=== PATIENT | male | born 1940 | race Caucasian/White ===

== ENCOUNTER 2019-06-04 08:23 | Day surgery (SDC) | payer OTHER, MEDICARE ==
[2019-06-04] MEDS ORDERED: Ringers Lactate 1,000 ML IV ONE (08:53)
[2019-06-04] MEDS ORDERED: PROPOFOL 200 MG/20 ML VIAL IV ONE (09:06)
[2019-06-04] MEDS ORDERED: FENTANYL CITR 100 MCG/2 ML ONE (09:07)
[2019-06-04] MEDS ORDERED: LIDOCAINE 2% MPF 5 ML VIAL ONE (09:08)
[2019-06-04] MEDS ORDERED: ONDANSETRON 4 MG/2 ML VIAL ONE (09:22)
[2019-06-04 09:47] LABS: Potassium 3.8 mmol/L (3.5-5.1)
[2019-06-04] MEDS: LIDOCAINE 1% W/EPI 1:100,000 MDV 20 ML VIAL ONE ×2 (09:57→10:00)
[2019-06-04] MEDS ORDERED: GLYCOPYRROLATE 0.2 MG/ML SYR ONE ×2 (10:05→10:44)
[2019-06-04] MEDS ORDERED: EPHEDRINE SULF 50 MG/ML VIAL ONE (10:09)
[2019-06-04 13:21] VITALS: BP 155/60; TEMP 97; O2SAT 99
--- NOTE | 2019-06-15 03:51 | OP ---
Date of Procedure: 06/04/2019 Surgeon: Lindy Rodrigues MD Preoperative Diagnosis: Atypical intradermal melanocytic proliferation, favor melanoma in situ. Postoperative Diagnosis: Pathology pending. Procedure: Excision partial external ear and substitute skin graft to the left ear, less than 100 sq cm. Indication For Procedure: Mr. 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 At that time, he was noted to have a pigmented lesion within the left debbie and a pun ch biopsy was performed demonstrating atypical intradermal melanocytic proliferation with concern for melanoma in situ. The risks, benefits, and alternatives were carefully considered with the patient' s in light of his significant underlying dementia. Due to concern for melanoma in situ with freedom bility to rule out invasive melanoma, the decision was made to proceed with the procedure. The patie nt also was noted to have diffuse chronic skin condition with overall poor skin quality of the extrem ities, trunk, arms, and neck. Description Of Procedure In Detail: The patient was brought to the operating room. He was placed un vishal general anesthesia. The patient's neck, ear, and face were prepped with Betadine and draped in a sterile fashion. An incision was made through the skin and cartilage of the debbie with approximate ly 5 mm margin of normal-appearing skin from the edges of the pigmented regions circumferentially. F ull-thickness skin is divided and the conchal cartilage was likewise incised. The cartilage was care fully elevated off the posterior conchal skin and marked with a suture indicating 12 o'clock, which c oincided with the mid portion of the root of the helix. Due to concern for melanocytic disease, the specimen was sent for permanent section only. A dermal skin graft substitute was selected and cut to appropriate size for the defect, which was approximately 2 to 2.5 cm. The skin was positioned and s ecured in a 4-point fashion using silk sutures. The remaining edges of the skin were secured using a chromic suture. A bolster was then formed from Xeroform and was packed into the debbie to ensure go od adherence of the skin graft substitute to the recipient site. The bolster was secured using the p reviously placed silk sutures. The surrounding area was cleaned and dried, and the patient was retur inocente to care of Anesthesia for awakening and extubation, which proceeded without complication. Disposition: Patient will be discharged home later today in the care of his family and follow up lory Rodrigues in 10 days for removal of the bolster and evaluation for healing. Rc Bobo, the [facility] sales representative health insurance, is notified of patient's scheduled followup and will plan to proceed. JOE Voice ID: [id number] Report ID: [id number]
== END 2019-06-04 12:30 | disposition home or self-care (01) ==
LOC: OR 08:23
PROVIDERS: ATTEND Otolaryngology
PROC: 0HR Skin and Breast, Replacement (ICD-10-PCS; principal; 2019-06-04 09:45)
DX: C44.219 Basal cell carcinoma of skin of left ear and external auricular canal (principal); G47.33 Obstructive sleep apnea (adult) (pediatric); I48.91 Unspecified atrial fibrillation; K21.9 Gastro-esophageal reflux disease without esophagitis; G30.9 Alzheimer's disease, unspecified; F02.80 Dementia in other diseases classified elsewhere, unspecified severity, without behavioral disturbance, psychotic disturbance, mood disturbance, and anxiety; Z95.1 Presence of aortocoronary bypass graft; Z95.2 Presence of prosthetic heart valve; Z86.73 Personal history of transient ischemic attack (TIA), and cerebral infarction without residual deficits; Z87.891 Personal history of nicotine dependence; Z88.2 Allergy status to sulfonamides
CPT/HCPCS: 11643; 15275; 80048; 36415; 88305; J2704; J3010; J2405

== ENCOUNTER 2021-01-20 06:15 | Inpatient (IN) | payer OTHER, MEDICARE ==
[2021-01-20] MEDS ORDERED: LEVALBUTEROL 1.25 MG/3 ML NEB ONE (07:36)
[2021-01-20] MEDS ORDERED: IPRATROPIUM BROM 0.5MG/2.5ML ONE (07:36)
[2021-01-20] MEDS ORDERED: NA CHLORIDE 0.9% 1,000 ML ONE (07:36)
[2021-01-20] MEDS ORDERED: ACETAMINOPHEN 325 MG TABLET ONE (07:36)
[2021-01-20] MEDS ORDERED: PIPER/TAZO/NS 3.375gm 3.375 GM/100 ML BAG ONE (07:36)
[2021-01-20 07:58] LABS: Absolute Lymphocytes (CBC) 0.3 K/uL (0.7-4.9); Basophils % 0.4 % (0-1.3); Lymphocytes % 2.5 % (15.3-44.8); MPV 10.6 fL (7.6-11.3); RBC Red Blood Cell Count 4.02 M/uL (4.33-5.43)
[2021-01-20 07:59] LABS: Protime INR 1.17
--- NOTE | 2021-01-20 08:00 | RAD REPORT ---
EXAM DESCRIPTION: Pedro Luis Single View01/20/2021 7:17 am CLINICAL HISTORY: Cough COMPARISON: 2017 FINDINGS: Mild bilateral lung opacities appear chronic The lungs appear clear of acute infiltrate. The heart is moderately enlarged. Postsurgical changes i nvolve the chest IMPRESSION: No acute abnormalities displayed
--- NOTE | 2021-01-20 08:08 | EDPHYS ---
Physician Documentation [facility] Name: Bridger Murillo Age: 80 yrs Sex: Male : 1940 Arrival Date: 01/20/2021 Time: 06:23 Bed 8 Private MD: ARABELLA Physician Malachi Napoles HPI: 01/20 06:52 This 80 yrs old Male presents to ER via Wheelchair with complaints of Cough, danii Fever, Congestion. 06:52 The patient or guardian reports cough, difficulty breathing. Onset: The danii symptoms/episode began/occurred 2 day(s) ago. Severity of symptoms: At their worst the symptoms were mild, in the emergency department the symptoms are actually worse. Modifying factors: The symptoms are alleviated by nothing. The patient has not experienced similar symptoms in the past. Historical: - Allergies: 06:45 Nemenda; ea 06:45 Sulfa (Sulfonamide Antibiotics); ea - PMHx: 06:45 skin cancer; Non stemi CT; Hypertension; Kidney stones; Hyperlipidemia; CVA; BPH; CAD; ea Bladder cancer; barretts; Atrial Fib; aortic valve disease; Anemia; Alzheimer's; - PSHx: 06:45 removal skin cancer; cysto for bladder cancer; Lithotripsy; cysto with basket extration ea for kidney stones; cardiac stent; colon resection with colostomy; aortic valve replacement; quadruple bypass; CABG; - Immunization history:: Adult Immunizations up to date. - Social history:: Smoking status: unknown. ROS: 06:53 Eyes: Negative for injury, pain, redness, and discharge, ENT: Negative for injury, danii pain, and discharge, Neck: Negative for injury, pain, and swelling, Cardiovascular: Negative for chest pain, palpitations, and edema, Abdomen/GI: Negative for abdominal pain, nausea, vomiting, diarrhea, and constipation, Back: Negative for injury and pain, : Negative for injury, bleeding, discharge, and swelling, MS/Extremity: Negative for injury and deformity, Skin: Negative for injury, rash, and discoloration, Neuro: Negative for headache, weakness, numbness, tingling, and seizure. 06:53 Constitutional: Positive for body aches, chills, fatigue, fever, malaise. 06:53 Respiratory: Positive for cough, shortness of breath, at rest. Exam: 06:53 Head/Face: Normocephalic, atraumatic. Eyes: Pupils equal round and reactive to light, danii extra-ocular motions intact. Lids and lashes normal. Conjunctiva and sclera are non-icteric and not injected. Cornea within normal limits. Periorbital areas with no swelling, redness, or edema. ENT: Nares patent. No nasal discharge, no septal abnormalities noted. Tympanic membranes are normal and external auditory canals are clear. Oropharynx with no redness, swelling, or masses, exudates, or evidence of obstruction, uvula midline. Mucous membranes moist. Neck: Trachea midline, no thyromegaly or masses palpated, and no cervical lymphadenopathy. Supple, full range of motion without nuchal rigidity, or vertebral point tenderness. No Meningismus. Chest/axilla: Normal chest wall appearance and motion. Nontender with no deformity. No lesions are appreciated. Cardiovascular: Regular rate and rhythm with a normal S1 and S2. No gallops, murmurs, or rubs. Normal PMI, no JVD. No pulse deficits. Back: No spinal tenderness. No costovertebral tenderness. Full range of motion. Male : Normal genitalia with no discharge or lesions. Skin: Warm, dry with normal turgor. Normal color with no rashes, no lesions, and no evidence of cellulitis. 06:53 Constitutional: The patient appears febrile. 06:53 Respiratory: the patient does not display signs of respiratory distress, Respirations: tachypnea, 22 Breath sounds: bronchial sounds, that are mild, are scattered, decreased breath sounds, that are mild, rhonchi, that are moderate, are scattered, stridor, is not appreciated. 08:15 ECG was reviewed by the Attending Physician. danii Vital Signs: 06:46 BP 141 / 70; Pulse 84; Resp 22; Pulse Ox 83% on R/A; ea 07:31 BP 155 / 62; Pulse 70; Resp 18; Temp 98.9(O); Pulse Ox 99% ; tr6 MDM: 06:48 Patient medically screened. danii 06:56 Differential diagnosis: viral Infection, bacterial infection, URI, bronchitis, danii pneumonia UTI. Differential Diagnosis: Obstructed Airway Bronchitis Influenza Upper Respiratory Infection Sinusitis Pharyngitis Pneumonia. Data reviewed: vital signs, nurses notes, lab test result(s), EKG, radiologic studies, plain films. Data interpreted: quality assurance monitor chassis: rate is 84 beats/min, rhythm is regular, Pulse oximetry: on room air is 83 %. Test interpretation: by ED physician or midlevel provider: ECG, plain radiologic studies. Counseling: I had a detailed discussion with the patient and/or guardian regarding: the historical points, exam findings, and any diagnostic results supporting the discharge/admit diagnosis, lab results, radiology results. 01/20 06:51 Order name: Basic Metabolic Panel [facility] 01/20 06:51 Order name: CBC with Diff [facility] 01/20 06:51 Order name: LFT's 01/20 06:51 Order name: Magnesium [facility] 01/20 06:51 Order name: NT PRO-BNP [facility] 01/20 06:51 Order name: PT-INR; Complete Time: 08:49 [facility] 01/20 06:51 Order name: Troponin (emerg Dept Use Only); Complete Time: 08:13 [facility] 01/20 06:51 Order name: Blood Culture Adult (2) [facility] 01/20 06:51 Order name: Lactate; Complete Time: 08:13 [facility] 01/20 06:52 Order name: Basic Metabolic Panel; Complete Time: 08:13 EDID 01/20 06:52 Order name: CBC with Automated Diff [facility] 01/20 06:52 Order name: Liver (Hepatic) Function; Complete Time: 08:13 EDID 01/20 06:51 Order name: XRAY Chest (1 view); Complete Time: 08:13 [facility] 01/20 06:51 Order name: EKG; Complete Time: 06:52 [facility] 01/20 06:51 Order name: Cardiac monitoring; Complete Time: 08:10 [facility] 01/20 06:51 Order name: EKG - Nurse/Tech; Complete Time: 08:10 [facility] 01/20 06:52 Order name: Magnesium; Complete Time: 08:13 EDID 01/20 06:52 Order name: NT PRO-BNP; Complete Time: 08:13 EDID 01/20 07:59 Order name: CBC Smear Scan [facility] 01/20 08:23 Order name: COVID-19/FLU A+B; Complete Time: 08:49 EDMS 01/20 08:50 Order name: CT Chest Wo Con danii 01/20 09:44 Order name: CT; Complete Time: 09:51 EDID 01/20 06:51 Order name: IV Saline Lock; Complete Time: 07:48 [facility] 01/20 06:51 Order name: Labs collected and sent; Complete Time: 07:48 [facility] 01/20 06:51 Order name: O2 Per Protocol; Complete Time: 07:30 [facility] 01/20 06:51 Order name: O2 Sat Monitoring danii EC:15 Rate is 70 beats/min. Rhythm is irregularly irregular. QRS [place] is Normal. SD interval danii is normal. QRS interval is normal. QT interval is normal. No Q waves. T waves are Normal. ST Segment is depressed in leads II, III, aVF, V4, V5, V6. Clinical impression: Atrial Fibrillation. Interpreted by me. Reviewed by me. Administered Medications: 08:29 Drug: Zosyn (piperacillin-tazobactam) 3.375 grams Route: IVPB; Infused Over: 60 mins; tr6 Site: right antecubital; 09:18 Follow up: IV Status: Completed infusion; IV Intake: 100ml bp 08:30 Drug: NS 0.9% 1000 ml Route: IV; Rate: 100 ml/hr; Site: right antecubital; tr6 09:14 Follow up: IV Status: Infusion continued upon transfer bp 08:49 Drug: Lasix (furosemide) 40 mg Route: IVP; Site: right antecubital; tr6 09:17 Follow up: Response: No adverse reaction bp 08:52 Drug: AtroVENT (ipratropium) Aerosol 0.5 mg Route: Inhalation; tr6 08:52 Drug: Tylenol 650 mg Route: PO; tr6 09:19 Follow up: Response: No adverse reaction bp 08:53 Drug: Xopenex (levalbuterol) 1.25 mg Route: Inhalation; tr6 Disposition: 01/20/21 08:07 Hospitalization ordered by Anshul Booker for Inpatient Admission. Preliminary diagnosis are Cough, Fever, unspecified, Hypoxemia, Lobar pneumonia, unspecified organism - left lower lobe, Atrial fibrillation and flutter, Unspecified kidney failure - acute on chronic. - Bed requested for Telemetry/MedSurg (Inpatient). - Status is Inpatient Admission. bp - Condition is Fair. - Problem is new. - Symptoms have improved. Signatures: Dispatcher [employer] EDMalachi Dover MD MD cha Martinez, Eric em1 Gabrielle Blake, RN RN ea Aaron Schultz, RN RN bp Faye Vega, RN RN tr6 Corrections: (The following items were deleted from the chart) 07:41 06:52 Influenza Screen (A \T\ B)+BA.LAB.BRZ ordered. EDMS EDMS 07:41 06:52 CORONAVIRUS+MR.LAB.BRZ ordered. EDID EDMS 08:27 08:07 Hospitalization Ordered by Anshul Booker MD for Inpatient Admission. Preliminary danii diagnosis is Cough; Fever, unspecified; Hypoxemia; Lobar pneumonia, unspecified organism - left lower lobe; Atrial fibrillation and flutter. Bed requested for Telemetry/MedSurg (Inpatient). Status is Inpatient Admission. Condition is Fair. Problem is new. Symptoms have improved. danii 08:31 08:27 01/20/2021 08:07 Hospitalization Ordered by Anshul Booker MD for Inpatient em1 Admission. Preliminary diagnosis is Cough; Fever, unspecified; Hypoxemia; Lobar pneumonia, unspecified organism - left lower lobe; Atrial fibrillation and flutter; Unspecified kidney failure - acute on chronic. Bed requested for Telemetry/MedSurg (Inpatient). Status is Inpatient Admission. Condition is Fair. Problem is new. Symptoms have improved. danii 09:57 08:31 01/20/2021 08:07 Hospitalization Ordered by Anshul Booker MD for Inpatient bp Admission. Preliminary diagnosis is Cough; Fever, unspecified; Hypoxemia; Lobar pneumonia, unspecified organism - left lower lobe; Atrial fibrillation and flutter; Unspecified kidney failure - acute on chronic. Bed requested for Telemetry/MedSurg (Inpatient). Status is Inpatient Admission. Condition is Fair. Problem is new. Symptoms have improved. em1
--- NOTE | 2021-01-20 08:08 | ER ---
Nurse's Notes [facility] Name: Bridger Murillo Age: 80 yrs Sex: Male : 1940 Arrival Date: 01/20/2021 Time: 06:23 Bed 8 Private MD: Diagnosis: Cough;Fever, unspecified;Hypoxemia;Lobar pneumonia, unspecified organism-left lower lobe;Atrial fibrillation and flutter;Unspecified kidney failure-acute on chronic Presentation: 01/20 06:41 Chief complaint: Spouse and/or significant other states: cough and fever since iw yesterday, states he went to bed and his sats were 97%, was 81% this morning. 06:41 Method Of Arrival: Wheelchair iw 06:42 Ebola Screen: No symptoms or risks identified at this time. ea 06:42 Risk Assessment: Do you want to hurt yourself or someone else? Patient reports no ea desire to harm self or others. 06:45 Initial Sepsis Screen: Does the patient meet any 2 criteria? No. Patient's initial ea sepsis screen is negative. Does the patient have a suspected source of infection? No. Patient's initial sepsis screen is negative. 06:47 Coronavirus screen: cough unrelated to allergies, fever, Client presents with at least iw one sign or symptom that may indicate coronavirus-19. 06:47 Onset of symptoms was January 19, 2021. iw 06:47 Acuity: VALENCIA 3 iw Historical: - Allergies: 06:45 Nemenda; ea 06:45 Sulfa (Sulfonamide Antibiotics); ea - PMHx: 06:45 skin cancer; Non stemi [place]; Hypertension; Kidney stones; Hyperlipidemia; CVA; BPH; CAD; ea Bladder cancer; barretts; Atrial Fib; aortic valve disease; Anemia; Alzheimer's; - PSHx: 06:45 removal skin cancer; cysto for bladder cancer; Lithotripsy; cysto with basket extration ea for kidney stones; cardiac stent; colon resection with colostomy; aortic valve replacement; quadruple bypass; CABG; - Immunization history:: Adult Immunizations up to date. - Social history:: Smoking status: unknown. Screenin:41 Abuse screen: Denies threats or abuse. Nutritional screening: No deficits noted. ea Tuberculosis screening: No symptoms or risk factors identified. Fall Risk None identified. Assessment: 06:47 General: Appears uncomfortable, Behavior is calm, cooperative, appropriate for age. ea Pain: Denies pain. Neuro: Level of Consciousness is awake, alert, obeys commands, Oriented to person, place, time. Cardiovascular: Patient's skin is warm and dry. Respiratory: Airway is patent Respiratory effort is even, labored, Respiratory pattern is tachypnea. Derm: Skin is pink, warm \T\ dry. Musculoskeletal: Circulation, motion, and sensation intact. 07:00 Reassessment: No changes from previously documented assessment. Patient and/or family bp updated on plan of care and expected duration. Pain level reassessed. RECD REPORT FROM BRITTA WALTON. 80YO WM P/W COUGH, FEVER AND CONGESTION. 08:00 Reassessment: No changes from previously documented assessment. Patient and/or family bp updated on plan of care and expected duration. Pain level reassessed. ADMIT IN PROCESS. VS STABLE. 08:49 Reassessment: No changes from previously documented assessment. Patient and/or family bp updated on plan of care and expected duration. Pain level reassessed. ADMIT ON HOLD FOR CT. 08:50 Reassessment: MD Booker at bedside. tr6 09:04 Reassessment: pt transported to CT. tr6 Vital Signs: 06:46 BP 141 / 70; Pulse 84; Resp 22; Pulse Ox 83% on R/A; ea 07:31 BP 155 / 62; Pulse 70; Resp 18; Temp 98.9(O); Pulse Ox 99% ; tr6 ED Course: 06:23 Patient arrived in ED. es 06:26 Malachi Napoles MD is Attending Physician. danii 06:42 Patient has correct armband on for positive identification. Bed in low position. Call ea light in reach. 06:42 Arm band placed on right wrist. Patient placed in an exam room, on a stretcher, on ea pulse oximetry. 06:47 Triage completed. iw 07:10 Faye Vega, RN is Primary Nurse. tr6 07:17 XRAY Chest (1 view) In Process Unspecified. EDMS 07:30 Inserted saline lock: 20 gauge in right antecubital area, using aseptic technique. bp Blood collected. 07:50 Anshul Booker MD is Hospitalizing Provider. danii 08:50 No provider procedures requiring assistance completed. tr6 Administered Medications: 08:29 Drug: Zosyn (piperacillin-tazobactam) 3.375 grams Route: IVPB; Infused Over: 60 mins; tr6 Site: right antecubital; 09:18 Follow up: IV Status: Completed infusion; IV Intake: 100ml bp 08:30 Drug: NS 0.9% 1000 ml Route: IV; Rate: 100 ml/hr; Site: right antecubital; tr6 09:14 Follow up: IV Status: Infusion continued upon transfer bp 08:49 Drug: Lasix (furosemide) 40 mg Route: IVP; Site: right antecubital; tr6 09:17 Follow up: Response: No adverse reaction bp 08:52 Drug: AtroVENT (ipratropium) Aerosol 0.5 mg Route: Inhalation; tr6 08:52 Drug: Tylenol 650 mg Route: PO; tr6 09:19 Follow up: Response: No adverse reaction bp 08:53 Drug: Xopenex (levalbuterol) 1.25 mg Route: Inhalation; tr6 Intake: 09:18 IV: 100ml; Total: 100ml. bp Outcome: 08:07 Decision to Hospitalize by Provider. danii 09:09 Admitted to Med/surg accompanied by tech, family with patient, via stretcher, with bp oxygen, with chart, Report called to RONEN WALTON 09:09 Condition: stable 09:09 Instructed on the need for admit. 09:57 Patient left the ED. bp Signatures: Dispatcher [employer] Malachi Villegas MD MD cha Salyer, Edna es Williams, Irene, RN RN iw Antunez, Elena, RN RN ea Peltier, Brian, RN RN bp Ramnanan, Tiffany, RN RN tr6
[2021-01-20 08:12] LABS: ALT/SGPT 61 U/L (12-78); AST/SGOT 58 U/L (15-37); Albumin 3.6 g/dL (3.4-5.0); Alkaline Phosphatase 80 U/L (45-117); BUN Blood Urea Nitrogen 25 mg/dL (7-18); Bicarbonate 25 mmol/L (21-32); Bilirubin Direct 0.2 mg/dL (0-0.2); Bilirubin Total 0.6 mg/dL (0.2-1.0); Glucose Level 132 mg/dL (74-106); Magnesium 2.3 mg/dL (1.8-2.4); NT PRO-BNP 4515 pg/mL (<450); Potassium 4.4 mmol/L (3.5-5.1); Sodium Level 139 mmol/L (136-145); Troponin (Emerg Dept Use Only) < 0.02 ng/mL (0.0-0.045)
[2021-01-20 08:23] LABS: SARS-COV-2 RT PCR NEGATIVE (NEGATIVE)
[2021-01-20] MEDS ORDERED: FUROSEMIDE 20 MG/ 2ML VIAL ONE (08:52)
[2021-01-20] MEDS ORDERED: MORPHINE 4 MG/ML SYR IV PRN (09:17)
[2021-01-20] MEDS ORDERED: ONDANSETRON 4 MG/2 ML VIAL IV PRN (09:17)
[2021-01-20] MEDS ORDERED: FAMOTIDINE 20 MG/2 ML VIAL IV SCH (09:17)
[2021-01-20] MEDS ORDERED: ACETAMINOPHEN 500 MG TAB PO PRN (09:17)
--- NOTE | 2021-01-20 09:44 | RAD REPORT ---
EXAM DESCRIPTION: CT - Thorax Wo Con - 01/20/2021 9:17 am CLINICAL HISTORY: Chest pain COMPARISON: January 21, 2021 chest x-ray TECHNIQUE: Computed axial tomography of the chest was obtained. Contrast was not requested. All CT scans are performed using dose optimization technique as appropriate and may include automated exposure control or mA/KV adjustment according to patient size. FINDINGS: The evaluation of mediastinum, tiburcio and vessels is limited secondary to lack of IV contras t administration. Mild to moderate bilateral lower lobe lung opacities. Cardiomegaly. Stent is present within the ascending thoracic aorta. Coronary arterial calcifications. No mediastinal or hilar lymphadenopathy is seen. A pleural effusion is not present. No pericardial effusion Cholelithiasis. 8.9 centimeter left renal cyst. Smaller right renal cyst. The most inferior slice dem onstrates probable mild right hydronephrosis. 4.1 centimeter duodenal diverticulum. High-grade stenosis left renal artery IMPRESSION: Mild to moderate lower lobe opacities may represent pneumonia or pneumonitis.
[2021-01-20 09:56] LABS: Blood Morphology Comment NOT SEEN (NOT SEEN); Platelet Estimate ADEQ; White Blood Cell Scan OK (OK)
[2021-01-20] MEDS: PIPER/TAZO/NS 3.375gm 3.375 GM/100 ML BAG IVPB SCH ×2 (14:56→18:29)
[2021-01-20] MEDS: FAMOTIDINE 20 MG/2 ML VIAL IV SCH (14:57)
[2021-01-20] MEDS ORDERED: NITROGLYCERIN 0.4 MG/TAB SL PRN (15:15)
[2021-01-20] MEDS ORDERED: DOCUSATE NA 100 MG CAP PO PRN (15:15)
[2021-01-20] MEDS ORDERED: TRAMADOL HCL 50 MG TAB PO PRN (15:15)
--- NOTE | 2021-01-20 15:24 | P.HP ---
Certification for Inpatient Patient admitted to: Inpatient With expected LOS: >2 Midnights Practitioner: I am a practitioner with admitting privileges, knowledge of patient current condition, hospital course, and medical plan of care. Services: Services provided to patient in accordance with Admission requirements found in Title 42 Section 412.3 of the Code of Federal Regulations Patient History Date of Service: 01/20/21 Reason for admission: DYSPNEA History of Present Illness: MR. PARKER IS PATIENT WITH MODERATE ALZ. DEMENTIA, A FIB, CHF AND HISTORY OF AORTIC VALVE REPLACEMENT COMES WITH DYSPNEA AND FEVER FOR ADAY. HIS X RAY DOES NOT SHOW PNEUMONIA BUT I ASKED FOR CT SCAN AND IT SHOWS BILATERAL BASILAR PNEUMONIA. HE IS ON ZOSYN AND NOT LEVAQUIN HE IS AMIODARONE FOR AFIB. Allergies memantine HCl [From Namenda] Adverse Reaction (Severe, Verified 06/04/19 09:31) tinnitus Sulfa (Sulfonamide Antibiotics) Adverse Reaction (Unknown, Verified 06/04/19 09:31) unknown/childhood reaction Nemenda Allergy (Uncoded 06/04/19 09:31) tinnitus Home medications list reviewed: Yes Home Medications: Ascorbic Acid [C-1000] 1,000 mg PO DAILY 12/12/13 Atorvastatin Calcium [Lipitor*] 20 mg PO BEDTIME 12/12/13 Cyanocobalamin (Vitamin B-12) [B-12] 1,000 mcg PO DAILY 12/12/13 Donepezil HCl [Aricept] 23 mg PO BEDTIME 12/12/13 Finasteride [Proscar*] 5 mg PO BEDTIME 12/12/13 Melatonin [Melatonin*] 3 mg PO BEDTIME 12/12/13 Niacin [Niacin ER] 500 mg PO BIDWM 12/12/13 Pantoprazole [Protonix Tab*] 40 mg PO BID 12/12/13 Tamsulosin [Flomax*] 1 cap PO BEDTIME 12/12/13 Amiodarone HCl [Cordarone*] 200 mg PO [id number] 03/15/14 Nitroglycerin [Nitrostat*] 0.4 mg SL PRN PRN 03/15/14 traMADol HCL [Ultram*] 50 mg PO Q6H PRN #0 tab 03/29/14 Furosemide [Lasix*] 20 mg PO DAILY 06/13/14 Magnesium Oxide [Magnesium] 400 mg PO BID 06/13/14 Aspirin Chewable [Aspirin Chewable*] 81 mg PO DAILY 12/01/15 Cholecalciferol (Vitamin D3) [Vitamin D3] 1,000 units PO BEDTIME 12/01/15 Losartan Potassium [Cozaar] 100 mg PO [id number] 12/01/15 Prevagen 1 pill PO DAILY 12/01/15 Amlodipine [Norvasc*] 5 mg PO DAILY 01/20/21 Citalopram Hydrobromide [Celexa] 20 mg PO DAILY 01/20/21 Coconut Oil 1 tab PO DAILY 01/20/21 Docosahexanoic AC/Epa [Fish Oil 1,000 MG*] 1,000 mg PO DAILY 01/20/21 Docusate Sodium 100 mg PO DAILY PRN 01/20/21 Levothyroxine Sodium [Levothyroxine] 50 mcg PO [id number] 01/20/21 Medium Chain Triglycerides [Mct Oil] 15 ml PO DAILY 01/20/21 Sennosides [Senna] 1 cap PO BID PRN 01/20/21 - Past Medical/Surgical History Diabetic: No -: AFIB, HTN -: AORTIC VALVE DISEASE -: CAD -: HYPERLIPIDEMIA -: HX OF STROKE -: DIVERTICULITIS -: NEPHROLITHIASIS -: BLADDED CA -: RUPTURED SIGMOID -: PULOMARY EDEMA -: LEUKOCYTOSIS -: NON-SUSTAINED VT/NSTEMI -: TAVR -: CABG X 4 -: KIDNEY STONE -: (CA/CYSTOGRAM) -: EX LAP WITH SIGMOID COLOSTOMY -: REMOVAL OF CYST ON THIGH -: i&D of abdominal wound -: cardiacstent - Family History Father -: Heart disease, Hypertension, Stroke, Cancer Mother -: Heart disease, Hypertension, Diabetes - Social History Alcohol use: No CD- Drugs: No Caffeine use: Yes Review of Systems 10-point ROS is otherwise unremarkable General: Weakness, Malaise Respiratory: Shortness of Breath Physical Examination - Vital Signs Temperature: 97 F Blood Pressure: 143/77 Pulse: 71 Respirations: 20 Pulse Ox (%): 89 - Physical Exam General: Oriented x1 (HE IS AWARE OF PEOPLE LIKE ME AND HIS , DAUGHTER ETC.), Mild distress, Confused HEENT: Atraumatic, PERRLA, Mucous membr. moist/pink, EOMI, Sclerae nonicteric Neck: Supple, 2+ carotid pulse no bruit, No LAD, Without JVD or thyroid abnormality Respiratory: Diminished Cardiovascular: Irregular heart rate/rhythm Gastrointestinal: Normal bowel sounds, No tenderness Musculoskeletal: No tenderness Integumentary: No rashes Neurological: Normal gait, Normal speech, Normal strength at 5/5 x4 extr, Normal tone, Normal affect Lymphatics: No axilla or inguinal lymphadenopathy - Studies Laboratory Data (last 24 hrs) 01/20/21 07:40: PT 13.5 H, INR 1.17 01/20/21 07:40: WBC 11.30 H, Hgb 12.1 L, Hct 38.0 L, Plt Count 172 01/20/21 07:40: Sodium 139, Potassium 4.4, BUN 25 H, Creatinine 1.76 H, Glucose 132 H, Magnesium 2.3, Total Bilirubin 0.6, AST 58 H, ALT 61, Alkaline Phosphatase 80 Assessment and Plan - Problems (Diagnosis) (1) Bacterial pneumonia Current Visit: Yes Status: Acute Plan: IV ZOSYN NEBS PRN GENTLE HYDRATION NO NEED OF STEROIDS AT THIS POINT. (2) Dehydration Current Visit: Yes Status: Acute Plan: GENTLE HYDRATION. (3) Atrial fibrillation Current Visit: No Status: Chronic (4) Dementia Current Visit: No Status: Chronic Plan: GRADUAL WORSENING. Qualifiers: Dementia type: Alzheimer's (5) Hypertension Current Visit: No Status: Acute Qualifiers: Hypertension type: essential hypertension Qualified Code(s): I10 - Essential (primary) hypertension - Advance Directives Does patient have a Living Will: Yes Does patient have a Durable POA for Healthcare: Yes
[2021-01-20] MEDS: ALBUTEROL 2.5 MG/3 ML NEB SOL NEB PRN (17:55)
[2021-01-20] MEDS: IPRATROPIUM BROM 0.5MG/2.5ML NEB PRN (17:55)
[2021-01-20] MEDS: ENOXAPARIN 30 MG/0.3 ML SQ SCH (18:29)
[2021-01-20] MEDS: MAGNESIUM OXIDE 400 MG TAB PO SCH (21:00)
[2021-01-20] MEDS: VITAMIN D 1000 UNIT TAB PO SCH (21:00)
[2021-01-20] MEDS: TAMSULOSIN 0.4 MG SR CAP PO SCH (21:00)
[2021-01-20] MEDS ORDERED: DONEPEZIL HCL 23 MG PO SCH (21:00)
[2021-01-20] MEDS: FINASTERIDE 5 MG TAB PO SCH (21:00)
[2021-01-20] MEDS: ATORVASTATIN 20 MG TAB PO SCH (21:00)
[2021-01-20] MEDS: MELATONIN 3 MG TABLET PO SCH (21:00)
[2021-01-20] MEDS: PANTOPRAZOLE 40MG TABLET PO SCH (21:00)
[2021-01-21] MEDS: PIPER/TAZO/NS 3.375gm 3.375 GM/100 ML BAG IVPB SCH ×3 (00:44→18:11)
[2021-01-21] MEDS: LOSARTAN POTASSIUM 50 MG TABLET PO SCH (05:45)
[2021-01-21] MEDS: AMIODARONE HCL 200 MG TAB PO SCH (05:45)
[2021-01-21] MEDS: LEVOTHYROXINE SOD 0.05 MG TABLET PO SCH (05:46)
[2021-01-21 06:20] LABS: Absolute Lymphocytes (CBC) 0.6 K/uL (0.7-4.9); Basophils % 0.5 % (0-1.3); Hematocrit 35.3 % (39.6-49.0); Lymphocytes % 9.9 % (15.3-44.8); MPV 10.9 fL (7.6-11.3); RBC Red Blood Cell Count 3.73 M/uL (4.33-5.43)
[2021-01-21 06:32] LABS: Potassium 4.4 mmol/L (3.5-5.1)
[2021-01-21] MEDS: ALBUTEROL 2.5 MG/3 ML NEB SOL NEB PRN (08:10)
[2021-01-21] MEDS: IPRATROPIUM BROM 0.5MG/2.5ML NEB PRN (08:10)
[2021-01-21] MEDS ORDERED: HOME MED 1 EA UNK (Citalopram Hydrobromide [Celexa] 20 MG Tablet) PO SCH (09:00)
[2021-01-21] MEDS: MAGNESIUM OXIDE 400 MG TAB PO SCH ×2 (09:00→21:00)
[2021-01-21] MEDS ORDERED: ASPIRIN 81 MG CHEWABLE TABLET PO SCH (09:00)
[2021-01-21] MEDS ORDERED: FUROSEMIDE 20 MG TABLET PO SCH (09:00)
[2021-01-21] MEDS: PANTOPRAZOLE 40MG TABLET PO SCH ×2 (09:50→21:20)
[2021-01-21] MEDS: FAMOTIDINE 20 MG/2 ML VIAL IV SCH (09:50)
[2021-01-21] MEDS: CITALOPRAM 10 MG TABLET PO SCH (09:51)
[2021-01-21] MEDS: AMLODIPINE 5 MG TAB PO SCH ×2 (09:52→15:09)
[2021-01-21] MEDS: CYANOCOBALAMIN 1,000 MCG TAB PO SCH (09:52)
[2021-01-21] MEDS: NACHLORIDE 0.45% 1,000 ML IV SCH (09:53)
[2021-01-21] MEDS ORDERED: ALBUTEROL 2.5 MG/3 ML NEB SOL NEB PRN (13:00)
[2021-01-21] MEDS ORDERED: IPRATROPIUM BROM 0.5MG/2.5ML NEB PRN (13:00)
--- NOTE | 2021-01-21 18:09 | P.PN ---
Subjective Date of Service: 01/21/21 Chief Complaint: DYSPNEA Subjective: Improving COUGH AND GREEN SPUTUM, OXYGENATION HAS IMPROVED. I TALKED TO THAT WITHOUT ELIQUIS HE HAS A HIGH RISK OF EMBOLIC EVENT. SHE AGREES TO PUT HIM ON IT. DR. BRANDON HAS SEEN HIM FOR LONG TIME AND HAS HAD CHRONIC A FIB. Review of Systems 10-point ROS is otherwise unremarkable General: Weakness Cardiovascular: As per HPI Physical Examination - Vital Signs Temperature: 98.5 F Blood Pressure: 147/67 Pulse: 54 Respirations: 16 Pulse Ox (%): 96 - Physical Exam General: Oriented x2, Mild distress HEENT: Atraumatic, PERRLA, EOMI Neck: Supple, JVD not distended Respiratory: Clear to auscultation bilaterally, Normal air movement Cardiovascular: Regular rate/rhythm, Normal S1 S2 Gastrointestinal: Normal bowel sounds, No tenderness Musculoskeletal: No tenderness Integumentary: No rashes Neurological: Normal speech, Normal tone, Normal affect Lymphatics: No axilla or inguinal lymphadenopathy - Studies Medications List Reviewed: Yes Assessment And Plan - Current Problems (Diagnosis) (1) Bacterial pneumonia Current Visit: Yes Status: Acute Plan: IV ZOSYN NEBS PRN GENTLE HYDRATION NO NEED OF STEROIDS AT THIS POINT. SPUTUM CULTURE PENDING. (2) Dehydration Current Visit: Yes Status: Acute Plan: GENTLE HYDRATION. (3) Atrial fibrillation Current Visit: No Status: Chronic Plan: RATE IS CONTROLLED START ELIQUIS STOP ASPIRIN. Qualifiers: Atrial fibrillation type: longstanding persistent Qualified Code(s): I48.11 - Longstanding persistent atrial fibrillation (4) Dementia Current Visit: No Status: Chronic Plan: GRADUAL WORSENING. Qualifiers: Dementia type: Alzheimer's (5) Hypertension Current Visit: No Status: Acute Qualifiers: Hypertension type: essential hypertension Qualified Code(s): I10 - Essential (primary) hypertension
[2021-01-21] MEDS: ENOXAPARIN 30 MG/0.3 ML SQ SCH (18:11)
[2021-01-21] MEDS: FINASTERIDE 5 MG TAB PO SCH (21:19)
[2021-01-21] MEDS: VITAMIN D 1000 UNIT TAB PO SCH (21:19)
[2021-01-21] MEDS: DONEPEZIL HCL 23 MG PO SCH (21:19)
[2021-01-21] MEDS: MELATONIN 3 MG TABLET PO SCH (21:20)
[2021-01-21] MEDS: ATORVASTATIN 20 MG TAB PO SCH (21:20)
[2021-01-21] MEDS: TAMSULOSIN 0.4 MG SR CAP PO SCH (21:20)
[2021-01-22] MEDS: PIPER/TAZO/NS 3.375gm 3.375 GM/100 ML BAG IVPB SCH ×3 (00:45→16:27)
[2021-01-22] MEDS: NACHLORIDE 0.45% 1,000 ML IV SCH ×2 (04:00→08:28)
[2021-01-22] MEDS: LEVOTHYROXINE SOD 0.05 MG TABLET PO SCH (06:03)
[2021-01-22] MEDS: LOSARTAN POTASSIUM 50 MG TABLET PO SCH (06:03)
[2021-01-22] MEDS: AMIODARONE HCL 200 MG TAB PO SCH (06:04)
[2021-01-22 07:06] LABS: Absolute Lymphocytes (CBC) 0.5 K/uL (0.7-4.9); Basophils % 0.8 % (0-1.3); Lymphocytes % 9.2 % (15.3-44.8); MPV 10.5 fL (7.6-11.3)
[2021-01-22 07:32] LABS: Thyroid Stimulating Hormone 4.28 uIU/mL (0.360-3.740)
[2021-01-22] MEDS: CITALOPRAM 10 MG TABLET PO SCH (08:16)
[2021-01-22] MEDS: PANTOPRAZOLE 40MG TABLET PO SCH ×2 (08:16→21:22)
[2021-01-22] MEDS: CYANOCOBALAMIN 1,000 MCG TAB PO SCH (08:16)
[2021-01-22] MEDS: AMLODIPINE 5 MG TAB PO SCH (08:17)
[2021-01-22] MEDS: MAGNESIUM OXIDE 400 MG TAB PO SCH ×2 (08:18→21:00)
[2021-01-22] MEDS: APIXABAN 2.5 MG TABLET PO SCH ×2 (10:21→21:22)
[2021-01-22] MEDS: DONEPEZIL HCL 23 MG PO SCH (21:00)
--- NOTE | 2021-01-22 21:03 | P.PN ---
Subjective Date of Service: 01/22/21 Chief Complaint: DYSPNEA Subjective: Improving COUGH AND GREEN SPUTUM, OXYGENATION HAS IMPROVED. I TALKED TO THAT WITHOUT ELIQUIS HE HAS A HIGH RISK OF EMBOLIC EVENT. SHE AGREES TO PUT HIM ON IT. DR. BRANDON HAS SEEN HIM FOR LONG TIME AND HAS HAD CHRONIC A FIB. HE IS BETTER BUT STILL WEAK WITH AGE AND COMORBIDITIES. Physical Examination - Vital Signs Temperature: 97.2 F Blood Pressure: 168/70 Pulse: 60 Respirations: 18 Pulse Ox (%): 95 - Physical Exam General: Oriented x2, Mild distress HEENT: Atraumatic, PERRLA, EOMI Neck: Supple, JVD not distended Respiratory: Clear to auscultation bilaterally, Normal air movement Cardiovascular: Regular rate/rhythm, Normal S1 S2 Gastrointestinal: Normal bowel sounds, No tenderness Musculoskeletal: No tenderness Integumentary: No rashes Neurological: Normal speech, Normal tone, Normal affect Lymphatics: No axilla or inguinal lymphadenopathy - Studies Medications List Reviewed: Yes Assessment And Plan - Current Problems (Diagnosis) (1) Bacterial pneumonia Current Visit: Yes Status: Acute Plan: IV ZOSYN NEBS PRN GENTLE HYDRATION NO NEED OF STEROIDS AT THIS POINT. SPUTUM CULTURE PENDING. (2) Dehydration Current Visit: Yes Status: Acute Plan: GENTLE HYDRATION. CREATININE IS LOWER WITH GENTLE HYDRATION. BNP CAN BE HIGH WITH A FIB ALONE AND DOES NOT HAVE TO HAVE CHF. (3) Atrial fibrillation Current Visit: No Status: Chronic Plan: RATE IS CONTROLLED START ELIQUIS STOP ASPIRIN. Qualifiers: Atrial fibrillation type: longstanding persistent Qualified Code(s): I48.11 - Longstanding persistent atrial fibrillation (4) Dementia Current Visit: No Status: Chronic Plan: GRADUAL WORSENING. Qualifiers: Dementia type: Alzheimer's (5) Hypertension Current Visit: No Status: Acute Qualifiers: Hypertension type: essential hypertension Qualified Code(s): I10 - Essential (primary) hypertension
[2021-01-22] MEDS: VITAMIN D 1000 UNIT TAB PO SCH (21:21)
[2021-01-22] MEDS: FINASTERIDE 5 MG TAB PO SCH (21:21)
[2021-01-22] MEDS: ATORVASTATIN 20 MG TAB PO SCH (21:21)
[2021-01-22] MEDS: TAMSULOSIN 0.4 MG SR CAP PO SCH (21:22)
[2021-01-22] MEDS: MELATONIN 3 MG TABLET PO SCH (21:22)
[2021-01-23] MEDS: PIPER/TAZO/NS 3.375gm 3.375 GM/100 ML BAG IVPB SCH ×3 (00:30→18:22)
[2021-01-23] MEDS: AMIODARONE HCL 200 MG TAB PO SCH (06:19)
[2021-01-23] MEDS: LEVOTHYROXINE SOD 0.05 MG TABLET PO SCH (06:19)
[2021-01-23] MEDS: LOSARTAN POTASSIUM 50 MG TABLET PO SCH (06:19)
[2021-01-23] MEDS: NACHLORIDE 0.45% 1,000 ML IV SCH (06:34)
[2021-01-23 07:41] LABS: Absolute Lymphocytes (CBC) 0.4 K/uL (0.7-4.9); Basophils % 0.7 % (0-1.3); Hematocrit 32.7 % (39.6-49.0); Lymphocytes % 7.2 % (15.3-44.8); MPV 10.2 fL (7.6-11.3); RBC Red Blood Cell Count 3.48 M/uL (4.33-5.43)
[2021-01-23 08:08] LABS: Potassium 4.3 mmol/L (3.5-5.1)
[2021-01-23] MEDS: MAGNESIUM OXIDE 400 MG TAB PO SCH ×2 (09:00→21:00)
[2021-01-23] MEDS: CYANOCOBALAMIN 1,000 MCG TAB PO SCH (10:46)
[2021-01-23] MEDS: AMLODIPINE 5 MG TAB PO SCH (10:46)
[2021-01-23] MEDS: APIXABAN 2.5 MG TABLET PO SCH (10:46)
[2021-01-23] MEDS: CITALOPRAM 10 MG TABLET PO SCH (10:48)
[2021-01-23] MEDS: PANTOPRAZOLE 40MG TABLET PO SCH ×2 (10:54→21:21)
--- NOTE | 2021-01-23 12:54 | P.DS ---
Admission Date: 01/20/21 Discharge Date: 01/23/21 Disposition: DC HOME/HOME HEALTH CARE Discharge Condition: FAIR Reason for Admission: DYSPNEA - Problems (1) Bacterial pneumonia Current Visit: Yes Status: Acute (2) Dehydration Current Visit: Yes Status: Acute (3) Atrial fibrillation Current Visit: No Status: Chronic Qualifiers: Atrial fibrillation type: longstanding persistent Qualified Code(s): I48.11 - Longstanding persistent atrial fibrillation (4) Dementia Current Visit: No Status: Chronic Qualifiers: Dementia type: Alzheimer's (5) Hypertension Current Visit: No Status: Acute Qualifiers: Hypertension type: essential hypertension Qualified Code(s): I10 - Essential (primary) hypertension Brief History of Present Illness: MR. PARKER IS PATIENT WITH MODERATE ALZ. DEMENTIA, A FIB, CHF AND HISTORY OF AORTIC VALVE REPLACEMENT COMES WITH DYSPNEA AND FEVER FOR ADAY. HIS X RAY DOES NOT SHOW PNEUMONIA BUT I ASKED FOR CT SCAN AND IT SHOWS BILATERAL BASILAR PNEUMONIA. HE IS ON ZOSYN AND NOT LEVAQUIN HE IS AMIODARONE FOR AFIB. Hospital Course: HAS DEMENTIA ALZ DISEASE, A FIB, HTN. HISTORY OF AORTIC VALVE RPLACEMENT. HE GOES TO DR BROWN FOR A FIB. HE COMES HERE FOR FEVER NAD DYSPNEA, FOUND TO HAVE BIBASILAR PNEUMONIA, IMPROVED ON IV ZOSYN AND IS ABLE TO GO HOME ON AUGMENTIN BID OR 10 DAYS. I ALSO ADDED ELIQUIS HE HAS A FIB AND THE ONLY WAY TO PREVENT STROKE WILL BE ANTICOAGULATION. UNDERSTANDS THE RISKS AND BENEFITS. Vital Signs/Physical Exam: Temp Pulse Resp BP Pulse Ox 98.6 F 61 20 155/69 H 94 01/23/21 08:00 01/23/21 10:46 01/23/21 08:00 01/23/21 10:46 01/23/21 08:00 Laboratory Data at Discharge: WBC 5.70 K/uL (4.3-10.9) 01/23/21 07:22 Hgb 10.7 g/dL (13.6-17.9) L 01/23/21 07:22 Hct 32.7 % (39.6-49.0) L 01/23/21 07:22 Plt Count 141 K/uL (152-406) L 01/23/21 07:22 PT 13.5 SECONDS (9.5-12.5) H 01/20/21 07:40 INR 1.17 01/20/21 07:40 Sodium 141 mmol/L (136-145) 01/23/21 07:22 Potassium 4.3 mmol/L (3.5-5.1) 01/23/21 07:22 BUN 21 mg/dL (7-18) H 01/23/21 07:22 Creatinine 1.48 mg/dL (0.55-1.3) H 01/23/21 07:22 Glucose 105 mg/dL (74-106) 01/23/21 07:22 Magnesium 2.3 mg/dL (1.8-2.4) 01/20/21 07:40 Total Bilirubin 0.6 mg/dL (0.2-1.0) 01/20/21 07:40 AST 58 U/L (15-37) H 01/20/21 07:40 ALT 61 U/L (12-78) 01/20/21 07:40 Alkaline Phosphatase 80 U/L (45-117) 01/20/21 07:40 Troponin I < 0.02 ng/mL (0.0-0.045) 01/20/21 14:33 Home Medications: Ascorbic Acid [C-1000] 1,000 mg PO DAILY 12/12/13 Atorvastatin Calcium [Lipitor*] 20 mg PO BEDTIME 12/12/13 Cyanocobalamin (Vitamin B-12) [B-12] 1,000 mcg PO DAILY 12/12/13 Donepezil HCl [Aricept] 23 mg PO BEDTIME 12/12/13 Finasteride [Proscar*] 5 mg PO BEDTIME 12/12/13 Melatonin [Melatonin*] 3 mg PO BEDTIME 12/12/13 Niacin [Niacin ER] 500 mg PO BIDWM 12/12/13 Pantoprazole [Protonix Tab*] 40 mg PO BID 12/12/13 Tamsulosin [Flomax*] 1 cap PO BEDTIME 12/12/13 Amiodarone HCl [Cordarone*] 200 mg PO [id number] 03/15/14 Nitroglycerin [Nitrostat*] 0.4 mg SL PRN PRN 03/15/14 traMADol HCL [Ultram*] 50 mg PO Q6H PRN #0 tab 03/29/14 Furosemide [Lasix*] 20 mg PO DAILY 06/13/14 Magnesium Oxide [Magnesium] 400 mg PO BID 06/13/14 Cholecalciferol (Vitamin D3) [Vitamin D3] 1,000 units PO BEDTIME 12/01/15 Losartan Potassium [Cozaar] 100 mg PO [id number] 12/01/15 Prevagen 1 pill PO DAILY 12/01/15 Amlodipine [Norvasc*] 5 mg PO DAILY 01/20/21 Citalopram Hydrobromide [Celexa] 20 mg PO DAILY 01/20/21 Coconut Oil 1 tab PO DAILY 01/20/21 Docosahexanoic AC/Epa [Fish Oil 1,000 MG*] 1,000 mg PO DAILY 01/20/21 Docusate Sodium 100 mg PO DAILY PRN 01/20/21 Levothyroxine Sodium [Levothyroxine] 50 mcg PO [id number] 01/20/21 Medium Chain Triglycerides [Mct Oil] 15 ml PO DAILY 01/20/21 Sennosides [Senna] 1 cap PO BID PRN 01/20/21 Amox/Clavulanate [Augmentin 875-125 Tab] 1 each PO BID #20 tab 01/23/21 Apixaban [Eliquis] 2.5 mg PO BID #60 tablet 01/23/21 New Medications: Amox/Clavulanate [Augmentin 875-125 Tab] 1 each PO BID #20 tab Apixaban [Eliquis] 2.5 mg PO BID #60 tablet Followup: Anshul Booker MD [Primary Care Provider] -
--- NOTE | 2021-01-23 15:48 | RAD REPORT ---
EXAM DESCRIPTION: [facility] Single View01/23/2021 3:36 pm CLINICAL HISTORY: Shortness of breath COMPARISON: January 20, 2021 FINDINGS: Mild bibasilar lung opacities Heart is moderately enlarged. Postsurgical changes involve the chest IMPRESSION: Mild bibasilar lung opacities unchanged may represent pneumonia or pneumonitis.
[2021-01-23] MEDS: VITAMIN D 1000 UNIT TAB PO SCH (21:00)
[2021-01-23] MEDS: TAMSULOSIN 0.4 MG SR CAP PO SCH (21:20)
[2021-01-23] MEDS: MELATONIN 3 MG TABLET PO SCH (21:20)
[2021-01-23] MEDS: ATORVASTATIN 20 MG TAB PO SCH (21:21)
[2021-01-23] MEDS: DONEPEZIL HCL 23 MG PO SCH (21:21)
[2021-01-23] MEDS: FINASTERIDE 5 MG TAB PO SCH (21:21)
[2021-01-23 22:39] LABS: Urine Appearance TURBID (Clear)
[2021-01-23 22:40] LABS: Urine Bilirubin ND (Negative); Urine Blood ND (Negative); Urine Color Red (Yellow); Urine Glucose ND (Negative); Urine Protein ND (Negative); Urine Specific Gravity ND (1.005-1.030); Urine Urobilinogen ND mg/dL (0.2-1.0); Urine pH ND (5.0-7.0)
[2021-01-23 22:54] LABS: Urine RBC TNTC /HPF (NONE SEEN)
[2021-01-23 22:56] LABS: Urine Bacteria <20 /HPF (NONE SEEN)
[2021-01-24] MEDS: PIPER/TAZO/NS 3.375gm 3.375 GM/100 ML BAG IVPB SCH ×3 (00:52→18:05)
[2021-01-24] MEDS: AMIODARONE HCL 200 MG TAB PO SCH (06:30)
[2021-01-24] MEDS: LOSARTAN POTASSIUM 50 MG TABLET PO SCH (06:30)
[2021-01-24] MEDS: LEVOTHYROXINE SOD 0.05 MG TABLET PO SCH (06:30)
[2021-01-24 08:58] LABS: Absolute Lymphocytes (CBC) 0.5 K/uL (0.7-4.9); Basophils % 0.5 % (0-1.3); Hematocrit 31.2 % (39.6-49.0); Lymphocytes % 8.4 % (15.3-44.8); MPV 9.9 fL (7.6-11.3); RBC Red Blood Cell Count 3.35 M/uL (4.33-5.43)
[2021-01-24] MEDS: MAGNESIUM OXIDE 400 MG TAB PO SCH ×2 (09:00→21:00)
[2021-01-24 09:19] LABS: Potassium 4.1 mmol/L (3.5-5.1)
[2021-01-24] MEDS: PANTOPRAZOLE 40MG TABLET PO SCH ×2 (09:55→21:53)
[2021-01-24] MEDS: CITALOPRAM 10 MG TABLET PO SCH (09:55)
[2021-01-24] MEDS: CYANOCOBALAMIN 1,000 MCG TAB PO SCH (09:56)
[2021-01-24] MEDS: AMLODIPINE 5 MG TAB PO SCH (09:56)
[2021-01-24] MEDS: ASPIRIN EC 81 MG TAB PO SCH (09:59)
--- NOTE | 2021-01-24 11:10 | RAD REPORT ---
EXAM DESCRIPTION: CT - Chest For Pe Angio - 01/24/2021 10:26 am CLINICAL HISTORY: HYPOXIA COMPARISON: Thorax Wo Con dated 01/20/2021; CTANGIO CHEST FOR PE dated 12/25/2013; Chest Single View d ated 01/23/2021 TECHNIQUE: Dynamically enhanced 3 mm thick images of the chest were obtained during administration o f approximately 150mL Isovue 370 IV contrast. Coronal and oblique MIP reconstruction images were gene rated and reviewed. Exam utilizes a protocol to evaluate the pulmonary arterial tree. All CT scans are performed using dose optimization technique as appropriate and may include automated exposure control or mA/KV adjustment according to patient size. FINDINGS: No pulmonary emboli are identified. The aorta as imaged shows no acute or suspicious finding. No pericardial thickening or effusion. Sten t of the ascending aorta again noted. Bypass surgical changes and dense coronary artery calcification s noted. A 7 mm rounded pulmonary nodule is present in the superior segment left lower lobe (image [id number]). Th is is not clearly seen January 20 but may have been obscured by surrounding parenchymal disease. This can be re-evaluated with CT imaging in 6-12 months. Posterior left base consolidation is present with a few small air bronchograms seen. This has decreased since January 20. Interstitial and alveolar opacities in the right lower lobe are present without dense consolidation. These are also improved. Small bila teral pleural effusions are present slightly larger than comparison. No mediastinal or hilar suspicious masses. No chest wall masses or abnormal axillary lymphadenopathy. IMPRESSION: No pulmonary emboli identified. Left greater than right posterior lung base pneumonia findings improved but not resolved since January 20 . Small 7 mm pulmonary nodule superior segment left lower lobe may be part of a pneumonia process or an independent nodule. This can be re-evaluated with CT imaging in 6-12 months. Small bilateral pleural effusions slightly increased from comparison.
[2021-01-24 11:21] VITALS: BMI 23.2
[2021-01-24] MEDS: NACHLORIDE 0.45% 1,000 ML IV SCH (14:15)
--- NOTE | 2021-01-24 21:15 | P.PN ---
Subjective Date of Service: 01/24/21 Chief Complaint: DYSPNEA Subjective: Improving COUGH AND GREEN SPUTUM, OXYGENATION HAS IMPROVED. I TALKED TO THAT WITHOUT ELIQUIS HE HAS A HIGH RISK OF EMBOLIC EVENT. SHE AGREES TO PUT HIM ON IT. DR. BRANDON HAS SEEN HIM FOR LONG TIME AND HAS HAD CHRONIC A FIB. HE IS BETTER BUT STILL WEAK WITH AGE AND COMORBIDITIES. MR. NELSON'S DISCHARGE IS DELAYED BY A DAY OR TWO HE HAS HEMATURIA FROM BEING ON ELIQUIS THAT WAS GIVEN TO PREFVENT EMBOLIC EVENT HE HAS A FIB. UNFORTUNATELY HE CAN'T TAKE IT HE BLED SIGNIFICANTLY. HE NOW HAS CLEAR URINE AFTER I STOPPED ELIQUIS. I WILL GIVE GENTLE HYDRATION CREATININE WAS HIGHER BEFORE IV DYE FOR CT SCAN THAT IS NEGATIVE FOR PE. Physical Examination - Vital Signs Temperature: 97.8 F Blood Pressure: 128/61 Pulse: 50 Respirations: 18 Pulse Ox (%): 94 - Studies Medications List Reviewed: Yes Assessment And Plan - Current Problems (Diagnosis) (1) Bacterial pneumonia Current Visit: Yes Status: Acute Plan: IV ZOSYN NEBS PRN GENTLE HYDRATION NO NEED OF STEROIDS AT THIS POINT. SPUTUM CULTURE PENDING. (2) Dehydration Current Visit: Yes Status: Acute Plan: GENTLE HYDRATION. CREATININE IS LOWER WITH GENTLE HYDRATION. BNP CAN BE HIGH WITH A FIB ALONE AND DOES NOT HAVE TO HAVE CHF. (3) Atrial fibrillation Current Visit: No Status: Chronic Plan: RATE IS CONTROLLED START ELIQUIS STOP ASPIRIN. Qualifiers: Atrial fibrillation type: longstanding persistent Qualified Code(s): I48.11 - Longstanding persistent atrial fibrillation (4) Dementia Current Visit: No Status: Chronic Plan: GRADUAL WORSENING. Qualifiers: Dementia type: Alzheimer's (5) Hypertension Current Visit: No Status: Acute Qualifiers: Hypertension type: essential hypertension Qualified Code(s): I10 - Essential (primary) hypertension
[2021-01-24] MEDS: MELATONIN 3 MG TABLET PO SCH (21:52)
[2021-01-24] MEDS: FINASTERIDE 5 MG TAB PO SCH (21:52)
[2021-01-24] MEDS: TAMSULOSIN 0.4 MG SR CAP PO SCH (21:53)
[2021-01-24] MEDS: ATORVASTATIN 20 MG TAB PO SCH (21:53)
[2021-01-24] MEDS: VITAMIN D 1000 UNIT TAB PO SCH (21:55)
[2021-01-24] MEDS: DONEPEZIL HCL 23 MG PO SCH (22:14)
[2021-01-25] MEDS: PIPER/TAZO/NS 3.375gm 3.375 GM/100 ML BAG IVPB SCH ×2 (00:49→08:12)
[2021-01-25 04:37] VITALS: O2SAT 95
[2021-01-25] MEDS: LOSARTAN POTASSIUM 50 MG TABLET PO SCH (06:25)
[2021-01-25] MEDS: LEVOTHYROXINE SOD 0.05 MG TABLET PO SCH (06:26)
[2021-01-25] MEDS: NACHLORIDE 0.45% 1,000 ML IV SCH (06:26)
[2021-01-25] MEDS: AMIODARONE HCL 200 MG TAB PO SCH (06:26)
[2021-01-25 06:41] LABS: Absolute Lymphocytes (CBC) 0.7 K/uL (0.7-4.9); Basophils % 0.8 % (0-1.3); Hematocrit 30.9 % (39.6-49.0); RBC Red Blood Cell Count 3.33 M/uL (4.33-5.43)
[2021-01-25] MEDS ORDERED: Mastisol Adhesive Liq ONE (07:50)
[2021-01-25] MEDS: ASPIRIN EC 81 MG TAB PO SCH (08:10)
[2021-01-25] MEDS: PANTOPRAZOLE 40MG TABLET PO SCH (08:10)
[2021-01-25] MEDS: CYANOCOBALAMIN 1,000 MCG TAB PO SCH (08:11)
[2021-01-25] MEDS: MAGNESIUM OXIDE 400 MG TAB PO SCH (08:11)
[2021-01-25] MEDS: AMLODIPINE 5 MG TAB PO SCH (08:11)
[2021-01-25] MEDS: CITALOPRAM 10 MG TABLET PO SCH (08:11)
--- NOTE | 2021-01-25 13:13 | P.DS ---
Admission Date: 01/20/21 Discharge Date: 01/25/21 Disposition: DC HOME/HOME HEALTH CARE Discharge Condition: FAIR Reason for Admission: DYSPNEA - Problems (1) Bacterial pneumonia Status: Acute (2) Dehydration Status: Acute (3) Atrial fibrillation Status: Chronic Qualifiers: Atrial fibrillation type: longstanding persistent Qualified Code(s): I48.11 - Longstanding persistent atrial fibrillation (4) Dementia Status: Chronic Qualifiers: Dementia type: Alzheimer's (5) Hypertension Status: Acute Qualifiers: Hypertension type: essential hypertension Qualified Code(s): I10 - Essential (primary) hypertension Brief History of Present Illness: MR. PARKER IS PATIENT WITH MODERATE ALZ. DEMENTIA, A FIB, CHF AND HISTORY OF AORTIC VALVE REPLACEMENT COMES WITH DYSPNEA AND FEVER FOR ADAY. HIS X RAY DOES NOT SHOW PNEUMONIA BUT I ASKED FOR CT SCAN AND IT SHOWS BILATERAL BASILAR PNEUMONIA. HE IS ON ZOSYN AND NOT LEVAQUIN HE IS AMIODARONE FOR AFIB. Hospital Course: HAS DEMENTIA ALZ DISEASE, A FIB, HTN. HISTORY OF AORTIC VALVE RP LACEMENT. HE GOES TO DR BROWN FOR A FIB. HE COMES HERE FOR FEVER NAD DYSPNEA, FOUND TO HAVE BIBASILAR PNEUMONIA, IMPROVED ON IV ZOSYN AND IS ABLE TO GO HOME ON AUGMENTIN BID OR 10 DAYS. I ALSO ADDED ELIQUIS HE HAS A FIB AND THE ONLY WAY TO PREVENT STROKE WILL BE ANTICOAGULATION. UNDERSTANDS THE RISKS AND BENEFITS. MR. PARKER COMES WITH DYSPNEA, FEVER AND HAS DONE WITH ZOSYN FOR PNEUMONIA. HE DEVELOPED HEMATURIA ON ELIQUIS AND SO WE HAD TO STOP IT. WE DID CT ANGIO AND PE WAS RULED OUT. HE GOES TO DR. BRANDON AND SOME OTHER UROLOIST. Vital Signs/Physical Exam: Temp Pulse Resp BP Pulse Ox 98 F 65 20 151/69 H 92 01/25/21 08:00 01/25/21 08:00 01/25/21 08:00 01/25/21 08:00 01/25/21 08:00 Laboratory Data at Discharge: WBC 5.70 K/uL (4.3-10.9) 01/25/21 06:17 Hgb 10.6 g/dL (13.6-17.9) L 01/25/21 06:17 Hct 30.9 % (39.6-49.0) L 01/25/21 06:17 Plt Count 151 K/uL (152-406) L 01/25/21 06:17 PT 13.5 SECONDS (9.5-12.5) H 01/20/21 07:40 INR 1.17 01/20/21 07:40 Sodium 141 mmol/L (136-145) 01/25/21 06:17 Potassium 4.0 mmol/L (3.5-5.1) 01/25/21 06:17 BUN 21 mg/dL (7-18) H 01/25/21 06:17 Creatinine 1.43 mg/dL (0.55-1.3) H 01/25/21 06:17 Glucose 96 mg/dL (74-106) 01/25/21 06:17 Magnesium 2.3 mg/dL (1.8-2.4) 01/20/21 07:40 Total Bilirubin 0.6 mg/dL (0.2-1.0) 01/20/21 07:40 AST 58 U/L (15-37) H 01/20/21 07:40 ALT 61 U/L (12-78) 01/20/21 07:40 Alkaline Phosphatase 80 U/L (45-117) 01/20/21 07:40 Troponin I < 0.02 ng/mL (0.0-0.045) 01/20/21 14:33 Home Medications: Ascorbic Acid [C-1000] 1,000 mg PO DAILY 12/12/13 Atorvastatin Calcium [Lipitor*] 20 mg PO BEDTIME 12/12/13 Cyanocobalamin (Vitamin B-12) [B-12] 1,000 mcg PO DAILY 12/12/13 Donepezil HCl [Aricept] 23 mg PO BEDTIME 12/12/13 Finasteride [Proscar*] 5 mg PO BEDTIME 12/12/13 Melatonin [Melatonin*] 3 mg PO BEDTIME 12/12/13 Niacin [Niacin ER] 500 mg PO BIDWM 12/12/13 Pantoprazole [Protonix Tab*] 40 mg PO BID 12/12/13 Tamsulosin [Flomax*] 1 cap PO BEDTIME 12/12/13 Amiodarone HCl [Cordarone*] 200 mg PO [id number] 03/15/14 Nitroglycerin [Nitrostat*] 0.4 mg SL PRN PRN 03/15/14 traMADol HCL [Ultram*] 50 mg PO Q6H PRN #0 tab 03/29/14 Furosemide [Lasix*] 20 mg PO DAILY 06/13/14 Magnesium Oxide [Magnesium] 400 mg PO BID 06/13/14 Cholecalciferol (Vitamin D3) [Vitamin D3] 1,000 units PO BEDTIME 12/01/15 Losartan Potassium [Cozaar] 100 mg PO [id number] 12/01/15 Prevagen 1 pill PO DAILY 12/01/15 Amlodipine [Norvasc*] 5 mg PO DAILY 01/20/21 Citalopram Hydrobromide [Celexa] 20 mg PO DAILY 01/20/21 Coconut Oil 1 tab PO DAILY 01/20/21 Docosahexanoic AC/Epa [Fish Oil 1,000 MG*] 1,000 mg PO DAILY 01/20/21 Docusate Sodium 100 mg PO DAILY PRN 01/20/21 Levothyroxine Sodium [Levothyroxine] 50 mcg PO [id number] 01/20/21 Medium Chain Triglycerides [Mct Oil] 15 ml PO DAILY 01/20/21 Sennosides [Senna] 1 cap PO BID PRN 01/20/21 Amox/Clavulanate [Augmentin 875-125 Tab] 1 each PO BID #20 tab 01/23/21 New Medications: Amox/Clavulanate [Augmentin 875-125 Tab] 1 each PO BID #20 tab Physician Discharge Instructions: PROBLEM: Dyspnea, Pneumonia, hypoxia GOAL: Clear understanding of disease process INSTRUCTIONS: Follow up with primary doctor in 1 week If you have any questions regarding your stay call [phone] If your symptoms worsen call 911 or go to the ED. Diet: as tolerated Activity: as tolerated Followup: Anshul Booker MD [Primary Care Provider] - (Call to make an appointment. )
[2021-01-25 14:15] VITALS: BP 129/64; TEMP 97.7
== END 2021-01-25 12:50 | disposition home health service (06) | DRG 193 ==
LOC: ER 06:15 → ERHOLD 07:57 → 2ND 09:10
PROVIDERS: ADMIT Internal Medicine; ATTEND Internal Medicine
DX: J15.9 Unspecified bacterial pneumonia (principal); N17.0 Acute kidney failure with tubular necrosis; I48.11 Longstanding persistent atrial fibrillation; D68.32 Hemorrhagic disorder due to extrinsic circulating anticoagulants; I10 Essential (primary) hypertension; E78.5 Hyperlipidemia, unspecified; G30.9 Alzheimer's disease, unspecified; F02.80 Dementia in other diseases classified elsewhere, unspecified severity, without behavioral disturbance, psychotic disturbance, mood disturbance, and anxiety; E86.0 Dehydration; I25.10 Atherosclerotic heart disease of native coronary artery without angina pectoris; I25.2 Old myocardial infarction; R31.9 Hematuria, unspecified; T45.515A Adverse effect of anticoagulants, initial encounter; Z85.828 Personal history of other malignant neoplasm of skin; Z85.51 Personal history of malignant neoplasm of bladder; Z95.5 Presence of coronary angioplasty implant and graft; Z86.73 Personal history of transient ischemic attack (TIA), and cerebral infarction without residual deficits; Z95.1 Presence of aortocoronary bypass graft; Z88.8 Allergy status to other drugs, medicaments and biological substances; Z88.1 Allergy status to other antibiotic agents; Z79.01 Long term (current) use of anticoagulants; Z95.2 Presence of prosthetic heart valve; Z79.82 Long term (current) use of aspirin; Z79.890 Hormone replacement therapy; Z79.899 Other long term (current) drug therapy; Z20.822 Contact with and (suspected) exposure to COVID-19
CPT/HCPCS: 0240U; 36415; 71045; 71250; 71275; 80048; 80076; 81001; 83605; 83735; 83880; 84439; 84443; 84484; 85025; 85379; 85610; 87040; 87070; 87086; 87088; 87205; 93005; 94640; 94760; 96365; 96375; 97116; 97161; 97530; 99285; J1650; J1940; J2543; J7030; Q9967

== ENCOUNTER 2021-09-19 06:46 | Day surgery (SDC) | payer OTHER, MEDICARE ==
[2021-09-19] MEDS ORDERED: Ringers Lactate 1,000 ML IV ONE (07:34)
[2021-09-19] MEDS ORDERED: propofoL 200 MG/20 ML VIAL IV ONE ×2 (08:39→08:40)
[2021-09-19] MEDS ORDERED: LIDOCAINE 1% MPF 5 ML VIAL ONE (08:40)
[2021-09-19] MEDS ORDERED: ETOMIDATE 20 MG/10 ML VIAL IV ONE (08:41)
[2021-09-19] MEDS ORDERED: NS 0.9% VIAL 0 ML ONE (08:41)
[2021-09-19] MEDS ORDERED: Phenylephrine HCl 10 MG/ML 1 ML VIAL ONE (08:41)
--- NOTE | 2021-09-19 09:32 | ENDO RPT ---
[address], [address] COLONOSCOPY PROCEDURE REPORT EXAM DATE: 09/19/2021 PATIENT NAME: Bridger Murillo MR #: [id number] BIRTHDATE: 1940 ATTENDING: Kali Hinds Dr STATUS: outpatient RF DESIGN ENGINEER: Rhina Caballero RN and Caroline Ruiz INDICATIONS: The patient is a 80 yr old Male here for a colonoscopy due to hematochezia PROCEDURE PERFORMED: Colonoscopy with biopsy - cold polypectomy MEDICATIONS: Per Anesthesia. ESTIMATED BLOOD LOSS: Minimal CONSENT: The patient understands the risks and benefits of the procedure and understands that these risks include, but are not limited to: sedation, allergic reaction, infection, perforation and/or bleeding. Alternative means of evaluation and treatment include, among others: physical exam, x-rays, and/or surgical intervention. The patient elects to proceed with this endoscopic procedure. DESCRIPTION OF PROCEDURE: During intra-op preparation period all mechanical medical equipment was checked for proper function. Hand hygiene and appropriate measures for infection prevention was taken. Procedure, possible complications, alternatives including, but not limited to possibility of bleeding, perforation, tear, infection, sepsis, need for surgery, need for blood transfusion, were explained to the patient. After the risks, benefits and alternatives of the procedure were thoroughly explained, Informed consent was verified, confirmed and timeout was successfully executed by the treatment team. The patient was placed in the left lateral position. After appropriate level of anesthesia, the scope was passed. The EC-[id number] ([id number] endoscope was introduced through the descending colostomy and advanced to the cecum, which was identified by both the appendix and ileocecal valve. The quality of the prep was fair. The instrument was then slowly withdrawn as the colon was fully examined. Scope withdrawal time was 9 minutes. COLON FINDINGS: A smooth sessile polyp measuring 2 mm in size was found at the appendiceal orifice. A polypectomy was performed with cold forceps. A smooth sessile polyp measuring 4 mm in size was found in the transverse colon. A polypectomy was performed with cold forceps. Moderate diverticulosis was noted throughout the entire examined colon. No bleeding was noted from the diverticulosis. Large amount of plaster appearing retained desicated mucus / rectal material was found in the rectum. Large anal fissure was found in the anal canal. Retroflexion was not performed. The scope was then completely withdrawn from the patient and the procedure terminated. ADVERSE EVENTS: There were no complications. IMPRESSIONS: 1. 2 mm sessile polyp at the appendiceal orifice; polypectomy was performed with cold forceps 2. 4 mm sessile polyp in the transverse colon; polypectomy was performed with cold forceps 3. Moderate diverticulosis throughout the entire examined colon 4. Large amount of plaster appearing retained desicated mucus / rectal material in the rectum - attempted removal with water jet - water enema 5. Large anal fissure in the anal canal - gel foam placed RECOMMENDATIONS: 1. await biopsy results 2. avoid NSAIDS for 2 weeks 3. surgery consult for large anal fissure therapy / care RECALL: None scheduled due to age, 80 [address] eSigned: Kali Hinds Dr 09/19/2021 9:31 AM cc: Anshul Booker CPT CODES: ICD9 CODES: PATIENT NAME: Bridger Murillo MR#: [id number]
[2021-09-19 11:42] VITALS: BP 156/75; TEMP 96.7; O2SAT 100
== END 2021-09-19 10:20 | disposition home or self-care (01) ==
LOC: OR 06:46
PROVIDERS: ATTEND Internal Medicine Gastroenterology
PROC: 0DBL8ZX Excision of Transverse Colon, Via Natural or Artificial Opening Endoscopic, Diagnostic (ICD-10-PCS; 2021-09-19)
PROC: 0DBH8ZX Excision of Cecum, Via Natural or Artificial Opening Endoscopic, Diagnostic (ICD-10-PCS; principal; 2021-09-19 08:15)
DX: K92.1 Melena (principal); K57.92 Diverticulitis of intestine, part unspecified, without perforation or abscess without bleeding; D12.0 Benign neoplasm of cecum; D12.3 Benign neoplasm of transverse colon; K60.2 Anal fissure, unspecified; K57.30 Diverticulosis of large intestine without perforation or abscess without bleeding; Z20.822 Contact with and (suspected) exposure to COVID-19
CPT/HCPCS: 88305; 45380; U0003; J2704; J7120; J2370

== ENCOUNTER 2022-03-20 14:41 | Observation (INO) | payer OTHER, MEDICARE ==
[2022-03-20 17:20] VITALS: BMI 24.3
[2022-03-20] MEDS ORDERED: GLUCAGON 1 MG/VIAL IM PRN (18:45)
[2022-03-20] MEDS ORDERED: DEXTROSE 10%-WATER 500 ML IV BAG IV PRN (18:55)
[2022-03-20] MEDS ORDERED: ACETAMINOPHEN 325 MG TABLET PO PRN (19:00)
[2022-03-20] MEDS ORDERED: POLYETHYL GLY 3350 17 GM/DOSE PO PRN (19:00)
[2022-03-20] MEDS ORDERED: DIPHENHYDRAMINE 25 MG TAB/CAP PO PRN (19:00)
[2022-03-20] MEDS ORDERED: LOPERAMIDE HCL 2 MG CAPSULE PO PRN (19:00)
[2022-03-20] MEDS ORDERED: ONDANSETRON 4 MG (ODT) TAB PO PRN (19:00)
[2022-03-20] MEDS ORDERED: ONDANSETRON 4 MG/2 ML VIAL IV PRN (19:00)
[2022-03-20 19:24] LABS: Absolute Lymphocytes (CBC) 0.8 K/uL (0.7-4.9); Hematocrit 23.4 % (39.6-49.0); Lymphocytes % 15.3 % (15.3-44.8); MCV 88.8 fL (80-100); RBC Red Blood Cell Count 2.64 M/uL (4.33-5.43)
[2022-03-20 19:32] LABS: Protime INR 1.21
[2022-03-20 19:45] LABS: Albumin 3.5 g/dL (3.4-5.0); Bilirubin Direct 0.1 mg/dL (0-0.2); Bilirubin Total 0.4 mg/dL (0.2-1.0); Potassium 4.7 mmol/L (3.5-5.1)
[2022-03-20] MEDS ORDERED: PNEUMOCOCCAL VACCINE 0.5 ML IMVAC ONE (20:00)
[2022-03-20] MEDS ORDERED: INSULIN -REGULAR HUMAN 50 UNIT/0.5 ML ML SQ SCH (21:00)
[2022-03-20] MEDS ORDERED: NITROGLYCERIN 0.4 MG/TAB SL PRN (21:22)
[2022-03-20] MEDS ORDERED: DOCUSATE NA 100 MG CAP PO PRN (21:22)
[2022-03-20] MEDS ORDERED: TRAMADOL HCL 50 MG TAB PO PRN (21:22)
[2022-03-20] MEDS ORDERED: DOCUSATE NA/SENNA CONC 1 TAB PO PRN (21:22)
--- NOTE | 2022-03-20 21:28 | RAD REPORT ---
EXAM DESCRIPTION: CT - Abdomen Pelvis Wo Contrast - 03/20/2022 8:37 pm CLINICAL HISTORY: possible hematoma COMPARISON: <Comparisons> TECHNIQUE: Axial [address] imaging of the abdomen and pelvis was performed without IV contrast. No IV contrast was given because of allergy, abnormal renal function, patient refusal or physician re quest. No oral contrast administered. All CT scans are performed using dose optimization technique as appropriate and may include automated exposure control or mA/KV adjustment according to patient size. FINDINGS: Chronic interstitial lung changes are present. No acute lung base finding. The liver, spleen and pancreas show no suspicious findings on non-contrast imaging. Large densely edwardo cified gallstone present. No acute gallbladder or biliary tree finding. No hydronephrosis or suspicious renal mass. Multiple variably sized renal cysts are present. An 11 mm calcification is present in the right renal pelvis without resulting obstruction. No dilation of the ureter. No left-sided hydronephrosis. No significant adrenal finding. Isodense renal masses and pyel onephritis cannot be excluded in the absence of IV contrast. Contracted urinary bladder shows no savannah s abnormality. No gastric wall thickening or edema. No dilated large or small bowel loops. Left mid abdomen colostom y site shows no acute findings. Chronic stool distends the rectum. Prominent sigmoid diverticulosis i s present. Small bowel peristomal hernia changes are again noted. No acute component seen. Wide neck hernia in the right infraumbilical abdominal wall contains multiple loops of small bowel. No acute co mponent. There is no abdominal wall hematoma. No contusion or edema changes evident in the subcutaneo us fat. No free air, free fluid or inflammatory stranding. No mass or bulky lymphadenopathy. Fat filled lef t inguinal hernia again noted. Disc and bone degenerative changes are present. Dense calcifications of the arterial tree noted. IMPRESSION: No abdominal wall hematoma is present. No contusion or edema changes identifiable in the subcutaneous fatty tissues of the abdomen or pelvis. Left mid abdomen colostomy site with peristomal hernia showing no acute component. Right infraumbilic al wide neck hernia contains multiple small bowel loops. This is also without acute component. Full assessment is limited is the absence of IV contrast.
[2022-03-20] MEDS ORDERED: FINASTERIDE 5 MG TAB PO SCH (21:30)
[2022-03-20] MEDS ORDERED: ATORVASTATIN 20 MG TAB PO SCH (21:30)
[2022-03-20] MEDS ORDERED: VITAMIN D 1000 UNIT TAB PO SCH (21:30)
--- NOTE | 2022-03-20 21:35 | P.SSS ---
Patient History Date of Service: 03/20/22 Reason for admission: ANEMIC History of Present Illness: MR. PARKER IS SEVERELY DEMENTED PARTIALLY FUNCTIONAL GM WITH A FIB, BRADYCARDIA, CHF, CKD, DM AND HAS COLOSTOMY SP CANCER. HE CAME WITH GEN. WEAKNESS AND WAS FOUND TO HAVE HG OF 7.5 GM. 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 HAS REJECTED ANY INVASIVE EVAL AND TREATMENT IN PAST BECAUSE HE HAS SEVERE DEMENTIA. Allergies memantine HCl [From Namenda] Adverse Reaction (Severe, Verified 09/19/21 08:07) tinnitus Sulfa (Sulfonamide Antibiotics) Adverse Reaction (Unknown, Verified 09/19/21 08:07) unknown/childhood reaction Nemenda Allergy (Uncoded 09/19/21 08:07) tinnitus Home medications list reviewed: Yes Home Medications: Ascorbic Acid [C-1000] 1,000 mg PO DAILY 12/12/13 Cyanocobalamin (Vitamin B-12) [B-12] 1,000 mcg PO DAILY 12/12/13 Donepezil HCl [Aricept] 23 mg PO BEDTIME 12/12/13 Finasteride [Proscar*] 5 mg PO BEDTIME 12/12/13 Niacin [Niacin ER] 500 mg PO BIDWM 12/12/13 Pantoprazole [Protonix Tab*] 40 mg PO BID 12/12/13 Tamsulosin [Flomax*] 1 cap PO BEDTIME 12/12/13 Nitroglycerin [Nitrostat*] 0.4 mg SL PRN PRN 03/15/14 traMADol HCL [Ultram*] 50 mg PO Q6H PRN #0 tab 03/29/14 Furosemide [Lasix*] 20 mg PO DAILY 06/13/14 Magnesium Oxide [Magnesium] 400 mg PO BID 06/13/14 Cholecalciferol (Vitamin D3) [Vitamin D3] 1,000 units PO BEDTIME 12/01/15 Losartan Potassium [Cozaar] 100 mg PO [id number] 12/01/15 Prevagen 1 pill PO DAILY 12/01/15 Amlodipine [Norvasc*] 5 mg PO DAILY 01/20/21 Citalopram Hydrobromide [Celexa] 20 mg PO DAILY 01/20/21 Docosahexanoic AC/Epa [Fish Oil 1,000 MG*] 1,000 mg PO DAILY 01/20/21 Docusate Sodium 100 mg PO DAILY PRN 01/20/21 Levothyroxine Sodium [Levothyroxine] 50 mcg PO [id number] 01/20/21 Medium Chain Triglycerides [Mct Oil] 15 ml PO DAILY 01/20/21 Sennosides [Senna] 1 cap PO BID PRN 01/20/21 Aspirin [Aspirin EC 81 MG] 81 mg PO DAILY 09/19/21 Atorvastatin Calcium [Lipitor] 20 mg PO BEDTIME 03/20/22 - Past Medical/Surgical History Has patient received pneumonia vaccine in the past: Yes Diabetic: No -: TINNITUS -: HTN -: AFIB -: CAD -: HYPERLIPIDEMIA -: NSTEMI -: STROKE -: LEGIONAIRE'S DISEASE -: SLEEP APNEA -: ALZHEIMER'S -: SQUAMOS CELL SKIN CANCER -: COLOSTOMY, DIVERTICULITIS, BARRETTS ESOPHAGUS -: QUADRUPLE BYPASS 1991 -: LITHOTRIPSY -: CYSTOSCOPY 2009 -: CYSTOSCOPY 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 -: CARDIAC STENT 2013 -: COLOSTOMY 2013 -: cardiacstent - Family History Father -: Heart disease, Hypertension, Stroke, Cancer Mother -: Heart disease, Hypertension, Diabetes - Social History Smoking Status: Unknown if ever smoked Alcohol use: No CD- Drugs: No Caffeine use: Yes Review of Systems 10-point ROS is otherwise unremarkable General: Weakness, Malaise Neurological: Confusion, As per HPI Physical Examination - Vital Signs Temperature: 97.6 F Blood Pressure: 142/87 Pulse: 57 Respirations: 16 Pulse Ox (%): 98 - Physical Exam General: Oriented x1, Mild distress HEENT: Atraumatic, PERRLA, Mucous membr. moist/pink, EOMI, Sclerae nonicteric Neck: Supple, 2+ carotid pulse no bruit, No LAD, Without JVD or thyroid abnormality Respiratory: Clear to auscultation bilaterally, Normal air movement Cardiovascular: Regular rate/rhythm, Normal S1 S2 Gastrointestinal: Normal bowel sounds, No tenderness, Other ( THOUGHT HE HAD HEMATOMA AROUND THE COLOSTOMY. I DON'T FEEL ANY LARGE HEMATOMA TO EXPLAIN LOSS OF HG. THERE MAY BE MINOR BRUISING UNDERNEATH THE TAPE. ) Musculoskeletal: No tenderness Integumentary: No rashes Neurological: Normal gait, Normal speech, Normal strength at 5/5 x4 extr, Normal tone, Normal affect Lymphatics: No axilla or inguinal lymphadenopathy - Studies Laboratory Data (last 24 hrs) 03/20/22 19:06: Sodium 143, Potassium 4.7, BUN 37 H, Creatinine 2.19 H, Glucose 113 H, Total Bilirubin 0.4, AST 13 L, ALT 18, Alkaline Phosphatase 55 03/20/22 19:06: PT 13.4 H, INR 1.21, APTT 32.3 03/20/22 19:06: WBC 5.5 D, Hgb 7.5 L, Hct 23.4 L, Plt Count 143 L - Diagnosis (Problem(s)) (1) Anemia Current Visit: Yes Status: Acute Plan: TRANFUSE STOOL GUAIC DAILY CT ABDOMEN TO RULE OUT LARGE HEMATOMA. HE MAY HAVE CKD RELATED DROP IN HG. WILL FU. (2) Bradyarrhythmia Current Visit: Yes Status: Acute Plan: HAS REFUSED PACEMAKER IN THE PAST. HE MAY STAY SLUGGISH WITHOUT. (3) Atrial fibrillation Current Visit: No Status: Chronic Qualifiers: Atrial fibrillation type: longstanding persistent Qualified Code(s): I48.11 - Longstanding persistent atrial fibrillation - Disposition Disposition: ROUTINE DISCHARGE
[2022-03-20] MEDS ORDERED: MAGNESIUM OXIDE 400 MG TAB PO SCH (21:45)
[2022-03-20] MEDS ORDERED: PANTOPRAZOLE 40MG TABLET PO SCH (21:45)
[2022-03-20] MEDS ORDERED: TAMSULOSIN 0.4 MG SR CAP PO SCH (21:45)
[2022-03-20] MEDS ORDERED: NA CHLORIDE 0.9% 250 ML ONE (22:53)
[2022-03-21] MEDS ORDERED: LOSARTAN POTASSIUM 50 MG TABLET PO SCH (06:00)
[2022-03-21] MEDS ORDERED: LEVOTHYROXINE SOD 0.05 MG TABLET PO SCH (06:00)
[2022-03-21 06:37] LABS: Hematocrit 28.4 % (39.6-49.0)
[2022-03-21 06:40] LABS: RBC Red Blood Cell Count 3.27 M/uL (4.33-5.43)
[2022-03-21 07:11] LABS: Ferritin 9.4 ng/mL (26-388)
[2022-03-21] MEDS ORDERED: NIACIN 500 MG PO SCH (08:00)
[2022-03-21] MEDS ORDERED: CITALOPRAM 10 MG TABLET PO SCH (09:00)
[2022-03-21] MEDS ORDERED: ASCORBIC ACID 500 MG TABLET PO SCH (09:00)
[2022-03-21] MEDS ORDERED: AMLODIPINE 5 MG TAB PO SCH (09:00)
[2022-03-21] MEDS ORDERED: MEDIUM CHAIN TRIGLYCERIDES PO SCH (09:00)
[2022-03-21] MEDS ORDERED: CYANOCOBALAMIN 1,000 MCG TAB PO SCH (09:00)
[2022-03-21] MEDS ORDERED: FUROSEMIDE 20 MG TABLET PO SCH (09:00)
[2022-03-21] MEDS ORDERED: PREVAGEN PO SCH (09:00)
[2022-03-21] MEDS ORDERED: DOCOSAHEXANOIC AC/EPA 1000 MG PO SCH (09:00)
[2022-03-21 09:12] VITALS: BP 138/60; TEMP 97.4
[2022-03-21 12:57] VITALS: O2SAT 92
[2022-03-21] MEDS ORDERED: DONEPEZIL HCL 23 MG PO SCH (21:00)
== END 2022-03-21 09:37 | disposition home or self-care (01) ==
LOC: LAB 14:41 → 2ND 16:37
PROVIDERS: ADMIT Internal Medicine; ATTEND Internal Medicine
DX: D50.9 Iron deficiency anemia, unspecified (principal); I49.8 Other specified cardiac arrhythmias; I48.11 Longstanding persistent atrial fibrillation; I13.0 Hypertensive heart and chronic kidney disease with heart failure and stage 1 through stage 4 chronic kidney disease, or unspecified chronic kidney disease; E11.22 Type 2 diabetes mellitus with diabetic chronic kidney disease; N18.9 Chronic kidney disease, unspecified; I50.9 Heart failure, unspecified; G30.9 Alzheimer's disease, unspecified; F02.80 Dementia in other diseases classified elsewhere, unspecified severity, without behavioral disturbance, psychotic disturbance, mood disturbance, and anxiety; K57.92 Diverticulitis of intestine, part unspecified, without perforation or abscess without bleeding; I25.10 Atherosclerotic heart disease of native coronary artery without angina pectoris; E78.5 Hyperlipidemia, unspecified; G47.30 Sleep apnea, unspecified; A48.1 Legionnaires' disease; K22.70 Barrett's esophagus without dysplasia; H93.19 Tinnitus, unspecified ear; Z93.3 Colostomy status; Z20.822 Contact with and (suspected) exposure to COVID-19; Z79.82 Long term (current) use of aspirin; Z79.899 Other long term (current) drug therapy; Z88.8 Allergy status to other drugs, medicaments and biological substances; Z88.2 Allergy status to sulfonamides; Z95.1 Presence of aortocoronary bypass graft; Z95.5 Presence of coronary angioplasty implant and graft; Z95.2 Presence of prosthetic heart valve; Z85.51 Personal history of malignant neoplasm of bladder; Z86.73 Personal history of transient ischemic attack (TIA), and cerebral infarction without residual deficits; Z85.828 Personal history of other malignant neoplasm of skin; Z82.49 Family history of ischemic heart disease and other diseases of the circulatory system; Z82.3 Family history of stroke; Z80.9 Family history of malignant neoplasm, unspecified; Z83.3 Family history of diabetes mellitus
CPT/HCPCS: 36430 ×2; 85025; 80048; 36415 ×2; 86900; 86850; 85610; 85044; 86901; 80076; 85730; 85018; 85014; 82728; 82607; 83540; 84466; 84165; 74176; U0003; G0378 ×2; P9016 ×2; J7050; 71046; 80053; 82550; 82553; 83880; 84484; 85379; 85652

== ENCOUNTER 2022-04-21 01:36 | Inpatient (IN) | payer OTHER, MEDICARE ==
--- OUTSIDE RECORDS SUMMARY | 2022-04-21 01:40 | XMS REPORT | Continuity of Care Document ---
:1940 Author Organization [facility] t Address [address] [place] [address] Care Team Providers Name Role Phone Anshul Conley Primary Care Physician Anshul Booker Attending Clinician Unavailable ALEXIA HODGE Attending Clinician Unavailable Krystyna Brandon DO Attending Clinician Doctor Unassigned, [place] Attending Clinician Unavailable KRYSTYNA BRANDON Attending Clinician Unavailable KRYSTYNA BRANDON Attending Clinician Unavailable Payers Payer Name Policy Type Policy Number Effective Date Expiration Date S ource Problems Condition Condition Condition Status Onset Resolution Last Treating Co mments Source Name Details Category Date Date Treatment Clinician Date No known No known Disease Unive rs active active ity of problems problems [facility] [place] Allergies, Adverse Reactions, Alerts Allergy Allergy Status Severity Reaction(s) Onset Inactive Treating Comm ents Source Name Type Date Date Clinician Memantin Drug Active Other - See 2015-09 Uni vers e Allergy comments 10-06 ity of 00:00: [address] Branch Sulfa Drug Active Unknown - 2015-09 tenitis Univer s (Sulfona Allergy See comments 10-06 i ty of mide 00:00: [place] Antibiot 00 Medical [facility]) [place] MEMANTIN DRUG Active Other-Cmnt 2015-09 Univ ers E INGREDI 10-06 ity of 00:00: [address] SULFA Drug Active Unknown-Cmnt 2015-09 Univ ers (SULFONA Class 1-29 ity of MIDE 00:00: [place] ANTIBIOT 00 Medical ICS) Branch Social History Social Habit Start Date Stop Date Quantity Comments Source History of tobacco [facility] Exposure to Not sure [facility] SARS-CoV-2 (event) Medica l Branch Tobacco use and 2021-05-17 2021-05-17 Never used [facility] exposure 00:00:00 00:00:00 Medical Branch Sex Ass[birth year] [facility] 00:00:00 00:00:00 Medical Branch Smoking Status Start Date Stop Date Source Former smoker 2021-05-17 00:00:00 2021-05-17 00:00:00 [facility] Medical Branch Medications Ordered Filled Start Stop Current Ordering Indication Dosage Frequency Signature Comments Components Source Medication Medication Date Date Medication? Clinician (SIG) Name Name niacin 500 2020-09 Yes 500mg Take 500 Un robert mg tablet 2-09 mg by ity of 15:14: mouth [address] [place] [address] (two) Medical times Branch daily. losartan 2020-09 Yes 100mg Take 100 Univ ers 100 mg 2-09 mg by ity of tablet 15:14: mouth [place] [address] daily. Medical Branch amLODIPine 2020-09 Yes 5mg Take 5 mg Un robert 5 mg tablet 2-09 by mouth ity of 15:14: daily. [address] tamsulosin 2020-09 Yes .4mg Take 0.4 Uni vers 0.4 mg 24 2-09 mg by ity of hr capsule 15:14: mouth. [address] finasteride 2020-09 Yes 5mg Take 5 mg U nivers 5 mg tablet 2-09 by mouth. ity of 15:14: [address] levothyroxi 2020-09 Yes 50ug Take 50 Uni vers ne 50 mcg 2-09 mcg by ity of tablet 15:14: mouth. [address] vitamin C 2020-09 Yes 1000mg Take 1,000 Univers with alban 2-09 mg by ity of hips 1,000 15:14: mouth. [place] mg [address] Branch aspirin 81 2020-09 Yes 81mg Take 81 mg U nivers mg Cap 2-09 by mouth. ity of 15:14: [address] Magnesium 2020-09 Yes 400mg Take 400 Uni vers Hydroxide 2-09 mg by ity of 400 mg (170 15:14: [place] mg 36 [place] magnesium) Branch Chew citalopram 2020-09 Yes 20mg Take 20 mg U nivers (CELEXA) 20 2-09 by mouth ity of mg tablet 15:14: daily. [address] Branch medium 2020-09 Yes Take by Univers chain 2-09 mouth. ity of triglycerid 15:14: [place] es (MCT OIL 36 Medical ORAL) Branch omega 2020-09 Yes 1000mg Take 1,000 Univ ers 3-dha-epa-f 2-09 mg by ity of joseph oil 15:14: mouth. [place] (FISH OIL) Medical 100-160-1,0 Branch 00 mg Cap vitamin 2020-09 Yes 1000ug Take 1,000 Un robert B-12 2-09 mcg by ity of (VITAMIN 15:14: mouth [place] B-12) 1,000 36 daily. Medica l mcg tablet Branch COCONUT OIL 2020-09 Yes Take by Uni vers ORAL 2-09 mouth. ity of 15:14: [address] Branch atorvastati 2020-09 Yes 20mg Take 20 mg Univers n 20 mg 2-09 by mouth ity of tablet 15:14: at [place] [address] bedtime. [facility] Branch Donepezil 2020-09 Yes Take by Unive rs (ARICEPT) 2-09 mouth. ity of 23 mg Tab 15:14: [address] Branch nitroglycer 2020-[address] 0.4 U nivers in 2-09 mg under ity of (NITROSTAT) 15:14: the tongue [place] 0.4 mg 36 every 5 Medical sublingual (five) Branch tablet minutes as needed for Chest pain. traMADol 2020-09 Yes 50mg Take 50 mg Uni vers (ULTRAM) 50 2-09 by mouth ity of mg/10 mL 15:14: every 4 [facility] 36 (four) Medical syringe hours as Branch needed. pravastatin 2020-09 Yes 40mg Take 40 mg Univers 40 mg 2-09 by mouth. ity of tablet 15:14: [address] Branch furosemide 2020-09 Yes 10mg Take 10 mg U nivers 20 mg 2-09 by mouth. ity of tablet 15:14: [address] niacin 500 2020-09 Yes 500mg Take 500 Un robert mg tablet 2-09 mg by ity of 15:14: mouth 2 [place] [address] (two) Medical times Branch daily. losartan 2020-09 Yes 100mg Take 100 Univ ers 100 mg 2-09 mg by ity of tablet 15:14: mouth [place] [address] daily. Medical Branch amLODIPine 2020-09 Yes 5mg Take 5 mg Un robert 5 mg tablet 2-09 by mouth ity of 15:14: daily. [address] tamsulosin 2020-09 Yes .4mg Take 0.4 Uni vers 0.4 mg 24 2-09 mg by ity of hr capsule 15:14: mouth. [address] finasteride 2020-09 Yes 5mg Take 5 mg U nivers 5 mg tablet 2-09 by mouth. ity of 15:14: [address] levothyroxi 2020-09 Yes 50ug Take 50 Uni vers ne 50 mcg 2-09 mcg by ity of tablet 15:14: mouth. [address] vitamin C 2020-09 Yes 1000mg Take 1,000 Univers with alban 2-09 mg by ity of hips 1,000 15:14: mouth. [place] mg tablet [address] [place] [address] Branch aspirin 81 2020-09 Yes 81mg Take 81 mg U nivers mg Cap 2-09 by mouth. ity of 15:14: [address] Magnesium 2020-09 Yes 400mg Take 400 Uni vers Hydroxide 2-09 mg by ity of 400 mg (170 15:14: [place]. [place] [address] [place] [address] magnesium) Branch Chew citalopram 2020-09 Yes 20mg Take 20 mg U nivers (CELEXA) 20 2-09 by mouth ity of mg tablet 15:14: daily. [address] medium 2020-09 Yes Take by Univers chain 2-09 mouth. ity of triglycerid 15:14: [place] es (MCT OIL Medical ORAL) Branch omega 2020-09 Yes 1000mg Take 1,000 Univ ers 3-dha-epa-f 2-09 mg by ity of joseph oil 15:14: mouth. [place] (FISH OIL) [address] [place] [address] 100-160-1,0 Branch 00 mg Cap vitamin 2020-09 Yes 1000ug Take 1,000 Un robert B-12 2-09 mcg by ity of (VITAMIN 15:14: mouth [place] B-12) 1,000 36 daily. Medica l mcg tablet Branch COCONUT OIL 2020-09 Yes Take by Uni vers ORAL 2-09 mouth. ity of 15:14: [place] [address] Medical Branch atorvastati 2020-09 Yes 20mg Take 20 mg Univers n 20 mg 2-09 by mouth ity of tablet 15:14: at [place] [address] bedtime. Medical Branch Donepezil 2020-09 Yes Take by Unive rs (ARICEPT) 2-09 mouth. ity of 23 mg Tab 15:14: [address] Branch nitroglycer 2020-[address] 0.4 U nivers in 2-09 mg under ity of (NITROSTAT) 15:14: the tongue [place] 0.4 mg 36 every 5 Medical sublingual (five) Branch tablet minutes as needed for Chest pain. traMADol 2020-09 Yes 50mg Take 50 mg Uni vers (ULTRAM) 50 2-09 by mouth ity of mg/10 mL 15:14: every 4 [place] [address] (four) Medical syringe hours as Branch needed. pravastatin 2020-09 Yes 40mg Take 40 mg Univers 40 mg 2-09 by mouth. ity of tablet 15:14: [address] Branch furosemide 2020-09 Yes 10mg Take 10 mg U nivers 20 mg 2-09 by mouth. ity of tablet 15:14: [address] Branch niacin 500 2020-09 Yes 500mg Take 500 Un robert mg tablet 2-09 mg by ity of 15:14: mouth 2 [place] [address] (two) Medical times Branch daily. losartan 2020-09 Yes 100mg Take 100 Univ ers 100 mg 2-09 mg by ity of tablet 15:14: mouth [place] [address] daily. Medical Branch amLODIPine 2020-09 Yes 5mg Take 5 mg Un robert 5 mg tablet 2-09 by mouth ity of 15:14: daily. [address] Branch tamsulosin 2020-09 Yes .4mg Take 0.4 Uni vers 0.4 mg 24 2-09 mg by ity of hr capsule 15:14: mouth. [address] Branch finasteride 2020-09 Yes 5mg Take 5 mg U nivers 5 mg tablet 2-09 by mouth. ity of 15:14: [address] Branch levothyroxi 2020-09 Yes 50ug Take 50 Uni vers ne 50 mcg 2-09 mcg by ity of tablet 15:14: mouth. [address] vitamin C 2020-09 Yes 1000mg Take 1,000 Univers with alban 2-09 mg by ity of hips 1,000 15:14: mouth. [place] mg tablet Medical Branch aspirin 81 2020-09 Yes 81mg Take 81 mg U nivers mg Cap 2-09 by mouth. ity of 15:14: [address] Branch Magnesium 2020-09 Yes 400mg Take 400 Uni vers Hydroxide 2-09 mg by ity of 400 mg (170 15:14: [place]. [place] mg [place] magnesium) Branch Chew citalopram 2020-09 Yes 20mg Take 20 mg U nivers (CELEXA) 20 2-09 by mouth ity of mg tablet 15:14: daily. [address] medium 2020-09 Yes Take by Univers chain 2-09 mouth. ity of triglycerid 15:14: [facility] (MCT OIL 36 Medical ORAL) Branch omega 2020-09 Yes 1000mg Take 1,000 Univ ers 3-dha-epa-f 2-09 mg by ity of joseph oil 15:14: mouth. [place] (FISH OIL) Medical 100-160-1,0 Branch 00 mg Cap vitamin 2020-09 Yes 1000ug Take 1,000 Un robert B-12 2-09 mcg by ity of (VITAMIN 15:14: mouth [place] B-12) 1,000 36 daily. Medica l mcg tablet Branch COCONUT OIL 2020-09 Yes Take by Uni vers ORAL 2-09 mouth. ity of 15:14: [address] atorvastati 2020-09 Yes 20mg Take 20 mg Univers n 20 mg 2-09 by mouth ity of tablet 15:14: at [place] [address] bedtime. Medical Branch Donepezil 2020-09 Yes Take by Unive rs (ARICEPT) 2-09 mouth. ity of 23 mg Tab 15:14: [address] Branch nitroglycer 2020-[address] 0.4 U nivers in 2-09 mg under ity of (NITROSTAT) 15:14: the tongue [place] 0.4 mg 36 every 5 Medical sublingual (five) Branch tablet minutes as needed for Chest pain. traMADol 2020-09 Yes 50mg Take 50 mg Uni vers (ULTRAM) 50 2-09 by mouth ity of mg/10 mL 15:14: every 4 [place] [address] (four) Medical syringe hours as Branch needed. pravastatin 2020-09 Yes 40mg Take 40 mg Univers 40 mg 2-09 by mouth. ity of tablet 15:14: [address] Branch furosemide 2020-09 Yes 10mg Take 10 mg U nivers 20 mg 2-09 by mouth. ity of tablet 15:14: [address] Branch niacin 500 2020-09 Yes 500mg Take 500 Un robert mg tablet 2-09 mg by ity of 15:14: mouth 2 [place] [address] (two) Medical times Branch daily. losartan 2020-09 Yes 100mg Take 100 Univ ers 100 mg 2-09 mg by ity of tablet 15:14: mouth [place] [address] daily. Medical Branch amLODIPine 2020-09 Yes 5mg Take 5 mg Un robert 5 mg tablet 2-09 by mouth ity of 15:14: daily. [address] Branch tamsulosin 2020-09 Yes .4mg Take 0.4 Uni vers 0.4 mg 24 2-09 mg by ity of hr capsule 15:14: mouth. [address] Branch finasteride 2020-09 Yes 5mg Take 5 mg U nivers 5 mg tablet 2-09 by mouth. ity of 15:14: [address] levothyroxi 2020-09 Yes 50ug Take 50 Uni vers ne 50 mcg 2-09 mcg by ity of tablet 15:14: mouth. [address] vitamin C 2020-09 Yes 1000mg Take 1,000 Univers with alban 2-09 mg by ity of hips 1,000 15:14: mouth. [place] mg tablet [address] [place] [address] Branch aspirin 81 2020-09 Yes 81mg Take 81 mg U nivers mg Cap 2-09 by mouth. ity of 15:14: [address] Branch Magnesium 2020-09 Yes 400mg Take 400 Uni vers Hydroxide 2-09 mg by ity of 400 mg (170 15:14: [place]. [place] mg [place] magnesium) Branch Chew citalopram 2020-09 Yes 20mg Take 20 mg U nivers (CELEXA) 20 2-09 by mouth ity of mg tablet 15:14: daily. [address] medium 2020-09 Yes Take by Univers chain 2-09 mouth. ity of triglycerid 15:14: [place] es (MCT OIL 36 Medical ORAL) Branch omega 2020-09 Yes 1000mg Take 1,000 Univ ers 3-dha-epa-f 2-09 mg by ity of joseph oil 15:14: mouth. [place] (FISH OIL) Medical 100-160-1,0 Branch 00 mg Cap vitamin 2020-09 Yes 1000ug Take 1,000 Un robert B-12 2-09 mcg by ity of (VITAMIN 15:14: mouth [place] B-12) 1,000 36 daily. Medica l mcg tablet Branch COCONUT OIL 2020-09 Yes Take by Uni vers ORAL 2-09 mouth. ity of 15:14: [address] atorvastati 2020-09 Yes 20mg Take 20 mg Univers n 20 mg 2-09 by mouth ity of tablet 15:14: at [place] [address] bedtime. Medical Branch Donepezil 2020-09 Yes Take by Unive rs (ARICEPT) 2-09 mouth. ity of 23 mg Tab 15:14: [address] Branch nitroglycer 2020-[address] 0.4 U nivers in 2-09 mg under ity of (NITROSTAT) 15:14: the tongue [place] 0.4 mg 36 every 5 Medical sublingual (five) Branch tablet minutes as needed for Chest pain. traMADol 2020-09 Yes 50mg Take 50 mg Uni vers (ULTRAM) 50 2-09 by mouth ity of mg/10 mL 15:14: every 4 [place] oral 36 (four) Medical syringe hours as Branch needed. pravastatin 2020-09 Yes 40mg Take 40 mg Univers 40 mg 2-09 by mouth. ity of tablet 15:14: [address] Branch furosemide 2020-09 Yes 10mg Take 10 mg U nivers 20 mg 2-09 by mouth. ity of tablet 15:14: [address] Docusate Yes 100mg Take 100 Univ ers Sodium 100 9-09 mg by ity of mg tablet 16:20: mouth. [address] Docusate Yes 100mg Take 100 Univ ers Sodium 100 9-09 mg by ity of mg tablet 16:20: mouth. [address] Docusate 2021-0 Yes 100mg Take 100 Univ ers Sodium 100 9-09 mg by ity of mg tablet 16:20: mouth. [address] Docusate 2020-0 Yes 100mg Take 100 Univ ers Sodium 100 9-09 mg by ity of mg tablet 16:20: mouth. [address] Vital Signs Vital Name Observation Time Observation Value Comments Source Systolic blood 2021-08-16 21:23:00 151 mm[Hg] Univer sity of pressure [facility] [place] Diastolic blood 2021-08-16 21:23:00 60 mm[Hg] Unive rsity of [facility] Heart rate 2021-08-16 21:23:00 58 /min [facility] Respiratory rate 2021-08-16 21:17:00 22 /min [facility] Body height 2021-08-16 21:17:00 180.3 cm [facility] Body weight 2021-08-16 21:17:00 78.926 kg [facility] BMI 2021-08-16 21:17:00 24.27 kg/m2 [facility] Oxygen saturation in 2021-08-16 21:17:00 98 /min [facility] Arterial blood by [facility] Pulse oximetry Branch Procedures Procedure Date / Time Performing Clinician Source Performed DME/SUPPLY JUSTIFICATION 2021-08-20 06:01:00 Doctor Unassigned, No General acute hospital Encounters Start End Encounter Admission Attending Care Care Encounter Source Date/Time Date/Time Type Type Clinicians Facility Department ID 2021-10-03 Outpatient Ade, STLMLC STLMLC [id number] Common 14:08:18 Anshul [id number] [facility] 2021-10-03 Outpatient Ade, STLMLC STLMLC [id number] Common 13:12:42 Anshul [id number] [facility] 2022-03-22 2022-03-22 Outpatient [facility] [id number] [place] 00:00:00 00:00:00 ALEXIA Ordoñez [address] 2022-01-10 2022-01-10 ambulatory STLMLC STLMLC [id number] Common 00:00:00 00:00:00 [facility] 2022-01-09 2022-01-09 ambulatory STLMLC STLMLC [id number] Common 00:00:00 00:00:00 [facility] 2021-11-16 2021-11-16 ambulatory STLMLC STLMLC [id number] Common 00:00:00 00:00:00 [facility] 2021-11-09 2021-11-09 ambulatory STLMLC STLMLC [id number] Common 00:00:00 00:00:00 [facility] 2021-08-23 2021-08-23 Telephone Keiko [facility] [id number] Univers 00:00:00 00:00:00 Krystyna NAIR [id number] i ty of [id number] PROF[place] [id number] [address] 2021-08-20 2021-08-20 Orders Doctor OLIVIA [id number] Univers 00:00:00 00:00:00 Only Unassigned, PEEWEE [id number] ity of [place] [facility] [id number] [place] as [id number] [address] 2021-08-16 2021-08-16 Outpatient R KRYSTYNA BRANDON [facility] [id number] Univers 15:00:00 15:45:27 KRYSTYNA BRANDON i ty of [facility] [place] 2021-08-16 2021-08-16 Office Keiko [facility] [id number] Univers 14:58:58 15:45:27 Visit Krystyna NAIR [id number] i ty [id number] PROF[place] [id number] Mn dical NAL [address] [place] [address] 2021-07-26 2021-07-26 ambulatory STLMLC STLMLC [id number] Common 00:00:00 00:00:00 [facility] 2021-07-18 2021-07-18 ambulatory STLMLC STLMLC [id number] Common 00:00:00 00:00:00 [facility] 2021-07-16 2021-07-16 [facility] [id number] Common 00:00:00 00:00:00 [facility] Results This patient has no known results.
[2022-04-21 02:45] LABS: Absolute Lymphocytes (CBC) 0.3 K/uL (0.7-4.9); Hematocrit 26.9 % (39.6-49.0); Lymphocytes % 3.8 % (15.3-44.8); MCV 88.6 fL (80-100); MPV 9.4 fL (7.6-11.3); RBC Red Blood Cell Count 3.03 M/uL (4.33-5.43)
[2022-04-21 03:06] LABS: Potassium 4.4 mmol/L (3.5-5.1); Troponin High Sensitivity 37.3 pg/mL (<58.9)
--- NOTE | 2022-04-21 03:52 | ER ---
Nurse's Notes [facility] Name: Bridger Murillo Age: 81 yrs Sex: Male : 1940 Arrival Date: 04/21/2022 Time: 01:47 Bed 24 Private MD: Diagnosis: Congestive Heart Failure;Hypoxia;Anemia, unspecified;Chronic atrial fibrillation Presentation: 04/21 01:47 Chief complaint: EMS states: Patient complaining of covid like symptoms times 2 days. vc1 When we arrived he vomited up some food and said he is feeling better after vomiting. 01:47 Coronavirus screen: cough unrelated to allergies, nausea, shortness of breath, vc1 vomiting. Ebola Screen: No symptoms or risks identified at this time. Initial Sepsis Screen: Does the patient meet any 2 criteria? No. Patient's initial sepsis screen is negative. Does the patient have a suspected source of infection? No. Patient's initial sepsis screen is negative. Risk Assessment: Do you want to hurt yourself or someone else? Patient reports no desire to harm self or others. Onset of symptoms was April 18, 2022. 01:47 Method Of Arrival: EMS: [facility] vc1 01:47 Acuity: VALENCIA 3 vc1 Triage Assessment: 02:10 General: Appears in no apparent distress. comfortable, Behavior is calm, cooperative, vc1 appropriate for age. Pain: Denies pain. EENT: No deficits noted. Neuro: Level of Consciousness is awake, obeys commands, Oriented to person, situation. Cardiovascular: Patient's skin is warm and dry. Respiratory: Reports shortness of breath cough that is Onset: The symptoms/episode began/occurred gradually, the patient has mild shortness of breath. GI: Colostomy site is clean and dry. Ostomy appliance. : No signs and/or symptoms were reported regarding the genitourinary system. Derm: Skin is intact. Musculoskeletal: No signs and/or symptoms reported regarding the musculoskeletal system. Historical: - Allergies: 02:09 Nemenda; vc1 02:09 Sulfa (Sulfonamide Antibiotics); vc1 - PMHx: 02:09 Alzheimer's; Anemia; aortic valve disease; skin cancer; Non stemi MD; Kidney stones; vc1 CAD; Atrial Fib; barretts; Bladder cancer; BPH; CVA; Hyperlipidemia; Hypertension; - Immunization history:: Adult Immunizations up to date. - Social history:: Smoking status: unknown. Screenin:12 Abuse screen: Denies threats or abuse. Nutritional screening: No deficits noted. vc1 Tuberculosis screening: No symptoms or risk factors identified. Fall Risk None identified. Assessment: 02:00 Cardiovascular: Rhythm is atrial fibrillation. Respiratory: Airway is patent vc1 Respiratory effort is even, unlabored, Breath sounds are clear. 03:00 Reassessment: No changes from previously documented assessment. Patient and/or family vc1 updated on plan of care and expected duration. Pain level reassessed. 04:00 Reassessment: No changes from previously documented assessment. Patient denies pain at vc1 this time. 05:00 Reassessment: No changes from previously documented assessment. Patient and/or family vc1 updated on plan of care and expected duration. Pain level reassessed. Patient denies pain at this time. Respiratory: Airway is patent Respiratory effort is even, unlabored, Respiratory pattern is regular, symmetrical. 05:00 Reassessment: Recliner and warm blanket given to spouse. vc1 Vital Signs: 01:47 BP 144 / 75; Pulse 68; Resp 19; Temp 97.7; Pulse Ox 99% on 3 lpm NC; vc1 03:00 BP 136 / 79; Pulse 68; Resp 19; Pulse Ox 97% ; vc1 05:00 BP 123 / 75; Pulse 85; Resp 19; Pulse Ox 97% on 3 lpm NC; Weight 81.19 kg; Height 5 ft. vc1 11 in. (180.34 cm); Pain 0/10; 05:00 Body Mass Index 24.97 (81.19 kg, 180.34 cm) vc1 ED Course: 01:47 Patient arrived in ED. tw5 01:49 Collin Sarmiento DO is Attending Physician. ms3 02:00 Patient has correct armband on for positive identification. Placed in gown. Client vc1 placed on continuous cardiac and pulse oximetry monitoring. NIBP monitoring applied. 02:06 Lindsey Collazo, RN is Primary Nurse. vc1 02:09 Triage completed. vc1 02:11 Arm band placed on right wrist. vc1 02:16 XRAY Chest (1 view) In Process Unspecified. EDMS 02:30 Inserted saline lock: 22 gauge in right antecubital area, using aseptic technique. vc1 Blood collected. 03:50 Anshul Booker MD is Hospitalizing Provider. ms3 05:00 No provider procedures requiring assistance completed. Patient admitted, IV remains in vc1 place. 08:02 Primary Nurse role handed off by Lindsey Collazo, ISABELLE bp 08:02 Aaron Schultz, RN is Primary Nurse. bp Administered Medications: 08:00 Drug: ProTONIX (pantoprazole) 40 mg Route: IVP; Site: right antecubital; bp 09:00 Follow up: Response: No adverse reaction bp 08:00 Drug: Aspirin 162 mg Route: PO; bp 09:00 Follow up: Response: No adverse reaction bp 08:00 Drug: Lovenox (enoxaparin) 60 mg Route: Sub-Q; Site: right lower abdomen; bp 09:00 Follow up: Response: No adverse reaction bp Medication: 02:13 VIS not applicable for this client. vc1 Outcome: 03:52 Decision to Hospitalize by Provider. ms3 05:00 Admitted to ER Hold. Please see [facility] for further documentation. vc1 05:00 Condition: good 05:00 Instructed on the need for admit. 16:12 Admitted to Tele accompanied by tech, room 206, with oxygen, Report [facility] to [facility] 16:21 [facility] Signatures: Dispatcher [employer] EDMS Aaron Schultz, RN RN bp Collin Sarmiento, DO DO ms3 Faye Stafford tw5 Ellen Davalos RN RN 6 Lindsey Collazo, ISABELLE RN 1 Corrections: (The following items were deleted from the chart) 02:38 02:10 GI: No signs and/or symptoms were reported involving the gastrointestinal system. vc1 vc1
--- NOTE | 2022-04-21 03:52 | EDPHYS ---
Physician Documentation [facility] Name: Bridger Murillo Age: 81 yrs Sex: Male : 1940 Arrival Date: 04/21/2022 Time: 01:47 Bed 24 Private MD: ED Physician Collin Sarmiento HPI: 04/21 02:24 This 81 yrs old Male presents to ER via EMS with complaints of fever, myalgias. ms3 02:24 The patient or guardian reports cough, difficulty breathing. Onset: The ms3 symptoms/episode began/occurred 2 day(s) ago. Modifying factors: The symptoms are alleviated by nothing. the symptoms are aggravated by nothing. Associated signs and symptoms: Pertinent positives: fever, vomiting, Pertinent negatives: chest pain. Severity of symptoms: At their worst the symptoms were mild in the emergency department the symptoms are unchanged. Historical: - Allergies: 02:09 Nemenda; vc1 02:09 Sulfa (Sulfonamide Antibiotics); vc1 - PMHx: 02:09 Alzheimer's; Anemia; aortic valve disease; skin cancer; Non stemi NM; Kidney stones; vc1 CAD; Atrial Fib; barretts; Bladder cancer; BPH; CVA; Hyperlipidemia; Hypertension; - Immunization history:: Adult Immunizations up to date. - Social history:: Smoking status: unknown. ROS: 02:24 Eyes: Negative for injury, pain, redness, and discharge, Neck: Negative for injury, ms3 pain, and swelling, Cardiovascular: Negative for chest pain, and palpitations. 02:24 MS/Extremity: Negative for injury and deformity, Skin: Negative for injury, rash, and discoloration, Neuro: Negative for headache, weakness, numbness, tingling. 02:24 Constitutional: Positive for chills, fever. 02:24 Respiratory: Positive for shortness of breath. 02:24 Abdomen/GI: Positive for vomiting, Negative for abdominal pain. Exam: 02:20 ECG was reviewed by the Attending Physician. ms3 02:24 Constitutional: This is a well developed, well nourished patient who is awake, alert, ms3 and in no acute distress. Head/Face: Normocephalic, atraumatic. Eyes: Pupils equal round and reactive to light, extra-ocular motions intact. Lids and lashes normal. Conjunctiva and sclera are non-icteric and not injected. Periorbital areas with no swelling, redness, or edema. Neck: Trachea midline, no cervical lymphadenopathy. Supple, full range of motion without nuchal rigidity, or vertebral point tenderness. No Meningismus. Chest/axilla: Normal chest wall appearance and motion. Nontender with no deformity. 02:24 Cardiovascular: Regular rate and rhythm with a normal S1 and S2. No gallops, murmurs, or rubs. Normal PMI, no JVD. No pulse deficits. 02:24 Cardiovascular: 02:24 Respiratory: mild respiratory distress is noted, Respirations: normal, Breath sounds: rales, that are mild, are scattered, Respiratory rate: 19 Vital Signs: 01:47 BP 144 / 75; Pulse 68; Resp 19; Temp 97.7; Pulse Ox 99% on 3 lpm NC; vc1 03:00 BP 136 / 79; Pulse 68; Resp 19; Pulse Ox 97% ; vc1 05:00 BP 123 / 75; Pulse 85; Resp 19; Pulse Ox 97% on 3 lpm NC; Weight 81.19 kg; Height 5 ft. vc1 11 in. (180.34 cm); Pain 0/10; 05:00 Body Mass Index 24.97 (81.19 kg, 180.34 cm) vc1 MDM: 01:49 Patient medically screened. ms3 02:24 Differential diagnosis: bronchitis, flu, URI, PNA vs CHF. ms3 03:59 Data reviewed: vital signs, nurses notes, lab test result(s), EKG, radiologic studies, ms3 and as a result, I will admit patient. Data interpreted: arnp: rate is 68 beats/min, rhythm is atrial fibrillation, with Interpretation: normal rate, atrial fibrillation. 04/21 01:50 Order name: Basic Metabolic Panel; Complete Time: 03:23 ms3 04/21 01:50 Order name: CBC with Diff; Complete Time: 03:23 ms3 04/21 01:50 Order name: NT PRO-BNP; Complete Time: 03:23 ms3 04/21 01:50 Order name: Troponin HS; Complete Time: 03:23 ms3 04/21 02:24 Order name: SARS-COV-2 RT PCR (Document "Date of Onset" if Symptomatic); Complete Time: vc1 03:37 04/21 05:08 Order name: Basic Metabolic Panel EDMS 04/21 05:08 Order name: Basic Metabolic Panel EDMS 04/21 05:08 Order name: CBC with Automated Diff EDMS 04/21 05:08 Order name: CBC with Automated Diff EDMS 04/21 05:08 Order name: NT PRO-BNP EDMS 04/21 05:08 Order name: NT PRO-BNP EDMS 04/21 05:08 Order name: Troponin High Sensitivity EDMS 04/21 05:08 Order name: Troponin High Sensitivity; Complete Time: 07:43 EDMS 04/21 01:50 Order name: XRAY Chest (1 view) ms3 04/21 01:50 Order name: EKG; Complete Time: 01:52 ms3 04/21 01:50 Order name: Cardiac monitoring; Complete Time: 02:37 ms3 04/21 01:50 Order name: EKG - Nurse/Tech; Complete Time: 02:37 ms3 04/21 01:50 Order name: IV Saline Lock; Complete Time: 02:37 ms3 04/21 05:08 Order name: Low Sodium EDMS 04/21 05:08 Order name: Troponin High Sensitivity EDMS 04/21 07:43 Order name: Type And Screen danii 04/21 07:44 Order name: PT-INR danii 04/21 07:44 Order name: Ptt, Activated danii 04/21 09:16 Order name: Protime (+INR) EDMS 04/21 09:16 Order name: PTT, Activated Partial Thromb EDMS 04/21 10:28 Order name: Type and Screen EDMS 04/21 01:50 Order name: Labs collected and sent; Complete Time: 02:37 ms3 04/21 01:50 Order name: O2 Per Protocol; Complete Time: 02:37 ms3 04/21 01:50 Order name: O2 Sat Monitoring; Complete Time: 02:37 ms3 EC:20 Rate is 78 beats/min. Rhythm is irregularly irregular. QRS [place] is Normal. QT interval ms3 is prolonged at 551 msec. Clinical impression: Atrial Fibrillation. Interpreted by me. Reviewed by me. Administered Medications: 08:00 Drug: ProTONIX (pantoprazole) 40 mg Route: IVP; Site: right antecubital; bp 09:00 Follow up: Response: No adverse reaction bp 08:00 Drug: Aspirin 162 mg Route: PO; bp 09:00 Follow up: Response: No adverse reaction bp 08:00 Drug: Lovenox (enoxaparin) 60 mg Route: Sub-Q; Site: right lower abdomen; bp 09:00 Follow up: Response: No adverse reaction bp Disposition Summary: 04/21/22 03:52 Hospitalization Ordered Hospitalization Status: Inpatient Admission ms3 Provider: Anshul Booker ms3 Condition: Stable ms3 Problem: new ms3 Symptoms: are unchanged ms3 Bed/Room Type: Standard ms3 Location: Telemetry/MedSurg (Inpatient)(04/21/22 15:15) dw Room Assignment: [facility](04/21/22 15:15) dw Diagnosis - Congestive Heart Failure ms3 - Hypoxia ms3 - Anemia, unspecified ms3 - Chronic atrial fibrillation danii Forms: - Medication Reconciliation Form ms3 - SBAR form ms3 Signatures: Dispatcher [employer] EDMS Toya Callahan RN ISABELLE Pratibha Gomez RN Malachi Turk MD MD cha Attema, Lee, SOLAR MANAGER-C SOLAR MANAGER-Cla1 Aaron Schultz RN RN Collin Franklin, DO ms3 Lindsey Collazo RN RN vc1 Corrections: (The following items were deleted from the chart) 04:42 03:52 Telemetry/MedSurg (Inpatient) ms3 mw 04:42 03:52 ms3 mw 15:15 04:42 [facility] [place] ER HOLD mw dw 15:15 04:42 ERHOLD- mw dw
[2022-04-21] MEDS ORDERED: ALBUTEROL 2.5 MG/3 ML NEB SOL NEB PRN ×2 (05:03→16:00)
[2022-04-21] MEDS ORDERED: ACETAMINOPHEN 500 MG TAB PO PRN (05:03)
[2022-04-21] MEDS ORDERED: IPRATROPIUM BROM 0.5MG/2.5ML NEB PRN ×2 (05:03→16:00)
[2022-04-21 06:12] VITALS: BMI 25.0
[2022-04-21] MEDS ORDERED: DOCUSATE NA 100 MG CAP PO PRN (08:30)
[2022-04-21] MEDS ORDERED: TRAMADOL HCL 50 MG TAB PO PRN (08:30)
[2022-04-21] MEDS ORDERED: ASPIRIN 81 MG CHEWABLE TABLET ONE (08:41)
[2022-04-21] MEDS ORDERED: FUROSEMIDE 20 MG/ 2ML VIAL ONE (08:41)
[2022-04-21] MEDS ORDERED: ENOXAPARIN 60 MG/0.6 ML SQ ONE (08:41)
[2022-04-21] MEDS ORDERED: PANTOPRAZOLE 40 MG INJ ONE (08:41)
[2022-04-21] MEDS: ASPIRIN EC 81 MG TAB PO SCH (09:00)
[2022-04-21] MEDS ORDERED: HOME MED 1 EA UNK (Magnesium Oxide [Magnesium] 400 MG Capsule) PO SCH (09:00)
[2022-04-21] MEDS: PANTOPRAZOLE 40MG TABLET PO SCH (09:00)
[2022-04-21] MEDS: FUROSEMIDE 20 MG/ 2ML VIAL IV SCH ×2 (09:00→17:19)
[2022-04-21] MEDS ORDERED: HOME MED 1 EA UNK (Citalopram Hydrobromide [Celexa] 20 MG Tablet) PO SCH (09:00)
[2022-04-21 09:16] LABS: Protime INR 1.22
[2022-04-21] MEDS ORDERED: ONDANSETRON 4 MG/2 ML VIAL IV PRN (14:37)
[2022-04-21] MEDS ORDERED: ONDANSETRON 4 MG/2 ML VIAL ONE (14:43)
--- NOTE | 2022-04-21 17:36 | P.HP ---
Certification for Inpatient Patient admitted to: Inpatient With expected LOS: >2 Midnights Practitioner: I am a practitioner with admitting privileges, knowledge of patient current condition, hospital course, and medical plan of care. Services: Services provided to patient in accordance with Admission requirements found in Title 42 Section 412.3 of the Code of Federal Regulations Patient History Date of Service: 04/21/22 Reason for admission: SHORT OF BREATH History of Present Illness: DEB PARKER IS AN ALZHEIMER'S PATIENT WHO HAS A FIB, CHF, CKD AND HE COMES WITH SHORTNESS OF BREATH PER FAMILY. HE IS NOT ABLE TO TAKE ANTICOAGULATION HE BLEED OFTEN. HIS AND DAUGHTER ARE AWARE OF THE SITUATION THAT HE IS AT HIGH RISK FOR CVA OR PE. HE HAS NO CHEST PAIN. HE DOES NOT KNOW WHY HE IS HERE. Allergies memantine HCl [From Namenda] Adverse Reaction (Severe, Verified 09/19/21 08:07) tinnitus Sulfa (Sulfonamide Antibiotics) Adverse Reaction (Unknown, Verified 09/19/21 08:07) unknown/childhood reaction Nemenda Allergy (Uncoded 09/19/21 08:07) tinnitus Home medications list reviewed: Yes Home Medications: Ascorbic Acid [C-1000] 1,000 mg PO DAILY 12/12/13 Cyanocobalamin (Vitamin B-12) [B-12] 1,000 mcg PO DAILY 12/12/13 Donepezil HCl [Aricept] 23 mg PO BEDTIME 12/12/13 Finasteride [Proscar*] 5 mg PO BEDTIME 12/12/13 Niacin [Niacin ER] 500 mg PO BIDWM 12/12/13 Pantoprazole [Protonix Tab*] 40 mg PO DAILY 12/12/13 Tamsulosin [Flomax*] 1 cap PO BEDTIME 12/12/13 Nitroglycerin [Nitrostat*] 0.4 mg SL PRN PRN 03/15/14 traMADol HCL [Ultram*] 50 mg PO Q6H PRN #0 tab 03/29/14 Furosemide [Lasix*] 10 mg PO DIRECTED 06/13/14 Magnesium Oxide [Magnesium] 400 mg PO BID 06/13/14 Cholecalciferol (Vitamin D3) [Vitamin D3] 1,000 units PO BEDTIME 12/01/15 Losartan Potassium [Cozaar] 100 mg PO [id number] 12/01/15 Prevagen 1 pill PO DAILY 12/01/15 Amlodipine [Norvasc*] 5 mg PO DAILY 01/20/21 Citalopram Hydrobromide [Celexa] 20 mg PO DAILY 01/20/21 Docosahexanoic AC/Epa [Fish Oil 1,000 MG*] 1,000 mg PO DAILY 01/20/21 Docusate Sodium 100 mg PO DAILY PRN 01/20/21 Levothyroxine Sodium [Levothyroxine] 50 mcg PO [id number] 01/20/21 Medium Chain Triglycerides [Mct Oil] 15 ml PO DAILY 01/20/21 Sennosides [Senna] 1 cap PO BID PRN 01/20/21 Aspirin [Aspirin EC 81 MG] 81 mg PO DAILY 09/19/21 Atorvastatin Calcium [Lipitor] 20 mg PO BEDTIME 03/20/22 - Past Medical/Surgical History Diabetic: No -: TINNITUS -: HTN -: AFIB -: CAD -: HYPERLIPIDEMIA -: NSTEMI -: STROKE -: LEGIONAIRE'S DISEASE -: SLEEP APNEA -: ALZHEIMER'S -: SQUAMOS CELL SKIN CANCER -: COLOSTOMY, DIVERTICULITIS, BARRETTS ESOPHAGUS -: QUADRUPLE BYPASS 1991 -: LITHOTRIPSY -: CYSTOSCOPY 2009 -: CYSTOSCOPY 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 -: CARDIAC STENT 2013 -: COLOSTOMY 2013 -: cardiacstent - Family History Father -: Heart disease, Hypertension, Stroke, Cancer Mother -: Heart disease, Hypertension, Diabetes - Social History Smoking Status: Former smoker Alcohol use: No CD- Drugs: No Caffeine use: Yes Place of Residence: Home Review of Systems 10-point ROS is otherwise unremarkable General: Weakness Respiratory: Shortness of Breath Physical Examination - Vital Signs Temperature: 97.7 F Blood Pressure: 123/75 Pulse: 85 Respirations: 19 Pulse Ox (%): 88 - Physical Exam General: Acute distress, Mild distress HEENT: Atraumatic, PERRLA, Mucous membr. moist/pink, EOMI, Sclerae nonicteric Neck: Supple, 2+ carotid pulse no bruit, No LAD, Without JVD or thyroid abnormality Respiratory: Clear to auscultation bilaterally, Normal air movement Cardiovascular: Regular rate/rhythm, Normal S1 S2 Gastrointestinal: Normal bowel sounds, No tenderness Musculoskeletal: No tenderness Integumentary: No rashes Neurological: Normal gait, Normal speech, Normal strength at 5/5 x4 extr, Normal tone, Normal affect Lymphatics: No axilla or inguinal lymphadenopathy - Studies Laboratory Data (last 24 hrs) 04/21/22 02:37: WBC 8.5 D, Hgb 8.8 L, Hct 26.9 L, Plt Count 135 L 04/21/22 02:37: Sodium 143, Potassium 4.4, BUN 35 H, Creatinine 2.10 H, Glucose 161 H Assessment and Plan - Problems (Diagnosis) (1) Dyspnea Current Visit: Yes Status: Acute Plan: BNP IS LOWER THAN BEFORE. HE MAY HAVE PE. I WILL NOT ORDER VQ SCAN THERE IS NO ANSWER TO HIS PROBLEM. UNDERSTANDS. SHE WILL CONSIDER HOSPICE HE NOW IS STARTING TO GET WORSE. HE MAY HAVE PE AND MAY GET WORSE. Qualifiers: Dyspnea type: dyspnea on exertion Qualified Code(s): R06.09 - Other forms of dyspnea (2) Alzheimer's dementia Current Visit: No Status: Chronic Plan: SEVERE DEMENTIA. GETTING WORSE WITH PHYSICAL ABILITY. (3) Atrial fibrillation Current Visit: No Status: Chronic Qualifiers: Atrial fibrillation type: permanent Qualified Code(s): I48.21 - Permanent atrial fibrillation - Advance Directives Does patient have a Living Will: No Does patient have a Durable POA for Healthcare: No
[2022-04-21] MEDS: MAGNESIUM OXIDE 400 MG TAB PO SCH (21:00)
[2022-04-21] MEDS: TAMSULOSIN 0.4 MG SR CAP PO SCH (21:59)
[2022-04-21] MEDS: ATORVASTATIN 20 MG TAB PO SCH (21:59)
[2022-04-21] MEDS: FINASTERIDE 5 MG TAB PO SCH (22:00)
[2022-04-22 06:00] LABS: Absolute Lymphocytes (CBC) 0.7 K/uL (0.7-4.9); Hematocrit 25.7 % (39.6-49.0); Lymphocytes % 8.6 % (15.3-44.8); MPV 9.7 fL (7.6-11.3); RBC Red Blood Cell Count 2.92 M/uL (4.33-5.43)
[2022-04-22] MEDS ORDERED: HOME MED 1 EA UNK (Losartan Potassium [Cozaar] 100 MG Tablet) PO SCH (06:00)
[2022-04-22] MEDS ORDERED: HOME MED 1 EA UNK (Levothyroxine Sodium [Levothyroxine] 50 MCG Capsule) PO SCH (06:00)
[2022-04-22 06:16] LABS: Potassium 4.1 mmol/L (3.5-5.1)
[2022-04-22] MEDS: LEVOTHYROXINE SOD 0.05 MG TABLET PO SCH (06:35)
[2022-04-22 08:08] LABS: Platelet Estimate DECR; Platelets, Giant FEW
[2022-04-22 08:09] LABS: Blood Morphology Comment NOT SEEN (NOT SEEN)
[2022-04-22] MEDS: MAGNESIUM OXIDE 400 MG TAB PO SCH ×2 (09:00→20:37)
[2022-04-22] MEDS: CITALOPRAM 10 MG TABLET PO SCH (09:25)
[2022-04-22] MEDS: LOSARTAN POTASSIUM 50 MG TABLET PO SCH (09:26)
[2022-04-22] MEDS: FUROSEMIDE 20 MG/ 2ML VIAL IV SCH ×2 (09:27→17:34)
[2022-04-22] MEDS: PANTOPRAZOLE 40MG TABLET PO SCH (09:28)
[2022-04-22] MEDS: ASPIRIN EC 81 MG TAB PO SCH (09:28)
--- NOTE | 2022-04-22 12:53 | P.PN ---
Subjective Date of Service: 04/22/22 Chief Complaint: SHORT OF BREATH Subjective: Improving SLIGHTLY BETTER THAN YESTERDAY. HE IS VERY CONFUSED WITH ALZ DISEASE AND DOES NOT KNOW WHY HE IS HERE. AND DAUGHTER AT BEDSIDE. Review of Systems 10-point ROS is otherwise unremarkable General: Weakness Physical Examination - Vital Signs Temperature: 97.4 F Blood Pressure: 128/60 Pulse: 60 Respirations: 20 Pulse Ox (%): 94 - Physical Exam General: Oriented x1, Cooperative, Mild distress HEENT: Atraumatic, PERRLA, EOMI Neck: Supple, JVD not distended Respiratory: Clear to auscultation bilaterally, Normal air movement Cardiovascular: Irregular heart rate/rhythm Gastrointestinal: Normal bowel sounds, No tenderness Musculoskeletal: No tenderness Integumentary: No rashes Neurological: Normal speech, Normal tone, Normal affect Lymphatics: No axilla or inguinal lymphadenopathy - Studies Medications List Reviewed: Yes Assessment And Plan - Current Problems (Diagnosis) (1) Dyspnea Current Visit: Yes Status: Acute Plan: BNP IS LOWER THAN BEFORE. HE MAY HAVE PE. I WILL NOT ORDER VQ SCAN THERE IS NO ANSWER TO HIS PROBLEM. UNDERSTANDS. SHE WILL CONSIDER HOSPICE HE NOW IS STARTING TO GET WORSE. HE MAY HAVE PE AND MAY GET WORSE. Qualifiers: Dyspnea type: dyspnea on exertion Qualified Code(s): R06.09 - Other forms of dyspnea (2) Alzheimer's dementia Current Visit: No Status: Chronic Plan: SEVERE DEMENTIA. GETTING WORSE WITH PHYSICAL ABILITY. (3) Atrial fibrillation Current Visit: No Status: Chronic Qualifiers: Atrial fibrillation type: permanent Qualified Code(s): I48.21 - Permanent atrial fibrillation (4) Acute on chronic congestive heart failure Current Visit: Yes Status: Acute Plan: CONTINUE LASIX BID. HE IS NOT ABLE TO TOLERATE KIDNEYS GET WORSE. I HAVE TALKED TO IN DETAIL THAT HE IS NOT ABLE TO TAKE ANTICOAGULATION HE SHOULD BE ON HOSPICE. HE IS AT RISK OF STROKE OR PE. FAMILY DOES NOT WANT ANY INVASIVE INTERVENTION LIKE WATCHMAN PROCEDURE. I THINK WITHOUT HOSPICE HE WILL BE BACK IN [facility] IN A WEEK OR TWO. THEY WILL THINK AND LET ME KNOW. Qualifiers: Heart failure type: diastolic Qualified Code(s): I50.33 - Acute on chronic diastolic (congestive) heart failure (5) CKD stage 4 secondary to hypertension Current Visit: Yes Status: Acute (6) Stented coronary artery Current Visit: Yes Status: Acute
--- NOTE | 2022-04-22 13:26 | RAD REPORT ---
EXAM DESCRIPTION: XR Chest, 1 View CLINICAL HISTORY: The patient is 81 years old and is Male; SOB TECHNIQUE: Frontal view of the chest. COMPARISON: No relevant prior studies available. FINDINGS: Lungs: Unremarkable. No consolidation. Pleural space: Unremarkable. No pneumothorax. Heart: Cardiac silhouette appears enlarged. Mediastinum: Postsurgical changes in mediastinum. Bones/joints: Disc space narrowing with degenerative endplate changes in the spine. Vasculature: Prominent interstitial and vascular markings. Aortic calcification. IMPRESSION: 1. Prominent interstitial and vascular markings. 2. Cardiac silhouette appears enlarged. Electronically signed by: Luciano Carpenter MD 04/21/2022 2:25 AM CDT Due to temporary technical issues with the PACS/Fluency reporting system, reports are being signed by the in house radiologists without review as a courtesy to insure prompt reporting. The interpreting radiologist is fully responsible for the content of the report.
[2022-04-22] MEDS: TAMSULOSIN 0.4 MG SR CAP PO SCH (20:36)
[2022-04-22] MEDS: FINASTERIDE 5 MG TAB PO SCH (20:36)
[2022-04-22] MEDS: ATORVASTATIN 20 MG TAB PO SCH (20:37)
[2022-04-23 06:20] LABS: Absolute Lymphocytes (CBC) 0.8 K/uL (0.7-4.9); Hematocrit 25.2 % (39.6-49.0); Lymphocytes % 12.8 % (15.3-44.8); MCV 86.1 fL (80-100); MPV 9.4 fL (7.6-11.3); Magnesium 2.4 mg/dL (1.8-2.4); Potassium 3.6 mmol/L (3.5-5.1); RBC Red Blood Cell Count 2.92 M/uL (4.33-5.43)
[2022-04-23] MEDS: LEVOTHYROXINE SOD 0.05 MG TABLET PO SCH (06:20)
--- NOTE | 2022-04-23 08:20 | EKG ---
Test Date: 2022-04-21 Test Time: 02:20:19 Pants Closer: ANUJ MEASUREMENT RESULTS: Intervals: Rate: 78 AR: QRSD: 84 QT: 484 QTc: 551 [place]: P: AR: QRS: 73 T: 206 INTERPRETIVE STATEMENTS: Atrial fibrillation ST & T wave abnormality, consider inferior ischemia Prolonged QT Abnormal ECG Compared to ECG 01/22/2021 09:10:55 ST (T wave) deviation now present Possible ischemia now present Sinus rhythm no longer present Myocardial infarct finding no longer present Electronically Signed On 04-23-22 08:12:02 CDT by Jonnathan Gonsalves
[2022-04-23] MEDS: MAGNESIUM OXIDE 400 MG TAB PO SCH ×2 (09:00→20:54)
[2022-04-23] MEDS: FUROSEMIDE 20 MG/ 2ML VIAL IV SCH ×2 (09:20→16:56)
[2022-04-23] MEDS: ASPIRIN EC 81 MG TAB PO SCH (09:20)
[2022-04-23] MEDS: CITALOPRAM 10 MG TABLET PO SCH (09:20)
[2022-04-23] MEDS: PANTOPRAZOLE 40MG TABLET PO SCH (09:20)
[2022-04-23] MEDS: LOSARTAN POTASSIUM 50 MG TABLET PO SCH (09:20)
[2022-04-23] MEDS: FINASTERIDE 5 MG TAB PO SCH (20:53)
[2022-04-23] MEDS: TAMSULOSIN 0.4 MG SR CAP PO SCH (20:54)
[2022-04-23] MEDS: ATORVASTATIN 20 MG TAB PO SCH (20:54)
--- NOTE | 2022-04-23 21:13 | P.PN ---
Subjective Date of Service: 04/23/22 Chief Complaint: IMPROVED Subjective: Improving SLIGHTLY BETTER THAN YESTERDAY. HE IS VERY CONFUSED WITH ALZ DISEASE AND DOES NOT KNOW WHY HE IS HERE. AND DAUGHTER AT BEDSIDE. HE IS BACK TO HIS BASELINE IN THE PHYSICAL STATUS THOUGH HE IS ON MORE OXYGEN. Review of Systems 10-point ROS is otherwise unremarkable General: Weakness Respiratory: Shortness of Breath Physical Examination - Vital Signs Temperature: 96.9 F Blood Pressure: 143/65 Pulse: 60 Respirations: 22 Pulse Ox (%): 99 - Physical Exam General: Oriented x3, Mild distress HEENT: Atraumatic, PERRLA, EOMI Neck: Supple, JVD not distended Respiratory: Clear to auscultation bilaterally, Normal air movement Cardiovascular: Regular rate/rhythm, Normal S1 S2 Gastrointestinal: Normal bowel sounds, No tenderness Musculoskeletal: No tenderness Integumentary: No rashes Neurological: Normal speech, Normal tone, Normal affect Lymphatics: No axilla or inguinal lymphadenopathy - Studies Medications List Reviewed: Yes Assessment And Plan - Current Problems (Diagnosis) (1) Dyspnea Current Visit: Yes Status: Acute Plan: BNP IS LOWER THAN BEFORE. HE MAY HAVE PE. I WILL NOT ORDER VQ SCAN THERE IS NO ANSWER TO HIS PROBLEM. UNDERSTANDS. SHE WILL CONSIDER HOSPICE HE NOW IS STARTING TO GET WORSE. HE MAY HAVE PE AND MAY GET WORSE. Qualifiers: Dyspnea type: dyspnea on exertion Qualified Code(s): R06.09 - Other forms of dyspnea (2) Alzheimer's dementia Current Visit: No Status: Chronic Plan: SEVERE DEMENTIA. GETTING WORSE WITH PHYSICAL ABILITY. (3) Atrial fibrillation Current Visit: No Status: Chronic Qualifiers: Atrial fibrillation type: permanent Qualified Code(s): I48.21 - Permanent atrial fibrillation (4) Acute on chronic congestive heart failure Current Visit: Yes Status: Acute Plan: CONTINUE LASIX BID. HE IS NOT ABLE TO TOLERATE KIDNEYS GET WORSE. I HAVE TALKED TO IN DETAIL THAT HE IS NOT ABLE TO TAKE ANTICOAGULATION HE SHOULD BE ON HOSPICE. HE IS AT RISK OF STROKE OR PE. FAMILY DOES NOT WANT ANY INVASIVE INTERVENTION LIKE WATCHMAN PROCEDURE. I THINK WITHOUT HOSPICE HE WILL BE BACK IN [facility] IN A WEEK OR TWO. THEY WILL THINK AND LET ME KNOW. HE IS SOMEWHAT BETTER BUT STILL NEEDS HIGH DOSE OF OXYGEN. HE MAY HAVE PE ALSO IN ADDITION TO INTERSTITIAL CHANGES AND CHF. WE CAN'T TREAT PE HE HAS NOT TOLERATED AC IN PAST. IVC FILTER WILL NOT WORK HIS PE WILL BE COMING FROM [facility] SEC. TO A FIB. HE IS POOR CANDIDATE FOR ANY SURGERY OR PROCEDURES FRANDY WATCHKENDRA. Qualifiers: Heart failure type: diastolic Qualified Code(s): I50.33 - Acute on chronic diastolic (congestive) heart failure (5) CKD stage 4 secondary to hypertension Current Visit: Yes Status: Chronic (6) Stented coronary artery Current Visit: Yes Status: Acute
[2022-04-24 00:34] VITALS: O2SAT 97
[2022-04-24] MEDS: LEVOTHYROXINE SOD 0.05 MG TABLET PO SCH (06:01)
[2022-04-24 06:04] LABS: Hematocrit 27.3 % (39.6-49.0); Lymphocytes % 17.9 % (15.3-44.8); MCV 88.1 fL (80-100); MPV 9.7 fL (7.6-11.3)
[2022-04-24 06:19] LABS: Potassium 3.6 mmol/L (3.5-5.1)
[2022-04-24] MEDS: ASPIRIN EC 81 MG TAB PO SCH (08:28)
[2022-04-24] MEDS: LOSARTAN POTASSIUM 50 MG TABLET PO SCH (08:28)
[2022-04-24] MEDS: FUROSEMIDE 20 MG/ 2ML VIAL IV SCH (08:29)
[2022-04-24] MEDS: CITALOPRAM 10 MG TABLET PO SCH (08:29)
[2022-04-24] MEDS: PANTOPRAZOLE 40MG TABLET PO SCH (08:29)
[2022-04-24] MEDS: MAGNESIUM OXIDE 400 MG TAB PO SCH (08:29)
--- NOTE | 2022-04-24 08:33 | RAD REPORT ---
EXAM DESCRIPTION: RAD - Chest Single View - 04/24/2022 6:01 am CLINICAL HISTORY: DYSPNEA Chest pain. COMPARISON: Chest Single View dated 04/21/2022; Chest Pa And Lat (2 Views) dated 03/20/2022; Chest Sin gle View dated 01/23/2021; Chest Single View dated 01/20/2021 FINDINGS: Portable technique limits examination quality. The lungs are grossly clear. The heart is moderately enlarged in size. Sternotomy wires present.Aorti c atherosclerosis. IMPRESSION: No acute intrathoracic process suspected.
[2022-04-24 08:54] VITALS: BP 121/64; TEMP 97.8
--- NOTE | 2022-04-28 12:14 | P.DS ---
Admission Date: 04/21/22 Discharge Date: 04/28/22 Disposition: ROUTINE DISCHARGE Discharge Condition: FAIR Reason for Admission: IMPROVED - Problems (1) Dyspnea Status: Acute Qualifiers: Dyspnea type: dyspnea on exertion Qualified Code(s): R06.09 - Other forms of dyspnea (2) Alzheimer's dementia Status: Chronic (3) Atrial fibrillation Status: Chronic Qualifiers: Atrial fibrillation type: permanent Qualified Code(s): I48.21 - Permanent atrial fibrillation (4) Acute on chronic congestive heart failure Status: Acute Qualifiers: Heart failure type: diastolic Qualified Code(s): I50.33 - Acute on chronic diastolic (congestive) heart failure (5) 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 HE IS NOT ABLE TO TAKE ANTICOAGULATION HE BLEED OFTEN. HIS AND DAUGHTER ARE AWARE OF THE SITUATION THAT HE IS AT HIGH RISK FOR CVA OR PE. HE HAS NO CHEST PAIN. HE DOES NOT KNOW WHY HE IS HERE. Hospital Course: MR PARKER COMES WITH DYSPNEA, WITH DIASTOLIC DYSFUNCTION POSSIBLE WITH PE. HE COULD NOT DO CT ANGIO CREAT IS HIGH AT BASELINE. I DID NOT DO VQ IT WILL NOT CHANGE OUR PLAN AND ALSO HE WILL NOT TOLERATE IT. HE IMPROVED TO A GOOD EXTENT. HE STILL NEEDS OXYGEN AND HIGHER DOSE OF LASIX. KNOWS RENAL FUNCTION WILL GET WORSE. SHE MAY CONSIDER HOSPICE IF HE CONTINUES TO GET WORSE. HE HAS SEVERE DEMENTIA OF ALZHEMIER'S ALSO. Vital Signs/Physical Exam: Temp Pulse Resp BP Pulse Ox 97.8 F 65 14 121/64 99 04/24/22 08:00 04/24/22 08:00 04/24/22 08:00 04/24/22 08:00 04/24/22 08:00 General: Mild distress HEENT: Atraumatic, PERRLA, EOMI Neck: Supple, JVD not distended Respiratory: Clear to auscultation bilaterally, Normal air movement Cardiovascular: Regular rate/rhythm, Normal S1 S2 Gastrointestinal: Normal bowel sounds, No tenderness Musculoskeletal: No tenderness Integumentary: No rashes Neurological: Normal speech, Normal tone, Normal affect, Dementia Lymphatics: No axilla or inguinal lymphadenopathy Laboratory Data at Discharge: WBC 5.70 K/uL (4.3-10.9) 04/24/22 05:23 Hgb 9.0 g/dL (13.6-17.9) L 04/24/22 05:23 Hct 27.3 % (39.6-49.0) L 04/24/22 05:23 Plt Count 123 K/uL (152-406) L 04/24/22 05:23 PT 13.5 SECONDS (9.5-12.5) H 04/21/22 08:30 INR 1.22 04/21/22 08:30 APTT 30.8 SECONDS (24.3-36.9) 04/21/22 08:30 Sodium 138 mmol/L (136-145) 04/24/22 05:23 Potassium 3.6 mmol/L (3.5-5.1) 04/24/22 05:23 BUN 43 mg/dL (7-18) H 04/24/22 05:23 Creatinine 2.02 mg/dL (0.55-1.3) H 04/24/22 05:23 Glucose 103 mg/dL (74-106) 04/24/22 05:23 Magnesium 2.4 mg/dL (1.8-2.4) 04/23/22 05:51 Home Medications: Ascorbic Acid [C-1000] 1,000 mg PO DAILY 12/12/13 Cyanocobalamin (Vitamin B-12) [B-12] 1,000 mcg PO DAILY 12/12/13 Donepezil HCl [Aricept] 23 mg PO BEDTIME 12/12/13 Finasteride [Proscar*] 5 mg PO BEDTIME 12/12/13 Niacin [Niacin ER] 500 mg PO BIDWM 12/12/13 Pantoprazole [Protonix Tab*] 40 mg PO DAILY 12/12/13 Tamsulosin [Flomax*] 1 cap PO BEDTIME 12/12/13 Nitroglycerin [Nitrostat*] 0.4 mg SL PRN PRN 03/15/14 traMADol HCL [Ultram*] 50 mg PO Q6H PRN #0 tab 03/29/14 Magnesium Oxide [Magnesium] 400 mg PO BID 06/13/14 Cholecalciferol (Vitamin D3) [Vitamin D3] 1,000 units PO BEDTIME 12/01/15 Losartan Potassium [Cozaar] 100 mg PO [id number] 12/01/15 Amlodipine [Norvasc*] 5 mg PO DAILY 01/20/21 Citalopram Hydrobromide [Celexa] 20 mg PO DAILY 01/20/21 Docosahexanoic AC/Epa [Fish Oil 1,000 MG*] 1,000 mg PO DAILY 01/20/21 Docusate Sodium 100 mg PO DAILY PRN 01/20/21 Levothyroxine Sodium [Levothyroxine] 50 mcg PO [id number] 01/20/21 Medium Chain Triglycerides [Mct Oil] 15 ml PO DAILY 01/20/21 Aspirin [Aspirin EC 81 MG] 81 mg PO DAILY 09/19/21 Atorvastatin Calcium [Lipitor*] 20 mg PO BEDTIME 03/20/22 Furosemide 40 mg PO DAILY #90 04/23/22 New Medications: Furosemide 40 mg PO DAILY #90 Followup: Anshul Booker MD [Primary Care Provider] -
== END 2022-04-24 10:15 | disposition home or self-care (01) | DRG 291 ==
LOC: ER 01:36 → ERHOLD 05:01 → 2ND 15:34
PROVIDERS: ADMIT Internal Medicine; ATTEND Internal Medicine
DX: I13.0 Hypertensive heart and chronic kidney disease with heart failure and stage 1 through stage 4 chronic kidney disease, or unspecified chronic kidney disease (principal); I50.33 Acute on chronic diastolic (congestive) heart failure; J96.21 Acute and chronic respiratory failure with hypoxia; I26.99 Other pulmonary embolism without acute cor pulmonale; I48.21 Permanent atrial fibrillation; N18.4 Chronic kidney disease, stage 4 (severe); F02.80 Dementia in other diseases classified elsewhere, unspecified severity, without behavioral disturbance, psychotic disturbance, mood disturbance, and anxiety; I25.10 Atherosclerotic heart disease of native coronary artery without angina pectoris; E78.5 Hyperlipidemia, unspecified; Z95.5 Presence of coronary angioplasty implant and graft; Z86.73 Personal history of transient ischemic attack (TIA), and cerebral infarction without residual deficits; I25.2 Old myocardial infarction; Z95.1 Presence of aortocoronary bypass graft; Z88.2 Allergy status to sulfonamides; Z20.822 Contact with and (suspected) exposure to COVID-19; Z93.3 Colostomy status
CPT/HCPCS: 36415; 71045; 80048; 83735; 83880; 84484; 85025; 85610; 85730; 86850; 86900; 86901; 93005; 96372; 96374; 97116; 97161; 97530; 99285; C9113; J1650; J1940; J2405; U0003

== ENCOUNTER 2022-05-06 11:54 | Inpatient (IN) | payer OTHER, MEDICARE ==
--- OUTSIDE RECORDS SUMMARY | 2022-05-06 11:58 | XMS REPORT | Continuity of Care Document ---
:[address] [facility] t Address [address] [place] [address] Care Team Providers Name Role Phone Anshul Conley Primary Care Physician Anshul Booker Attending Clinician Unavailable Alina PRITCHARD, Kenn Zimmerman Attending Clinician [phone] Krystyna Brandon DO Attending Clinician Doctor Unassigned, [place] Attending Clinician Unavailable KRYSTYNA BRANDON Attending Clinician Unavailable KRYSTYNA BRANDON Attending Clinician Unavailable Payers Payer Name Policy Type Policy Number Effective Date Expiration Date S ource Problems Condition Condition Condition Status Onset Resolution Last Treating Co mments Source Name Details Category Date Date Treatment Clinician Date Alzheimer' Alzheimer' Disease Active 2016-09 M ethodi s disease s disease 09-21 st 00:00: Hospita 00 l Cerebrovas Cerebrovas Disease Active 2016-09 M ethodi cular cular 09-21 st accident accident 00:00: Hospit a (CVA) (CVA) 00 l 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 disease 09-21 00:00: Hospita 00 l Malignant Malignant Disease Active 2016-09 Met hodi neoplasm neoplasm 1-14 st of skin of skin 00:00: Hospita 00 l 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 urinary 00:00: Ho spita bladder bladder 00 l S/P TAVR S/P TAVR Disease Active Metho di (transcath (transcath 10-08 st eter eter 00:00: Hospita aortic aortic 00 l valve valve replacemen replacemen t) t) History of History of Disease Active M ethodi coronary coronary 10-08 st artery artery 00:00: Hospita bypass bypass 00 l graft graft Stented Stented Disease Active Methodi coronary coronary 10-08 st artery artery 00:00: Hospita 00 l 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 00:00: Ho spita on on 00 l Hyperlipid Hyperlipid Disease Active 2015-09 M ethodi emia emia 10-06 st 00:00: Hospita 00 l Essential Essential Disease Active 2015-09 Met hodi hypertensi hypertensi 10-06 st on on 00:00: Hospita 00 l 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-06 st coronary coronary 00:00: Hospit a artery artery 00 l Aortic Aortic Disease Active 2015-09 Methodi valve valve 10-06 st stenosis stenosis 00:00: Hospit a 00 l Presence Presence Disease Active 2015-09 Metho di of stent of stent 10-06 st in in 00:00: Hospita coronary coronary 00 l artery artery No known No known Disease Unive rs active active ity of problems problems [facility] Allergies, Adverse Reactions, Alerts Allergy Allergy Status Severity Reaction(s) Onset Inactive Treating Comm ents Source Name Type Date Date Clinician Memantin Propensi Active 2015-09 Method i e ty to 10-06 adverse 00:00: Hospita reaction 00 l s to drug Sulfa Propensi Active 2015-09 Methodi (Sulfona ty to 10-06 st mide adverse 00:00: Hospita Antibiot reaction 00 l ics) s to drug Memantin Drug Active Other - See 2015-09 Uni vers e Allergy comments 10-06 ity of 00:00: [place] 00 Medical Branch Sulfa Drug Active Unknown - 2015-09 tenitis Univer s (Sulfona Allergy See comments 10-06 i ty of mide 00:00: [place] Antibiot 00 Medical ics) Branch MEMANTIN DRUG Active Other-Cmnt 2015-09 Univ ers E INGREDI 1-29 ity of 00:00: [place] 00 Medical Branch SULFA Drug Active Unknown-Cmnt 2015-09 Univ ers (SULFONA Class 1-29 ity of MIDE 00:00: [place] ANTIBIOT 00 Medical ICS) Branch Family History Family Member Diagnosis Comments Start Date Stop Date Source Natural mother [facility] Other Coronary artery [facility] disease Natural father [facility] Social History Social Habit Start Date Stop Date Quantity Comments Source History of Smoker University of tobacco use [facility] Exposure to Not sure University of SARS-CoV-2 [facility] (event) Branch Tobacco use and 2017-12-02 2017-12-02 Smokeless tobacco [facility] exposure 00:00:00 00:00:00 non-user Sex [birth year] [facility] 00:00:00 00:00:00 Smoking Status Start Date Stop Date Source Ex-smoker 2017-12-02 00:00:00 2017-12-02 00:00:00 [facility] Medications Ordered Filled Start Stop Current Ordering Indication Dosage Frequency Signature Comments Components Source Medication Medication Date Date Medication? Clinician (SIG) Name Name ascorbic Yes 1000mg QD Take 1,000 M ethodi acid, 7-[address] vitamin C, 14:46: mouth Hospit a (VITAMIN C) 15 daily. l 1000 MG tablet cyanocobala Yes 1000ug QD Take 1,000 Methodi min 1000 7-[address] MCG tablet 14:46: mouth Hospit a 14 daily. l cholecalcif 0 Yes 1000U QD Take 1,000 Methodi laurent, 7-[address] vitamin D3, 14:46: mouth Hospi ta (VITAMIN 14 daily. l D3) 1,000 unit tablet niacin 500 0 Yes 500mg Q.5D Take 500 Me thodi MG tablet 7-[address] 14:46: mouth 2 Hospita 14 (two) l times a day with meals. melatonin 3 0 Yes 3mg QD Take 3 mg M ethodi mg tablet 7-[address] 14:46: daily. Hospita 14 l omega-3 0 Yes 1000mg Q.5D Take 1,000 Me thodi fatty 7-[address] acids-vitam 14:46: mouth 2 Hos chula in E 1,000 14 (two) l mg capsule times a day. docusate Yes 100mg QD Take 100 Meth mary sodium 7-[address] (COLACE) 14:46: mouth Hospita 100 MG 14 daily. l capsule nitroglycer Yes .4mg Place 0.4 M ethodi in 7-[address] (NITROSTAT) 14:46: the tongue Hospita 0.4 MG SL 14 every 5 l tablet (five) minutes as needed for chest pain. NUT.TX,META Yes Take by Met hodi B.DIS, 7-[address] MV-MINS 14:46: Hospita NO.2 ([place] 14 l ORAL) levothyroxi Yes 50ug QD Take 50 Met hodi ne 7-[address] (SYNTHROID) 14:46: mouth Hospi ta 50 mcg 14 daily. l tablet aspirin 81 Yes Take by Meth mary mg capsule 7-[address] 14:46: Hospita 14 l amLODIPine Yes 5mg QD Take 5 mg Me thodi (NORVASC) 5 7-[address] mg tablet 14:46: daily. Hospit a 14 l niacin 500 2020-09 Yes 500mg Take 500 Un robert mg tablet 2-09 mg by ity of 15:14: mouth [address] [place] [address] (two) Medical times Branch daily. losartan 2020-09 Yes 100mg Take 100 Univ ers 100 mg 2-09 mg by ity of tablet 15:14: mouth [place] [address] daily. Medical Branch amLODIPine 2020-09 Yes 5mg Take 5 mg Un robert 5 mg tablet 2-09 by mouth ity of 15:14: daily. [address] Branch tamsulosin 2020-09 Yes .4mg Take 0.4 Uni vers 0.4 mg 24 2-09 mg by ity of hr capsule 15:14: mouth. [address] finasteride 2020-09 Yes 5mg Take 5 mg U nivers 5 mg tablet 2-09 by mouth. ity of 15:14: [address] levothyroxi 2020-09 Yes 50ug Take 50 Uni vers ne 50 mcg 2-09 mcg by ity of tablet 15:14: mouth. [place] 36 Medical Branch vitamin C 2020-09 Yes 1000mg Take 1,000 Univers with alban 2-09 mg by ity of hips 1,000 15:14: mouth. [place] mg tablet Medical Branch aspirin 81 2020-09 Yes 81mg Take 81 mg U nivers mg Cap 2-09 by mouth. ity of 15:14: [place] [address] Medical Branch Magnesium 2020-09 Yes 400mg Take 400 Uni vers Hydroxide 2-09 mg by ity of 400 mg (170 15:14: [place]. [place] 36 [place] magnesium) Branch Chew citalopram 2020-09 Yes 20mg Take 20 mg U nivers (CELEXA) 20 2-09 by mouth ity of mg tablet 15:14: daily. [address] Branch medium 2020-09 Yes Take by Univers chain 2-09 mouth. ity of triglycerid 15:14: [facility] (MCT OIL 36 Medical ORAL) Branch omega 2020-09 Yes 1000mg Take 1,000 Univ ers 3-dha-epa-f 2-09 mg by ity of joseph oil 15:14: mouth. [place] (FISH OIL) Medical 100-160-1,0 Branch 00 mg Cap vitamin 2020-09 Yes 1000ug Take 1,000 Un robert B-12 2-09 mcg by ity of (VITAMIN 15:14: mouth [place] B-12) 1,000 36 daily. Medica l mcg tablet Branch COCONUT OIL 2020-09 Yes Take by Uni vers ORAL 2-09 mouth. ity of 15:14: [address] Branch atorvastati 2020-09 Yes 20mg Take 20 mg Univers n 20 mg 2-09 by mouth ity of tablet 15:14: at [place] [address] bedtime. Medical Branch Donepezil 2020-09 Yes Take by Unive rs (ARICEPT) 2-09 mouth. ity of 23 mg Tab 15:14: [place] [address] Medical Branch nitroglycer 2020-[address] 0.4 U nivers in 2-09 mg under ity of (NITROSTAT) 15:14: the tongue [place] 0.4 mg 36 every 5 Medical sublingual (five) Branch tablet minutes as needed for Chest pain. traMADol 2020-09 Yes 50mg Take 50 mg Uni vers (ULTRAM) 50 2-09 by mouth ity of mg/10 mL 15:14: every 4 [place] oral 36 (four) Medical syringe hours as Branch needed. pravastatin 2020-09 Yes 40mg Take 40 mg Univers 40 mg 2-09 by mouth. ity of tablet 15:14: [address] Branch furosemide 2020-09 Yes 10mg Take 10 mg U nivers 20 mg 2-09 by mouth. ity of tablet 15:14: [address] Branch niacin 500 2020-09 Yes 500mg Take 500 Un robert mg tablet 2-09 mg by ity of 15:14: mouth 2 [place] [address] (two) Medical times Branch daily. losartan 2020-09 Yes 100mg Take 100 Univ ers 100 mg 2-09 mg by ity of tablet 15:14: mouth [place] [address] daily. Medical Branch amLODIPine 2020-09 Yes 5mg Take 5 mg Un robert 5 mg tablet 2-09 by mouth ity of 15:14: daily. [address] Branch tamsulosin 2020-09 Yes .4mg Take 0.4 Uni vers 0.4 mg 24 2-09 mg by ity of hr capsule 15:14: mouth. [address] finasteride 2020-09 Yes 5mg Take 5 mg U nivers 5 mg tablet 2-09 by mouth. ity of 15:14: [address] Branch levothyroxi 2020-09 Yes 50ug Take 50 Uni vers ne 50 mcg 2-09 mcg by ity of tablet 15:14: mouth. [address] Branch vitamin C 2020-09 Yes 1000mg Take 1,000 Univers with alban 2-09 mg by ity of hips 1,000 15:14: mouth. [place] mg tablet [address] [place] [address] Branch aspirin 81 2020-09 Yes 81mg Take 81 mg U nivers mg Cap 2-09 by mouth. ity of 15:14: [address] Branch Magnesium 2020-09 Yes 400mg Take 400 Uni vers Hydroxide 2-09 mg by ity of 400 mg (170 15:14: [facility]. [facility]) Branch Chew citalopram 2020-09 Yes 20mg Take 20 mg U nivers (CELEXA) 20 2-09 by mouth ity of mg tablet 15:14: daily. [address] Branch medium 2020-09 Yes Take by Univers chain 2-09 mouth. ity of triglycerid 15:14: [place] es (MCT OIL Medical ORAL) Branch omega 2020-09 Yes 1000mg Take 1,000 Univ ers 3-dha-epa-f 2-09 mg by ity of joseph oil 15:14: mouth. [place] (FISH OIL) Medical 100-160-1,0 Branch 00 mg Cap vitamin 2020-09 Yes 1000ug Take 1,000 Un robert B-12 2-09 mcg by ity of (VITAMIN 15:14: mouth [place] B-12) 1,000 36 daily. Medica l mcg tablet Branch COCONUT OIL 2020-09 Yes Take by Uni vers ORAL 2-09 mouth. ity of 15:14: [address] Branch atorvastati 2020-09 Yes 20mg Take 20 mg Univers n 20 mg 2-09 by mouth ity of tablet 15:14: at [place] [address] bedtime. Medical Branch Donepezil 2020-09 Yes Take by Unive rs (ARICEPT) 2-09 mouth. ity of 23 mg Tab 15:14: [address] Branch nitroglycer 2020-[address] 0.4 U nivers in 2-09 mg under ity of (NITROSTAT) 15:14: the tongue [place] 0.4 mg 36 every 5 Medical sublingual (five) Branch tablet minutes as needed for Chest pain. traMADol 2020-09 Yes 50mg Take 50 mg Uni vers (ULTRAM) 50 2-09 by mouth ity of mg/10 mL 15:14: every 4 [place] oral (four) Medical syringe hours as Branch needed. pravastatin 2020-09 Yes 40mg Take 40 mg Univers 40 mg 2-09 by mouth. ity of tablet 15:14: [address] Branch furosemide 2020-09 Yes 10mg Take 10 mg U nivers 20 mg 2-09 by mouth. ity of tablet 15:14: [address] Branch niacin 500 2020-09 Yes 500mg Take 500 Un robert mg tablet 2-09 mg by ity of 15:14: mouth 2 [place] 36 (two) Medical times Branch daily. losartan 2020-09 Yes 100mg Take 100 Univ ers 100 mg 2-09 mg by ity of tablet 15:14: mouth [place] [address] daily. Medical Branch amLODIPine 2020-09 Yes 5mg Take 5 mg Un robert 5 mg tablet 2-09 by mouth ity of 15:14: daily. [address] Branch tamsulosin 2020-09 Yes .4mg Take 0.4 Uni vers 0.4 mg 24 2-09 mg by ity of hr capsule 15:14: mouth. [address] finasteride 2020-09 Yes 5mg Take 5 mg U nivers 5 mg tablet 2-09 by mouth. ity of 15:14: [address] Branch levothyroxi 2020-09 Yes 50ug Take 50 Uni vers ne 50 mcg 2-09 mcg by ity of tablet 15:14: mouth. [address] vitamin C 2020-09 Yes 1000mg Take 1,000 Univers with alban 2-09 mg by ity of hips 1,000 15:14: mouth. [place] mg tablet [address] [place] [address] Branch aspirin 81 2020-09 Yes 81mg Take 81 mg U nivers mg Cap 2-09 by mouth. ity of 15:14: [address] Magnesium 2020-09 Yes 400mg Take 400 Uni vers Hydroxide 2-09 mg by ity of 400 mg (170 15:14: [place]. [place] mg [place] magnesium) Branch Chew citalopram 2020-09 Yes 20mg Take 20 mg U nivers (CELEXA) 20 2-09 by mouth ity of mg tablet 15:14: daily. [address] medium 2020-09 Yes Take by Univers chain 2-09 mouth. ity of triglycerid 15:14: [place] es (MCT OIL 36 Medical ORAL) Branch omega 2020-09 Yes 1000mg Take 1,000 Univ ers 3-dha-epa-f 2-09 mg by ity of joseph oil 15:14: mouth. [place] (FISH OIL) Medical 100-160-1,0 Branch 00 mg Cap vitamin 2020-09 Yes 1000ug Take 1,000 Un robert B-12 2-09 mcg by ity of (VITAMIN 15:14: mouth [place] B-12) 1,000 36 daily. Medica l mcg tablet Branch COCONUT OIL 2020-09 Yes Take by Uni vers ORAL 2-09 mouth. ity of 15:14: [address] atorvastati 2020-09 Yes 20mg Take 20 mg Univers n 20 mg 2-09 by mouth ity of tablet 15:14: at [place] [address] bedtime. Medical Branch Donepezil 2020-09 Yes Take by Unive rs (ARICEPT) 2-09 mouth. ity of 23 mg Tab 15:14: [address] Branch nitroglycer 2020-[address] 0.4 U nivers in 2-09 mg under ity of (NITROSTAT) 15:14: the tongue [place] 0.4 mg 36 every 5 Medical sublingual (five) Branch tablet minutes as needed for Chest pain. traMADol 2020-09 Yes 50mg Take 50 mg Uni vers (ULTRAM) 50 2-09 by mouth ity of mg/10 mL 15:14: every 4 [place] oral 36 (four) Medical syringe hours as Branch needed. pravastatin 2020-09 Yes 40mg Take 40 mg Univers 40 mg 2-09 by mouth. ity of tablet 15:14: [address] furosemide 2020-09 Yes 10mg Take 10 mg U nivers 20 mg 2-09 by mouth. ity of tablet 15:14: [address] niacin 500 2020-09 Yes 500mg Take 500 Un robert mg tablet 2-09 mg by ity of 15:14: mouth 2 [place] [address] (two) Medical times Branch daily. losartan 2020-09 Yes 100mg Take 100 Univ ers 100 mg 2-09 mg by ity of tablet 15:14: mouth [place] 36 daily. Medical Branch amLODIPine 2020-09 Yes 5mg Take 5 mg Un robert 5 mg tablet 2-09 by mouth ity of 15:14: daily. [address] tamsulosin 2020-09 Yes .4mg Take 0.4 Uni vers 0.4 mg 24 2-09 mg by ity of hr capsule 15:14: mouth. [address] finasteride 2020-09 Yes 5mg Take 5 mg U nivers 5 mg tablet 2-09 by mouth. ity of 15:14: [address] levothyroxi 2020-09 Yes 50ug Take 50 Uni vers ne 50 mcg 2-09 mcg by ity of tablet 15:14: mouth. [address] vitamin C 2020-09 Yes 1000mg Take 1,000 Univers with alban 2-09 mg by ity of hips 1,000 15:14: mouth. [address] Branch aspirin 81 2020-09 Yes 81mg Take 81 mg U nivers mg Cap 2-09 by mouth. ity of 15:14: [address] Magnesium 2020-09 Yes 400mg Take 400 Uni vers Hydroxide 2-09 mg by ity of 400 mg (170 15:14: [place]. [place] mg 36 Medical magnesium) Branch Chew citalopram 2020-09 Yes 20mg Take 20 mg U nivers (CELEXA) 20 2-09 by mouth ity of mg tablet 15:14: daily. [address] Branch medium 2020-09 Yes Take by Univers chain 2-09 mouth. ity of triglycerid 15:14: [facility] (MCT OIL 36 Medical ORAL) Branch omega 2020-09 Yes 1000mg Take 1,000 Univ ers 3-dha-epa-f 2-09 mg by ity of joseph oil 15:14: mouth. [place] (FISH OIL) Medical 100-160-1,0 Branch 00 mg Cap vitamin 2020-09 Yes 1000ug Take 1,000 Un robert B-12 2-09 mcg by ity of (VITAMIN 15:14: mouth [place] B-12) 1,000 36 daily. Medica l mcg tablet Branch COCONUT OIL 2020-09 Yes Take by Uni vers ORAL 2-09 mouth. ity of 15:14: [address] Branch atorvastati 2020-09 Yes 20mg Take 20 mg Univers n 20 mg 2-09 by mouth ity of tablet 15:14: at [place] [address] bedtime. [facility] Branch Donepezil 2020-09 Yes Take by Unive rs (ARICEPT) 2-09 mouth. ity of 23 mg Tab 15:14: [address] Branch nitroglycer 2020-[address] 0.4 U nivers in 2-09 mg under ity of (NITROSTAT) 15:14: the tongue [place] 0.4 mg 36 every 5 Medical sublingual (five) Branch tablet minutes as needed for Chest pain. traMADol 2020-09 Yes 50mg Take 50 mg Uni vers (ULTRAM) 50 2-09 by mouth ity of mg/10 mL 15:14: every 4 [place] oral 36 (four) Medical syringe hours as Branch needed. pravastatin 2020-09 Yes 40mg Take 40 mg Univers 40 mg 2-09 by mouth. ity of tablet 15:14: [address] Branch furosemide 2020-09 Yes 10mg Take 10 mg U nivers 20 mg 2-09 by mouth. ity of tablet 15:14: [address] Branch Docusate Yes 100mg Take 100 Univ ers Sodium 100 9-09 mg by ity of mg tablet 16:20: mouth. [address] Docusate Yes 100mg Take 100 Univ ers Sodium 100 9-09 mg by ity of mg tablet 16:20: mouth. [address] Docusate Yes 100mg Take 100 Univ ers Sodium 100 9-09 mg by ity of mg tablet 16:20: mouth. [address] Docusate Yes 100mg Take 100 Univ ers Sodium 100 9-09 mg by ity of mg tablet 16:20: mouth. [address] pravastatin Yes Method i (PRAVACHOL) 1-24 st 40 MG 00:00: Hospita tablet 00 l metoclopram Yes Method i morenita 8 st (REGLAN) 10 00:00: Hospit a MG tablet 00 l SUPREP Yes Methodi BOWEL PREP 04-10 st KIT 00:00: Hospita 17.5-3.13-1 00 l .6 gram recon soln amoxicillin Yes Method i (AMOXIL) 04-02 st 500 MG 00:00: Hospita capsule l pravastatin Yes 20mg QD Take 20 mg Methodi (PRAVACHOL) 1-[address] 20 MG 00:00: daily. Hospita tablet 00 l citalopram Yes 20mg QD Take 20 mg M ethodi (CeleXA) 20 1-[address] MG tablet 00:00: daily. Hospit a l donepezil Yes 23mg QD Take 23 mg Me thodi (ARICEPT) 1-[address] 23 mg 00:00: daily. Hospita tablet 00 l furosemide Yes 20mg QD Take 20 mg M ethodi (LASIX) 20 1-[address] mg tablet 00:00: daily. 6 Hosp rama 00 days a l week amIODarone 2015-09 Yes 200mg QD Take 200 Me thodi (PACERONE) 2-[address] 200 MG 00:00: mouth Hospita tablet 00 daily. l losartan 2015-09 Yes 100mg QD Take 100 Meth mary (COZAAR) 2-[address] 100 MG 00:00: mouth Hospita tablet 00 daily. l pantoprazol 2015-09 Yes 40mg QD Take 40 mg Methodi e 2-[address] (PROTONIX) 00:00: daily. Hospi ta 40 MG EC 00 l tablet finasteride 2015-09 Yes 5mg QD Take 5 mg M ethodi (PROSCAR) 5 1-[address] mg tablet 00:00: daily. Hospit a 00 l tamsulosin 2015-09 Yes .4mg QD 0.4 mg Metho di (FLOMAX) 1-[address] 0.4 mg 00:00: Hospita capsule,ext 00 l ended release 24hr Vital Signs Vital Name Observation Time Observation Value Comments Source Systolic blood 2021-08-16 21:23:00 151 mm[Hg[facility] Diastolic blood 2021-08-16 21:23:00 60 mm[Hg] [facility] Heart rate 2021-08-16 21:23:00 58 /min [facility] Respiratory rate 2021-08-16 21:17:00 22 /min [facility] Body height 2021-08-16 21:17:00 180.3 cm [facility] Body weight 2021-08-16 21:17:00 78.926 kg [facility] BMI 2021-08-16 21:17:00 24.27 kg/m2 [facility] Oxygen saturation in 2021-08-16 21:17:00 98 /min [facility] Arterial blood by [facility] Pulse oximetry Branch Systolic blood 2022-03-22 19:39:00 153 mm[Hg] Method ist [facility] pressure Diastolic blood 2022-03-22 19:39:00 74 mm[Hg] Metho dist [facility] pressure Heart rate 2022-03-22 19:39:00 57 /min [facility] Body height 2022-03-22 19:39:00 180.3 cm [facility] Body weight 2022-03-22 19:39:00 78.563 kg [facility] BMI 2022-03-22 19:39:00 24.16 kg/m2 [facility] Oxygen saturation in 2022-03-22 19:39:00 97 /min [facility] Arterial blood by Pulse oximetry Procedures Procedure Date / Time Performing Clinician Source Performed ECG 12-LEAD 2022-03-22 19:54:15 Kenn Fuller [facility] V. DME/SUPPLY JUSTIFICATION 2021-08-20 06:01:00 Doctor Unassigned, No [facility] Plan of Care Planned Activity Planned Date Details Comments Source Future Scheduled 2022-04-24 HEPATITIS B VACCINES Met [facility] Test 09:34:27 (1 of 3 - 3-dose series) [code = HEPATITIS B VACCINES (1 of 3 - 3-dose series)] Future Scheduled 2022-04-24 COVID-19 VACCINE (#1) [facility] Test 09:34:27 [code = COVID-19 VACCINE (#1)] Future Scheduled 2022-04-24 65+ [facility] 09:[facility]:27 VACCINE (1 - PCV) [code = 65+ PNEUMOCOCCAL VACCINE (1 - PCV)] Future Scheduled 2022-04-24 SHINGLES VACCINES (1 Met [facility] Test 09:34:27 of 2) [code = SHINGLES VACCINES (1 of 2)] Future Scheduled 2022-04-24 INFLUENZA VACCINE Method [facility] Test 09:34:27 [code = INFLUENZA VACCINE] Encounters Start End Encounter Admission Attending Care Care Encounter Source Date/Time Date/Time Type Type Clinicians Facility Department ID 2021-10-03 Outpatient NIKKI Booker [facility] [id number] Common 14:08:18 Anshul [id number] [facility] 2021-10-[address] [facility] [id number] Common 13:12:42 Anshul [id number] [facility] 2022-04-19 2022-04-19 Telemedici [place] 1.2.840.1 [id number] Methodi 16:45:00 17:00:00 ne Kenn ordoñez 09460.1.[address] Elsie 3.430.2.7 Hospit a .3.696554 l .8 2022-04-18 2022-04-18 Telephone [place] 1.2.840.1 [id number] Methodi 00:00:00 00:00:00 Kenn ordoñez [address]112.1.[address] V. 3.430.2.7 Hospit a .3.700034 l .8 2022-04-10 2022-04-10 Telephone [place] 1.2.840.1 [id number] Methodi 00:00:00 00:00:00 Kenn ordoñez 11358.1.[address] V. 3.430.2.7 Hospit a .3.921751 l .8 2022-03-22 2022-03-22 Office [place] 1.2.840.1 [id number] Methodi 14:00:00 15:17:00 Visit oKenn 37525.1.[address] V. 3.430.2.7 Hospit a .3.707729 l .8 2022-03-22 2022-03-22 Travel 1.2.840.1 [id number] Methodi 00:00:00 00:00:[address] 3.430.2.7 0.2.7.3.698 Ho spita .3.726322 084.8 l .8 2022-03-22 2022-03-22 Outpatient VALDERRABAN [facility] [id number] [place] 00:00:00 00:00:00 KENN Ordoñez [address] 2022-01-10 2022-01-10 ambulatory STLMLC STLMLC [id number] Common 00:00:00 00:00:00 [facility] 2022-01-09 2022-01-09 ambulatory STLMLC STLMLC [id number] Common 00:00:00 00:00:00 [facility] 2021-11-16 2021-11-16 ambulatory STLMLC STLMLC [id number] Common 00:00:00 00:00:00 [facility] 2021-11-09 2021-11-09 ambulatory STLMLC STLMLC [id number] Common 00:00:00 00:00:00 [facility] 2021-08-23 2021-08-23 CHERELLE Quigley [id number] Univers 00:00:00 00:00:00 [place] MARIA LUISAVICKY 350.1.13.10 i ty of [place] PROF[place] [id number] [address] 2021-08-20 2021-08-20 Orders Doctor OLIVIA [id number] [id number] Univers 00:00:00 00:00:00 Only Unassigned, PEEWEE 350.1.13.10 ity of [place] [facility] 4.2.7.2.686 Terry as [id number] [address] 2021-08-16 2021-08-16 Outpatient R RKYSTYNA BRANDON [facility] [id number] Univers 15:00:00 15:45:27 KRYSTYNA BRANDON i ty of [facility] 2021-08-16 2021-08-16 Office Keiko [facility] [id number] [id number] Univers 14:58:58 15:45:27 [facility] NAIR 350.1.13.10 i ty [place] PROF[place] [id number] [address] 2021-07-26 2021-07-26 ambulatory STLMLC STLMLC [id number] Common 00:00:00 00:00:00 [facility] 2021-07-18 2021-07-18 ambulatory STLMLC STLMLC [id number] Common 00:00:00 00:00:00 [facility] 2021-07-16 2021-07-16 ambulatory STLMLC STLMLC [id number] Common 00:00:00 00:00:00 [facility] Results Test Description Test Time Test Comments Results Result Comments Source ECG 12 lead 2022-03-23 05:43:23 Test Item Value Reference Range Interpretation Comme nts Ventricular rate (test code = 253) Atrial rate (test code = 255) QRSD interval (test code = 260) QT interval (test code = 264) QTC interval (test code = 265) QRS axis 1 (test code = 268) T wave axis (test code = 270) EKG impression (test code = 273) Atrial fibrillation with slow vent ricular response- [facility]
[2022-05-06 12:48] LABS: Urine Blood Trace-intact (Negative); Urine Glucose Negative (Negative); Urine Protein Negative (Negative); Urine Specific Gravity 1.015 (1.005-1.030); Urine pH 5.5 (5.0-7.0)
[2022-05-06 12:59] LABS: Absolute Lymphocytes (CBC) 0.3 K/uL (0.7-4.9); Hematocrit 25.7 % (39.6-49.0); Lymphocytes % 2.4 % (15.3-44.8); MCV 87.5 fL (80-100); MPV 9.4 fL (7.6-11.3); RBC Red Blood Cell Count 2.94 M/uL (4.33-5.43)
[2022-05-06] MEDS ORDERED: NA CHLORIDE 0.9% 250 ML ONE (13:01)
[2022-05-06 13:07] LABS: Protime INR 1.1
--- NOTE | 2022-05-06 13:09 | RAD REPORT ---
EXAM DESCRIPTION: RAD - Chest Single View - 05/06/2022 1:00 pm CLINICAL HISTORY: fever, AMS COMPARISON: Portable 04/24/2022 TECHNIQUE: AP portable chest image was obtained 05/06/2022 1:00 pm . FINDINGS: Lung volumes are low compared to the prior study. This accentuates a baseline interstitial pattern. Interstitial markings are prominent believed to be edema or infiltrate superimposed on a ch ronic interstitial pattern. Cardiomegaly is present. Central vasculature is mildly prominent. Sternotomy wires are in place. Asc ending aortic stent is in place. No pneumothorax is present. There is no large pleural effusion. No a cute bony abnormality seen. No acute aortic findings suspected. IMPRESSION: Heart, vasculature and lung markings are all prominent suggesting a mild failure or volu me overload. Prominent interstitial pattern could also indicate viral infiltrate. No focal consolidation to suspec t bacterial pneumonia.
[2022-05-06 13:12] LABS: Urine Bacteria <20 /HPF (<20); Urine RBC <5 /HPF (None Seen)
[2022-05-06 13:24] LABS: Albumin 3.3 g/dL (3.4-5.0); Bilirubin Total 0.4 mg/dL (0.2-1.0); Potassium 4.2 mmol/L (3.5-5.1); Protein, Total 7.2 g/dL (6.4-8.2)
--- NOTE | 2022-05-06 14:24 | ER ---
Nurse's Notes [facility] Name: Bridger Murillo Age: 81 yrs Sex: Male : 1940 Arrival Date: 05/06/2022 Time: 11:56 Bed 19 Private MD: Diagnosis: Altered mental status, unspecified;UTI/ Urinary tract infection, site not specified;Dehydration Presentation: 05/06 11:57 Chief complaint: EMS states: were toned out for low grade fever, chills, difficulty iw breathing, pt temp was 99.0 on scene, pt denies any difficulty breathing was 96% on RA, ot has hx of Alzheimer's/dementia. Coronavirus screen: Client presents with at least one sign or symptom that may indicate coronavirus-19. Ebola Screen: Patient negative for fever greater than or equal to 101.5 degrees Fahrenheit, and additional compatible Ebola Virus Disease symptoms Patient denies exposure to infectious person. Patient denies travel to an Ebola-affected area in the 21 days before illness onset. No symptoms or risks identified at this time. Initial Sepsis Screen: Does the patient meet any 2 criteria? No. Patient's initial sepsis screen is negative. Does the patient have a suspected source of infection? No. Patient's initial sepsis screen is negative. Risk Assessment: Do you want to hurt yourself or someone else? Patient reports no desire to harm self or others. Onset of symptoms was May 06, 2022. 11:57 Method Of Arrival: EMS: [facility] iw 11:57 Acuity: VALENCIA 3 iw Triage Assessment: 12:59 General: Appears in no apparent distress. comfortable. General: Behavior is calm, eh3 cooperative, appropriate for age. Historical: - Allergies: 11:56 Nemenda; iw 11:56 Sulfa (Sulfonamide Antibiotics); iw - Home Meds: 12:01 pantoprazole 40 mg Oral TbEC 1 tab once daily [Active]; Lasix 20 mg oral tab once daily iw [Active]; niacin 500 mg Oral tab 1 tab 2 times per day [Active]; pravastatin 40 mg oral tab once daily [Active]; Aricept 23 mg Oral tab 1 tab bedtime for Mild to Moderate Alzheimer's Type Dementia [Active]; losartan 100 mg Oral tab 1 tab once daily [Active]; tamsulosin 0.4 mg Oral cp24 1 cap once daily [Active]; levothyroxine 50 mcg cap 1 cap once daily [Active]; Vitamin D3 1,000 unit Oral tab [Active]; aspirin 81 mg oral TbEC once daily [Active]; magnesium oxide 400 mg Oral tab 400 mg twice a day [Active]; Celexa 20 mg Oral tab 1 tab once daily [Active]; prevagen 1 tab daily [Active]; Fish Oil 1,000 mg Oral cap twice a day [Active]; Vitamin B-12 1,000 mcg Oral tab 1000 mcg daily [Active]; Vitamin C 1,000 mg Oral tab 1000 mg daily [Active]; amlodipine 5 mg tab 1 tab once daily [Active]; nitroglycerin 0.3 mg SL subl 1 tab every 5 minutes [Active]; tramadol 50 mg Oral tab 1 tab every 6 hours [Active]; docusate sodium 100 mg Oral cap [Active]; - PMHx: 11:56 Alzheimer's; Anemia; aortic valve disease; Bladder cancer; Atrial Fib; BPH; Non stemi iw NH; barretts; Hypertension; CVA; CAD; Hyperlipidemia; Kidney stones; skin cancer; - Immunization history:: Adult Immunizations up to date. - Family history:: not pertinent. - Social history:: Smoking status: Patient denies any tobacco usage or history of. - Hospitalizations: : No recent hospitalization is reported. Screenin:59 Abuse screen: Denies threats or abuse. Denies injuries from another. Nutritional eh3 screening: No deficits noted. Tuberculosis screening: No symptoms or risk factors identified. Fall Risk Secondary diagnosis (15 points) Alzheimer's, dementia, IV access (20 points). Ambulatory Aid- None/Bed Rest/Nurse Assist (0 pts). Mental Status- Overestimates/Forgets Limitations (15 pts.). Total Dos Santos Fall Scale indicates High Risk Score (45 or more points). Fall prevention measures have been instituted. Side Rails Up X 2 Placed Close to Nursing Station Frequent Obs/Assessments Occuring Family Present and informed to notify staff if the need to leave the bedside As available patient and family educated on Fall Prevention Program and Strategies. Assessment: 12:59 General: Appears in no apparent distress. comfortable, Behavior is cooperative, eh3 appropriate for age, anxious. Pain: Denies pain. Neuro: Level of Consciousness is awake, alert, obeys commands, Oriented to person, place, time, situation. Cardiovascular: Capillary refill < 3 seconds Patient's skin is warm and dry. Respiratory: Airway is patent Respiratory effort is even, unlabored. GI: No signs and/or symptoms were reported involving the gastrointestinal system. : No signs and/or symptoms were reported regarding the genitourinary system. EENT: No signs and/or symptoms were reported regarding the EENT system. Derm: No signs and/or symptoms reported regarding the dermatologic system. Musculoskeletal: Range of motion: intact in all extremities. 14:00 Reassessment: No changes from previously documented assessment. Patient and/or family eh3 updated on plan of care and expected duration. Pain level reassessed. 17:28 Reassessment: Patient appears in no apparent distress at this time. No changes from ld1 previously documented assessment. Patient and/or family updated on plan of care and expected duration. Pain level reassessed. Vital Signs: 11:57 BP 108 / 58; Pulse 65; Resp 18 S; Temp 100.2(O); Pulse Ox 94% on R/A; eh3 12:58 BP 131 / 58; Pulse 73; Resp 18; Pulse Ox 99% on 2 lpm NC; eh3 13:17 Weight 81.19 kg; Height 5 ft. 11 in. (180.34 cm); eh3 13:59 BP 131 / 76; Pulse 75; Resp 18; Pulse Ox 100% on R/A; eh3 15:00 BP 129 / 67; Pulse 73; Resp 20; Pulse Ox 100% on R/A; ld1 17:28 BP 105 / 94; Pulse 64; Resp 16; Pulse Ox 100% on R/A; ld1 13:17 Body Mass Index 24.97 (81.19 kg, 180.34 cm) eh3 ED Course: 11:56 Patient arrived in ED. iw 11:57 Omar Upton MD is Attending Physician. rn 12:00 Triage completed. iw 12:00 Arm band placed on. iw 12:20 Sophie Jenkins, ISABELLE is Primary Nurse. eh3 12:38 Inserted saline lock: 20 gauge in right antecubital area, using aseptic technique. ld1 Blood collected. 12:49 SARS-COV-2 RT PCR (Document "Date of Onset" if Symptomatic) Sent. eh3 12:59 Patient has correct armband on for positive identification. Placed in gown. Bed in low eh3 position. Call light in reach. Side rails up X2. Adult w/ patient. Client placed on continuous cardiac and pulse oximetry monitoring. NIBP monitoring applied. Door closed. Noise minimized. Lights dimmed. Warm blanket given. 13:02 Chest Single View XRAY In Process Unspecified. EDMS 14:23 Anshul Booker MD is Hospitalizing Provider. rn 17:59 No provider procedures requiring assistance completed. Patient admitted, IV remains in eh3 place. Administered Medications: 12:57 Drug: NS 0.9% 250 ml Route: IV; Rate: 1 bolus; Site: right antecubital; eh3 14:00 Follow up: IV Status: Completed infusion; IV Intake: 250ml eh3 14:40 Drug: LevaQUIN (levofloxacin) 500 mg Volume: 100 ml; Route: IVPB; Infused Over: 60 eh3 mins; Site: right antecubital; 15:55 Follow up: Response: No adverse reaction; IV Status: Completed infusion; IV Intake: eh3 100ml Medication: 18:00 VIS not applicable for this client. eh3 Intake: 14:00 IV: 250ml; Total: 250ml. eh3 15:55 IV: 100ml; Total: 350ml. eh3 Output: 15:38 Urine: 800ml (Voided); Total: 800ml. ld1 Outcome: 14:24 Decision to Hospitalize by Provider. rn 17:59 Admitted to ER Hold. Please see [facility] for further documentation. eh3 17:59 Condition: stable 17:59 Instructed on the need for admit. 20:19 Patient left the ED. ld1 Signatures: Dispatcher [employer] EDIA Marcia Perez RN RN iw Nieto, Roman, MD MD rn Dibbern, Lauren, RN RN ld1 Sophie Jenkins RN RN eh3 Corrections: (The following items were deleted from the chart) 12:56 11:57 BP 108 / 58; Pulse 65bpm; Resp 18bpm; Spontaneous; Pulse Ox 94% RA; iw eh3 14:13 14:11 General: Appears in no apparent distress. comfortable, eh3 eh3 14:13 14:12 General: Behavior is calm, cooperative, appropriate for age, eh3 eh3
--- NOTE | 2022-05-06 14:25 | EDPHYS ---
Physician Documentation [facility] Name: Bridger Murillo Age: 81 yrs Sex: Male : 1940 Arrival Date: 05/06/2022 Time: 11:56 Bed 19 Private MD: ED Physician Omar Upton HPI: 05/06 12:25 This 81 yrs old Male presents to ER via EMS with complaints of fever. rn 12:25 The patient reports fever, not measured (subjective). Onset: The symptoms/episode rn began/occurred this morning. Modifying factors: there are no obvious modifying factors. Associated signs and symptoms: Pertinent positives: chills, confusion, Pertinent negatives: abdominal pain, chest pain, cough, headache, hemoptysis, skin rash, shortness of breath, swelling, vomiting. Severity of symptoms: At their worst the symptoms were mild in the emergency department the symptoms have improved. The patient has not experienced similar symptoms in the past. The patient has not recently seen a physician. reports fever and slight confusion that began today. No sob/chest pain/abd pain/vomiting/diarrhea. NO sick contacts. No neck pain. . Historical: - Allergies: 11:56 Nemenda; iw 11:56 Sulfa (Sulfonamide Antibiotics); iw - Home Meds: 12:01 pantoprazole 40 mg Oral TbEC 1 tab once daily [Active]; Lasix 20 mg oral tab once daily iw [Active]; niacin 500 mg Oral tab 1 tab 2 times per day [Active]; pravastatin 40 mg oral tab once daily [Active]; Aricept 23 mg Oral tab 1 tab bedtime for Mild to Moderate Alzheimer's Type Dementia [Active]; losartan 100 mg Oral tab 1 tab once daily [Active]; tamsulosin 0.4 mg Oral cp24 1 cap once daily [Active]; levothyroxine 50 mcg cap 1 cap once daily [Active]; Vitamin D3 1,000 unit Oral tab [Active]; aspirin 81 mg oral TbEC once daily [Active]; magnesium oxide 400 mg Oral tab 400 mg twice a day [Active]; Celexa 20 mg Oral tab 1 tab once daily [Active]; prevagen 1 tab daily [Active]; Fish Oil 1,000 mg Oral cap twice a day [Active]; Vitamin B-12 1,000 mcg Oral tab 1000 mcg daily [Active]; Vitamin C 1,000 mg Oral tab 1000 mg daily [Active]; amlodipine 5 mg tab 1 tab once daily [Active]; nitroglycerin 0.3 mg SL subl 1 tab every 5 minutes [Active]; tramadol 50 mg Oral tab 1 tab every 6 hours [Active]; docusate sodium 100 mg Oral cap [Active]; - PMHx: 11:56 Alzheimer's; Anemia; aortic valve disease; Bladder cancer; Atrial Fib; BPH; Non stemi iw CA; barretts; Hypertension; CVA; CAD; Hyperlipidemia; Kidney stones; skin cancer; - Immunization history:: Adult Immunizations up to date. - Family history:: not pertinent. - Social history:: Smoking status: Patient denies any tobacco usage or history of. - Hospitalizations: : No recent hospitalization is reported. ROS: 12:25 Constitutional: + fever and chills Eyes: Negative for injury, pain, redness, and rn acls, Neck: Negative for injury, pain, and swelling, Cardiovascular: Negative for chest pain, palpitations, and edema, Respiratory: Negative for shortness of breath, cough, wheezing, and pleuritic chest pain, Abdomen/GI: Negative for abdominal pain, nausea, vomiting, diarrhea, and constipation, Back: Negative for injury and pain, MS/Extremity: Negative for injury and deformity, Skin: Negative for injury, rash, and discoloration, Neuro: Negative for headache, numbness, tingling, and seizure. Exam: 12:19 ECG was reviewed by the Attending Physician. rn 12:25 Constitutional: This is a well developed, well nourished patient who is awake, alert, rn and in no acute distress. Non-toxic, joking. Head/Face: Normocephalic, atraumatic. Eyes: Periorbital areas with no swelling, redness, or edema. ENT: dry MM Cardiovascular: Irregular rhythm, regular rate Respiratory: Speaking full sentences. No increased work of breathing, no retractions or nasal flaring. Abdomen/GI: Soft, non-tender, with normal bowel sounds. No distension or tympany. No guarding or rebound. No evidence of tenderness throughout. Skin: Warm, dry MS/ Extremity: Pulses equal, no cyanosis. Neuro: Awake and alert, GCS 15 Vital Signs: 11:57 BP 108 / 58; Pulse 65; Resp 18 S; Temp 100.2(O); Pulse Ox 94% on R/A; eh3 12:58 BP 131 / 58; Pulse 73; Resp 18; Pulse Ox 99% on 2 lpm NC; eh3 13:17 Weight 81.19 kg; Height 5 ft. 11 in. (180.34 cm); eh3 13:59 BP 131 / 76; Pulse 75; Resp 18; Pulse Ox 100% on R/A; eh3 15:00 BP 129 / 67; Pulse 73; Resp 20; Pulse Ox 100% on R/A; ld1 17:28 BP 105 / 94; Pulse 64; Resp 16; Pulse Ox 100% on R/A; ld1 13:17 Body Mass Index 24.97 (81.19 kg, 180.34 cm) eh3 MDM: 11:57 Patient medically screened. rn 14:22 Differential diagnosis: viral Infection, bacterial infection, URI, pneumonia UTI. Data rn reviewed: vital signs, nurses notes, lab test result(s), radiologic studies, plain films, and as a result, I will admit patient. Counseling: I had a detailed discussion with the patient and/or guardian regarding: the historical points, exam findings, and any diagnostic results supporting the discharge/admit diagnosis, lab results, radiology results, the need for further work-up and treatment in the hospital. Response to treatment: the patient's symptoms have mildly improved after treatment, and as a result, I will admit patient. Admission orders: after a detailed discussion of the patient's condition and case, the admit orders are written by me. 05/06 12:12 Order name: Blood Culture Adult (2) rn 05/06 12:12 Order name: CBC with Diff; Complete Time: 13:14 05/06 12:12 Order name: CMP; Complete Time: 13:39 05/06 12:12 Order name: Lactate; Complete Time: 13:14 05/06 12:12 Order name: Protime (+inr); Complete Time: 13:14 05/06 12:12 Order name: Ptt, Activated; Complete Time: 13:14 05/06 12:12 Order name: Urine Culture 05/06 12:12 Order name: Urine Microscopic Only; Complete Time: 13:14 05/06 12:12 Order name: Chest Single View XRAY; Complete Time: 13:14 05/06 12:13 Order name: SARS-COV-2 RT PCR (Document "Date of Onset" if Symptomatic); Complete Time: rn 14:05/06 12:49 Order name: Urine Dipstick-Ancillary; Complete Time: 13:14 EDNV 05/06 12:53 Order name: Glucose, Ancillary Testing; Complete Time: 13:14 EDNV 05/06 12:12 Order name: Accucheck; Complete Time: 12:49 rn 05/06 12:12 Order name: Cardiac monitoring; Complete Time: 12:49 rn 05/06 12:12 Order name: EKG - Nurse/Tech; Complete Time: 12:20 rn 05/06 12:12 Order name: IV Saline Lock - Large Bore; Complete Time: 12:38 rn 05/06 12:12 Order name: Labs collected and sent; Complete Time: 12:38 rn 05/06 12:12 Order name: O2 Per Protocol; Complete Time: 12:20 rn 05/06 12:12 Order name: O2 Sat Monitoring; Complete Time: 12:20 05/06 12:12 Order name: Urine Dipstick-Ancillary (obtain specimen); Complete Time: 12:58 rn 05/06 17:25 Order name: Diet Regular; Complete Time: 17:26 ld1 EC:19 Rate is 82 beats/min. Rhythm is irregularly irregular. QRS Ward is Normal. NH interval rn is normal. QRS interval is normal. QT interval is normal. No Q waves. T waves are Normal. ST Segment is depressed in leads II, III, aVF, V4, V5, V6. Clinical impression: Atrial Fibrillation. Interpreted by me. Reviewed by me. Administered Medications: 12:57 Drug: NS 0.9% 250 ml Route: IV; Rate: 1 bolus; Site: right antecubital; eh3 14:00 Follow up: IV Status: Completed infusion; IV Intake: 250ml eh3 14:40 Drug: LevaQUIN (levofloxacin) 500 mg Volume: 100 ml; Route: IVPB; Infused Over: 60 eh3 mins; Site: right antecubital; 15:55 Follow up: Response: No adverse reaction; IV Status: Completed infusion; IV Intake: eh3 100ml Disposition Summary: 05/06/22 14:24 Hospitalization Ordered Hospitalization Status: Observation rn Provider: Ade, Anshul rn Condition: Stable rn Problem: new rn Symptoms: have improved rn Bed/Room Type: Standard rn Location: Telemetry/MedSurg (observation)(05/06/22 18:58) Room Assignment: [facility](05/06/22 18:58) Diagnosis - Altered mental status, unspecified rn - UTI/ Urinary tract infection, site not specified rn - Dehydration rn Forms: - Medication Reconciliation Form rn - SBAR form rn Signatures: Dispatcher [employer] EDToya Vazquez RN Pratibha Claire RN RN Marcia Cervantes RN ISABELLE Omar Upton MD MD rn Hall, Erin, RN RN 3 Corrections: (The following items were deleted from the chart) 17:58 14:24 Telemetry/MedSurg (observation) rn 17:58 14:24 rn dw 18:58 17:58 [facility] ER HOLD [facility] 18:58 17:58 ERHOLD- [facility]
[2022-05-06] MEDS ORDERED: Levofloxacin500mg IV 500 MG/100 ML BAG IV ONE (14:33)
[2022-05-06] MEDS ORDERED: ONDANSETRON 4 MG/2 ML VIAL IV PRN (18:03)
[2022-05-06] MEDS ORDERED: ACETAMINOPHEN 500 MG TAB PO PRN (18:03)
[2022-05-06 18:14] VITALS: BMI 25.0
--- NOTE | 2022-05-06 20:46 | P.SSS ---
Patient History Date of Service: 05/06/22 Reason for admission: SHORT OF BREATH History of Present Illness: MR. PARKER HAS BEEN RECENTLY IN FOR CHF, ANEMIA ETC. HE WAS TO BE ON HOSPICE THE CONDITION IS RECURRENT AND WORSE THAN BEFORE. FAMILY DECIDED TO WAIT AND HE IS HERE AGAIN WITH SAME SS. HE ALSO HAS HAD REURRENT GI BLEED AND IS NOT ABLE TO DO ANY INVASIVE TESTING. HE HAS BEEN TO GI DOCTOR. Allergies memantine HCl [From Namenda] Adverse Reaction (Severe, Verified 09/19/21 08:07) tinnitus Sulfa (Sulfonamide Antibiotics) Adverse Reaction (Unknown, Verified 09/19/21 08:07) unknown/childhood reaction Nemenda Allergy (Uncoded 09/19/21 08:07) tinnitus Home Medications: Ascorbic Acid [C-1000] 1,000 mg PO DAILY 12/12/13 Cyanocobalamin (Vitamin B-12) [B-12] 1,000 mcg PO DAILY 12/12/13 Donepezil HCl [Aricept] 23 mg PO BEDTIME 12/12/13 Finasteride [Proscar*] 5 mg PO BEDTIME 12/12/13 Niacin [Niacin ER] 500 mg PO BIDWM 12/12/13 Pantoprazole [Protonix Tab*] 40 mg PO DAILY 12/12/13 Tamsulosin [Flomax*] 1 cap PO BEDTIME 12/12/13 Nitroglycerin [Nitrostat*] 0.4 mg SL PRN PRN 03/15/14 traMADol HCL [Ultram*] 50 mg PO Q6H PRN #0 tab 03/29/14 Magnesium Oxide [Magnesium] 400 mg PO BID 06/13/14 Cholecalciferol (Vitamin D3) [Vitamin D3] 1,000 units PO BEDTIME 12/01/15 Losartan Potassium [Cozaar] 100 mg PO [id number] 12/01/15 Amlodipine [Norvasc*] 5 mg PO DAILY 01/20/21 Citalopram Hydrobromide [Celexa] 20 mg PO DAILY 01/20/21 Docosahexanoic AC/Epa [Fish Oil 1,000 MG*] 1,000 mg PO DAILY 01/20/21 Docusate Sodium 100 mg PO DAILY PRN 01/20/21 Levothyroxine Sodium [Levothyroxine] 50 mcg PO [id number] 01/20/21 Medium Chain Triglycerides [Mct Oil] 15 ml PO DAILY 01/20/21 Aspirin [Aspirin EC 81 MG] 81 mg PO DAILY 09/19/21 Atorvastatin Calcium [Lipitor*] 20 mg PO BEDTIME 03/20/22 Furosemide 40 mg PO DAILY #90 04/23/22 - Past Medical/Surgical History Has patient received pneumonia vaccine in the past: Yes Diabetic: No -: TINNITUS -: HTN -: AFIB -: CAD -: HYPERLIPIDEMIA -: NSTEMI -: STROKE -: LEGIONAIRE'S DISEASE -: SLEEP APNEA -: ALZHEIMER'S -: SQUAMOS CELL SKIN CANCER -: COLOSTOMY, DIVERTICULITIS, BARRETTS ESOPHAGUS -: QUADRUPLE BYPASS 1991 -: LITHOTRIPSY -: CYSTOSCOPY 2009 -: CYSTOSCOPY 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 -: CARDIAC STENT 2013 -: COLOSTOMY 2013 -: cardiacstent - Family History Father -: Heart disease, Hypertension, Stroke, Cancer Mother -: Heart disease, Hypertension, Diabetes - Social History Smoking Status: Never smoker Alcohol use: No CD- Drugs: No Caffeine use: Yes Review of Systems 10-point ROS is otherwise unremarkable General: Weakness, Malaise Respiratory: Shortness of Breath Physical Examination - Vital Signs Temperature: 99.4 F Blood Pressure: 137/77 Pulse: 61 Respirations: 22 Pulse Ox (%): 100 - Physical Exam General: Oriented x1, Mild distress HEENT: Atraumatic, PERRLA, Mucous membr. moist/pink, EOMI, Sclerae nonicteric Neck: Supple, 2+ carotid pulse no bruit, No LAD, Without JVD or thyroid abnormality Respiratory: Clear to auscultation bilaterally, Normal air movement Cardiovascular: Irregular heart rate/rhythm Gastrointestinal: Normal bowel sounds, No tenderness Musculoskeletal: No tenderness Integumentary: No rashes Neurological: Normal gait, Normal speech, Normal strength at 5/5 x4 extr, Normal tone, Normal affect Lymphatics: No axilla or inguinal lymphadenopathy - Studies Laboratory Data (last 24 hrs) 05/06/22 12:30: PT 12.1, INR 1.10, APTT 30.8 05/06/22 12:30: Sodium 140, Potassium 4.2, BUN 32 H, Creatinine 1.97 H, Glucose 147 H, Total Bilirubin 0.4, AST 15, ALT 18, Alkaline Phosphatase 57 05/06/22 12:30: WBC 13.80 H D, Hgb 8.2 L, Hct 25.7 L, Plt Count 204 D - Diagnosis (Problem(s)) (1) Diastolic dysfunction with chronic heart failure Current Visit: Yes Status: Acute Plan: CONTINUE CURRENT DIURETICS HE TAKES A LEXI. (2) Bacterial pneumonia Current Visit: No Status: Acute Plan: LEVAQUIN SHOULD WORK. (3) Alzheimer's dementia Current Visit: No Status: Chronic Plan: SEVERE AND WORSE. CONTINUE MEDS. (4) Atrial fibrillation Current Visit: No Status: Chronic Qualifiers: Atrial fibrillation type: permanent Qualified Code(s): I48.21 - Permanent atrial fibrillation (5) CKD stage 4 secondary to hypertension Current Visit: No Status: Chronic - Disposition Disposition: ROUTINE DISCHARGE
[2022-05-07 03:34] LABS: Absolute Lymphocytes (CBC) 0.5 K/uL (0.7-4.9); Hematocrit 24.4 % (39.6-49.0); Lymphocytes % 5.8 % (15.3-44.8); MCV 88.1 fL (80-100); MPV 9.6 fL (7.6-11.3); RBC Red Blood Cell Count 2.77 M/uL (4.33-5.43)
[2022-05-07 03:40] LABS: Potassium 4.5 mmol/L (3.5-5.1)
[2022-05-07 04:43] LABS: Blood Morphology Comment NOTED (NOT SEEN); Platelet Estimate ADEQ
[2022-05-07 04:44] LABS: Ovalocytes 2+
[2022-05-07] MEDS ORDERED: DOCUSATE NA 100 MG CAP PO PRN (06:33)
[2022-05-07] MEDS ORDERED: NITROGLYCERIN 0.4 MG/TAB SL PRN (06:33)
[2022-05-07] MEDS ORDERED: TRAMADOL HCL 50 MG TAB PO PRN (06:33)
--- NOTE | 2022-05-07 08:15 | EKG ---
Test Date: 2022-05-06 Test Time: 12:18:35 Magician Helper: NIKA MEASUREMENT RESULTS: Intervals: Rate: 82 VA: QRSD: 92 QT: 438 QTc: 511 [place]: P: VA: QRS: 88 T: -30 INTERPRETIVE STATEMENTS: Atrial fibrillation with premature ventricular or aberrantly conducted complexes Marked ST abnormality, possible inferior subendocardial injury Prolonged QT Abnormal ECG Compared to ECG 04/21/2022 02:20:19 Ventricular premature complex(es) now present Possible ischemia no longer present ST (T wave) deviation still present Electronically Signed On 05-07-22 08:12:10 CDT by Jonnathan Gonsalves
[2022-05-07] MEDS: LEVOTHYROXINE SOD 0.05 MG TABLET PO SCH (10:17)
[2022-05-07] MEDS: AMLODIPINE 5 MG TAB PO SCH (10:17)
[2022-05-07] MEDS: MAGNESIUM OXIDE 400 MG TAB PO SCH ×2 (10:17→21:21)
[2022-05-07] MEDS: FUROSEMIDE 20 MG TABLET PO SCH (10:17)
[2022-05-07] MEDS: PANTOPRAZOLE 40MG TABLET PO SCH (10:18)
[2022-05-07] MEDS: CITALOPRAM 10 MG TABLET PO SCH (10:19)
[2022-05-07] MEDS ORDERED: NA CHLORIDE 0.9% 250 ML ONE ×2 (11:06→16:02)
[2022-05-07] MEDS ORDERED: Levofloxacin500mg IV 500 MG/100 ML BAG IV SCH (15:00)
[2022-05-07] MEDS ORDERED: Levofloxacin 250mg IV 250 MG/50 ML BAG IV SCH (15:00)
[2022-05-07 20:45] LABS: Hematocrit 31.5 % (39.6-49.0)
--- NOTE | 2022-05-07 20:47 | P.PN ---
Subjective Date of Service: 05/07/22 Chief Complaint: SHORT OF BREATH Subjective: Improving HE IS STABLE BUT HG DROPPED TO 7.7 GM. HE WILL STAY ONE MORE DAY FOR BLOOD TRANSFUSION. Review of Systems 10-point ROS is otherwise unremarkable General: Weakness Physical Examination - Vital Signs Temperature: 98.7 F Blood Pressure: 133/62 Pulse: 59 Respirations: 18 Pulse Ox (%): 90 - Physical Exam General: Oriented x2, Mild distress HEENT: Atraumatic, PERRLA, EOMI Neck: Supple, JVD not distended Respiratory: Clear to auscultation bilaterally, Normal air movement Cardiovascular: Irregular heart rate/rhythm, Abnormal S1 S2 Gastrointestinal: Normal bowel sounds, No tenderness Musculoskeletal: No tenderness Integumentary: No rashes Neurological: Normal speech, Normal tone, Normal affect Lymphatics: No axilla or inguinal lymphadenopathy - Studies Laboratory Data (last 24 hrs) 05/07/22 03:15: Sodium 139, Potassium 4.5, BUN 28 H, Creatinine 2.02 H, Glucose 100 05/07/22 03:15: WBC 7.90 D, Hgb 7.7 L, Hct 24.4 L, Plt Count 124 L D Microbiology Data (last 24 hrs): 05/06/22 12:45 Blood - Blood Gram Stain - Final Medications List Reviewed: Yes Assessment And Plan - Current Problems (Diagnosis) (1) Diastolic dysfunction with chronic heart failure Current Visit: Yes Status: Acute Plan: CONTINUE CURRENT DIURETICS HE TAKES A LEXI. (2) Bacterial pneumonia Current Visit: No Status: Acute Plan: LEVAQUIN SHOULD WORK. CONT ABX. (3) Alzheimer's dementia Current Visit: No Status: Chronic Plan: SEVERE AND WORSE. CONTINUE MEDS. (4) Atrial fibrillation Current Visit: No Status: Chronic Qualifiers: Atrial fibrillation type: permanent Qualified Code(s): I48.21 - Permanent atrial fibrillation (5) CKD stage 4 secondary to hypertension Current Visit: No Status: Chronic (6) Anemia Current Visit: No Status: Acute Plan: HE GETS RECURRENT ANEMIA. MEI DONE BUT FAMILY DOES NOT WANT ANY SCOPES. HE CAN'T TOLERATE ANTICOAGULATION AND WILL HAVE EMBOLIC COMPLICATION SOMETIME. RAMAKRISHNA AND DAUGHTER ARE AWARE.
[2022-05-07] MEDS ORDERED: TAMSULOSIN 0.4 MG SR CAP PO SCH (21:00)
[2022-05-07] MEDS ORDERED: DONEPEZIL HCL 5 MG TAB PO SCH (21:00)
[2022-05-07] MEDS ORDERED: FINASTERIDE 5 MG TAB PO SCH (21:00)
[2022-05-08] MEDS: LEVOTHYROXINE SOD 0.05 MG TABLET PO SCH (05:59)
[2022-05-08] MEDS ORDERED: LOSARTAN POTASSIUM 50 MG TABLET PO SCH (06:00)
[2022-05-08 08:13] VITALS: O2SAT 93
[2022-05-08 08:18] VITALS: BP 121/60; TEMP 97.9
[2022-05-08] MEDS: FUROSEMIDE 20 MG TABLET PO SCH (09:32)
[2022-05-08] MEDS: PANTOPRAZOLE 40MG TABLET PO SCH (09:32)
[2022-05-08] MEDS: MAGNESIUM OXIDE 400 MG TAB PO SCH (09:32)
[2022-05-08] MEDS: CITALOPRAM 10 MG TABLET PO SCH (09:33)
[2022-05-08] MEDS: AMLODIPINE 5 MG TAB PO SCH (09:33)
--- NOTE | 2022-05-08 21:41 | P.DS ---
Admission Date: 05/07/22 Discharge Date: 05/08/22 Disposition: DC HOME/HOME HEALTH CARE Discharge Condition: FAIR Reason for Admission: SHORT OF BREATH - Problems (1) Diastolic dysfunction with chronic heart failure Status: Acute (2) Bacterial pneumonia Status: Acute (3) Alzheimer's dementia Status: Chronic (4) Atrial fibrillation Status: Chronic Qualifiers: Atrial fibrillation type: permanent Qualified Code(s): I48.21 - Permanent atrial fibrillation (5) CKD stage 4 secondary to hypertension Status: Chronic (6) Anemia Status: Acute Brief History of Present Illness: MR. PARKER HAS BEEN RECENTLY IN FOR CHF, ANEMIA ETC. HE WAS TO BE ON HOSPICE THE CONDITION IS RECURRENT AND WORSE THAN BEFORE. FAMILY DECIDED TO WAIT AND HE IS HERE AGAIN WITH SAME SS. HE ALSO HAS HAD REURRENT GI BLEED AND IS NOT ABLE TO DO ANY INVASIVE TESTING. HE HAS BEEN TO GI DOCTOR. Hospital Course: MR PARKER COMES WITH DYSPNEA, HYPOXIA, HAS PNEUMONIA AND WILL TAKE ORAL ABX. WHILE HE IS HERE I GAVE HIM TWO UNITS OF PACKED RBCS. 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 DAUGHTER ONCE AGAIN INSSTED ON ENTRESTO AND I ADVISED THAT WITH CKD AND AT THIS AGE IT IS OT WORTH TRYING. IS CONSIDERING HOSPICE FOR HIM TO AVOID READMISSSIONS TO [facility]. HE HAS TWO CULTURES POS BUT BOTH ARE DIFF BACTERIA, MOST LIKELY CONTAMINANT. HE WILL FU IN OFFICE. Vital Signs/Physical Exam: Temp Pulse Resp BP Pulse Ox 97.9 F 57 18 121/60 95 05/08/22 08:00 05/08/22 09:33 05/08/22 08:00 05/08/22 09:33 05/08/22 08:00 Laboratory Data at Discharge: WBC 7.90 K/uL (4.3-10.9) D 05/07/22 03:15 Hgb Cancelled 05/07/22 Unknown Hct Cancelled 05/07/22 Unknown Plt Count 124 K/uL (152-406) L D 05/07/22 03:15 PT 12.1 SECONDS (9.5-12.5) 05/06/22 12:30 INR 1.10 05/06/22 12:30 APTT 30.8 SECONDS (24.3-36.9) 05/06/22 12:30 Sodium 139 mmol/L (136-145) 05/07/22 03:15 Potassium 4.5 mmol/L (3.5-5.1) 05/07/22 03:15 BUN 28 mg/dL (7-18) H 05/07/22 03:15 Creatinine 2.02 mg/dL (0.55-1.3) H 05/07/22 03:15 Glucose 100 mg/dL (74-106) 05/07/22 03:15 Total Bilirubin 0.4 mg/dL (0.2-1.0) 05/06/22 12:30 AST 15 U/L (15-37) 05/06/22 12:30 ALT 18 U/L (12-78) 05/06/22 12:30 Alkaline Phosphatase 57 U/L (45-117) 05/06/22 12:30 Home Medications: Ascorbic Acid [C-1000] 1,000 mg PO DAILY 12/12/13 Cyanocobalamin (Vitamin B-12) [B-12] 1,000 mcg PO DAILY 12/12/13 Donepezil HCl [Aricept] 23 mg PO BEDTIME 12/12/13 Finasteride [Proscar*] 5 mg PO BEDTIME 12/12/13 Niacin [Niacin ER] 500 mg PO BIDWM 12/12/13 Pantoprazole [Protonix Tab*] 40 mg PO DAILY 12/12/13 Tamsulosin [Flomax*] 1 cap PO BEDTIME 12/12/13 Nitroglycerin [Nitrostat*] 0.4 mg SL PRN PRN 03/15/14 traMADol HCL [Ultram*] 50 mg PO Q6H PRN #0 tab 03/29/14 Magnesium Oxide [Magnesium] 400 mg PO BID 06/13/14 Cholecalciferol (Vitamin D3) [Vitamin D3] 1,000 units PO BEDTIME 12/01/15 Losartan Potassium [Cozaar] 100 mg PO [id number] 12/01/15 Amlodipine [Norvasc*] 5 mg PO DAILY 01/20/21 Citalopram Hydrobromide [Celexa] 20 mg PO DAILY 01/20/21 Docosahexanoic AC/Epa [Fish Oil 1,000 MG*] 1,000 mg PO DAILY 01/20/21 Docusate Sodium 100 mg PO DAILY PRN 01/20/21 Levothyroxine Sodium [Levothyroxine] 50 mcg PO [id number] 01/20/21 Medium Chain Triglycerides [Mct Oil] 15 ml PO DAILY 01/20/21 Aspirin [Aspirin EC 81 MG] 81 mg PO DAILY 09/19/21 Furosemide 20 mg PO DAILY 05/07/22 Pravastatin Sodium 40 mg PO BEDTIME 05/07/22 levoFLOXacin [Levaquin] 250 mg PO DAILY 7 Days #7 tab 05/08/22 New Medications: levoFLOXacin [Levaquin] 250 mg PO DAILY 7 Days #7 tab Followup: Anshul Booker MD [Primary Care Provider] - 1 Week
== END 2022-05-08 12:05 | disposition home health service (06) | DRG 291 ==
LOC: ER 11:54 → ERHOLD 14:26 → 4TH 19:25 → OBSVTOIN 05-07 20:30
PROVIDERS: ADMIT Internal Medicine; ATTEND Internal Medicine
PROC: 30233N1 Transfusion of Nonautologous Red Blood Cells into Peripheral Vein, Percutaneous Approach (ICD-10-PCS; principal; 2022-05-07)
DX: I13.0 Hypertensive heart and chronic kidney disease with heart failure and stage 1 through stage 4 chronic kidney disease, or unspecified chronic kidney disease (principal); I50.33 Acute on chronic diastolic (congestive) heart failure; J15.9 Unspecified bacterial pneumonia; N18.4 Chronic kidney disease, stage 4 (severe); I48.21 Permanent atrial fibrillation; D63.1 Anemia in chronic kidney disease; E86.0 Dehydration; G30.9 Alzheimer's disease, unspecified; F02.80 Dementia in other diseases classified elsewhere, unspecified severity, without behavioral disturbance, psychotic disturbance, mood disturbance, and anxiety; I25.10 Atherosclerotic heart disease of native coronary artery without angina pectoris; E78.5 Hyperlipidemia, unspecified; I25.2 Old myocardial infarction; Z95.5 Presence of coronary angioplasty implant and graft; Z88.1 Allergy status to other antibiotic agents; Z88.8 Allergy status to other drugs, medicaments and biological substances; Z79.82 Long term (current) use of aspirin; Z86.73 Personal history of transient ischemic attack (TIA), and cerebral infarction without residual deficits; Z85.51 Personal history of malignant neoplasm of bladder; Z79.899 Other long term (current) drug therapy; Z79.890 Hormone replacement therapy; Z85.828 Personal history of other malignant neoplasm of skin; Z20.822 Contact with and (suspected) exposure to COVID-19
CPT/HCPCS: 36415; 71045; 80048; 80053; 81003; 81015; 82947; 83605; 85014; 85018; 85025; 85610; 85730; 86850; 86900; 86901; 87040; 87076; 87077; 87086; 87088; 87181; 87186; 87205; 93005; 96365; 96367; 99285; G0378; J7050; P9016; U0003

== ENCOUNTER 2022-07-18 15:55 | Observation (INO) | payer OTHER, MEDICARE ==
--- OUTSIDE RECORDS SUMMARY | 2022-07-18 16:00 | XMS REPORT | Continuity of Care Document ---
:1940 Author Organization [facility] t Address [address] [place] [address] Care Team Providers Name Role Phone Anshul Booker MD Primary Care Physician Anshul Booker Attending Clinician Unavailable Alina PRITCHARD, Kenn Zimmerman Attending Clinician [phone] Krystyna Brandon DO Attending Clinician Doctor Unassigned, [place] Attending Clinician Unavailable KRYSTYNA BRANDON Attending Clinician Unavailable KRYSTYNA BRANDON Attending Clinician Unavailable Payers Payer Name Policy Type Policy Number Effective Date Expiration Date S ource MEDICARE MB [id number] [facility] AAR C1 [id number] [facility] MEDICARE MB [id number] [facility] AARP C1 [id number] [facility] C1 [id number] [facility] MEDICARE [id number] [facility] Problems Condition Condition Condition Status Onset Resolution Last Treating Co mments Source Name Details Category Date Date Treatment Clinician Date Alzheimer' Alzheimer' Disease Active 2016-09 M ethodi s disease s disease 09-21 00:00: Hospita 00 l Cerebrovas Cerebrovas Disease Active 2016-09 M ethodi cular cular 1-14 st accident accident 00:00: Hospit a (CVA) (CVA) 00 l 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 disease [address] 00:00: Hospita 00 l Malignant Malignant Disease Active 2016-09 Met hodi neoplasm neoplasm 1-14 st of skin of skin 00:00: Hospita 00 l Malignant Malignant Disease Active 2016-09 Met hodi neoplasm neoplasm 1-14 st of urinary of urinary 00:00: Ho [...] rs active active ity of problems problems [facility] [id number] Personal Problem Comm on history of Spirit bladder - [facility] [id number] 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 - [facility] [id number] Cystitis Problem Commo n Spirit - [facility] [id number] Pain in Problem Commo n left ankle Spirit and joints - [facility] of left foot [facility] [id number] Sprain of Problem Comm on deltoid Spirit ligament - [facility] of left ankle, [facility] initial Medical encounter Center [id number] Kidney Problem Common stones [facility] [id number] 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[facility] of left Medical lower Center extremity [id number] Lesion of Problem Com mon bladder [facility] Allergies, Adverse Reactions, Alerts Allergy Allergy Status Severity Reaction(s) Onset Inactive Treating Comm ents Source Name Type Date Date Clinician Memantin Propensi Active 2015-09 Method i e ty to 10-06 st adverse 00:00: Hospita reaction 00 l s to drug Sulfa Propensi Active 2015-09 Methodi (Sulfona ty to 10-06 mide adverse 00:00: Hospita Antibiot reaction 00 l ics) s to drug Sulfa Drug Active Unknown - 2015-09 tenitis Univer s (Sulfona Allergy See comments 10-06 i ty of mide 00:00: [place] Antibiot 00 Medical ics) Branch MEMANTIN DRUG Active Other-Cmnt 2015-09 Univ ers E INGREDI 10-06 ity of 00:00: [place] 00 Medical Branch SULFA Drug Active Unknown-Cmnt 2015-09 Univ ers (SULFONA Class - ity of MIDE 00:00: [place] ANTIBIOT 00 Medical ICS) Branch memantin memantin Active Unknown Commo n e e [facility] Family History Family Member Diagnosis Comments Start Date Stop Date Source Natural mother [facility] Other Coronary artery [facility] disease Natural father [facility] Social History Social Habit Start Date Stop Date Quantity Comments Source Exposure to Not sure University of SARS-CoV-2 [place] [facility] (event) Branch History of [facility] - Tobacco Use [facility] Tobacco use and 2017-12-02 2017-12-02 Smokeless tobacco [facility] exposure 00:00:00 00:00:00 non-user Sex Ass[birth year] [facility] 00:00:00 00:00:00 Smoking Status Start Date Stop Date Source Former Smoker 2022-04-10 00:00:00 2022-04-10 00:00:00 [facility] - [facility] Medications Ordered Filled Start Stop Current Ordering Indication Dosage Frequency Signature Comments Components Source Medication Medication Date Date Medication? Clinician (SIG) Name Name ascorbic 0 Yes 1000mg QD Take 1,000 M ethodi acid, 7-15 mg by vitamin C, 14:46: mouth Hospit a (VITAMIN C) 15 daily. l 1000 MG tablet ascorbic 2021-0 Yes 1000mg QD Take 1,000 M ethodi acid, 7-15 mg by vitamin C, 14:46: mouth Hospit a (VITAMIN C) 15 daily. l 1000 MG tablet cyanocobala 0 Yes 1000ug QD Take 1,000 Methodi min 1000 7-[address] MCG tablet 14:46: mouth Hospit a 14 daily. l cholecalcif 0 Yes 1000U QD Take 1,000 Methodi laurent, 7-15 Units by vitamin D3, 14:46: mouth Hospi ta (VITAMIN 14 daily. l D3) 1,000 unit tablet niacin 500 2021-0 Yes 500mg Q.5D Take 500 Me thodi MG tablet 7-[address] 14:46: mouth 2 Hospita 14 (two) l times a day with meals. melatonin 3 0 Yes 3mg QD Take 3 mg M ethodi mg tablet 7-[address] 14:46: daily. Hospita 14 l omega-3 2021-0 Yes 1000mg Q.5D Take 1,000 Me thodi fatty 7-[address] acids-vitam 14:46: mouth 2 Hos chula in E 1,000 14 (two) l mg capsule times a day. docusate 0 Yes 100mg QD Take 100 Meth mary sodium 7-[address] (COLACE) 14:46: mouth Hospita 100 MG 14 daily. l capsule nitroglycer Yes .4mg Place 0.4 M ethodi in 7-[address] (NITROSTAT) 14:46: the tongue Hospita 0.4 MG SL 14 every 5 l tablet (five) minutes as needed for chest pain. NUT.TX,META 0 Yes Take by Met mary IrelandDIS, 7-[address] MV-MINS 14:46: Hospita NO.2 (AXONA 14 l ORAL) levothyroxi 2022-0 Yes 50ug QD Take 50 Met hodi ne 7-[address] (SYNTHROID) 14:46: mouth Hospi ta 50 mcg 14 daily. l tablet aspirin 81 0 Yes Take by Meth mary mg capsule 7-[address] 14:46: Hospita 14 l amLODIPine 2021-0 Yes 5mg QD Take 5 mg Me thodi (NORVASC) 5 7-[address] mg tablet 14:46: daily. Hospit a 14 l cyanocobala 2021-0 Yes 1000ug QD Take 1,000 Methodi min 1000 7-[address] MCG tablet 14:46: mouth Hospit a 14 daily. l cholecalcif 0 Yes 1000U QD Take 1,000 Methodi laurent, 7-[address] vitamin D3, 14:46: mouth Hospi ta (VITAMIN 14 daily. l D3) 1,000 unit tablet niacin 500 2021-0 Yes 500mg Q.5D Take 500 Me thodi MG tablet 7-[address] 14:46: mouth 2 Hospita 14 (two) l times a day with meals. melatonin 3 0 Yes 3mg QD Take 3 mg M ethodi mg tablet 7-[address] 14:46: daily. Hospita 14 l omega-3 2021-0 Yes 1000mg Q.5D Take 1,000 Me thodi fatty 7-[address] acids-vitam 14:46: mouth 2 Hos chula in E 1,000 14 (two) l mg capsule times a day. docusate 0 Yes 100mg QD Take 100 Meth mary sodium 7-[address] (COLACE) 14:46: mouth Hospita 100 MG 14 daily. l capsule nitroglycer [address] 0.4 M ethodi in 7-[address] (NITROSTAT) 14:46: the tongue Hospita 0.4 MG SL 14 every 5 l tablet (five) minutes as needed for chest pain. NUT.TX,META 2021-0 Yes Take by Met hodi B.DIS, 7-[address] MV-MINS 14:46: Hospita NO.2 (AXONA 14 l ORAL) levothyroxi 2021-0 Yes 50ug QD Take 50 Met hodi ne 7-[address] (SYNTHROID) 14:46: mouth Hospi ta 50 mcg 14 daily. l tablet aspirin 81 Yes Take by Meth mary mg capsule 7-[address] 14:46: Hospita 14 l amLODIPine Yes 5mg QD Take 5 mg Me thodi (NORVASC) 5 7-[address] mg tablet 14:46: daily. Hospit a 14 l Amoxicillin Amoxicillin 2021- No 1{capsu TID Amoxicilli 500 MG 500 MG -11-26 le} n 500 MG 00:00: 00:00 00 :00 pravastatin 2020-09 Yes 40mg Take 40 mg Univers 40 mg 2-09 by mouth. ity of tablet 15:14: [address] furosemide 2020-09 Yes 10mg Take 10 mg U nivers 20 mg 2-09 by mouth. ity of tablet 15:14: [address] niacin 500 2020-09 Yes 500mg Take 500 Un robert mg tablet 2-09 mg by ity of 15:14: mouth 2 [place] [address] (two) Medical times Branch daily. losartan 2020-09 Yes 100mg Take 100 Univ ers 100 mg 2-09 mg by ity of tablet 15:14: mouth [place] [address] daily. Medical Branch amLODIPine 2020-09 Yes 5mg Take 5 mg Un robert 5 mg tablet 2-09 by mouth ity of 15:14: daily. [address] tamsulosin 2020-09 Yes .4mg Take 0.4 Uni vers 0.4 mg 24 2-09 mg by ity of hr capsule 15:14: mouth. [address] finasteride 2020-09 Yes 5mg Take 5 mg U nivers 5 mg tablet 2-09 by mouth. ity of 15:14: [address] levothyroxi 2020-09 Yes 50ug Take 50 Uni vers ne 50 mcg 2-09 mcg by ity of tablet 15:14: mouth. [address] vitamin C 2020-09 Yes 1000mg Take 1,000 Univers with alban 2-09 mg by ity of hips 1,000 15:14: mouth. [place] mg [address] Branch aspirin 81 2020-09 Yes 81mg Take 81 mg U nivers mg Cap 2-09 by mouth. ity of 15:14: [address] Magnesium 2020-09 Yes 400mg Take 400 Uni vers Hydroxide 2-09 mg by ity of 400 mg (170 15:14: [place] 36 [place] magnesium[place] Branch Chew citalopram 2020-09 Yes 20mg Take 20 mg U nivers (CELEXA) 20 2-09 by mouth ity of mg tablet 15:14: daily. [place] [address] Medical Branch medium 2020-09 Yes Take by Univers chain 2-09 mouth. ity of triglycerid 15:14: [facility] [place] (MCT OIL 36 Medical ORAL) Branch omega 2020-09 Yes 1000mg Take 1,000 Univ ers 3-dha-epa-f 2-09 mg by ity of joseph oil 15:14: mouth. [place] (FISH OIL) Medical 100-160-1,0 Branch 00 mg Cap vitamin 2020-09 Yes 1000ug Take 1,000 Un robert B-12 2-09 mcg by ity of (VITAMIN 15:14: mouth [place] B-12) 1,000 36 daily. Medica l mcg tablet Branch COCONUT OIL 2020-09 Yes Take by Uni vers ORAL 2-09 mouth. ity of 15:14: [address] Branch atorvastati 2020-09 Yes 20mg Take 20 mg Univers n 20 mg 2-09 by mouth ity of tablet 15:14: at [place] [address] bedtime. [facility] Branch Donepezil 2020-09 Yes Take by Unive rs (ARICEPT) 2-09 mouth. ity of 23 mg Tab 15:14: [address] Branch nitroglycer 2020-[address] [...] 2-09 by mouth. ity of tablet 15:14: [address] Branch furosemide 2020-09 Yes 10mg Take 10 mg U nivers 20 mg 2-09 by mouth. ity of tablet 15:14: [address] Branch niacin 500 2020-09 Yes 500mg Take 500 Un robert mg tablet 2-09 mg by ity of 15:14: mouth 2 [place] [address] (two) Medical times Branch daily. losartan 2020-09 Yes 100mg Take 100 Univ ers 100 mg 2-09 mg by ity of tablet 15:14: mouth [place] [address] daily. Medical Branch amLODIPine 2020-09 Yes 5mg Take 5 mg Un robert 5 mg tablet 2-09 by mouth ity of 15:14: daily. [address] Branch tamsulosin 2020-09 Yes .4mg Take 0.4 Uni vers 0.4 mg 24 2-09 mg by ity of hr capsule 15:14: mouth. [address] finasteride 2020-09 Yes 5mg Take 5 mg U nivers 5 mg tablet 2-09 by mouth. ity of 15:14: [address] levothyroxi 2020-09 Yes 50ug Take 50 Uni vers ne 50 mcg 2-09 mcg by ity of tablet 15:14: mouth. [address] vitamin C 2020-09 Yes 1000mg Take 1,000 Univers with alban 2-09 mg by ity of hips 1,000 15:14: mouth. [place] mg tablet [address] [place] [address] Branch aspirin 81 2020-09 Yes 81mg Take 81 mg U nivers mg Cap 2-09 by mouth. ity of 15:14: [address] Branch Magnesium 2020-09 Yes 400mg Take 400 Uni vers Hydroxide 2-09 mg by ity of 400 mg (170 15:14: [place] [address] [place] [address] magnesium) Branch Chew citalopram 2020-09 Yes 20mg Take 20 mg U nivers (CELEXA) 20 2-09 by mouth ity of mg tablet 15:14: daily. [address] Branch medium 2020-09 Yes Take by Univers chain 2-09 mouth. ity of triglycerid 15:14: [place] es (MCT OIL Medical ORAL) Branch omega 2020-09 Yes 1000mg Take 1,000 Univ ers 3-dha-epa-f 2-09 mg by ity of joseph oil 15:14: mouth. [place] (FISH OIL) Medical 100-160-1,0 Branch 00 mg Cap vitamin 2020-09 Yes 1000ug Take 1,000 Un robert B-12 2-09 mcg by ity of (VITAMIN 15:14: mouth [place] B-12) 1,000 36 daily. Medica l mcg tablet Branch COCONUT OIL 2020-09 Yes Take by Uni vers ORAL 2-09 mouth. ity of 15:14: [place] [address] Medical Branch atorvastati 2020-09 Yes 20mg Take 20 mg Univers n 20 mg 2-09 by mouth ity of tablet 15:14: at [place] [address] bedtime. Medical Branch Donepezil 2020-09 Yes Take by Unive rs (ARICEPT) 2-09 mouth. ity of 23 mg Tab 15:14: [address] Branch nitroglycer 2020-[address] 0.4 U nivers in 2-09 mg under ity of (NITROSTAT) 15:14: the tongue [place] 0.4 mg 36 every 5 Medical sublingual (five) Branch tablet minutes as needed for Chest pain. traMADol 2020-09 Yes 50mg Take 50 mg Uni vers (ULTRAM) 50 2-09 by mouth ity of mg/10 mL 15:14: every 4 [place] oral (four) Medical syringe hours as Branch needed. pravastatin 2020-09 Yes 40mg Take 40 mg Univers 40 mg 2-09 by mouth. ity of tablet 15:14: [address] Branch furosemide 2020-09 Yes 10mg Take 10 mg U nivers 20 mg 2-09 by mouth. ity of tablet 15:14: [address] Branch niacin 500 2020-09 Yes 500mg Take 500 Un robert mg tablet 2-09 mg by ity of 15:14: mouth 2 [place] [address] (two) Medical times Branch daily. losartan 2020-09 Yes 100mg Take 100 Univ ers 100 mg 2-09 mg by ity of tablet 15:14: mouth [place] [address] daily. Medical Branch amLODIPine 2020-09 Yes 5mg Take 5 mg Un robert 5 mg tablet 2-09 by mouth ity of 15:14: daily. [address] Branch tamsulosin 2020-09 Yes .4mg Take 0.4 Uni vers 0.4 mg 24 2-09 mg by ity of hr capsule 15:14: mouth. [address] Branch finasteride 2020-09 Yes 5mg Take 5 mg U nivers 5 mg tablet 2-09 by mouth. ity of 15:14: [address] Branch levothyroxi 2020-09 Yes 50ug Take 50 Uni vers ne 50 mcg 2-09 mcg by ity of tablet 15:14: mouth. [address] Branch vitamin C 2020-09 Yes 1000mg Take 1,000 Univers with alban 2-09 mg by ity of hips 1,000 15:14: mouth. [place] mg tablet Medical Branch aspirin 81 2020-09 Yes 81mg Take 81 mg U nivers mg Cap 2-09 by mouth. ity of 15:14: [address] Branch Magnesium 2020-09 Yes 400mg Take 400 Uni vers Hydroxide 2-09 mg by ity of 400 mg (170 15:14: [place]. [place] mg 36 [place] magnesium) Branch Chew citalopram 2020-09 Yes 20mg Take 20 mg U nivers (CELEXA) 20 2-09 by mouth ity of mg tablet 15:14: daily. [address] medium 2020-09 Yes Take by Univers chain 2-09 mouth. ity of triglycerid 15:14: [facility] [place] (MCT OIL 36 Medical ORAL) Branch omega 2020-09 Yes 1000mg Take 1,000 Univ ers 3-dha-epa-f 2-09 mg by ity of joseph oil 15:14: mouth. [place] (FISH OIL) Medical 100-160-1,0 Branch 00 mg Cap vitamin 2020-09 Yes 1000ug Take 1,000 Un robert B-12 2-09 mcg by ity of (VITAMIN 15:14: mouth [place] B-12) 1,000 36 daily. Medica l mcg tablet Branch COCONUT OIL 2020-09 Yes Take by Uni vers ORAL 2-09 mouth. ity of 15:14: [address] atorvastati 2020-09 Yes 20mg Take 20 mg Univers n 20 mg 2-09 by mouth ity of tablet 15:14: at [place] [address] bedtime. Medical Branch Donepezil 2020-09 Yes Take by Unive rs (ARICEPT) 2-09 mouth. ity of 23 mg Tab 15:14: [address] Branch nitroglycer 2020-[address] 0.4 U nivers in 2-09 mg under ity of (NITROSTAT) 15:14: the tongue [place] 0.4 mg 36 every 5 Medical sublingual (five) Branch tablet minutes as needed for Chest pain. traMADol 2020-09 Yes 50mg Take 50 mg Uni vers (ULTRAM) 50 2-09 by mouth ity of mg/10 mL 15:14: every 4 [place] [address] (four) Medical syringe hours as Branch needed. pravastatin 2020-09 Yes 40mg Take 40 mg Univers 40 mg 2-09 by mouth. ity of tablet 15:14: [address] Branch furosemide 2020-09 Yes 10mg Take 10 mg U nivers 20 mg 2-09 by mouth. ity of tablet 15:14: [address] Branch niacin 500 2020-09 Yes 500mg Take 500 Un robert mg tablet 2-09 mg by ity of 15:14: mouth 2 [place] [address] (two) Medical times Branch daily. losartan 2020-09 Yes 100mg Take 100 Univ ers 100 mg 2-09 mg by ity of tablet 15:14: mouth [place] [address] daily. Medical Branch amLODIPine 2020-09 Yes 5mg Take 5 mg Un robert 5 mg tablet 2-09 by mouth ity of 15:14: daily. [address] Branch tamsulosin 2020-09 Yes .4mg Take 0.4 Uni vers 0.4 mg 24 2-09 mg by ity of hr capsule 15:14: mouth. [address] Branch finasteride 2020-09 Yes 5mg Take 5 mg U nivers 5 mg tablet 2-09 by mouth. ity of 15:14: [address] Branch levothyroxi 2020-09 Yes 50ug Take 50 Uni vers ne 50 mcg 2-09 mcg by ity of tablet 15:14: mouth. [address] Branch vitamin C 2020-09 Yes 1000mg Take 1,000 Univers with alban 2-09 mg by ity of hips 1,000 15:14: mouth. [place] mg tablet [address] [place] [address] Branch aspirin 81 2020-09 Yes 81mg Take 81 mg U nivers mg Cap 2-09 by mouth. ity of 15:14: [address] Branch Magnesium 2020-09 Yes 400mg Take 400 Uni vers Hydroxide 2-09 mg by ity of 400 mg (170 15:14: [place]. [place] [facility] Medical magnesium) Branch Chew citalopram 2020-09 Yes 20mg Take 20 mg U nivers (CELEXA) 20 2-09 by mouth ity of mg tablet 15:14: daily. [place] 36 Medical Branch medium 2020-09 Yes Take by Univers chain 2-09 mouth. ity of triglycerid 15:14: [facility] [place] (MCT OIL 36 Medical ORAL) Branch omega 2020-09 Yes 1000mg Take 1,000 Univ ers 3-dha-epa-f 2-09 mg by ity of joseph oil 15:14: mouth. [place] (FISH OIL) Medical 100-160-1,0 Branch 00 mg Cap vitamin 2020-09 Yes 1000ug Take 1,000 Un robert B-12 2-09 mcg by ity of (VITAMIN 15:14: mouth [place] B-12) 1,000 36 daily. Medica l mcg tablet Branch COCONUT OIL 2020-09 Yes Take by Uni vers ORAL 2-09 mouth. ity of 15:14: [address] Branch atorvastati 2020-09 Yes 20mg Take 20 mg Univers n 20 mg 2-09 by mouth ity of tablet 15:14: at [place] [address] bedtime. Medical Branch Donepezil 2020-09 Yes Take by Unive rs (ARICEPT) 2-09 mouth. ity of 23 mg Tab 15:14: [address] Branch nitroglycer 2020-[address] [...] (four) Medical syringe hours as Branch needed. Docusate Yes 100mg Take 100 Univ ers Sodium 100 9-09 mg by ity of mg tablet 16:20: mouth. [address] Branch Docusate Yes 100mg Take 100 Univ ers Sodium 100 9-09 mg by ity of mg tablet 16:20: mouth. [address] Branch Docusate Yes 100mg Take 100 Univ ers Sodium 100 9-09 mg by ity of mg tablet 16:20: mouth. [address] Docusate Yes 100mg Take 100 Univ ers Sodium 100 9-09 mg by ity of mg tablet 16:20: mouth. [address] pravastatin Yes Method i (PRAVACHOL) 1-24 st 40 MG 00:00: Hospita tablet 00 l pravastatin 0 Yes Method i (PRAVACHOL) 1-24 st 40 MG 00:00: Hospita tablet 00 l metoclopram 0 Yes Method i morenita 04-10 st (REGLAN) 10 00:00: Hospit a MG tablet 00 l SUPREP 2017-0 Yes Methodi BOWEL PREP 04-10 st KIT 00:00: Hospita 17.5-3.13-1 00 l .6 gram recon soln metoclopram Yes Method i morenita 04-10 st (REGLAN) 10 00:00: Hospit a MG tablet 00 l SUPREP 2016-0 Yes Methodi BOWEL PREP 04-10 st KIT 00:00: Hospita 17.5-3.13-1 00 l .6 gram recon soln amoxicillin Yes Method i (AMOXIL) 7- st 500 MG 00:00: Hospita capsule 00 l amoxicillin Yes Method i (AMOXIL) 7 st 500 MG 00:00: Hospita capsule 00 l pravastatin Yes 20mg QD Take 20 mg Methodi (PRAVACHOL) 1-[address] 20 MG 00:00: daily. Hospita tablet 00 l pravastatin 0 Yes 20mg QD Take 20 mg Methodi (PRAVACHOL) 1-[address] 20 MG 00:00: daily. Hospita tablet 00 l citalopram Yes 20mg QD Take 20 mg M ethodi (CeleXA) 20 1-[address] MG tablet 00:00: daily. Hospit a 00 l donepezil Yes 23mg QD Take 23 mg Me thodi (ARICEPT) 1-[address] 23 mg 00:00: daily. Hospita tablet 00 l citalopram 2017-0 Yes 20mg QD Take 20 mg M ethodi (CeleXA) 20 1-[address] MG tablet 00:00: daily. Hospit a 00 l donepezil 2017-0 Yes 23mg QD Take 23 mg Me thodi (ARICEPT) 1-[address] 23 mg 00:00: daily. Hospita tablet 00 l furosemide 0 Yes 20mg QD Take 20 mg M ethodi (LASIX) 20 1-[address] mg tablet 00:00: daily. 6 Hosp rama 00 days a l week furosemide 0 Yes 20mg QD Take 20 mg M [...] ta 40 MG EC 00 l tablet amIODarone 2015-09 Yes 200mg QD Take 200 [...] st mg tablet 00:00: daily. Hospit a l tamsulosin 2015-09 Yes .4mg QD 0.4 mg Metho di (FLOMAX) 1-[address] 0.4 mg 00:00: Hospita capsule,ext 00 l ended release 24hr finasteride 2015-09 Yes 5mg QD Take 5 mg M ethodi (PROSCAR) 5 1-[address] mg tablet 00:00: daily. Hospit a 00 l tamsulosin 2015-09 Yes .4mg QD 0.4 mg Metho di (FLOMAX) 1-[address] 0.4 mg 00:00: Hospita capsule,ext 00 l ended release 24hr Aricept 23 Aricept 23 No 1{table QD Aricept 23 MG MG t_at_be MG dtime} Vitamin C Vitamin C No 1{table QD Vitamin C 1000 MG 1000 MG t} 1000 MG Aspirin 81 Aspirin 81 No 1{table QD Aspirin 81 MG MG t} MG Amiodarone Amiodarone No 1{table QD Amiodarone HCl 200 MG HCl 200 MG t} HCl 200 MG Pantoprazol Pantoprazol No 1{table QD Pantoprazo e Sodium 40 e Sodium 40 t} le Sodium MG MG 40 MG Pravastatin Pravastatin No 1{table QD Pravastati Sodium 40 Sodium 40 t} n Sodium MG MG 40 MG D3 Adult D3 Adult No 1{table QD D3 Adult 1000 UNIT 1000 UNIT t} 1000 UNIT Magnesium Magnesium No Magnesium 400 MG 400 MG 400 MG Coconut Oil Coconut Oil No Coconut 1000 MG 1000 MG Oil 1000 MG CeleXA 20 CeleXA 20 No 1{table QD CeleXA 20 MG MG t} MG Losartan Losartan No 1{table QD Losartan Potassium Potassium t} Potassium 100 MG 100 MG 100 MG Lasix 20 MG Lasix 20 MG No 1{table QD Lasix 20 t} MG Levothyroxi Levothyroxi No QD Levothyrox ne Sodium ne Sodium ine Sodium 50 MCG 50 MCG 50 MCG Iron 15 MG Iron 15 MG No Iron 15 MG Amiodarone Amiodarone No 1{table QD Amiodarone HCl 200 MG HCl 200 MG t} HCl 200 MG Fish Oil Fish Oil No 1{capsu QD Fish Oil 1000 MG 1000 MG le} 1000 MG Magnesium Magnesium No Magnesium 400 MG 400 MG 400 MG Aspirin 81 Aspirin 81 No 1{table QD Aspirin 81 MG MG t} MG B12 Liquid B12 Liquid No 15{ml} QD B12 Liquid Health Health Health Booster Booster Booster 1000 1000 1000 MCG/15ML MCG/15ML MCG/15ML Finasteride Finasteride No 1{table QD Finasterid 5 MG 5 MG t} e 5 MG Niacin 500 Niacin 500 No 1{table QD Niacin 500 MG MG t_with_ MG food} Vitamin C Vitamin C No 1{table QD Vitamin C 1000 MG 1000 MG t} 1000 MG Pantoprazol Pantoprazol No 1{table QD Pantoprazo e Sodium 40 e Sodium 40 t} le Sodium MG MG 40 MG Tamsulosin Tamsulosin No Tamsulosin HCl 0.4 MG HCl 0.4 MG HCl 0.4 MG D3 Adult D3 Adult No 1{table QD D3 Adult 1000 UNIT 1000 UNIT t} 1000 UNIT Aricept 23 Aricept 23 No 1{table QD Aricept 23 MG MG t_at_be MG dtime} Pravastatin Pravastatin No 1{table QD Pravastati Sodium 40 Sodium 40 t} n Sodium MG MG 40 MG Axona - Axona - No Axona - Prevagen 10 Prevagen 10 No Prevagen MG MG 10 MG Melatonin 3 Melatonin 3 No 1{table QD Melatonin MG MG t_at_be 3 MG dtime_a s_neede d_with_ food} B12 Liquid B12 Liquid No 15{ml} QD B12 Liquid Health Health Health Booster Booster Booster 1000 1000 1000 MCG/15ML MCG/15ML MCG/15ML Finasteride Finasteride No 1{table QD Finasterid 5 MG 5 MG t} e 5 MG Prevagen 10 Prevagen 10 No Prevagen MG MG 10 MG Iron 15 MG Iron 15 MG No Iron 15 MG D3 Adult D3 Adult No 1{table QD D3 Adult 1000 UNIT 1000 UNIT t} 1000 UNIT Losartan Losartan No 1{table QD Losartan Potassium Potassium t} Potassium 100 MG 100 MG 100 MG Amiodarone Amiodarone No 1{table QD Amiodarone HCl 200 MG HCl 200 MG t} HCl 200 MG Coconut Oil Coconut Oil No Coconut 1000 MG 1000 MG Oil 1000 MG Levothyroxi Levothyroxi No QD Levothyrox ne Sodium ne Sodium ine Sodium 50 MCG 50 MCG 50 MCG CeleXA 20 CeleXA 20 No 1{table QD CeleXA 20 MG MG t} MG Melatonin 3 Melatonin 3 No 1{table QD Melatonin MG MG t_at_be 3 MG dtime_a s_neede d_with_ food} Vitamin C Vitamin C No 1{table QD Vitamin C 1000 MG 1000 MG t} 1000 MG Aspirin 81 Aspirin 81 No 1{table QD Aspirin 81 MG MG t} MG Axona - Axona - No Axona - Pantoprazol Pantoprazol No 1{table QD Pantoprazo e Sodium 40 e Sodium 40 t} le Sodium MG MG 40 MG Magnesium Magnesium No Magnesium 400 MG 400 MG 400 MG Niacin 500 Niacin 500 No 1{table QD Niacin 500 MG MG t_with_ MG food} Aricept 23 Aricept 23 No 1{table QD Aricept 23 MG MG t_at_be MG dtime} Pravastatin Pravastatin No 1{table QD Pravastati Sodium 40 Sodium 40 t} n Sodium MG MG 40 MG Tamsulosin Tamsulosin No Tamsulosin HCl 0.4 MG HCl 0.4 MG HCl 0.4 MG Fish Oil Fish Oil No 1{capsu QD Fish Oil 1000 MG 1000 MG le} 1000 MG Lasix 20 MG Lasix 20 MG No 1{table QD Lasix 20 t} MG Finasteride Finasteride No 1{table QD Finasterid 5 MG 5 MG t} e 5 MG Lasix 20 MG Lasix 20 MG No 1{table QD Lasix 20 t} MG Pravastatin Pravastatin No 1{table QD Pravastati Sodium 40 Sodium 40 t} n Sodium MG MG 40 MG D3 Adult D3 Adult No 1{table QD D3 Adult 1000 UNIT 1000 UNIT t} 1000 UNIT Iron 15 MG Iron 15 MG No Iron 15 MG B12 Liquid B12 Liquid No 15{ml} QD B12 Liquid Health Health Health Booster Booster Booster 1000 1000 1000 MCG/15ML MCG/15ML MCG/15ML Losartan Losartan No 1{table QD Losartan Potassium Potassium t} Potassium 100 MG 100 MG 100 MG Prevagen 10 Prevagen 10 No Prevagen MG MG 10 MG Coconut Oil Coconut Oil No Coconut 1000 MG 1000 MG Oil 1000 MG Levothyroxi Levothyroxi No QD Levothyrox ne Sodium ne Sodium ine Sodium 50 MCG 50 MCG 50 MCG CeleXA 20 CeleXA 20 No 1{table QD CeleXA 20 MG MG t} MG Vitamin C Vitamin C No 1{table QD Vitamin C 1000 MG 1000 MG t} 1000 MG Aspirin 81 Aspirin 81 No 1{table QD Aspirin 81 MG MG t} MG Niacin 500 Niacin 500 No 1{table QD Niacin 500 MG MG t_with_ MG food} Aricept 23 Aricept 23 No 1{table QD Aricept 23 MG MG t_at_be MG dtime} Magnesium Magnesium No Magnesium 400 MG 400 MG 400 MG Melatonin 3 Melatonin 3 No 1{table QD Melatonin MG MG t_at_be 3 MG dtime_a s_neede d_with_ food} Amiodarone Amiodarone No 1{table QD Amiodarone HCl 200 MG HCl 200 MG t} HCl 200 MG Pantoprazol Pantoprazol No 1{table QD Pantoprazo e Sodium 40 e Sodium 40 t} le Sodium MG MG 40 MG Tamsulosin Tamsulosin No Tamsulosin HCl 0.4 MG HCl 0.4 MG HCl 0.4 MG Fish Oil Fish Oil No 1{capsu QD Fish Oil 1000 MG 1000 MG le} 1000 MG Axona - Axona - No Axona - D3 Adult D3 Adult No 1{table QD D3 Adult 1000 UNIT 1000 UNIT t} 1000 UNIT B12 Liquid B12 Liquid No 15{ml} QD B12 Liquid Health Health Health Booster Booster Booster 1000 1000 1000 MCG/15ML MCG/15ML MCG/15ML Finasteride Finasteride No 1{table QD Finasterid 5 MG 5 MG t} e 5 MG Aspirin 81 Aspirin 81 No 1{table QD Aspirin 81 MG MG t} MG Lasix 20 MG Lasix 20 MG No 1{table QD Lasix 20 t} MG Prevagen 10 Prevagen 10 No Prevagen MG MG 10 MG Niacin 500 Niacin 500 No 1{table QD Niacin 500 MG MG t_with_ MG food} Amiodarone Amiodarone No 1{table QD Amiodarone HCl 200 MG HCl 200 MG t} HCl 200 MG Aricept 23 Aricept 23 No 1{table QD Aricept 23 MG MG t_at_be MG dtime} Pravastatin Pravastatin No 1{table QD Pravastati Sodium 40 Sodium 40 t} n Sodium MG MG 40 MG Levothyroxi Levothyroxi No QD Levothyrox ne Sodium ne Sodium ine Sodium 50 MCG 50 MCG 50 MCG Fish Oil Fish Oil No 1{capsu QD Fish Oil 1000 MG 1000 MG le} 1000 MG Tamsulosin Tamsulosin No Tamsulosin HCl 0.4 MG HCl 0.4 MG HCl 0.4 MG CeleXA 20 CeleXA 20 No 1{table QD CeleXA 20 MG MG t} MG Vitamin C Vitamin C No 1{table QD Vitamin C 1000 MG 1000 MG t} 1000 MG Iron 15 MG Iron 15 MG No Iron 15 MG Losartan Losartan No 1{table QD Losartan Potassium Potassium t} Potassium 100 MG 100 MG 100 MG Axona - Axona - No Axona - Melatonin 3 Melatonin 3 No 1{table QD Melatonin MG MG t_at_be 3 MG dtime_a s_neede d_with_ food} Pantoprazol Pantoprazol No 1{table QD Pantoprazo e Sodium 40 e Sodium 40 t} le Sodium MG MG 40 MG Magnesium Magnesium No Magnesium 400 MG 400 MG 400 MG Coconut Oil Coconut Oil No Coconut 1000 MG 1000 MG Oil 1000 MG D3 Adult D3 Adult No 1{table QD D3 Adult 1000 UNIT 1000 UNIT t} 1000 UNIT B12 Liquid B12 Liquid No 15{ml} QD B12 Liquid Health Health Health Booster Booster Booster 1000 1000 1000 MCG/15ML MCG/15ML MCG/15ML Finasteride Finasteride No 1{table QD Finasterid 5 MG 5 MG t} e 5 MG Aspirin 81 Aspirin 81 No 1{table QD Aspirin 81 MG MG t} MG Lasix 20 MG Lasix 20 MG No 1{table QD Lasix 20 t} MG Prevagen 10 Prevagen 10 No Prevagen MG MG 10 MG Niacin 500 Niacin 500 No 1{table QD Niacin 500 MG MG t_with_ MG food} Amiodarone Amiodarone No 1{table QD Amiodarone HCl 200 MG HCl 200 MG t} HCl 200 MG Aricept 23 Aricept 23 No 1{table QD Aricept 23 MG MG t_at_be MG dtime} Pravastatin Pravastatin No 1{table QD Pravastati Sodium 40 Sodium 40 t} n Sodium MG MG 40 MG Levothyroxi Levothyroxi No QD Levothyrox ne Sodium ne Sodium ine Sodium 50 MCG 50 MCG 50 MCG Fish Oil Fish Oil No 1{capsu QD Fish Oil 1000 MG 1000 MG le} 1000 MG Tamsulosin Tamsulosin No Tamsulosin HCl 0.4 MG HCl 0.4 MG HCl 0.4 MG CeleXA 20 CeleXA 20 No 1{table QD CeleXA 20 MG MG t} MG Vitamin C Vitamin C No 1{table QD Vitamin C 1000 MG 1000 MG t} 1000 MG Iron 15 MG Iron 15 MG No Iron 15 MG Losartan Losartan No 1{table QD Losartan Potassium Potassium t} Potassium 100 MG 100 MG 100 MG Axona - Axona - No Axona - Melatonin 3 Melatonin 3 No 1{table QD Melatonin MG MG t_at_be 3 MG dtime_a s_neede d_with_ food} Pantoprazol Pantoprazol No 1{table QD Pantoprazo e Sodium 40 e Sodium 40 t} le Sodium MG MG 40 MG Magnesium Magnesium No Magnesium 400 MG 400 MG 400 MG Coconut Oil Coconut Oil No Coconut 1000 MG 1000 MG Oil 1000 MG Levothyroxi Levothyroxi No QD Levothyrox ne Sodium ne Sodium ine Sodium 50 MCG 50 MCG 50 MCG Aricept 23 Aricept 23 No 1{table QD Aricept 23 MG MG t_at_be MG dtime} CeleXA 20 CeleXA 20 No 1{table QD CeleXA 20 MG MG t} MG Axona - Axona - No Axona - Losartan Losartan No 1{table QD Losartan Potassium Potassium t} Potassium 100 MG 100 MG 100 MG Pantoprazol Pantoprazol No 1{table QD Pantoprazo e Sodium 40 e Sodium 40 t} le Sodium MG MG 40 MG Coconut Oil Coconut Oil No Coconut 1000 MG 1000 MG Oil 1000 MG Lasix 20 MG Lasix 20 MG No 1{table QD Lasix 20 t} MG Prevagen 10 Prevagen 10 No Prevagen MG MG 10 MG B12 Liquid B12 Liquid No 15{ml} QD B12 Liquid Health Health Health Booster Booster Booster 1000 1000 1000 MCG/15ML MCG/15ML MCG/15ML D3 Adult D3 Adult No 1{table QD D3 Adult 1000 UNIT 1000 UNIT t} 1000 UNIT Melatonin 3 Melatonin 3 No 1{table QD Melatonin MG MG t_at_be 3 MG dtime_a s_neede d_with_ food} Amiodarone Amiodarone No 1{table QD Amiodarone HCl 200 MG HCl 200 MG t} HCl 200 MG Tamsulosin Tamsulosin No Tamsulosin HCl 0.4 MG HCl 0.4 MG HCl 0.4 MG Aspirin 81 Aspirin 81 No 1{table QD Aspirin 81 MG MG t} MG Fish Oil Fish Oil No 1{capsu QD Fish Oil 1000 MG 1000 MG le} 1000 MG Finasteride Finasteride No 1{table QD Finasterid 5 MG 5 MG t} e 5 MG Magnesium Magnesium No Magnesium 400 MG 400 MG 400 MG Niacin 500 Niacin 500 No 1{table QD Niacin 500 MG MG t_with_ MG food} Vitamin C Vitamin C No 1{table QD Vitamin C 1000 MG 1000 MG t} 1000 MG Iron 15 MG Iron 15 MG No Iron 15 MG Pravastatin Pravastatin No 1{table QD Pravastati Sodium 40 Sodium 40 t} n Sodium MG MG 40 MG Levothyroxi Levothyroxi No QD Levothyrox ne Sodium ne Sodium ine Sodium 50 MCG 50 MCG 50 MCG Aricept 23 Aricept 23 No 1{table QD Aricept 23 MG MG t_at_be MG dtime} CeleXA 20 CeleXA 20 No 1{table QD CeleXA 20 MG MG t} MG Axona - Axona - No Axona - Losartan Losartan No 1{table QD Losartan Potassium Potassium t} Potassium 100 MG 100 MG 100 MG Pantoprazol Pantoprazol No 1{table QD Pantoprazo e Sodium 40 e Sodium 40 t} le Sodium MG MG 40 MG Coconut Oil Coconut Oil No Coconut 1000 MG 1000 MG Oil 1000 MG Lasix 20 MG Lasix 20 MG No 1{table QD Lasix 20 t} MG Prevagen 10 Prevagen 10 No Prevagen MG MG 10 MG B12 Liquid B12 Liquid No 15{ml} QD B12 Liquid Health Health Health Booster Booster Booster 1000 1000 1000 MCG/15ML MCG/15ML MCG/15ML D3 Adult D3 Adult No 1{table QD D3 Adult 1000 UNIT 1000 UNIT t} 1000 UNIT Melatonin 3 Melatonin 3 No 1{table QD Melatonin MG MG t_at_be 3 MG dtime_a s_neede d_with_ food} Amiodarone Amiodarone No 1{table QD Amiodarone HCl 200 MG HCl 200 MG t} HCl 200 MG Tamsulosin Tamsulosin No Tamsulosin HCl 0.4 MG HCl 0.4 MG HCl 0.4 MG Aspirin 81 Aspirin 81 No 1{table QD Aspirin 81 MG MG t} MG Fish Oil Fish Oil No 1{capsu QD Fish Oil 1000 MG 1000 MG le} 1000 MG Finasteride Finasteride No 1{table QD Finasterid 5 MG 5 MG t} e 5 MG Magnesium Magnesium No Magnesium 400 MG 400 MG 400 MG Niacin 500 Niacin 500 No 1{table QD Niacin 500 MG MG t_with_ MG food} Vitamin C Vitamin C No 1{table QD Vitamin C 1000 MG 1000 MG t} 1000 MG Iron 15 MG Iron 15 MG No Iron 15 MG Pravastatin Pravastatin No 1{table QD Pravastati Sodium 40 Sodium 40 t} n Sodium MG MG 40 MG CeleXA 20 CeleXA 20 No 1{table QD CeleXA 20 MG MG t} MG Iron 15 MG Iron 15 MG No Iron 15 MG Levothyroxi Levothyroxi No QD Levothyrox ne Sodium ne Sodium ine Sodium 50 MCG 50 MCG 50 MCG Melatonin 3 Melatonin 3 No 1{table QD Melatonin MG MG t_at_be 3 MG dtime_a s_neede d_with_ food} Coconut Oil Coconut Oil No Coconut 1000 MG 1000 MG Oil 1000 MG Finasteride Finasteride No 1{table QD Finasterid 5 MG 5 MG t} e 5 MG Losartan Losartan No 1{table QD Losartan Potassium Potassium t} Potassium 100 MG 100 MG 100 MG Tamsulosin Tamsulosin No Tamsulosin HCl 0.4 MG HCl 0.4 MG HCl 0.4 MG Lasix 20 MG Lasix 20 MG No 1{table QD Lasix 20 t} MG Prevagen 10 Prevagen 10 No Prevagen MG MG 10 MG Axona - Axona - No Axona - Niacin 500 Niacin 500 No 1{table QD Niacin 500 MG MG t_with_ MG food} B12 Liquid B12 Liquid No 15{ml} QD B12 Liquid Health Health Health Booster Booster Booster 1000 1000 1000 MCG/15ML MCG/15ML MCG/15ML Fish Oil Fish Oil No 1{capsu QD Fish Oil 1000 MG 1000 MG le} 1000 MG Aricept 23 Aricept 23 No 1{table QD Aricept 23 MG MG t_at_be MG dtime} Vitamin C Vitamin C No 1{table QD Vitamin C 1000 MG 1000 MG t} 1000 MG Aspirin 81 Aspirin 81 No 1{table QD Aspirin 81 MG MG t} MG Amiodarone Amiodarone No 1{table QD Amiodarone HCl 200 MG HCl 200 MG t} HCl 200 MG Pantoprazol Pantoprazol No 1{table QD Pantoprazo e Sodium 40 e Sodium 40 t} le Sodium MG MG 40 MG Pravastatin Pravastatin No 1{table QD Pravastati Sodium 40 Sodium 40 t} n Sodium MG MG 40 MG D3 Adult D3 Adult No 1{table QD D3 Adult 1000 UNIT 1000 UNIT t} 1000 UNIT Magnesium Magnesium No Magnesium 400 MG 400 MG 400 MG CeleXA 20 CeleXA 20 No 1{table QD CeleXA 20 MG MG t} MG Iron 15 MG Iron 15 MG No Iron 15 MG Levothyroxi Levothyroxi No QD Levothyrox ne Sodium ne Sodium ine Sodium 50 MCG 50 MCG 50 MCG Melatonin 3 Melatonin 3 No 1{table QD Melatonin MG MG t_at_be 3 MG dtime_a s_neede d_with_ food} Coconut Oil Coconut Oil No Coconut 1000 MG 1000 MG Oil 1000 MG Finasteride Finasteride No 1{table QD Finasterid 5 MG 5 MG t} e 5 MG Losartan Losartan No 1{table QD Losartan Potassium Potassium t} Potassium 100 MG 100 MG 100 MG Tamsulosin Tamsulosin No Tamsulosin HCl 0.4 MG HCl 0.4 MG HCl 0.4 MG Lasix 20 MG Lasix 20 MG No 1{table QD Lasix 20 t} MG Prevagen 10 Prevagen 10 No Prevagen MG MG 10 MG Axona - Axona - No Axona - Niacin 500 Niacin 500 No 1{table QD Niacin 500 MG MG t_with_ MG food} B12 Liquid B12 Liquid No 15{ml} QD B12 Liquid Health Health Health Booster Booster Booster 1000 1000 1000 MCG/15ML MCG/15ML MCG/15ML Fish Oil Fish Oil No 1{capsu QD Fish Oil 1000 MG 1000 MG le} 1000 MG Vital Signs Vital Name Observation Time Observation Value Comments Source height 2021-11-09 13:30:00 71 [in_i] [facility] weight 2021-11-09 13:30:00 160 [lb_av] [facility] temperature 2021-11-09 13:30:00 98.2 [degF] [facility] bmi 2021-11-09 13:30:00 22.31 kg/m2 [facility] oximetry 2021-11-09 13:30:00 97.1 % [facility] respiratory rate 2021-11-09 13:30:00 18 /min Comm on [facility] blood pressure 2021-11-09 13:30:00 160 mm[Hg] Common [facility] - systolic [facility] blood pressure 2021-11-09 13:30:00 66 mm[Hg] Common [facility] - diastolic [facility] Systolic blood 2021-08-16 21:23:00 151 mm[Hg] [facility] Diastolic blood 2021-08-16 21:23:00 60 mm[Hg] [facility] Heart rate 2021-08-16 21:23:00 58 /[facility] Respiratory rate 2021-08-16 21:17:00 22 /min [facility] height 2021-08-16 21:17:00 180.3 cm [facility] Body weight 2021-08-16 21:17:00 78.926 kg [facility] BMI 2021-08-16 21:17:00 24.27 kg/m2 [facility] Oxygen saturation in 2021-08-16 21:17:00 98 /min [facility] Arterial blood by [facility] Pulse oximetry Branch height 2021-07-16 13:00:00 71 [in_i] [facility] weight 2021-07-16 13:00:00 179 [lb_av] [facility] temperature 2021-07-16 13:00:00 98.3 [degF] [facility] bmi 2021-07-16 13:00:00 24.96 kg/m2 [facility] oximetry 2021-07-16 13:00:00 95 % [facility] blood pressure 2021-07-16 13:00:00 130 mm[Hg] [facility] - systolic [facility] blood pressure 2021-07-16 13:00:00 61 mm[Hg] [facility] - diastolic [facility] Systolic blood 2022-03-22 19:39:00 153 mm[Hg] [facility] pressure Diastolic blood 2022-03-22 19:39:00 74 mm[Hg] [facility] pressure Heart rate 2022-03-22 19:39:00 57 /min [facility] Body height 2022-03-22 19:39:00 180.3 cm [facility] Body weight 2022-03-22 19:39:00 78.563 kg [facility] BMI 2022-03-22 19:39:00 24.16 kg/m2 [facility] Oxygen saturation in 2022-03-22 19:39:00 97 /min [facility] Arterial blood by Pulse oximetry Procedures Procedure Date / Time Performing Clinician Source Performed ECG 12-LEAD 2022-03-22 19:54:15 Kenn Fuller [facility] V. DME/SUPPLY JUSTIFICATION 2021-08-20 06:01:00 Doctor Unassigned, No [facility] Plan of Care Planned Activity Planned Date Details Comments Source Future Scheduled 2022-07-18 HEPATITIS B VACCINES Met [facility] Test 15:57:47 (1 of 3 - 3-dose series) [code = HEPATITIS B VACCINES (1 of 3 - 3-dose series)] Future Scheduled 2022-07-18 COVID-19 VACCINE (#1) [facility] Test 15:57:47 [code = COVID-19 VACCINE (#1)] Future Scheduled 2022-07-18 65+ PNEUMOCOCCAL Methodi [facility] Test 15:57:47 VACCINE (1 - PCV) [code = 65+ PNEUMOCOCCAL VACCINE (1 - PCV)] Future Scheduled 2022-07-18 SHINGLES VACCINES (1 Met [facility] Test 15:57:47 of 2) [code = SHINGLES VACCINES (1 of 2)] Future Scheduled 2022-07-18 INFLUENZA VACCINE Method [facility] Test 15:57:47 [code = INFLUENZA VACCINE] Future Scheduled 2022-04-24 HEPATITIS B VACCINES Met [facility] Test 09:34:27 (1 of 3 - 3-dose series) [code = HEPATITIS B VACCINES (1 of 3 - 3-dose series)] Future Scheduled 2022-04-24 COVID-19 VACCINE (#1) [facility] Test 09:34:27 [code = COVID-19 VACCINE (#1)] Future Scheduled 2022-04-24 65+ PNEUMOCOCCAL Methodi [facility] Test 09:34:27 VACCINE (1 - PCV) [code = 65+ PNEUMOCOCCAL VACCINE (1 - PCV)] Future Scheduled 2022-04-24 SHINGLES VACCINES (1 Met [facility] Test 09:34:27 of 2) [code = SHINGLES VACCINES (1 of 2)] Future Scheduled 2022-04-24 INFLUENZA VACCINE Method [facility] Test 09:34:27 [code = INFLUENZA VACCINE] Encounters Start End Encounter Admission Attending Care Care Encounter Source Date/Time Date/Time Type Type Clinicians Facility Department ID 2021-10-03 Outpatient Ade [facility] [id number] Common 14:08:18 Anshul [id number] [facility] 2021-10-03 Outpatient Ade [facility] [id number] Common 13:12:42 Anshul [id number] [facility] 2022-05-24 2022-05-24 (TEL) [facility] [employer] [id number] Co mmon 00:00:00 00:00:00 [facility] 2022-04-19 2022-04-19 Telemedici Valderraban 1.2.840.1 [id number] Methodi 16:45:00 17:00:00 ne o, Kenn [address]83.1.[address] V[address] 3.430.2.7 Hospit a .3.690339 l .8 2022-04-19 2022-04-19 Telemedici Valderraban 1.2.840.1 [id number] Methodi 16:45:00 17:00:00 ne o, Kenn Chilel50.1.[address] V. 3.430.2.7 Hospit a .3.242125 l .8 2022-04-18 2022-04-18 Telephone Valderraban 1.2.840.1 [id number] Methodi 00:00:00 00:00:00 o, Kenn 77292.1.[address] V[address] 3.430.2.7 Hospit a .3.807832 l .8 2022-04-18 2022-04-18 Telephone Valderraban 1.2.840.1 [id number] Methodi 00:00:00 00:00:00 o, Kenn [address]307.1.[address] V[address] 3.430.2.7 Hospit a .3.498809 l .8 2022-04-10 2022-04-10 Telephone Valderraban 1.2.840.1 [id number] Methodi 00:00:00 00:00:00 o, Kenn Chilel50.1.[address] V. 3.430.2.7 Hospit a .3.138525 l .8 2022-04-10 2022-04-10 Telephone Valderraban 1.2.840.1 [id number] Methodi 00:00:00 00:00:00 o, Kenn 06290.1.[address] V. 3.430.2.7 Hospit a .3.028332 l .8 2022-03-22 2022-03-22 Office Valderraban 1.2.840.1 [id number] Methodi 14:00:00 15:17:00 Visit Kenn kim 29212.1.[address] V. 3.430.2.7 Hospit a .3.868940 l .8 2022-03-22 2022-03-22 Office Valderraban 1.2.840.1 [id number] Methodi 14:00:00 15:17:00 Visit Kenn kim 56355.1.[address] V. 3.430.2.7 Hospit a .3.137602 l .8 2022-03-22 2022-03-22 Travel 1.2.840.1 [id number] [id number] Methodi 00:00:00 00:00:[address] 3.430.2.7 0.2.7.3.698 Ho spita .3.768818 084.8 l .8 2022-03-22 2022-03-22 Travel 1.2.840.1 [id number] [id number] Methodi 00:00:00 00:00:[address] 3.430.2.7 0.2.7.3.698 Ho spita .3.597621 084.8 l .8 2022-01-10 2022-01-10 (TEL) STLMLC [facility] [id number] Co mmon 00:00:00 00:00:00 [facility] 2022-01-09 2022-01-09 Phone Only STLMLC STL[facility]C [id number] Common 00:00:00 00:00:00 Visit for Spir it Est MCR - [facility] 2021-11-16 2021-11-16 (TEL) STLMLC [facility] [id number] Co mmon 00:00:00 00:00:00 Spirit - [facility] 2021-11-09 2021-11-09 (PROC) STLMLC STL[facility]C [id number] Co mmon 00:00:00 00:00:00 Procedure Spir it - [facility] 2021-08-23 2021-08-23 Telephone Keiko [facility] [id number] Univers 00:00:00 00:00:00 Giseledebbie MARIA LUISAVICKY 350.1.13.10 i ty of [place] [address] [id number] dical NAL [address] [place] [address] 2021-08-20 2021-08-20 Orders Doctor OLIVIA 1.2.840.114 [id number] Univers 00:00:00 00:00:00 Only Unassigned, PEEWEE 350.1.13.10 ity of [place] [facility] 4.2.7.2.686 Terry as [phone] [address] 2021-08-16 2021-08-16 Outpatient R KRYSTYNA BRANDON [facility] 10 [id number] Univers 15:00:00 15:45:27 KRYSTYNA BRANDON i ty of [facility] 2021-08-16 2021-08-16 Office Keiko [facility] 1.2.840.114 [id number] Univers 14:58:58 15:45:27 Visit Giselehitrinity GALICIA 350.1.13.10 i ty [place] [phone] Ct dical NAL [address] [place] [address] 2021-08-16 2021-08-16 Outpatient R KRYSTYNA BRANDON [facility] 10 [id number] Univers 15:00:00 15:00:00 KRYSTYNA BRANDON i ty of [facility] 2021-07-26 2021-07-26 OL DIG E/M STLMLC STLMLC [id number] Common 00:00:00 00:00:00 SVC 5-10 Spiri t MIN - [facility] 2021-07-18 2021-07-18 (TEL) STLMLC STLMLC [id number] Co mmon 00:00:00 00:00:00 [facility] - [facility] 2021-07-16 2021-07-16 (PROC) STLMLC STLMLC [id number] Co mmon 00:00:00 00:00:00 Procedure Spir it - [facility] 2021-05-17 2021-05-17 Office Keiko [facility] 1.2.840.114 [id number] Univers 15:27:51 16:36:22 Visit Krystyna Gal[place] 350.1.13.10 i [place] [phone] Ct dical nal [address] [facility] 2021-05-17 2021-05-17 Outpatient R KRYSTYNA BRANDON [facility] 10 [id number] Univers 15:10:00 15:10:00 KRYSTYNA BRANDON i ty of [facility] 2021-05-17 2021-05-17 Orders Doctor OLIVIA 1.2.840.114 [id number] Univers 00:00:00 00:00:00 Only Unassigned, PEEWEE 350.1.13.10 ity of [place] [facility] 4.2.7.2.686 Terry as [phone] [address] 2021-05-17 2021-05-17 Orders Doctor OLIVIA 1.2.840.114 [id number] Univers 00:00:00 00:00:00 Only Unassigned, PEEWEE 350.1.13.10 ity of [place] [facility] [id number] Terry as [phone] [address] Results Test Description Test Time Test Comments [...] Atrial fibrillation with slow vent [facility]icular response[facility] [id number] 05:43:23 Test Item Value Reference Range Interpretation Comments Ventricular rate (test code = 253) Atrial rate (test code = 255) QRSD interval (test code = 260) QT interval (test code = 264) QTC interval (test code = 265) QRS axis 1 (test code = 268) T wave axis (test code = 270) EKG impression (test Atrial fibrillation code = 273) with slow ventricular response- [facility]
[2022-07-18 16:45] LABS: Absolute Lymphocytes (CBC) 1.2 K/uL (0.7-4.9); Hematocrit 27.7 % (39.6-49.0); Lymphocytes % 21.6 % (15.3-44.8); MCV 88.4 fL (80-100); MPV 9.6 fL (7.6-11.3); RBC Red Blood Cell Count 3.13 M/uL (4.33-5.43)
[2022-07-18 17:02] LABS: Protime INR 1.11
[2022-07-18 17:08] LABS: ALT/SGPT 17 U/L (12-78); AST/SGOT 18 U/L (15-37); Albumin 3.5 g/dL (3.4-5.0); Alkaline Phosphatase 54 U/L (45-117); BUN Blood Urea Nitrogen 39 mg/dL (7-18); Bicarbonate 25 mmol/L (21-32); Bilirubin Total 0.3 mg/dL (0.2-1.0); Glomerular Filtration Rate 25 ml/min (=/>90); Glucose Level 115 mg/dL (74-106); Magnesium 2.5 mg/dL (1.8-2.4); NT PRO-BNP 2758 pg/mL (<450); Potassium 4.2 mmol/L (3.5-5.1); Protein, Total 7.4 g/dL (6.4-8.2); Sodium Level 134 mmol/L (136-145); Troponin High Sensitivity 20.5 pg/mL (<58.9)
[2022-07-18 17:09] LABS: Bilirubin Direct < 0.1 mg/dL (0-0.2)
[2022-07-18 17:17] LABS: Urine Blood Negative (Negative); Urine Glucose Negative (Negative); Urine Protein Trace (Negative); Urine Specific Gravity 1.015 (1.005-1.030); Urine pH 5.5 (5.0-7.0)
[2022-07-18 17:18] LABS: SARS-CoV-2 Antigen Rapid Res Negative (Negative)
[2022-07-18 17:27] LABS: Urine Bacteria <20 /HPF (<20); Urine Crystals Unidentified Few /HPF (None Seen); Urine Mucus Slight /HPF (None Seen); Urine WBC Clump Occasional /HPF (None Seen)
--- NOTE | 2022-07-18 17:27 | RAD REPORT ---
EXAM DESCRIPTION: RAD - Chest Single View - 07/18/2022 5:15 pm CLINICAL HISTORY: DYSPNEA COMPARISON: Chest Single View dated 05/06/2022; Chest Single View dated 04/24/2022; Chest Single View dated 04/21/2022; Chest Pa And Lat (2 Views) dated 03/20/2022; Abdomen Pelvis Wo Contrast dated 2021; Chest For Pe Angio dated 01/24/2021 FINDINGS: Lines: None. Lungs: Diffuse haziness of the lungs bilaterally with some engorgement of the central pulmonary vascu lature . Pleural: No significant pleural effusions or pneumothorax. Cardiac: Cardiomegaly. Aortic valve prosthesis. Mediastinum: Within normal limits. Bones: No acute fractures. Sternotomy. Other: None IMPRESSION: Suspect mild pulmonary edema. No consolidative airspace disease.
--- NOTE | 2022-07-18 17:45 | ER ---
Nurse's Notes [facility] Name: Bridger Murillo Age: 81 yrs Sex: Male : 1940 Arrival Date: 07/18/2022 Time: 15:58 Bed 6 Private MD: Diagnosis: Unspecified combined systolic (congestive) and diastolic (congestive) heart failure;Acute pulmonary edema;UTI/ Urinary tract infection, site not specified Presentation: 07/18 15:58 Chief complaint: EMS states: FAMILY CALLED FOR ABNORMAL LABS USUALLY RESULTING IN bp HOSPITALIZATION. Coronavirus screen: At this time, the client does not indicate any symptoms associated with coronavirus-19. Ebola Screen: No symptoms or risks identified at this time. Initial Sepsis Screen: Does the patient meet any 2 criteria? No. Patient's initial sepsis screen is negative. Does the patient have a suspected source of infection? No. Patient's initial sepsis screen is negative. Risk Assessment: Do you want to hurt yourself or someone else? Patient reports no desire to harm self or others. Onset of symptoms was July 18, 2022 at 15:30. 15:58 Method Of Arrival: EMS: [facility] bp 15:58 Acuity: VALENCIA 3 bp Triage Assessment: 16:00 General: Appears in no apparent distress. Behavior is cooperative, agitated, anxious. bp Pain: Denies pain. EENT: No deficits noted. Neuro: Level of Consciousness is awake, alert, Oriented to person, place. Cardiovascular: Rhythm is sinus rhythm. Respiratory: Airway is patent Respiratory effort is even, unlabored. GI: No signs and/or symptoms were reported involving the gastrointestinal system. : No signs and/or symptoms were reported regarding the genitourinary system. Derm: No deficits noted. Musculoskeletal: No deficits noted. Historical: - Allergies: 16:00 Nemenda; bp 16:00 Sulfa (Sulfonamide Antibiotics); bp - Home Meds: 16:00 Vitamin D3 1,000 unit Oral tab [Active]; Vitamin C 1,000 mg Oral tab 1000 mg daily bp [Active]; Vitamin B-12 1,000 mcg Oral tab 1000 mcg daily [Active]; losartan 100 mg Oral tab 1 tab once daily [Active]; magnesium oxide 400 mg Oral tab 400 mg twice a day [Active]; tramadol 50 mg Oral tab 1 tab every 6 hours [Active]; niacin 500 mg Oral tab 1 tab 2 times per day [Active]; nitroglycerin 0.3 mg SL subl 1 tab every 5 minutes [Active]; pantoprazole 40 mg Oral TbEC 1 tab once daily [Active]; pravastatin 40 mg Oral tab once daily [Active]; levothyroxine 50 mcg cap 1 cap once daily [Active]; tamsulosin 0.4 mg Oral cp24 1 cap once daily [Active]; amlodipine 5 mg tab 1 tab once daily [Active]; Aricept 23 mg Oral tab 1 tab bedtime for Mild to Moderate Alzheimer's Type Dementia [Active]; aspirin 81 mg Oral TbEC once daily [Active]; Celexa 20 mg Oral tab 1 tab once daily [Active]; prevagen 1 tab daily [Active]; Lasix 20 mg Oral tab once daily [Active]; Fish Oil 1,000 mg Oral cap twice a day [Active]; docusate sodium 100 mg Oral cap [Active]; - PMHx: 16:00 Alzheimer's; Anemia; skin cancer; Non stemi [place]; Hypertension; Hyperlipidemia; CVA; bp Kidney stones; BPH; Bladder cancer; barretts; Atrial Fib; aortic valve disease; CAD; - Immunization history:: Adult Immunizations up to date. - Social history:: Smoking status: Patient denies any tobacco usage or history of. - Family history:: not pertinent. - Hospitalizations: : No recent hospitalization is reported. Screenin:00 Abuse screen: Denies threats or abuse. Denies injuries from another. Nutritional bp screening: No deficits noted. Tuberculosis screening: No symptoms or risk factors identified. Fall Risk None identified. Assessment: 16:00 General: SEE TRIAGE NOTE. bp 17:50 Reassessment: No changes from previously documented assessment. Patient and/or family bp updated on plan of care and expected duration. Pain level reassessed. Vital Signs: 16:00 BP 142 / 67; Pulse 59; Resp 16; Temp 98.3; Pulse Ox 95% ; bp 17:00 BP 123 / 82; Pulse 55; Resp 13; Pulse Ox 96% ; bp ED Course: 15:58 Patient arrived in ED. bp 15:58 Omar Upton MD is Attending Physician. rn 16:00 Triage completed. bp 16:00 Arm band placed on. bp 16:00 Patient has correct armband on for positive identification. Bed in low position. Call bp light in reach. Side rails up X2. 16:29 Aaron Schultz, RN is Primary Nurse. bp 16:29 Inserted saline lock: 22 gauge in right forearm, using aseptic technique. Blood bp collected. Patient maintains SpO2 saturation greater than 95% on room air. 17:17 XRAY Chest (1 view) In Process Unspecified. EDMS 17:45 Anshul Booker MD is Hospitalizing Provider. rn 19:49 No provider procedures requiring assistance completed. Patient admitted, IV remains in kd3 place. Administered Medications: 18:00 Drug: Lasix (furosemide) 40 mg Route: IVP; Site: right forearm; bp 19:50 Follow up: Response: No adverse reaction kd3 18:00 Drug: Rocephin (cefTRIAXone) 1 grams Route: IV; Rate: calculated rate; Site: right bp antecubital; 19:50 Follow up: Response: No adverse reaction; IV Status: Completed infusion kd3 Medication: 16:00 VIS not applicable for this client. bp Outcome: 17:45 Decision to Hospitalize by Provider. rn 19:49 Admitted to Med/surg kd3 19:49 Condition: stable 19:49 Discharge instructions given to patient, family, Instructed on discharge instructions, follow up and referral plans. Demonstrated understanding of instructions, follow-up care. 20:05 Patient left the ED. as6 Signatures: Dispatcher [employer] EDNM Omar Upton MD MD rn Peltier, Brian, RN RN bp Clayton Owusu RN RN as6 Tomasa Hu RN RN kd3
--- NOTE | 2022-07-18 17:46 | EDPHYS ---
Physician Documentation [facility] Name: Bridger Murillo Age: 81 yrs Sex: Male : 1940 Arrival Date: 07/18/2022 Time: 15:58 Bed 6 Private MD: ED Physician Omar Upton HPI: 07/18 16:35 This 81 yrs old Male presents to ER via EMS with complaints of Abnormal Lab Results. rn 16:35 The patient has shortness of breath with light activity. Onset: The symptoms/episode rn began/occurred at an unknown time. Duration: The symptoms are intermittent. The patient's shortness of breath is aggravated by exertion, is alleviated by sitting up. Severity of symptoms: At their worst the symptoms were mild in the emergency department the symptoms are unchanged. The patient has experienced similar episodes in the past. The patient has been recently seen by a physician:. EMS reports family called 911 for sob and had recent blood draw that showed anemia. + hx of anemia, no blood in stool/urine, no hematemesis. No fever. NO chest pain/abd pain/vomiting/diarrhea. . Historical: - Allergies: 16:00 Nemenda; bp 16:00 Sulfa (Sulfonamide Antibiotics); bp - Home Meds: 16:00 Vitamin D3 1,000 unit Oral tab [Active]; Vitamin C 1,000 mg Oral tab 1000 mg daily bp [Active]; Vitamin B-12 1,000 mcg Oral tab 1000 mcg daily [Active]; losartan 100 mg Oral tab 1 tab once daily [Active]; magnesium oxide 400 mg Oral tab 400 mg twice a day [Active]; tramadol 50 mg Oral tab 1 tab every 6 hours [Active]; niacin 500 mg Oral tab 1 tab 2 times per day [Active]; nitroglycerin 0.3 mg SL subl 1 tab every 5 minutes [Active]; pantoprazole 40 mg Oral TbEC 1 tab once daily [Active]; pravastatin 40 mg Oral tab once daily [Active]; levothyroxine 50 mcg cap 1 cap once daily [Active]; tamsulosin 0.4 mg Oral cp24 1 cap once daily [Active]; amlodipine 5 mg tab 1 tab once daily [Active]; Aricept 23 mg Oral tab 1 tab bedtime for Mild to Moderate Alzheimer's Type Dementia [Active]; aspirin 81 mg Oral TbEC once daily [Active]; Celexa 20 mg Oral tab 1 tab once daily [Active]; prevagen 1 tab daily [Active]; Lasix 20 mg Oral tab once daily [Active]; Fish Oil 1,000 mg Oral cap twice a day [Active]; docusate sodium 100 mg Oral cap [Active]; - PMHx: 16:00 Alzheimer's; Anemia; skin cancer; Non stemi [place]; Hypertension; Hyperlipidemia; CVA; bp Kidney stones; BPH; Bladder cancer; barretts; Atrial Fib; aortic valve disease; CAD; - Immunization history:: Adult Immunizations up to date. - Social history:: Smoking status: Patient denies any tobacco usage or history of. - Family history:: not pertinent. - Hospitalizations: : No recent hospitalization is reported. ROS: 16:35 Constitutional: Negative for fever, chills, and weight loss, Eyes: Negative for injury, rn pain, redness, and discharge, Neck: Negative for injury, pain, and swelling, Cardiovascular: Negative for chest pain, palpitations, and edema, Respiratory: Negative for cough, wheezing, and pleuritic chest pain, Abdomen/GI: Negative for abdominal pain, nausea, vomiting, diarrhea, and constipation, Back: Negative for injury and pain, MS/Extremity: Negative for injury and deformity, Skin: Negative for injury, rash, and discoloration, Neuro: Negative for headache, numbness, tingling, and seizure. Exam: 16:35 Constitutional: This is a well developed, well nourished patient who is awake, alert, rn and in no acute distress. Head/Face: Normocephalic, atraumatic. Eyes: Periorbital areas with no swelling, redness, or edema. ENT: dry MM Cardiovascular: Irregular rhythm, bradycardic. No pulse deficits. Respiratory: No increased work of breathing, no retractions or nasal flaring. Abdomen/GI: Soft, non-tender Skin: Warm, dry MS/ Extremity: Pulses equal, no cyanosis. Neuro: Awake and alert, GCS 15 17:07 ECG was reviewed by the Attending Physician. rn Vital Signs: 16:00 BP 142 / 67; Pulse 59; Resp 16; Temp 98.3; Pulse Ox 95% ; bp 17:00 BP 123 / 82; Pulse 55; Resp 13; Pulse Ox 96% ; bp MDM: 15:58 Patient medically screened. rn 17:42 Differential diagnosis: Anemia CHF exacerbation, pneumonia, Pneumothorax pulmonary rn edema. Data reviewed: vital signs, nurses notes, lab test result(s), EKG, radiologic studies, plain films, and as a result, I will admit patient. Counseling: I had a detailed discussion with the patient and/or guardian regarding: the historical points, exam findings, and any diagnostic results supporting the discharge/admit diagnosis, lab results, radiology results, the need for further work-up and treatment in the hospital. Response to treatment: the patient's symptoms have mildly improved after treatment, and as a result, I will admit patient. 07/18 15:59 Order name: Basic Metabolic Panel; Complete Time: 17:19 07/18 15:59 Order name: CBC with Diff; Complete Time: 17:19 07/18 15:59 Order name: Magnesium; Complete Time: 17:19 07/18 15:59 Order name: NT PRO-BNP; Complete Time: 17:19 07/18 15:59 Order name: PT-INR; Complete Time: 17:19 07/18 15:59 Order name: Troponin HS; Complete Time: 17:19 07/18 15:59 Order name: XRAY Chest (1 view); Complete Time: 17:36 07/18 15:59 Order name: SARS RAPID; Complete Time: 17:19 07/18 15:59 Order name: LFT's; Complete Time: 17:19 07/18 16:00 Order name: Urine Microscopic Only; Complete Time: 17:36 07/18 17:17 Order name: Urine Dipstick-Ancillary; Complete Time: 17:19 [facility] 07/18 17:31 Order name: Urine Culture [facility] 07/18 15:59 Order name: EKG; Complete Time: 16:00 07/18 15:59 Order name: Cardiac monitoring; Complete Time: 16:30 07/18 15:59 Order name: EKG - Nurse/Tech; Complete Time: 16:30 07/18 15:59 Order name: IV Saline Lock; Complete Time: 16:30 07/18 15:59 Order name: Labs collected and sent; Complete Time: 16:30 07/18 15:59 Order name: O2 Per Protocol; Complete Time: 16:06 rn 07/18 15:59 Order name: O2 Sat Monitoring; Complete Time: 16: rn 07/18 16:00 Order name: Urine Dipstick-Ancillary (obtain specimen); Complete Time: 17:19 rn EC:07 Rate is 49 beats/min. Rhythm is irregularly irregular. QRS [place] is Normal. MO interval rn is normal. QRS interval is normal. QT interval is normal. No Q waves. T waves are Normal. No ST changes noted. Clinical impression: Atrial Fibrillation. Interpreted by me. Reviewed by me. Administered Medications: 18:00 Drug: Lasix (furosemide) 40 mg Route: IVP; Site: right forearm; bp 19:50 Follow up: Response: No adverse reaction kd3 18:00 Drug: Rocephin (cefTRIAXone) 1 grams Route: IV; Rate: calculated rate; Site: right bp antecubital; 19:50 Follow up: Response: No adverse reaction; IV Status: Completed infusion kd3 Disposition Summary: 07/18/22 17:45 Hospitalization Ordered Hospitalization Status: Inpatient Admission rn Provider: Anshul Booker rn Location: Tele[facility] (Inpatient) rn Condition: Stable rn Problem: an acute exacerbation rn Symptoms: have improved rn Bed/Room Type: Standard rn Room Assignment: 213(07/18/22 18:36) kj1 Diagnosis - Unspecified combined systolic (congestive) and diastolic (congestive) heart failure rn - Acute pulmonary edema rn - UTI/ Urinary tract infection, site not specified rn Forms: - Medication Reconciliation Form rn - SBAR form rn Signatures: Dispatcher [employer] EDOmar Crenshaw MD MD rn Peltier, Brian, RN RN bp Jackson, Kandis kj1 Tomasa Hu RN kd3 Corrections: (The following items were deleted from the chart) 18:36 17:45 rn kj1
[2022-07-18] MEDS ORDERED: NA CHLORIDE 0.9% 100 ML IV ONE (18:22)
[2022-07-18] MEDS ORDERED: CEFTRIAXONE 1000 MG/VIAL ONE (18:22)
[2022-07-18] MEDS ORDERED: FUROSEMIDE 40 MG/4 ML VIAL ONE (18:22)
[2022-07-18] MEDS ORDERED: ONDANSETRON 4 MG/2 ML VIAL IV PRN (20:41)
[2022-07-18] MEDS ORDERED: ACETAMINOPHEN 500 MG TAB PO PRN (20:41)
[2022-07-18 20:54] VITALS: BMI 23.8
[2022-07-19] MEDS ORDERED: CEFTRIAXONE 1000 MG/VIAL ONE (05:31)
[2022-07-19] MEDS ORDERED: NA CHLORIDE 0.9% 50 ML ONE (05:32)
[2022-07-19] MEDS ORDERED: CEFTRIAXONE 1,000 MG in NA CHLORIDE 0.9% 50 ML IVPB SCH (06:00)
[2022-07-19] MEDS ORDERED: TORSEMIDE 20 MG TAB PO SCH (09:00)
[2022-07-19 10:01] LABS: Hematocrit 27.6 % (39.6-49.0); Lymphocytes % 21.4 % (15.3-44.8); MCV 87.8 fL (80-100); MPV 9.2 fL (7.6-11.3); RBC Red Blood Cell Count 3.14 M/uL (4.33-5.43)
[2022-07-19 10:05] LABS: Potassium 3.6 mmol/L (3.5-5.1)
[2022-07-19 10:33] VITALS: TEMP 97.1
[2022-07-19 11:51] VITALS: O2SAT 100
[2022-07-19 11:52] LABS: Specific Gravity 1.015 (1.005-1.030); Urine Bilirubin NEGATIVE (Negative); Urine Blood Negative (Negative); Urine Clarity Clear (Clear); Urine Color Light-Yellow (Yellow); Urine Glucose NEGATIVE (Negative); Urine Mucus Slight /HPF (None Seen); Urine Protein TRACE (Negative); Urine Urobilinogen Normal (Normal); Urine pH 6.5 (5.0-7.0)
[2022-07-19 14:34] VITALS: BP 134/70
--- NOTE | 2022-07-19 14:47 | P.SSS ---
Patient History Date of Service: 07/19/22 Reason for admission: DYSPNEA History of Present Illness: MR. NELSON'S FAMILY BROUGHT HIM FOR DYSPNEA. HE IS COMFORTABLE AND HAS MILD CHF ON CXR. HE DID WELL, HE HAS SOME UTI MAY BE. NOT SURE BUT THE UA HE HAS NO SYMPTOMS. ST CAHT LOOKS BETTER THAN CLEAN CATCH. Allergies memantine HCl [From Namenda] Adverse Reaction (Severe, Verified 09/19/21 08:07) tinnitus Sulfa (Sulfonamide Antibiotics) Adverse Reaction (Unknown, Verified 09/19/21 08:07) unknown/childhood reaction Nemenda Allergy (Uncoded 09/19/21 08:07) tinnitus Home Medications: Ascorbic Acid [C-1000] 1,000 mg PO DAILY 12/12/13 Cyanocobalamin (Vitamin B-12) [B-12] 1,000 mcg PO DAILY 12/12/13 Donepezil HCl [Aricept] 23 mg PO BEDTIME 12/12/13 Niacin [Niacin ER] 500 mg PO BIDWM 12/12/13 Pantoprazole [Protonix Tab*] 40 mg PO DAILY 12/12/13 Tamsulosin [Flomax*] 1 cap PO BEDTIME 12/12/13 Magnesium Oxide [Magnesium] 400 mg PO BID 06/13/14 Cholecalciferol (Vitamin D3) [Vitamin D3] 1,000 units PO BEDTIME 12/01/15 Losartan Potassium [Cozaar] 100 mg PO [id number] 12/01/15 Amlodipine [Norvasc*] 5 mg PO DAILY 01/20/21 Citalopram Hydrobromide [Celexa] 20 mg PO DAILY 01/20/21 Docosahexanoic AC/Epa [Fish Oil 1,000 MG*] 1,000 mg PO BID 01/20/21 Levothyroxine Sodium [Levothyroxine] 50 mcg PO [id number] 01/20/21 Aspirin [Aspirin EC 81 MG] 81 mg PO DAILY 09/19/21 Pravastatin Sodium 40 mg PO BEDTIME 05/07/22 Finasteride 5 mg PO BEDTIME 07/18/22 Cefuroxime [Ceftin] 250 mg PO BID #10 tab 07/19/22 Torsemide [Demadex*] 20 mg PO DAILY #90 tab 07/19/22 - Past Medical/Surgical History Has patient received pneumonia vaccine in the past: Yes Diabetic: No -: TINNITUS -: HTN -: AFIB -: CAD -: HYPERLIPIDEMIA -: NSTEMI -: STROKE -: LEGIONAIRE'S DISEASE -: SLEEP APNEA -: ALZHEIMER'S -: SQUAMOS CELL SKIN CANCER -: COLOSTOMY, DIVERTICULITIS, BARRETTS ESOPHAGUS -: QUADRUPLE BYPASS 1991 -: LITHOTRIPSY -: CYSTOSCOPY 2009 -: CYSTOSCOPY 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 -: CARDIAC STENT 2013 -: COLOSTOMY 2013 -: cardiacstent - Family History Father -: Heart disease, Hypertension, Stroke, Cancer Mother -: Heart disease, Hypertension, Diabetes - Social History Smoking Status: Former smoker Alcohol use: No CD- Drugs: No Caffeine use: Yes Place of Residence: Home Physical Examination - Vital Signs Temperature: 97.1 F Blood Pressure: 134/70 Pulse: 57 Respirations: 16 Pulse Ox (%): 98 - Physical Exam General: Acute distress, Mild distress HEENT: Atraumatic, PERRLA, Mucous membr. moist/pink, EOMI, Sclerae nonicteric Neck: Supple, 2+ carotid pulse no bruit, No LAD, Without JVD or thyroid abnormality Respiratory: Clear to auscultation bilaterally, Normal air movement Cardiovascular: Regular rate/rhythm, Normal S1 S2 Gastrointestinal: Normal bowel sounds, No tenderness Musculoskeletal: No tenderness Integumentary: No rashes Neurological: Normal gait, Normal speech, Normal strength at 5/5 x4 extr, Normal tone, Normal affect Lymphatics: No axilla or inguinal lymphadenopathy - Studies Laboratory Data (last 24 hrs) 07/18/22 16:30: PT 12.2, INR 1.11 07/18/22 16:30: WBC 5.70, Hgb 9.0 L, Hct 27.7 L, Plt Count 171 07/18/22 16:30: Sodium 134 L, Potassium 4.2, BUN 39 H, Creatinine 2.50 H, Glucose 115 H, Magnesium 2.5 H, Total Bilirubin 0.3, AST 18, ALT 17, Alkaline Phosphatase 54 - Diagnosis (Problem(s)) (1) Diabetes Current Visit: Yes Status: Chronic (2) Acute on chronic congestive heart failure Current Visit: No Status: Acute Plan: HE 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 WE NEED TO ALTERNATE 10 MG AND 20 MG ALTERNATE. RAISD DOSE. WE HAVE TO BALANCE BETWEN CKD AND CHF. FAMILY UNDERSTANDS. Qualifiers: (3) Diastolic dysfunction with chronic heart failure Current Visit: No Status: Acute - Disposition Disposition: ROUTINE DISCHARGE Condition: SERIOUS
--- NOTE | 2022-07-19 15:58 | EKG ---
Test Date: 2022-07-18 Test Time: 16:17:23 Branch Operations Specialist: BP MEASUREMENT RESULTS: Intervals: Rate: 49 KS: QRSD: 98 QT: 562 QTc: 507 Loman: P: KS: QRS: 61 T: 112 INTERPRETIVE STATEMENTS: Atrial fibrillation with slow ventricular response Cannot rule out Anterior infarct, age undetermined Prolonged QT Abnormal ECG Compared to ECG 05/06/2022 12:18:35 Myocardial infarct finding now present Ventricular premature complex(es) no longer present ST (T wave) deviation no longer present Electronically Signed On 07-19-22 15:57:17 LICENSED DIRECT ENTRY MIDWIFE by Dg Hills
== END 2022-07-19 16:08 | disposition home or self-care (01) ==
LOC: ER 15:55 → INTOOBSV 17:52 → ERHOLD 17:52 → 2ND 19:27
PROVIDERS: ADMIT Internal Medicine; ATTEND Internal Medicine
DX: I50.33 Acute on chronic diastolic (congestive) heart failure (principal); I25.10 Atherosclerotic heart disease of native coronary artery without angina pectoris; I48.91 Unspecified atrial fibrillation; E11.9 Type 2 diabetes mellitus without complications; E78.5 Hyperlipidemia, unspecified; I10 Essential (primary) hypertension; G30.9 Alzheimer's disease, unspecified; F02.80 Dementia in other diseases classified elsewhere, unspecified severity, without behavioral disturbance, psychotic disturbance, mood disturbance, and anxiety; Z82.49 Family history of ischemic heart disease and other diseases of the circulatory system; Z87.891 Personal history of nicotine dependence; Z20.822 Contact with and (suspected) exposure to COVID-19
CPT/HCPCS: 96365; 93005; 87088; 85025 ×2; 81001; 87086; 80048 ×2; 36415; 83735; 85610; 80076; 84484; 83880; 71045; 97116; 97161; 97530; 96375; 99285; 96366; 87811; J1940; G0378 ×3; 81003; 81015

== ENCOUNTER 2022-08-08 14:30 | Observation (INO) | payer OTHER, MEDICARE ==
--- OUTSIDE RECORDS SUMMARY | 2022-08-08 16:02 | XMS REPORT | Continuity of Care Document ---
:1940 Author Organization [facility] t Address [address] [place] [address] Care Team Providers Name Role Phone Anshul Booker MD Primary Care Physician Anshul Booker Attending Clinician Unavailable Alina PRITCHARD, Kenn Zimmerman Attending Clinician [phone] Krystyna Brandon DO Attending Clinician Doctor Unassigned, [place] Attending Clinician Unavailable KRYSTYNA BRANDON Attending Clinician Unavailable KRYSTYNA BRANDON Attending Clinician Unavailable Payers Payer Name Policy Type Policy Number Effective Date Expiration Date S ource MEDICARE MB [id number] [facility] AAR C1 [id number] [facility] MEDICARE MB [id number] [facility] NOVITAS [facility] AARP C1 [id number] [facility] C1 [id number] [facility] MEDICARE [id number] [facility] Problems Condition Condition Condition Status Onset Resolution [...] rs active active ity of problems problems [facility] [id number] Personal Problem Comm on history of Spirit bladder - [facility] [id number] 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 - [facility] [id number] Cystitis Problem Commo n Spirit - [facility] [id number] Pain in Problem Commo n left ankle Spirit and joints - CHI of left foot [facility] [id number] Sprain of Problem Comm on deltoid Spirit ligament - CH[facility] of left ankle, [facility] initial Medical encounter Center [id number] Kidney Problem Common stones [facility] [id number] 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[facility] of left Medical lower Center extremity [id number] Lesion of Problem Com mon bladder [facility] Allergies, Adverse Reactions, Alerts Allergy Allergy Status Severity Reaction(s) Onset Inactive Treating Comm ents Source Name Type Date Date Clinician Sulfa Drug Active Unknown - 2015-09 tenitis Univer s (Sulfona Allergy See comments 10-06 i ty of mide 00:00: [place] Antibiot 00 Medical ics) Branch MEMANTIN DRUG Active Other-Cmnt 2015-09 Univ ers E INGREDI 10-06 ity of 00:00: [place] 00 Medical Branch SULFA Drug Active Unknown-Cmnt 2015-09 Univ ers (SULFONA Class 10-06 ity of MIDE 00:00: [place] ANTIBIOT 00 Medical ICS) Branch Memantin Propensi Active 2015-09 Method i e ty to 10-06 st adverse 00:00: Hospita reaction 00 l s to drug Sulfa Propensi Active 2015-09 Methodi (Sulfona ty to 10-06 mide adverse 00:00: Hospita Antibiot reaction 00 l ics) s to drug memantin memantin Active Unknown Commo n e e [facility] Family History Family Member Diagnosis Comments Start Date Stop Date Source Natural mother [facility] Other Coronary artery [facility] disease Natural father [facility] Social History Social Habit Start Date Stop Date Quantity Comments Source Exposure to Not sure University of SARS-CoV-2 [facility] (event) Branch History of [facility] - Tobacco Use [facility] Tobacco use and 2017-12-02 2017-12-02 Smokeless tobacco [facility] exposure 00:00:00 00:00:00 non-user Sex Ass[birth year] [facility] 00:00:00 00:00:00 Smoking Status Start Date Stop Date Source Former Smoker 2022-04-10 00:00:00 2022-04-10 00:00:00 [facility] Medications Ordered Filled Start Stop Current Ordering Indication Dosage Frequency Signature Comments Components Source Medication Medication Date Date Medication? Clinician (SIG) Name Name ascorbic 2021-0 Yes 1000mg QD Take 1,000 M ethodi acid, 7-[address] vitamin C, 14:46: mouth Hospit a (VITAMIN C) 15 daily. l 1000 MG tablet ascorbic 2022-0 Yes 1000mg QD Take 1,000 M ethodi acid, 7-[address] vitamin C, 14:46: mouth Hospit a (VITAMIN C) 15 daily. l 1000 MG tablet ascorbic 2022-0 Yes 1000mg QD Take 1,000 M ethodi acid, 7-[address] vitamin C, 14:46: mouth Hospit a (VITAMIN C) 15 daily. l 1000 MG tablet nitroglycer 2021-[address] 0.4 M ethodi in 7-[address] (NITROSTAT) 14:46: the tongue Hospita 0.4 MG SL 14 every 5 l tablet (five) minutes as needed for chest pain. cyanocobala 2021-0 Yes 1000ug QD Take 1,000 Methodi min 1000 7-[address] MCG tablet 14:46: mouth Hospit a 14 daily. l cholecalcif 2021-0 Yes 1000U QD Take 1,000 Methodi laurent, 7-[address] vitamin D3, 14:46: mouth Hospi ta (VITAMIN 14 daily. l D3) 1,000 unit tablet niacin 500 2021-0 Yes 500mg Q.5D Take 500 Me thodi MG tablet 7-[address] 14:46: mouth 2 Hospita 14 (two) l times a day with meals. melatonin 3 2021-0 Yes 3mg QD Take 3 mg M ethodi mg tablet 7-[address] 14:46: daily. Hospita 14 l omega-3 2-0 Yes 1000mg Q.5D Take 1,000 Me thodi fatty 7-[address] acids-vitam 14:46: mouth 2 Hos chula in E 1,000 14 (two) l mg capsule times a day. docusate 2022-0 Yes 100mg QD Take 100 Meth mary sodium 7-[address] (COLACE) 14:46: mouth Hospita 100 MG 14 daily. l capsule nitroglycer 2021-[address] 0.4 M ethodi in [...] mcg 14 daily. l tablet aspirin 81 2021-0 Yes Take by Meth mary mg capsule 7-[address] 14:46: Hospita 14 l amLODIPine 2021-0 Yes 5mg QD Take 5 mg Me thodi (NORVASC) 5 7-[address] mg tablet 14:46: daily. Hospit a 14 l NUT.TX,META 2021-0 Yes Take by Met hodi B.DIS, 7-[address] MV-MINS 14:46: Hospita NO.2 (AX[place] 14 l ORAL) levothyroxi 2021-0 Yes 50ug QD Take 50 Met hodi ne 7-[address] (SYNTHROID) 14:46: mouth Hospi ta 50 mcg 14 daily. l tablet aspirin 81 2021-0 Yes Take by Meth mary mg capsule 7-[address] 14:46: Hospita 14 l amLODIPine 2-0 Yes 5mg QD Take 5 mg Me thodi (NORVASC) 5 7-[address] mg tablet 14:46: daily. Hospit a 14 l cyanocobala 2021-0 Yes 1000ug QD Take 1,000 Methodi min 1000 7-[address] MCG tablet 14:46: mouth Hospit a 14 daily. l cholecalcif 2021-0 Yes 1000U QD Take 1,000 Methodi laurent, 7-[address] vitamin D3, 14:46: mouth Hospi ta (VITAMIN 14 daily. l D3) 1,000 unit tablet niacin 500 2021-0 Yes 500mg Q.5D Take 500 Me thodi MG tablet 7-[address] 14:46: mouth 2 Hospita 14 (two) l times a day with meals. melatonin 3 2022-0 Yes 3mg QD Take 3 mg M [...] Hospita NO.2 ([place] 14 l ORAL) levothyroxi 0 Yes 50ug QD Take 50 Met hodi ne 7-[address] (SYNTHROID) 14:46: mouth Hospi ta 50 mcg 14 daily. l tablet aspirin 81 Yes Take by Meth mary mg capsule 7-[address] 14:46: Hospita 14 l amLODIPine 0 Yes 5mg QD Take 5 mg Me thodi (NORVASC) 5 7-[address] mg tablet 14:46: daily. Hospit a 14 l cyanocobala 0 Yes 1000ug QD Take 1,000 [...] st 14:46: daily. Hospita 14 l omega-3 Yes 1000mg Q.5D Take 1,000 Me thodi fatty 7-[address] acids-vitam 14:46: mouth 2 Hos chula in E 1,000 14 (two) l mg capsule times a day. docusate Yes 100mg QD Take 100 Meth mary sodium 7-[address] (COLACE) 14:46: mouth Hospita 100 MG 14 daily. l capsule Amoxicillin Amoxicillin 2021- 1{capsu TID Amoxicilli 500 MG 500 MG 11-16 le} n 500 MG 00:00: 00:00 00 :00 furosemide 2020-09 Yes 10mg Take 10 mg U nivers 20 mg 2-09 by mouth. ity of tablet 15:14: [address] niacin 500 2020-09 Yes 500mg Take 500 Un robert mg tablet 2-09 mg by ity of 15:14: mouth 2 [place] [address] (two) Medical times Branch daily. losartan 2020-09 Yes 100mg Take 100 Univ ers 100 mg 2-09 mg by ity of tablet 15:14: mouth [place] [address] daily. Medical Branch amLODIPine 2020-09 Yes 5mg Take 5 mg Un robert 5 mg tablet 2-09 by mouth ity of 15:14: daily. [address] tamsulosin 2020-09 Yes .4mg Take 0.4 Uni vers 0.4 mg 24 2-09 mg by ity of hr capsule 15:14: mouth. [address] finasteride 2020-09 Yes 5mg Take 5 mg U nivers 5 mg tablet 2-09 by mouth. ity of 15:14: [address] levothyroxi 2020-09 Yes 50ug Take 50 Uni vers ne 50 mcg 2-09 mcg by ity of tablet 15:14: mouth. [address] vitamin C 2020-09 Yes 1000mg Take 1,000 Univers with alban 2-09 mg by ity of hips 1,000 15:14: mouth. [place] [address] aspirin 81 2020-09 Yes 81mg Take 81 mg U nivers mg Cap 2-09 by mouth. ity of 15:14: [address] Magnesium 2020-09 Yes 400mg Take 400 Uni vers Hydroxide 2-09 mg by ity of 400 mg (170 15:14: [place] 36 [place] magnesium) Branch Chew citalopram 2020-09 Yes 20mg Take 20 mg U nivers (CELEXA) 20 2-09 by mouth ity of mg tablet 15:14: daily. [address] Branch medium 2020-09 Yes Take by Univers chain 2-09 mouth. ity of triglycerid 15:14: [facility] (MCT OIL 36 Medical ORAL) Branch omega 2020-09 Yes 1000mg Take 1,000 Univ ers 3-dha-epa-f 2-09 mg by ity of joseph oil 15:14: mouth. [place] (FISH OIL) Medical 100-160-1,0 Branch 00 mg Cap vitamin 2020-09 Yes 1000ug Take 1,000 Un robert B-12 2-09 mcg by ity of (VITAMIN 15:14: mouth [place] B-12) 1,000 36 daily. Medica l mcg tablet Branch COCONUT OIL 2020-09 Yes Take by Uni vers ORAL 2-09 mouth. ity of 15:14: [address] Branch atorvastati 2020-09 Yes 20mg Take 20 mg Univers n 20 mg 2-09 by mouth ity of tablet 15:14: at [place] [address] bedtime. Medical Branch Donepezil 2020-09 Yes Take by Unive rs (ARICEPT) 2-09 mouth. ity of 23 mg Tab 15:14: [address] Branch nitroglycer 2020-[address] [...] 2-09 by mouth. ity of tablet 15:14: [address] Branch furosemide 2020-09 Yes 10mg Take 10 mg U nivers 20 mg 2-09 by mouth. ity of tablet 15:14: [address] Branch niacin 500 2020-09 Yes 500mg Take 500 Un robert mg tablet 2-09 mg by ity of 15:14: mouth 2 [place] [address] (two) Medical times Branch daily. losartan 2020-09 Yes 100mg Take 100 Univ ers 100 mg 2-09 mg by ity of tablet 15:14: mouth [place] [address] daily. Medical Branch amLODIPine 2020-09 Yes 5mg Take 5 mg Un robert 5 mg tablet 2-09 by mouth ity of 15:14: daily. [address] Branch tamsulosin 2020-09 Yes .4mg Take 0.4 Uni vers 0.4 mg 24 2-09 mg by ity of hr capsule 15:14: mouth. [address] Branch finasteride 2020-09 Yes 5mg Take 5 mg U nivers 5 mg tablet 2-09 by mouth. ity of 15:14: [address] Branch levothyroxi 2020-09 Yes 50ug Take 50 Uni vers ne 50 mcg 2-09 mcg by ity of tablet 15:14: mouth. [address] vitamin C 2020-09 Yes 1000mg Take 1,000 Univers with alban 2-09 mg by ity of hips 1,000 15:14: mouth. [place] mg tablet [address] [place] [address] Branch aspirin 81 2020-09 Yes 81mg Take 81 mg U nivers mg Cap 2-09 by mouth. ity of 15:14: [address] Branch Magnesium 2020-09 Yes 400mg Take 400 Uni vers Hydroxide 2-09 mg by ity of 400 mg (170 15:14: [place] magnesium[place] Branch Chew citalopram 2020-09 Yes 20mg Take 20 mg U nivers (CELEXA) 20 2-09 by mouth ity of mg tablet 15:14: daily. [address] Branch medium 2020-09 Yes Take by Univers chain 2-09 mouth. ity of triglycerid 15:14: [place] es (MCT OIL Medical ORAL) Branch omega 2020-09 Yes 1000mg Take 1,000 Univ ers 3-dha-epa-f 2-09 mg by ity of joseph oil 15:14: mouth. [place] (FISH OIL) Medical 100-160-1,0 Branch 00 mg Cap vitamin 2020-09 Yes 1000ug Take 1,000 Un robert B-12 2-09 mcg by ity of (VITAMIN 15:14: mouth [place] B-12) 1,000 36 daily. Medica l mcg tablet Branch COCONUT OIL 2020-09 Yes Take by Uni vers ORAL 2-09 mouth. ity of 15:14: [address] Branch atorvastati 2020-09 Yes 20mg Take 20 mg Univers n 20 mg 2-09 by mouth ity of tablet 15:14: at [place] [address] bedtime. Medical Branch Donepezil 2020-09 Yes Take by Unive rs (ARICEPT) 2-09 mouth. ity of 23 mg Tab 15:14: [address] Branch nitroglycer 2020-[address] 0.4 U nivers in 2-09 mg under ity of (NITROSTAT) 15:14: the tongue [place] 0.4 mg 36 every 5 Medical sublingual (five) Branch tablet minutes as needed for Chest pain. traMADol 2020-09 Yes 50mg Take 50 mg Uni vers (ULTRAM) 50 2-09 by mouth ity of mg/10 mL 15:14: every 4 [place] [address] (four) Medical syringe hours as Branch needed. pravastatin 2020-09 Yes 40mg Take 40 mg Univers 40 mg 2-09 by mouth. ity of tablet 15:14: [address] furosemide 2020-09 Yes 10mg Take 10 mg U nivers 20 mg 2-09 by mouth. ity of tablet 15:14: [address] Branch niacin 500 2020-09 Yes 500mg Take 500 Un robert mg tablet 2-09 mg by ity of 15:14: mouth 2 [place] [address] (two) Medical times Branch daily. losartan 2020-09 Yes 100mg Take 100 Univ ers 100 mg 2-09 mg by ity of tablet 15:14: mouth [place] [address] daily. Medical Branch amLODIPine 2020-09 Yes 5mg Take 5 mg Un robert 5 mg tablet 2-09 by mouth ity of 15:14: daily. [address] Branch tamsulosin 2020-09 Yes .4mg Take 0.4 Uni vers 0.4 mg 24 2-09 mg by ity of hr capsule 15:14: mouth. [address] Branch finasteride 2020-09 Yes 5mg Take 5 mg U nivers 5 mg tablet 2-09 by mouth. ity of 15:14: [address] Branch levothyroxi 2021-1 Yes 50ug Take 50 Uni vers ne 50 mcg 2-09 mcg by ity of tablet 15:14: mouth. [address] Branch vitamin C 2020-09 Yes 1000mg Take 1,000 Univers with alban 2-09 mg by ity of hips 1,000 15:14: mouth. [place] mg tablet Medical Branch aspirin 81 2020-09 Yes 81mg Take 81 mg U nivers mg Cap 2-09 by mouth. ity of 15:14: [address] Branch Magnesium 2020-09 Yes 400mg Take 400 Uni vers Hydroxide 2-09 mg by ity of 400 mg (170 15:14: [place]. [place] mg 36 [place] magnesium) Branch Chew citalopram 2020-09 Yes 20mg Take 20 mg U nivers (CELEXA) 20 2-09 by mouth ity of mg tablet 15:14: daily. [address] Branch medium 2020-09 Yes Take by Univers chain 2-09 mouth. ity of triglycerid 15:14: [facility] (MCT OIL 36 Medical ORAL) Branch omega 2020-09 Yes 1000mg Take 1,000 Univ ers 3-dha-epa-f 2-09 mg by ity of joseph oil 15:14: mouth. [place] (FISH OIL) Medical 100-160-1,0 Branch 00 mg Cap vitamin 2020-09 Yes 1000ug Take 1,000 Un robert B-12 2-09 mcg by ity of (VITAMIN 15:14: mouth [place] B-12) 1,000 36 daily. Medica l mcg tablet Branch COCONUT OIL 2020-09 Yes Take by Uni vers ORAL 2-09 mouth. ity of 15:14: [address] Branch atorvastati 2020-09 Yes 20mg Take 20 mg Univers n 20 mg 2-09 by mouth ity of tablet 15:14: at [place] [address] bedtime. Medical Branch Donepezil 2020-09 Yes Take by Unive rs (ARICEPT) 2-09 mouth. ity of 23 mg Tab 15:14: [address] Branch nitroglycer 2020-[address] 0.4 U nivers in 2-09 mg under ity of (NITROSTAT) 15:14: the tongue [place] 0.4 mg 36 every 5 Medical sublingual (five) Branch tablet minutes as needed for Chest pain. traMADol 2020-09 Yes 50mg Take 50 mg Uni vers (ULTRAM) 50 2-09 by mouth ity of mg/10 mL 15:14: every 4 [place] [address] (four) Medical syringe hours as Branch needed. pravastatin 2020-09 Yes 40mg Take 40 mg Univers 40 mg 2-09 by mouth. ity of tablet 15:14: [address] Branch furosemide 2020-09 Yes 10mg Take 10 mg U nivers 20 mg 2-09 by mouth. ity of tablet 15:14: [address] Branch niacin 500 2020-09 Yes 500mg Take 500 Un robert mg tablet 2-09 mg by ity of 15:14: mouth 2 [place] [address] (two) Medical times Branch daily. losartan 2020-09 Yes 100mg Take 100 Univ ers 100 mg 2-09 mg by ity of tablet 15:14: mouth [place] [address] daily. Medical Branch amLODIPine 2020-09 Yes 5mg Take 5 mg Un robert 5 mg tablet 2-09 by mouth ity of 15:14: daily. [address] Branch tamsulosin 2020-09 Yes .4mg Take 0.4 Uni vers 0.4 mg 24 2-09 mg by ity of hr capsule 15:14: mouth. [address] Branch finasteride 2020-09 Yes 5mg Take 5 mg U nivers 5 mg tablet 2-09 by mouth. ity of 15:14: [address] Branch levothyroxi 2020-09 Yes 50ug Take 50 Uni vers ne 50 mcg 2-09 mcg by ity of tablet 15:14: mouth. [address] Branch vitamin C 2020-09 Yes 1000mg Take 1,000 Univers with alban 2-09 mg by ity of hips 1,000 15:14: mouth. [place] mg tablet [address] [place] [address] Branch aspirin 81 2020-09 Yes 81mg Take 81 mg U nivers mg Cap 2-09 by mouth. ity of 15:14: [address] Branch Magnesium 2020-09 Yes 400mg Take 400 Uni vers Hydroxide 2-09 mg by ity of 400 mg (170 15:14: mouth. [facility] magnesium) Branch Chew citalopram 2020-09 Yes 20mg Take 20 mg U nivers (CELEXA) 20 2-09 by mouth ity of mg tablet 15:14: daily. [address] Branch medium 2020-09 Yes Take by Univers chain 2-09 mouth. ity of triglycerid 15:14: [facility] (MCT OIL 36 Medical ORAL) Branch omega 2020-09 Yes 1000mg Take 1,000 Univ ers 3-dha-epa-f 2-09 mg by ity of joseph oil 15:14: mouth. [place] (FISH OIL) Medical 100-160-1,0 Branch 00 mg Cap vitamin 2020-09 Yes 1000ug Take 1,000 Un robert B-12 2-09 mcg by ity of (VITAMIN 15:14: mouth [place] B-12) 1,000 36 daily. Medica l mcg tablet Branch COCONUT OIL 2020-09 Yes Take by Uni vers ORAL 2-09 mouth. ity of 15:14: [address] Branch atorvastati 2020-09 Yes 20mg Take 20 mg Univers n 20 mg 2-09 by mouth ity of tablet 15:14: at [place] [address] bedtime. Medical Branch Donepezil 2020-09 Yes Take by Unive rs (ARICEPT) 2-09 mouth. ity of 23 mg Tab 15:14: [address] Branch nitroglycer 2020-[address] 0.4 U nivers in 2-09 mg under ity of (NITROSTAT) 15:14: the tongue [place] 0.4 mg 36 every 5 Medical sublingual (five) Branch tablet minutes as needed for Chest pain. traMADol 2020-09 Yes 50mg Take 50 mg Uni vers (ULTRAM) 50 2-09 by mouth ity of mg/10 mL 15:14: every 4 [place] oral 36 (four) Medical syringe hours as Branch needed. pravastatin 2020-09 Yes 40mg Take 40 mg Univers 40 mg 2-09 by mouth. ity of tablet 15:14: [address] Branch Docusate Yes 100mg Take 100 Univ ers Sodium 100 9-09 mg by ity of mg tablet 16:20: mouth. [address] Branch Docusate Yes 100mg Take 100 Univ ers Sodium 100 9-09 mg by ity of mg tablet 16:20: mouth. [address] Branch Docusate Yes 100mg Take 100 Univ ers Sodium 100 9-09 mg by ity of mg tablet 16:20: mouth. [address] Docusate Yes 100mg Take 100 Univ ers Sodium 100 9-09 mg by ity of mg tablet 16:20: mouth. [address] pravastatin Yes Method i (PRAVACHOL) 1-24 st 40 MG 00:00: Hospita tablet 00 l pravastatin Yes Method i (PRAVACHOL) 1-24 st 40 MG 00:00: Hospita tablet 00 l pravastatin Yes Method i (PRAVACHOL) -24 st 40 MG 00:00: Hospita tablet 00 l metoclopram Yes Method i morenita 04-10 st [...] 00 l .6 gram recon soln amoxicillin 2016-0 Yes Method i (AMOXIL) 04-02 st 500 MG 00:00: Hospita capsule 00 l amoxicillin Yes Method i (AMOXIL) 04-02 st 500 MG 00:00: Hospita capsule 00 l amoxicillin 2016-0 Yes Method i (AMOXIL) 04-02 st 500 MG 00:00: Hospita capsule 00 l pravastatin Yes 20mg QD Take 20 mg Methodi (PRAVACHOL) 1-[address] 20 MG 00:00: daily. Hospita tablet 00 l pravastatin 2016-0 Yes 20mg QD Take 20 mg Methodi [...] st 23 mg 00:00: daily. Hospita tablet l citalopram Yes 20mg QD Take 20 [...] rama 00 days a l week furosemide Yes 20mg QD Take 20 mg M ethodi (LASIX) 20 1-[address] mg tablet 00:00: daily. 6 Hosp rama 00 days a l week furosemide Yes 20mg QD Take 20 mg [...] 00:00: daily. Hospi ta 40 MG EC l tablet amIODarone 2015-09 Yes 200mg QD [...] Comments Source height 2021-11-09 13:30:00 71 [in_i] [facility] weight 2021-11-09 13:30:00 160 [lb_av] [facility] temperature 2021-11-09 13:30:00 98.2 [degF] [facility] bmi 2021-11-09 13:30:00 22.31 kg/m2 [facility] oximetry 2021-11-09 13:30:00 97.1 % [facility] respiratory rate 2021-11-09 13:30:00 18 /min Comm on [facility] blood pressure 2021-11-09 13:30:00 160 mm[Hg] Common [facility] - systolic [facility] blood pressure 2021-11-09 13:30:00 66 mm[Hg] Common [facility] - diastolic [facility] Systolic blood 2021-08-16 21:23:00 151 mm[Hg] Univer sity [facility] Diastolic blood 2021-08-16 21:23:00 60 mm[facility]Hg[facility] 2021-08-16 21:23:00 58 /[facility] Respiratory rate 2021-08-16 21:17:00 22 /min [facility] Body height 2021-08-16 21:17:00 180.3 cm [facility] Body weight 2021-08-16 21:17:00 78.926 kg [facility] BMI 2021-08-16 21:17:00 24.27 kg/m2 [facility] Oxygen saturation in 2021-08-16 21:17:00 98 /min [facility] Arterial blood by [facility] Pulse oximetry Branch height 2021-07-16 13:00:00 71 [in_i] [facility] weight 2021-07-16 13:00:00 179 [lb_av] [facility] temperature 2021-07-16 13:00:00 98.3 [degF] [facility] bmi 2021-07-16 13:00:00 24.96 kg/m2 [facility] oximetry 2021-07-16 13:00:00 95 % [facility] blood pressure 2021-07-16 13:00:00 130 mm[Hg] [facility] Spirit - systolic [facility] blood pressure 2021-07-16 13:00:00 61 mm[Hg] [facility] - diastolic [facility] Systolic blood 2022-03-22 19:39:00 153 mm[Hg] [facility] pressure Diastolic blood 2022-03-22 19:39:00 74 mm[Hg] [facility] pressure Heart rate 2022-03-22 19:39:00 57 /min [facility] [place] [facility] Body height 2022-03-22 19:39:00 180.3 cm [facility] Body weight 2022-03-22 19:39:00 78.563 kg [facility] [place] [facility] BMI 2022-03-22 19:39:00 24.16 kg/m2 [facility] Oxygen saturation in 2022-03-22 19:39:00 97 /min [facility] Arterial blood by Pulse oximetry Procedures Procedure Date / Time Performing Clinician Source Performed ECG 12-LEAD 2022-03-22 19:54:15 Kenn Fuller [facility] V. DME/SUPPLY JUSTIFICATION 2021-08-20 06:01:00 Doctor Unassigned, No [facility] Plan of Care Planned Activity Planned Date Details Comments Source Future Scheduled 2022-07-18 HEPATITIS B VACCINES [facility] Test 15:57:47 (1 of 3 - 3-dose series) [code = HEPATITIS B VACCINES (1 of 3 - 3-dose series)] Future Scheduled 2022-07-18 COVID-19 VACCINE (#1) [facility] Test 15:57:47 [code = COVID-19 VACCINE (#1)] Future Scheduled 2022-07-18 65+ PNEUMOCOCCAL [facility] Test 15:57:47 VACCINE (1 - PCV) [code = 65+ PNEUMOCOCCAL VACCINE (1 - PCV)] Future Scheduled 2022-07-18 SHINGLES VACCINES (1 [facility] Test 15:57:47 of 2) [code = SHINGLES VACCINES (1 of 2)] Future Scheduled 2022-07-18 INFLUENZA VACCINE Method [facility] Test 15:57:47 [code = INFLUENZA VACCINE] Future Scheduled 2022-07-18 HEPATITIS B VACCINES [facility] Test 15:57:47 (1 of 3 - 3-dose series) [code = HEPATITIS B VACCINES (1 of 3 - 3-dose series)] Future Scheduled 2022-07-18 COVID-19 VACCINE (#1) [facility] Test 15:57:47 [code = COVID-19 VACCINE (#1)] Future Scheduled 2022-07-18 65+ PNEUMOCOCCAL [facility] Test 15:57:47 VACCINE (1 - PCV) [code = 65+ PNEUMOCOCCAL VACCINE (1 - PCV)] Future Scheduled 2022-07-18 SHINGLES VACCINES (1 [facility] Test 15:57:47 of 2) [code = SHINGLES VACCINES (1 of 2)] Future Scheduled 2022-07-18 INFLUENZA VACCINE Method [facility] Test 15:57:47 [code = INFLUENZA VACCINE] Future Scheduled 2022-04-24 HEPATITIS B VACCINES [facility] Test 09:34:27 (1 of 3 - 3-dose series) [code = HEPATITIS B VACCINES (1 of 3 - 3-dose series)] Future Scheduled 2022-04-24 COVID-19 [facility]ACCINE (#[facility] 09:34:27 [code = COVID-19 VACCINE (#1)] Future Scheduled 2022-04-24 65+ [facility]OCCAL [facility] Test 09:34:27 VACCINE (1 - PCV) [code = 65+ PNEUMOCOCCAL VACCINE (1 - PCV)] Future Scheduled 2022-04-24 SHINGLES VACCINES (1 [facility] Test 09:34:27 of 2) [code = SHINGLES VACCINES (1 of 2)] Future Scheduled 2022-04-24 INFLUENZA VACCINE [facility] Test 09:34:27 [code = INFLUENZA VACCINE] Encounters Start End Encounter Admission Attending Care Care Encounter Source Date/Time Date/Time Type Type Clinicians Facility Department ID 2021-10-03 Outpatient Ade, STLMLC [facility] [id number] Common 14:08:18 Anshul [id number] [facility] 2021-10-03 Outpatient Ade, STLMLC [facility] [id number] Common 13:12:42 Anshul [id number] [facility] 2022-05-24 2022-05-24 (TEL) [facility] [id number] Co mmon 00:00:00 00:00:00 [facility] 2022-04-19 2022-04-19 Telemedici Valderraban 1.2.840.1 [id number] Methodi 16:45:00 17:00:00 [place] oKenn [address].1.[address] V. 3.430.2.7 Hospit a .3.722103 l .8 2022-04-19 2022-04-19 Telemedici Valderraban 1.2.840.1 [id number] Methodi 16:45:00 17:00:00 [place] oKenn [address]505.1.[address] V. 3.430.2.7 Hospit a .3.714280 l .8 2022-04-18 2022-04-18 Telephone Valderraban 1.2.840.1 [id number] Methodi 00:00:00 00:00:[address] V. 3.430.2.7 Hospit a .3.158223 l .8 2022-04-18 2022-04-18 Telephone Valderraban 1.2.840.1 [id number] Methodi 00:00:00 00:00:[address] V. 3.430.2.7 Hospit a .3.145092 l .8 2022-04-10 2022-04-10 Telephone Valderraban 1.2.840.1 [id number] Methodi 00:00:00 00:00:[address] V. 3.430.2.7 Hospit a .3.513963 l .8 2022-04-10 2022-04-10 Telephone Valderraban 1.2.840.1 [id number] Methodi 00:00:00 00:00:[address] V. 3.430.2.7 Hospit a .3.042434 l .8 2022-03-22 2022-03-22 Office Valderraban 1.2.840.1 [id number] Methodi 14:00:00 15:17:00 Visit oKenn 96077.1.[address] V. 3.430.2.7 Hospit a .3.373777 l .8 2022-03-22 2022-03-22 Office Valderraban 1.2.840.1 [id number] Methodi 14:00:00 15:17:00 Visit oKenn 52016.1.[address] V. 3.430.2.7 Hospit a .3.453298 l .8 2022-03-22 2022-03-22 Travel 1.2.840.1 1.2.039.762 [id number] Methodi 00:00:00 00:00:[address] 3.430.2.7 0.2.7.3.698 Ho spita .3.048889 084.8 l .8 2022-03-22 2022-03-22 Travel 1.2.840.1 1.2.802.557 [id number] Methodi 00:00:00 00:00:[address] 3.430.2.7 0.2.7.3.698 Ho spita .3.265642 084.8 l .8 2022-01-10 2022-01-10 (TEL) STLMLC [facility] [id number] Co mmon 00:00:00 00:00:00 [facility] 2022-01-09 2022-01-09 Phone Only STLMLC ST[facility] [id number] Common 00:00:00 00:00:00 Visit for Spir it Est [facility] 2021-11-16 2021-11-16 (TEL) STLMLC ST[facility] [id number] Co mmon 00:00:00 00:00:00 [facility] 2021-11-09 2021-11-09 (PROC) STLMLC ST[facility] [id number] Co mmon 00:00:00 00:00:00 Procedure Spir it [facility] 2021-08-23 2021-08-23 Telephone Keiko ILGUY 1.2.477.019 [id number] Univers 00:00:00 00:00:00 Krystyna GALICIA 350.1.13.10 i [place] [phone] Il dical NAL 0[address] Branch [facility] 2021-08-20 2021-08-20 Orders Doctor OLIVIA 1.2.840.114 [id number] Univers 00:00:00 00:00:00 Only Unassigned, PEEWEE 350.1.13.10 ity of [place] [facility] 4.2.7.2.686 Terry as [phone] [place] [address] Branch 2021-08-16 2021-08-16 Outpatient R KRYSTYNA BRANDON [facility] 10 [id number] Univers 15:00:00 15:45:27 KRYSTYNA BRANDON i ty of [facility] 2021-08-16 2021-08-16 [facility] 1.2.840.114 [id number] Univers 14:58:58 15:45:27 Visit Krystyna GALICIA 350.1.13.10 [place] [phone] Il dical NAL [address] [place] [address] 2021-08-16 2021-08-16 Outpatient R WADE BRANDONIDEmily [facility] 10 [id number] Univers 15:00:00 15:00:00 KRYSTYNA BRANDON i ty of [facility] 2021-07-26 2021-07-26 OL DIG E/M STLMLC ST[facility]C [id number] Common 00:00:00 00:00:00 [facility]10 Spiri t MIN [facility] 2021-07-18 2021-07-18 (TEL) STLMLC ST[facility] [id number] Co mmon 00:00:00 00:00:00 Spirit [facility] 2021-07-16 2021-07-16 (PROC) STLMLC ST[facility] [id number] Co mmon 00:00:00 00:00:00 Procedure Spir it [facility] 2021-05-17 2021-05-17 [facility] 1.2.840.114 [id number] Univers 15:27:51 16:36:22 Visit Krystyna Galicia 350.1.13.10 [place] [phone] [address] 2021-05-17 2021-05-17 Outpatient R BRANDON WADEIDEmily [facility] 10 [id number] Univers 15:10:00 15:10:00 KRYSTYNA BRANDON i ty of [facility] 2021-05-17 2021-05-17 Orders Doctor BAKER 1.2.840.114 [id number] Univers 00:00:00 00:00:00 Only Unassigned, PEEWEE 350.1.13.10 ity of [place] [facility] [id number] [place] as [phone] [address] 2021-05-17 2021-05-17 Orders Doctor OLIVIA 1.2.840.114 [id number] Univers 00:00:00 00:00:00 Only Unassigned, PEEWEE 350.1.13.10 ity of [place] [facility] [id number] [place] [phone] [place] [address] Branch Results Test Description Test Time Test Comments [...] Atrial fibrillation with slow vent ricular response- [facility] 12 [id number] 05:43:23 Test Item Value Reference Range Interpretation [...] code = 273) with slow ventricular response- [facility] 12 [id number] 05:43:23 Test Item Value Reference Range Interpretation [...] code = 273) with slow ventricular response- [facility]
--- NOTE | 2022-08-08 16:09 | RAD REPORT ---
EXAM DESCRIPTION: RAD - Chest Single View - 08/08/2022 4:02 pm CLINICAL HISTORY: SOB Chest pain. COMPARISON: Chest Single View dated 07/18/2022; Chest Single View dated 05/06/2022; Chest Single View dated 04/24/2022; Chest Single View dated 04/21/2022 FINDINGS: Portable technique limits examination quality. Mild interstitial pulmonary edema. The heart is moderately enlarged in size with sternotomy wires pre sent. No displaced fractures.Aortic atherosclerosis. IMPRESSION: Mild CHF.
[2022-08-08] MEDS ORDERED: FUROSEMIDE 40 MG/4 ML VIAL ONE (17:04)
[2022-08-08 18:06] LABS: Protime INR 1.17
[2022-08-08 18:08] LABS: Absolute Lymphocytes (CBC) 0.7 K/uL (0.7-4.9); Hematocrit 21.6 % (39.6-49.0); Lymphocytes % 13.3 % (15.3-44.8); MCV 87.1 fL (80-100); MPV 9.7 fL (7.6-11.3); RBC Red Blood Cell Count 2.49 M/uL (4.33-5.43)
[2022-08-08 18:18] LABS: Albumin 3.6 g/dL (3.4-5.0); Bilirubin Direct 0.1 mg/dL (0-0.2); Bilirubin Total 0.4 mg/dL (0.2-1.0); Magnesium 2.6 mg/dL (1.8-2.4); Potassium 3.8 mmol/L (3.5-5.1); Protein, Total 7.3 g/dL (6.4-8.2); Troponin High Sensitivity 23.4 pg/mL (<58.9)
--- NOTE | 2022-08-08 18:55 | EDPHYS ---
Physician Documentation [facility] Name: Bridger Murillo Age: 81 yrs Sex: Male : 1940 Arrival Date: 08/08/2022 Time: 14:32 Bed 28 Private MD: Anshul Booker V ED Physician Malachi Napoles HPI: 08/08 15:25 This 81 yrs old Male presents to ER via Wheelchair with complaints of Shortness Of pm1 Breath on Exertion. 15:25 The patient has shortness of breath with light activity, that occurred at home, and pm1 [facility]. Onset: The symptoms/episode began/occurred this morning. Duration: The symptoms with exertion. Patient reports symptoms have now resolved. The patient's shortness of breath is aggravated by exertion, light activity, is alleviated by rest. Associated signs and symptoms: Pertinent positives: generalized weakness, Pertinent negatives: chest pain, non-productive cough, productive cough, fever. Severity of symptoms: in the emergency department the symptoms have resolved Pain is currently a 0 / 10. The patient has experienced similar episodes in the past, several times, patient's suspects that his symptoms might be related to anemia due to chronic renal disease or mild CHF. The patient has been recently seen by a physician: the patient's primary care provider, Dr. Booker 2 day(s) ago, Patient follow up from hospitalization 2 weeks ago for CHF exacerbation. Historical: - Allergies: 15:06 Nemenda; ld1 15:06 Sulfa (Sulfonamide Antibiotics); ld1 - PMHx: 15:06 Alzheimer's; Anemia; aortic valve disease; Atrial Fib; Kidney stones; Hypertension; ld1 barretts; CVA; CAD; BPH; Bladder cancer; Non stemi [place]; Hyperlipidemia; skin cancer; - PSHx: 15:06 Bipass; Colostomy; ld1 - Immunization history:: Adult Immunizations up to date, Client reports receiving the 2nd dose of the Covid vaccine. - Social history:: Smoking status: Patient denies any tobacco usage or history of. Patient/guardian denies using alcohol. ROS: 15:25 Constitutional: Negative for fever, chills, and weight loss. pm1 15:25 Cardiovascular: Negative for chest pain, palpitations, and edema. 15:25 Abdomen/GI: Negative for abdominal pain, nausea, vomiting, diarrhea, and constipation, Back: Negative for injury and pain, MS/Extremity: Negative for injury and deformity, Skin: Negative for injury, rash, and discoloration. 15:25 Respiratory: Positive for shortness of breath, Negative for cough. 15:25 Neuro: Positive for generalized weakness, Negative for headache, numbness, tingling. 15:25 All other systems are negative. Exam: 15:25 Constitutional: This is a well developed, well nourished patient who is awake, alert, pm1 and in no acute distress. Head/Face: Normocephalic, atraumatic. 15:25 Back: No spinal tenderness. No costovertebral tenderness. Full range of motion. Skin: Warm, dry with normal turgor. Normal color with no rashes, no lesions, and no evidence of cellulitis. MS/ Extremity: Pulses equal, no cyanosis. Neurovascular intact. Full, normal range of motion. 15:25 Eyes: Exam is negative for acute changes, Periorbital structures: no acute changes, Extraocular movements: no acute changes, Conjunctiva: no acute changes, no injection. 15:25 ENT: Exam is negative for acute changes, Mouth: no acute changes, Lips: normal, moist, Oral mucosa: normal, pink and intact, moist. 15:25 Cardiovascular: Exam negative for acute changes, Rate: normal, Rhythm: regular, Pulses: no pulse deficits are appreciated, Edema: is not appreciated. 15:25 Respiratory: Exam negative for acute changes, respiratory distress, shortness of breath, Breath sounds: are clear throughout. 15:25 Abdomen/GI: Exam negative for acute changes, Palpation: abdomen is soft and non-tender, in all quadrants. 15:25 Neuro: Exam negative for acute changes, Orientation: is normal, Mentation: is normal, Motor: is normal, moves all fours. Vital Signs: 15:06 BP 124 / 71; Pulse 116; Resp 18; Temp 98.3(TE); Pulse Ox 99% on R/A; Weight 81.19 kg; ld1 Height 5 ft. 8 in. (172.72 cm); Pain 0/10; 16:45 BP 105 / 84; Pulse 65; Resp 15; Pulse Ox 100% on R/A; eh3 17:45 BP 105 / 53; Pulse 55; Resp 10; Pulse Ox 97% on R/A; eh3 18:45 BP 114 / 71; Pulse 56; Resp 14; Pulse Ox 100% ; eh3 15:06 Body Mass Index 27.22 (81.19 kg, 172.72 cm) ld1 MDM: 15:18 Patient medically screened. pm1 15:22 Data reviewed: vital signs. Data interpreted: Pulse oximetry: on room air is 99 %. pm1 Interpretation: normal. 18:52 Physician consultation: Anshul Booker MD was called at 18:52, was contacted at 18:52, pm1 regarding admission, patient's condition, and will see patient tomorrow, Transfuse 2 units of blood. 18:52 ED course: Patient with shortness of breath on exertion. Dx of CHF and anemia. CHF is pm1 mild and anemia likely the cause for his dyspnea. Patient with baseline 9 hgb and 7.[address] Booker and order for transfusing 2 units of PRBC, he will see the patient tomorrow, and he anticipates discharging the patient home tomorrow after blood transfusion.. 08/08 15:21 Order name: Basic Metabolic Panel; Complete Time: 18:19 pm1 08/08 15:21 Order name: CBC with Diff; Complete Time: 18:17 pm1 08/08 15:21 Order name: LFT's; Complete Time: 18:19 pm1 08/08 15:21 Order name: Magnesium; Complete Time: 18:19 pm1 08/08 15:21 Order name: NT PRO-BNP; Complete Time: 18:19 pm1 08/08 15:21 Order name: PT-INR; Complete Time: 18:17 pm1 08/08 15:21 Order name: Troponin HS; Complete Time: 18:19 pm1 08/08 19:21 Order name: SARS-COV-2 Antigen Rapid; Complete Time: 21:23 tw5 08/08 20:04 Order name: Basic Metabolic Panel EDMS 08/08 20:04 Order name: Basic Metabolic Panel EDMS 08/08 20:04 Order name: CBC with Automated Diff EDMS 08/08 20:04 Order name: CBC with Automated Diff EDMS 08/08 20:04 Order name: NT PRO-BNP EDMS 08/08 20:04 Order name: NT PRO-BNP EDMS 08/08 15:21 Order name: XRAY Chest (1 view); Complete Time: 16:22 pm1 08/08 15:21 Order name: EKG; Complete Time: 15:21 pm1 08/08 15:21 Order name: Cardiac monitoring; Complete Time: 16:55 pm1 08/08 15:21 Order name: EKG - Nurse/Tech; Complete Time: 16:56 pm1 08/08 15:21 Order name: IV Saline Lock; Complete Time: 17:51 pm1 08/08 15:21 Order name: Labs collected and sent; Complete Time: 17:51 pm1 08/08 15:21 Order name: O2 Per Protocol; Complete Time: 16:56 pm1 08/08 15:21 Order name: O2 Sat Monitoring; Complete Time: 16:56 pm1 08/08 20:31 Order name: Type And Screen eh3 08/08 21:42 Order name: Type and Screen EDMS EC:00 Rate is 54 beats/min. Rhythm is regular, A fib with slow ventricular response. QRS [place] pm1 is Normal. No Q waves. T waves are Normal. Clinical impression: Atrial fibrillation with slow ventricular response, ST \T\ T wave abnormality, consider inferolateral ischemia, Prolonged QT, Abnormal ECG. Administered Medications: 18:00 Drug: Lasix (furosemide) 40 mg Route: IVP; Site: left forearm; [facility] 20:30 Follow up: Response: No adverse reaction 3 Disposition Summary: 08/08/22 18:55 Hospitalization Ordered Provider: Anshul Booker pm1 Condition: Stable pm1 Problem: new pm1 Symptoms: have improved pm1 Bed/Room Type: Standard pm1 Hospitalization Status: Observation(08/08/22 19:01) pm1 Location: Telemetry/MedSurg (observation)(08/08/22 19:01) pm1 Room Assignment: 223(08/08/22 21:23) kandy Diagnosis - Anemia, unspecified pm1 - Congestive heart failure pm1 - Unspecified combined systolic (congestive) and diastolic (congestive) heart failure pm1 Forms: - Medication Reconciliation Form pm1 - SBAR form pm1 Addendum: 08/11/2022 08:03 Co-signature as Attending Physician, Malachi Napoles MD I agree with the assessment and c veloz plan of care. Signatures: Dispatcher [facility] AR[facility] Callahan, Toya, RN RN mw Malachi Napoles MD MD cha Marinas, Patrick, CLIENT SERVICES ADMINISTRATOR CLIENT SERVICES ADMINISTRATOR pm1 Gi Gomez RN RN ld1 Sophie Jenkins RN RN eh3 Corrections: (The following items were deleted from the chart) 08/08 19: 18:55 Inpatient Admission pm1 pm1 19: 18:55 Telemetry/MedSurg (Inpatient) pm1 pm1 19: 18:55 pm1 pm1 21: 19: pm1
--- NOTE | 2022-08-08 18:55 | ER ---
Nurse's Notes [facility] Name: Bridger Murillo Age: 81 yrs Sex: Male : 1940 Arrival Date: 08/08/2022 Time: 14:32 Bed 28 Private MD: Anshul Booker V Diagnosis: Anemia, unspecified;Unspecified combined systolic (congestive) and diastolic (congestive) heart failure Presentation: 08/08 15:05 Chief complaint: Patient states: Weakness, "reporting I can't breath - SpO2 100% RA.". ld1 Coronavirus screen: At this time, the client does not indicate any symptoms associated with coronavirus-19. Ebola Screen: No symptoms or risks identified at this time. 15:05 Method Of Arrival: Wheelchair ld1 15:06 Initial Sepsis Screen: Does the patient meet any 2 criteria? No. Patient's initial ld1 sepsis screen is negative. Does the patient have a suspected source of infection? No. Patient's initial sepsis screen is negative. Risk Assessment: Do you want to hurt yourself or someone else? Patient reports no desire to harm self or others. Onset of symptoms was August 08, 2022. 15:06 Acuity: VALENCIA 3 ld1 Triage Assessment: 15:06 General: Appears in no apparent distress. comfortable, Behavior is calm, cooperative, ld1 appropriate for age. Pain: Denies pain. EENT: No signs and/or symptoms were reported regarding the EENT system. Neuro: Level of Consciousness is awake, alert, obeys commands, Oriented to person, place, time, situation. Cardiovascular: Capillary refill < 3 seconds Patient's skin is warm and dry. Respiratory: Airway is patent Respiratory effort is even, unlabored. GI: Abdomen is flat, non-distended. Historical: - Allergies: 15:06 Nemenda; ld1 15:06 Sulfa (Sulfonamide Antibiotics); ld1 - PMHx: 15:06 Alzheimer's; Anemia; aortic valve disease; Atrial Fib; Kidney stones; Hypertension; ld1 barretts; CVA; CAD; BPH; Bladder cancer; Non stemi [place]; Hyperlipidemia; skin cancer; - PSHx: 15:06 Bipass; Colostomy; ld1 - Immunization history:: Adult Immunizations up to date, Client reports receiving the 2nd dose of the Covid vaccine. - Social history:: Smoking status: Patient denies any tobacco usage or history of. Patient/guardian denies using alcohol. Screenin:30 Abuse screen: Denies threats or abuse. Denies injuries from another. Nutritional eh3 screening: No deficits noted. Tuberculosis screening: No symptoms or risk factors identified. Fall Risk Secondary diagnosis (15 points) Alzheimer's, IV access (20 points). Ambulatory Aid- None/Bed Rest/Nurse Assist (0 pts). Gait- Weak (10 pts.). Total Dos Santos Fall Scale indicates High Risk Score (45 or more points). Fall prevention measures have been instituted. Side Rails Up X 2 Placed Close to Nursing Station Frequent Obs/Assessments Occuring Family Present and informed to notify staff if the need to leave the bedside As available patient and family educated on Fall Prevention Program and Strategies. Assessment: 16:30 General: Appears in no apparent distress. uncomfortable, Behavior is cooperative, eh3 appropriate for age, anxious. 16:30 Pain: Denies pain. Neuro: Level of Consciousness is awake, alert, obeys commands, eh3 Oriented to person, place, time, situation. Cardiovascular: Capillary refill < 3 seconds Patient's skin is warm and dry. Respiratory: Airway is patent Respiratory effort is even, unlabored, Respiratory pattern is regular, symmetrical. GI: No signs and/or symptoms were reported involving the gastrointestinal system. : No signs and/or symptoms were reported regarding the genitourinary system. EENT: No signs and/or symptoms were reported regarding the EENT system. Derm: No signs and/or symptoms reported regarding the dermatologic system. Musculoskeletal: No signs and/or symptoms reported regarding the musculoskeletal system. 17:30 Reassessment: Patient is alert, oriented x 3, equal unlabored respirations, skin eh3 warm/dry/pink. Patient is alert/active/playful, equal unlabored respirations, skin warm/dry/pink. 18:30 Reassessment: Patient is alert, oriented x 3, equal unlabored respirations, skin eh3 warm/dry/pink. Patient is alert/active/playful, equal unlabored respirations, skin warm/dry/pink. 19:30 Reassessment: Patient is alert, oriented x 3, equal unlabored respirations, skin eh3 warm/dry/pink. Patient is alert/active/playful, equal unlabored respirations, skin warm/dry/pink. 20:00 Reassessment: Blood product consent signed, called lab to check on blood availability, eh3 lab stated they did not receive physician order sheet for blood. Faxed order sheet to lab again. Vital Signs: 15:06 BP 124 / 71; Pulse 116; Resp 18; Temp 98.3(TE); Pulse Ox 99% on R/A; Weight 81.19 kg; ld1 Height 5 ft. 8 in. (172.72 cm); Pain 0/10; 16:45 BP 105 / 84; Pulse 65; Resp 15; Pulse Ox 100% on R/A; eh3 17:45 BP 105 / 53; Pulse 55; Resp 10; Pulse Ox 97% on R/A; eh3 18:45 BP 114 / 71; Pulse 56; Resp 14; Pulse Ox 100% ; eh3 15:06 Body Mass Index 27.22 (81.19 kg, 172.72 cm) ld1 ED Course: 14:32 Patient arrived in ED. am2 14:33 Anshul Booker MD is Private Physician. am2 15:06 Arm band placed on right wrist. ld1 15:08 Triage completed. ld1 15:10 Paul Rahman NP is PHCP. pm1 15:10 Malachi Napoles MD is Attending Physician. pm1 16:04 XRAY Chest (1 view) In Process Unspecified. EDMS 16:28 Sophie Jenkins, RN is Primary Nurse. eh3 16:30 Patient has correct armband on for positive identification. Placed in gown. Bed in low eh3 position. Call light in reach. Side rails up X2. Adult w/ patient. Client placed on continuous cardiac and pulse oximetry monitoring. NIBP monitoring applied. Door closed. Noise minimized. Warm blanket given. 17:46 Inserted saline lock: 20 gauge in left forearm, using aseptic technique. Blood hb collected. 18:55 Anshul Booker MD is Hospitalizing Provider. pm1 21:10 Type And Screen Sent. eh3 22:00 No provider procedures requiring assistance completed. Patient admitted, IV remains in eh3 place. Administered Medications: 18:00 Drug: Lasix (furosemide) 40 mg Route: IVP; Site: left forearm; eh3 20:30 Follow up: Response: No adverse reaction eh3 Medication: 08/09 00:40 VIS not applicable for this client. 3 Outcome: 08/08 18:55 Decision to Hospitalize by Provider. pm1 22:00 Admitted to Med/surg accompanied by tech, via wheelchair, with chart, Report called to [facility] [place] 22:00 Condition: stable 22:00 Instructed on the need for admit. 22:26 Patient left the ED. 3 Signatures: Dispatcher [employer] EDIL Paul Rahman NP SECURITY OPERATIONS CENTER ANALYST pm1 Thea White, RN RN Belen Johnson 2 Gi Gomez RN RN ld1 Sophie Jenkins RN RN 3 Corrections: (The following items were deleted from the chart) 08/09 00:39 08/08 16:30 General: Appears in no apparent distress. uncomfortable, Behavior is eh3 cooperative, appropriate for age, anxious, eh3
[2022-08-08] MEDS ORDERED: IPRATROPIUM BROM 0.5MG/2.5ML NEB PRN (19:59)
[2022-08-08] MEDS ORDERED: ALBUTEROL 2.5 MG/3 ML NEB SOL NEB PRN (19:59)
[2022-08-08 21:17] LABS: SARS-CoV-2 Antigen Rapid Res Negative (Negative)
[2022-08-08] MEDS ORDERED: NA CHLORIDE 0.9% 250 ML ONE (21:48)
[2022-08-08 23:50] VITALS: BMI 27.2
[2022-08-09 06:02] VITALS: TEMP 97.8
--- NOTE | 2022-08-09 07:50 | EKG ---
Test Date: 2022-08-08 Test Time: 16:49:41 Hooker Up: NIKA MEASUREMENT RESULTS: Intervals: Rate: 54 AL: QRSD: 108 QT: 538 QTc: 510 Branch: P: AL: QRS: 75 T: 241 INTERPRETIVE STATEMENTS: Atrial fibrillation with slow ventricular response ST & T wave abnormality, consider inferolateral ischemia Prolonged QT Abnormal ECG Compared to ECG 07/18/2022 16:17:23 ST (T wave) deviation now present Possible ischemia now present Myocardial infarct finding no longer present Electronically Signed On 08-09-22 07:48:54 FAMILY CENTERED SPECIALIST by Jonnathan Gonsalves
[2022-08-09 08:52] LABS: Absolute Lymphocytes (CBC) 0.9 K/uL (0.7-4.9); Hematocrit 27.7 % (39.6-49.0); Lymphocytes % 17.7 % (15.3-44.8); MCV 85.3 fL (80-100); MPV 9.8 fL (7.6-11.3); RBC Red Blood Cell Count 3.25 M/uL (4.33-5.43)
[2022-08-09] MEDS ORDERED: FUROSEMIDE 20 MG/ 2ML VIAL IV SCH (09:00)
[2022-08-09] MEDS ORDERED: VENLAFAXINE HCL XR 75 MG CAP PO SCH (09:00)
[2022-08-09 09:01] VITALS: BP 111/59
[2022-08-09 09:07] LABS: Potassium 3.6 mmol/L (3.5-5.1)
[2022-08-09 09:54] VITALS: O2SAT 95
--- NOTE | 2022-08-09 13:03 | P.SSS ---
Patient History Date of Service: 08/09/22 Reason for admission: WEAKNESS. History of Present Illness: DEB PARKER HAS SEVERE DEMENTIA AND HE HAS KNOWN, A FIB, CKD, CHF AND RECURRENT ANEMIA. FAMILY DOES NOT WANT TO PUT HIM THROUGH PROCEDURES THAT IN LONG RUN IS GOING TO BE OF NO HELP FOR HIM HE HAS VERY POOR QUALITY OF LIFE. HIS HG WAS 7.1 . HE HAS NO MELENA OR ANY OTHER GI BLEED. AFTER TWO UNITS OF PACKED RBCS HE IS READY TO GO HOME WITH NO MORE THAN HIS BASELINE SYMPTOMS. Allergies memantine HCl [From Namenda] Adverse Reaction (Severe, Verified 08/08/22 23:51) tinnitus Sulfa (Sulfonamide Antibiotics) Adverse Reaction (Unknown, Verified 08/08/22 23:51) unknown/childhood reaction Home Medications: Ascorbic Acid [C-1000] 1,000 mg PO DAILY 12/12/13 Cyanocobalamin (Vitamin B-12) [B-12] 1,000 mcg PO DAILY 12/12/13 Donepezil HCl [Aricept] 23 mg PO BEDTIME 12/12/13 Niacin [Niacin ER] 500 mg PO BIDWM 12/12/13 Pantoprazole [Protonix Tab*] 40 mg PO DAILY 12/12/13 Tamsulosin [Flomax*] 1 cap PO BEDTIME 12/12/13 Magnesium Oxide [Magnesium] 400 mg PO BID 06/13/14 Cholecalciferol (Vitamin D3) [Vitamin D3] 1,000 units PO BEDTIME 12/01/15 Losartan Potassium [Cozaar] 100 mg PO [id number] 12/01/15 Amlodipine [Norvasc*] 5 mg PO DAILY 01/20/21 Docosahexanoic AC/Epa [Fish Oil 1,000 MG*] 1,000 mg PO BID 01/20/21 Levothyroxine Sodium [Levothyroxine] 50 mcg PO [id number] 01/20/21 Aspirin [Aspirin EC 81 MG] 81 mg PO SEECOM 09/19/21 Pravastatin Sodium 40 mg PO BEDTIME 05/07/22 Finasteride 5 mg PO BEDTIME 07/18/22 Torsemide [Demadex*] 20 mg PO DAILY #90 tab 07/19/22 Nitroglycerin [Nitrostat] 0.4 mg SL PRN PRN 08/09/22 Venlafaxine HCl [Venlafaxine HCl ER] 75 mg PO DAILY 08/09/22 - Past Medical/Surgical History Has patient received pneumonia vaccine in the past: Yes Diabetic: No -: TINNITUS -: HTN -: AFIB -: CAD -: HYPERLIPIDEMIA -: NSTEMI -: STROKE -: LEGIONAIRE'S DISEASE -: SLEEP APNEA -: ALZHEIMER'S -: SQUAMOS CELL SKIN CANCER -: COLOSTOMY, DIVERTICULITIS, BARRETTS ESOPHAGUS -: QUADRUPLE BYPASS 1991 -: LITHOTRIPSY -: CYSTOSCOPY 2009 -: CYSTOSCOPY 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 -: CARDIAC STENT 2013 -: COLOSTOMY 2013 -: cardiacstent - Family History Father -: Heart disease, Hypertension, Stroke, Cancer Mother -: Heart disease, Hypertension, Diabetes - Social History Smoking Status: Former smoker Alcohol use: No CD- Drugs: No Caffeine use: Yes Place of Residence: Home Review of Systems 10-point ROS is otherwise unremarkable General: Weakness Physical Examination - Vital Signs Temperature: 97.8 F Blood Pressure: 111/59 Pulse: 56 Respirations: 17 Pulse Ox (%): 97 - Physical Exam General: Oriented x1, Mild distress HEENT: Atraumatic, PERRLA, Mucous membr. moist/pink, EOMI, Sclerae nonicteric Neck: Supple, 2+ carotid pulse no bruit, No LAD, Without JVD or thyroid abnormality Respiratory: Clear to auscultation bilaterally, Normal air movement Cardiovascular: Irregular heart rate/rhythm Gastrointestinal: Normal bowel sounds, No tenderness Musculoskeletal: No tenderness Integumentary: No rashes Neurological: Normal gait, Normal speech, Normal strength at 5/5 x4 extr, Normal tone, Normal affect Lymphatics: No axilla or inguinal lymphadenopathy - Studies Laboratory Data (last 24 hrs) 08/08/22 17:45: PT 12.9 H, INR 1.17 08/08/22 17:45: WBC 5.20, Hgb 7.1 L, Hct 21.6 L, Plt Count 113 L 08/08/22 17:45: Sodium 138, Potassium 3.8, BUN 43 H, Creatinine 2.62 H, Glucose 128 H, Magnesium 2.6 H, Total Bilirubin 0.4, AST 13 L, ALT 17, Alkaline Phosphatase 53 - Diagnosis (Problem(s)) (1) Anemia Status: Acute Plan: HE GETS BLOOD OFF AND ON. ABOVE NOT A CANDIDATE FOR GI MEI FAMILY MAY GO FOR EGD. THYE ARE IN CONTACT WITH DR. BAUMANN HE IS ALREADY ON PROTONIX. THERE IS NOT MUCH MORE CAN BE DONE FOR GASTRITIS OR ULCER. IF CANCER IS FOUND, NOTHING WILL BE DONE ANY WAY. FAMILY HAS ABOVE THOUGHT PROCESS AND I AGREE. HE STABLE FOR DC. (2) Diastolic dysfunction with chronic heart failure Status: Chronic Plan: THERE ARE NO ACUTE FINDINGS DESPITE CXR REPORT. NO CHANGES IN MEDS. - Disposition Disposition: ROUTINE DISCHARGE
[2022-08-09] MEDS ORDERED: DONEPEZIL HCL 23 MG PO SCH (21:00)
[2022-08-09] MEDS ORDERED: FINASTERIDE 5 MG TAB PO SCH (21:00)
[2022-08-10] MEDS ORDERED: HOME MED 1 EA UNK (Levothyroxine Sodium [Levothyroxine] 50 MCG Capsule) PO SCH (06:00)
[2022-08-10] MEDS ORDERED: LEVOTHYROXINE SOD 0.05 MG TABLET PO SCH (06:30)
== END 2022-08-09 10:14 | disposition home or self-care (01) ==
LOC: ER 14:30 → ERHOLD 20:16 → 2ND 21:41
PROVIDERS: ADMIT Internal Medicine; ATTEND Internal Medicine
PROC: 30233N1 Transfusion of Nonautologous Red Blood Cells into Peripheral Vein, Percutaneous Approach (ICD-10-PCS; principal; 2022-08-09)
DX: D64.9 Anemia, unspecified (principal); I50.32 Chronic diastolic (congestive) heart failure; F03.C0 Unspecified dementia, severe, without behavioral disturbance, psychotic disturbance, mood disturbance, and anxiety; I48.91 Unspecified atrial fibrillation; N18.9 Chronic kidney disease, unspecified; Z88.2 Allergy status to sulfonamides; Z88.8 Allergy status to other drugs, medicaments and biological substances; Z20.822 Contact with and (suspected) exposure to COVID-19
CPT/HCPCS: 93005; 85025 ×2; 80048 ×2; 36415; 86900; 83735; 86850; 85610; 86901; 80076; 84484; 83880 ×2; 71045; 96374; 99285; 87811; 36430; J1940 ×2; P9016 ×2; J7050; P9021; G0378

== ENCOUNTER 2022-09-10 10:38 | Emergency (ER) | payer OTHER, MEDICARE ==
--- OUTSIDE RECORDS SUMMARY | 2022-09-10 10:44 | XMS REPORT | Continuity of Care Document ---
:1940 Author Organization [facility] t Address [address] [place] [address] Care Team Providers Name Role Phone Anshul Booker MD Primary Care Physician Anshul Booker Attending Clinician Unavailable Alina PRITCHARD, Kenn Zimmerman Attending Clinician [phone] Krystyna Brandon DO Attending Clinician Doctor Unassigned, [place] Attending Clinician Unavailable KRYSTYNA BRANDON Attending Clinician Unavailable KRYSTYNA BRANDON Attending Clinician Unavailable Payers Payer Name Policy Type Policy Number Effective Date Expiration Date S ource MEDICARE MB [id number] [facility] A[facility] C1 [id number] [facility] MEDICARE MB [id number] [facility]OV[facility] AARP C1 [id number] [facility] C1 [id number] [facility] MEDICARE MB [id number] 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 Medical lower Center extremity [id number] Lesion of Problem Com mon bladder [facility] - [facility] Allergies, Adverse Reactions, Alerts Allergy Allergy [...] memantin Active Unknown Commo n e e [facility] Family History Family Member Diagnosis Comments Start Date Stop Date Source Natural mother [facility] Other Coronary artery [facility] disease Natural father [facility] Social History Social Habit Start Date Stop Date Quantity Comments Source Exposure to Not sure University of SARS-CoV-2 [facility] (event) Branch History of [facility] - Tobacco Use [facility] Tobacco use and 2017-12-02 2017-12-02 Smokeless tobacco [facility] exposure 00:00:00 00:00:00 non-user Sex Ass[birth year] At [birth year] [facility] 00:00:00 00:00:00 Smoking Status Start Date Stop Date Source Former Smoker 2022-04-10 00:00:00 2022-04-10 00:00:00 [facility] Medications Ordered Filled Start Stop Current [...] C) 15 daily. l 1000 MG tablet levothyroxi 2021-0 Yes 50ug QD Take 50 [...] st 14:46: daily. Hospita 14 l omega-3 2022-0 Yes 1000mg Q.5D Take 1,000 Me thodi [...] pain. NUT.TX,META 2021-0 Yes Take by Met mary IrelandDIS, 7-[address] MV-MINS 14:46: Hospita NO.2 ([place] 14 l ORAL) cyanocobala 2021-0 Yes 1000ug QD Take 1,000 [...] st 14:46: daily. Hospita 14 l omega-3 2022-0 Yes 1000mg Q.5D Take 1,000 Me thodi fatty 7-[address] acids-vitam 14:46: mouth 2 Hos chula in E 1,000 14 (two) l mg capsule times a day. docusate 2-0 Yes 100mg QD Take 100 Meth mary [...] tablet 14:46: daily. Hospit a 14 l levothyroxi 2021-0 Yes 50ug QD Take 50 [...] st 14:46: daily. Hospita 14 l omega-3 2022-0 Yes 1000mg Q.5D Take 1,000 Me thodi fatty 7-[address] acids-vitam 14:46: mouth 2 Hos chula in E 1,000 14 (two) l mg capsule times a day. docusate 2021-0 Yes 100mg QD Take 100 Meth mary sodium 7-[address] (COLACE) 14:46: mouth Hospita 100 MG 14 daily. l capsule nitroglycer [address] 0.4 M ethodi in 7-[address] (NITROSTAT) 14:46: the tongue Hospita 0.4 MG SL 14 every 5 l tablet (five) minutes as needed for chest pain. NUT.TX,META 0 Yes Take by Met hodi B.DIS, 7-15 [...] l mg capsule times a day. docusate 2021-0 Yes 100mg QD Take 100 Meth mary sodium 7-[address] (COLACE) 14:46: mouth Hospita 100 MG 14 daily. l capsule nitroglycer Yes .4mg Place 0.4 M ethodi in 7-[address] (NITROSTAT) 14:46: the tongue Hospita 0.4 MG SL 14 every 5 l tablet (five) minutes as needed for chest pain. NUT.TX,META Yes Take by Met mary BOOTH, 7-[address] MV-MINS 14:46: Hospita NO.2 ([place] 14 l ORAL) Amoxicillin Amoxicillin 2021- No 1{capsu TID Amoxicilli 500 MG 500 MG -11-26 le} n 500 MG 00:00: 00:00 00 :00 pravastatin 2020-09 Yes 40mg Take 40 mg Univers 40 mg 2-09 by mouth. ity of tablet 15:14: [address] furosemide 2020-09 Yes 10mg Take 10 mg U nivers 20 mg 2-09 by mouth. ity of tablet 15:14: [address] Branch niacin 500 2020-09 Yes 500mg Take 500 Un robert mg tablet 2-09 mg by ity of 15:14: mouth [address] [place] [address] (two) Medical times Branch daily. losartan 2020-09 Yes 100mg Take 100 Univ ers 100 mg 2-09 mg by ity of tablet 15:14: mouth [place] [address] daily. Medical Branch amLODIPine 2020-09 Yes 5mg Take 5 mg Un robert 5 mg tablet 2-09 by mouth ity of 15:14: daily. [address] Branch tamsulosin 2020-09 Yes .4mg Take 0.4 Uni vers 0.4 mg 24 2-09 mg by ity of hr capsule 15:14: mouth. [address] finasteride 2020-09 Yes 5mg Take 5 mg U nivers 5 mg tablet 2-09 by mouth. ity of 15:14: [address] levothyroxi 2020-09 Yes 50ug Take 50 Uni vers ne 50 mcg 2-09 mcg by ity of tablet 15:14: mouth. [address] vitamin C 2020-09 Yes 1000mg Take 1,000 Univers with alban 2-09 mg by ity of hips 1,000 15:14: mouth. [place] mg tablet Medical Branch aspirin 81 2020-09 Yes 81mg Take 81 mg U nivers mg Cap 2-09 by mouth. ity of 15:14: [address] Branch Magnesium 2020-09 Yes 400mg Take 400 Uni vers Hydroxide 2-09 mg by ity of 400 mg (170 15:14: [place]. [place] 36 [place] magnesium) Branch Chew citalopram 2020-09 Yes 20mg Take 20 mg U nivers (CELEXA) 20 2-09 by mouth ity of mg tablet 15:14: daily. [address] Branch medium 2020-09 Yes Take by Univers chain 2-09 mouth. ity of triglycerid 15:14: [facility] (MCT OIL 36 Medical ORAL) Branch omega 2020-09 Yes 1000mg Take 1,000 Univ ers 3-dha-epa-f 2-09 mg by ity of joseph oil 15:14: mouth. [place] (FISH OIL) Medical 100-160-1,0 Branch 00 mg Cap vitamin 2020-09 Yes 1000ug Take 1,000 Un robert B-12 2-09 mcg by ity of (VITAMIN 15:14: mouth [place] B-12) 1,000 36 daily. Medica l mcg tablet Branch COCONUT OIL 2020-09 Yes Take by Uni vers ORAL 2-09 mouth. ity of 15:14: [address] Branch atorvastati 2020-09 Yes 20mg Take 20 mg Univers n 20 mg 2-09 by mouth ity of tablet 15:14: at [place] [address] bedtime. Medical Branch Donepezil 2020-09 Yes Take by Unive rs (ARICEPT) 2-09 mouth. ity of 23 mg Tab 15:14: [address] Branch nitroglycer 2020-[address] 0.4 U nivers in 2-09 mg under ity of (NITROSTAT) 15:14: the tongue [place] 0.4 mg 36 every 5 Medical sublingual (five) Branch tablet minutes as needed for Chest pain. traMADol 2020-09 Yes 50mg Take 50 mg Uni vers (ULTRAM) 50 2-09 by mouth ity of mg/10 mL 15:14: every 4 [place] oral 36 (four) Medical syringe hours as Branch needed. pravastatin 2020-09 Yes 40mg Take 40 mg Univers 40 mg 2-09 by mouth. ity of tablet 15:14: [address] furosemide 2020-09 Yes 10mg Take 10 mg U nivers 20 mg 2-09 by mouth. ity of tablet 15:14: [address] niacin 500 2020-09 Yes 500mg Take 500 Un robert mg tablet 2-09 mg by ity of 15:14: mouth 2 [place] [address] (two) Medical times Branch daily. losartan 2020-09 Yes 100mg Take 100 Univ ers 100 mg 2-09 mg by ity of tablet 15:14: mouth [place] [address] daily. Medical Branch amLODIPine 2020-09 Yes 5mg Take 5 mg Un robert 5 mg tablet 2-09 by mouth ity of 15:14: daily. [address] tamsulosin 2020-09 Yes .4mg Take 0.4 Uni vers 0.4 mg 24 2-09 mg by ity of hr capsule 15:14: mouth. [address] finasteride 2020-09 Yes 5mg Take 5 mg U nivers 5 mg tablet 2-09 by mouth. ity of 15:14: [address] levothyroxi 2020-09 Yes 50ug Take 50 Uni vers ne 50 mcg 2-09 mcg by ity of tablet 15:14: mouth. [address] vitamin C 2020-09 Yes 1000mg Take 1,000 Univers with alban 2-09 mg by ity of hips 1,000 15:14: mouth. [place] mg tablet [address] [place] [address] Branch aspirin 81 2020-09 Yes 81mg Take 81 mg U nivers mg Cap 2-09 by mouth. ity of 15:14: [address] Magnesium 2020-09 Yes 400mg Take 400 Uni vers Hydroxide 2-09 mg by ity of 400 mg (170 15:14: [place]. [place] mg [place] magnesium) Branch Chew citalopram 2020-09 Yes 20mg Take 20 mg U nivers (CELEXA) 20 2-09 by mouth ity of mg tablet 15:14: daily. [address] medium 2020-09 Yes Take by Univers chain 2-09 mouth. ity of triglycerid 15:14: [place] es (MCT OIL Medical ORAL) Branch omega 2020-09 Yes 1000mg Take 1,000 Univ ers 3-dha-epa-f 2-09 mg by ity of joseph oil 15:14: mouth. [place] (FISH OIL) Medical 100-160-1,0 Branch 00 mg Cap vitamin 2020-09 Yes 1000ug Take 1,000 Un robert B-12 2-09 mcg by ity of (VITAMIN 15:14: mouth [place] B-12) 1,000 36 daily. Medica l mcg tablet Branch COCONUT OIL 2020-09 Yes Take by Uni vers ORAL 2-09 mouth. ity of 15:14: [place] [address] Medical Branch atorvastati 2020-09 Yes 20mg Take 20 mg Univers n 20 mg 2-09 by mouth ity of tablet 15:14: at [place] [address] bedtime. Medical Branch Donepezil 2020-09 Yes Take by Unive rs (ARICEPT) 2-09 mouth. ity of 23 mg Tab 15:14: [address] Branch nitroglycer 2020-[address] 0.4 U nivers in 2-09 mg under ity of (NITROSTAT) 15:14: the tongue [place] 0.4 mg 36 every 5 Medical sublingual (five) Branch tablet minutes as needed for Chest pain. traMADol 2020-09 Yes 50mg Take 50 mg Uni vers (ULTRAM) 50 2-09 by mouth ity of mg/10 mL 15:14: every 4 [place] [address] (four) Medical syringe hours as Branch needed. pravastatin 2020-09 Yes 40mg Take 40 mg Univers 40 mg 2-09 by mouth. ity of tablet 15:14: [address] Branch furosemide 2020-09 Yes 10mg Take 10 mg U nivers 20 mg 2-09 by mouth. ity of tablet 15:14: [address] Branch niacin 500 2020-09 Yes 500mg Take 500 Un robert mg tablet 2-09 mg by ity of 15:14: mouth 2 [place] 36 (two) Medical times Branch daily. losartan 2020-09 Yes 100mg Take 100 Univ ers 100 mg 2-09 mg by ity of tablet 15:14: mouth [place] [address] daily. Medical Branch amLODIPine 2020-09 Yes 5mg Take 5 mg Un robert 5 mg tablet 2-09 by mouth ity of 15:14: daily. [address] Branch tamsulosin 2020-09 Yes .4mg Take 0.4 Uni vers 0.4 mg 24 2-09 mg by ity of hr capsule 15:14: mouth. [address] Branch finasteride 2020-09 Yes 5mg Take 5 mg U nivers 5 mg tablet 2-09 by mouth. ity of 15:14: [address] Branch levothyroxi 2020-09 Yes 50ug Take 50 Uni vers ne 50 mcg 2-09 mcg by ity of tablet 15:14: mouth. [address] vitamin C 2020-09 Yes 1000mg Take 1,000 Univers with alban 2-09 mg by ity of hips 1,000 15:14: mouth. [place] mg tablet Medical Branch aspirin 81 2020-09 Yes 81mg Take 81 mg U nivers mg Cap 2-09 by mouth. ity of 15:14: [address] Magnesium 2020-09 Yes 400mg Take 400 Uni vers Hydroxide 2-09 mg by ity of 400 mg (170 15:14: [place]. [place] mg [place] magnesium) Branch Chew citalopram 2020-09 Yes 20mg Take 20 mg U nivers (CELEXA) 20 2-09 by mouth ity of mg tablet 15:14: daily. [address] medium 2020-09 Yes Take by Univers chain 2-09 mouth. ity of triglycerid 15:14: [place] es (MCT OIL Medical ORAL) Branch omega 2020-09 Yes 1000mg Take 1,000 Univ ers 3-dha-epa-f 2-09 mg by ity of joseph oil 15:14: mouth. [place] (FISH OIL) Medical 100-160-1,0 Branch 00 mg Cap vitamin 2020-09 Yes 1000ug Take 1,000 Un robert B-12 2-09 mcg by ity of (VITAMIN 15:14: mouth [place] B-12) 1,000 36 daily. Medica l mcg tablet Branch COCONUT OIL 2020-09 Yes Take by Un robert ORAL 2-09 mouth. ity of 15:14: [address] atorvastati 2020-09 Yes 20mg Take 20 mg Univers n 20 mg 2-09 by mouth ity of tablet 15:14: at [place] [address] bedtime. Medical Branch Donepezil 2020-09 Yes Take by Unive rs (ARICEPT) 2-09 mouth. ity of 23 mg Tab 15:14: [address] nitroglycer 2020-[address] 0.4 U [...] 2-09 by mouth. ity of tablet 15:14: [address] Branch furosemide 2020-09 Yes 10mg Take 10 mg U nivers 20 mg 2-09 by mouth. ity of tablet 15:14: [address] niacin 500 2020-09 Yes 500mg Take 500 Un robert mg tablet 2-09 mg by ity of 15:14: mouth 2 [place] 36 (two) Medical times Branch daily. losartan 2020-09 Yes 100mg Take 100 Univ ers 100 mg 2-09 mg by ity of tablet 15:14: mouth [place] [address] daily. Medical Branch amLODIPine 2020-09 Yes 5mg Take 5 mg Un robert 5 mg tablet 2-09 by mouth ity of 15:14: daily. [address] Branch tamsulosin 2020-09 Yes .4mg Take 0.4 Uni vers 0.4 mg 24 2-09 mg by ity of hr capsule 15:14: mouth. [address] finasteride 2020-09 Yes 5mg Take 5 mg U nivers 5 mg tablet 2-09 by mouth. ity of 15:14: [address] levothyroxi 2020-09 Yes 50ug Take 50 Uni vers ne 50 mcg 2-09 mcg by ity of tablet 15:14: mouth. [address] vitamin C 2020-09 Yes 1000mg Take 1,000 Univers with alban 2-09 mg by ity of hips 1,000 15:14: mouth. [place] mg [address] Branch aspirin 81 2020-09 Yes 81mg Take 81 mg U nivers mg Cap 2-09 by mouth. ity of 15:14: [address] Branch Magnesium 2020-09 Yes 400mg Take 400 Uni vers Hydroxide 2-09 mg by ity of 400 mg (170 15:14: [place]. [place] [facility] Medical magnesium) Branch Chew citalopram 2020-09 Yes 20mg Take 20 mg U nivers (CELEXA) 20 2-09 by mouth ity of mg tablet 15:14: daily. [place] [address] Medical Branch medium 2020-09 Yes Take by Univers chain 2-09 mouth. ity of triglycerid 15:14: [facility] (MCT OIL 36 Medical ORAL) Branch omega 2020-09 Yes 1000mg Take 1,000 Univ ers 3-dha-epa-f 2-09 mg by ity of joseph oil 15:14: mouth. [place] (FISH OIL) Medical 100-160-1,0 Branch 00 mg Cap vitamin 2020-09 Yes 1000ug Take 1,000 Un robert B-12 2-09 mcg by ity of (VITAMIN 15:14: mouth [place] B-12) 1,000 36 daily. Medica l mcg tablet Branch COCONUT OIL 2020-09 Yes Take by Uni vers ORAL 2-09 mouth. ity of 15:14: [address] Branch atorvastati 2020-09 Yes 20mg Take 20 mg Univers n 20 mg 2-09 by mouth ity of tablet 15:14: at [place] [address] bedtime. Medical Branch Donepezil 2020-09 Yes Take by Unive rs (ARICEPT) 2-09 mouth. ity of 23 mg Tab 15:14: [place] [address] Medical Branch nitroglycer 2020-[address] 0.4 U nivers in 2-09 mg under ity of (NITROSTAT) 15:14: the tongue [place] 0.4 mg 36 every 5 Medical sublingual (five) Branch tablet minutes as needed for Chest pain. traMADol 2020-09 Yes 50mg Take 50 mg Uni vers (ULTRAM) 50 2-09 by mouth ity of mg/10 mL 15:14: every 4 [place] oral 36 (four) Medical syringe hours as Branch needed. Docusate Yes 100mg Take 100 Univ ers Sodium 100 9-09 mg by ity of mg tablet 16:20: mouth. [address] Branch Docusate Yes 100mg Take 100 Univ ers Sodium 100 9-09 mg by ity of mg tablet 16:20: mouth. [address] Branch Docusate Yes 100mg Take 100 Univ ers Sodium 100 9-09 mg by ity of mg tablet 16:20: mouth. [address] Docusate 0 Yes 100mg Take 100 Univ ers Sodium 100 9-09 mg by ity of mg tablet 16:20: mouth. [address] pravastatin Yes Method i (PRAVACHOL) 1-24 st 40 MG 00:00: Hospita tablet 00 l pravastatin Yes Method i (PRAVACHOL) -24 st 40 MG 00:00: Hospita tablet 00 l pravastatin Yes Method i (PRAVACHOL) 24 st 40 MG 00:00: Hospita tablet 00 l pravastatin Yes Method i (PRAVACHOL) 10-01 st 40 MG 00:00: Hospita tablet 00 l metoclopram Yes Method i morenita 04-10 ([facility]) 10 00:00: Hospit a MG tablet 00 l SUPREP 2016-0 Yes Methodi BOWEL PREP 04-10 st KIT 00:00: Hospita 17.5-3.13-1 00 l .6 gram recon soln metoclopram Yes Method i morenita 04-10 ([facility]) 10 00:00: Hospit a MG tablet 00 l SUPREP 0 Yes Methodi BOWEL PREP 04-10 st KIT 00:00: Hospita 17.5-3.13-1 00 l .6 gram recon soln metoclopram 2016-0 Yes Method i morenita 04-10 ([facility]) 10 00:00: Hospit a MG tablet 00 l SUPREP 2016-0 Yes Methodi BOWEL PREP 04-10 st KIT 00:00: Hospita 17.5-3.13-1 00 l .6 gram recon soln metoclopram 2016-0 Yes Method i morenita 04-10 ([facility]) 10 00:00: Hospit a MG tablet 00 l SUPREP 2016-0 Yes Methodi BOWEL PREP 04-10 st KIT 00:00: Hospita 17.5-3.13-1 00 l .6 gram recon soln amoxicillin 2016- Yes Method i (AMOXIL) 04-02 st 500 MG 00:00: Hospita capsule 00 l amoxicillin Yes Method i (AMOXIL) 04-02 st 500 MG 00:00: Hospita capsule 00 l amoxicillin Yes Method i (AMOXIL) 7-26 st 500 MG 00:00: Hospita capsule 00 l amoxicillin 2017-0 Yes Method i (AMOXIL) 7-26 st 500 MG 00:00: Hospita capsule 00 l pravastatin 2017-0 Yes 20mg QD Take 20 mg Methodi (PRAVACHOL) 1-[address] 20 MG 00:00: daily. Hospita tablet 00 l pravastatin 2017-0 Yes 20mg QD Take 20 mg Methodi (PRAVACHOL) 1-[address] 20 MG 00:00: daily. Hospita tablet 00 l pravastatin 2017-0 Yes 20mg QD Take 20 mg Methodi (PRAVACHOL) 1-[address] 20 MG 00:00: daily. Hospita tablet 00 l pravastatin 2017-0 Yes 20mg QD Take 20 mg Methodi [...] Hospi ta 40 MG EC l tablet finasteride 2015-09 Yes 5mg QD [...] Hospita capsule,ext 00 l ended release 24hr Losartan Losartan No 1{table QD Losartan Potassium [...] B12 Liquid No 15{ml} QD B12 Liquid [facility] Booster Booster Booster 1000 1000 [...] B12 Liquid No 15{ml} QD B12 Liquid [facility] Booster Booster Booster 1000 1000 [...] Liquid B12 Liquid No 15{ml} QD B12 [facility] Booster Booster Booster 1000 1000 1000 [...] Liquid B12 Liquid No 15{ml} QD B12 [facility] Booster Booster Booster 1000 1000 1000 [...] QD CeleXA 20 MG MG t} MG Vital Signs Vital Name Observation Time Observation Value Comments Source height 2021-11-09 13:30:00 71 [in_i] [facility] weight 2021-11-09 13:30:00 160 [lb_av] [facility] temperature 2021-11-09 13:30:00 98.2 [degF] [facility] bmi 2021-11-09 13:30:00 22.31 kg/m2 [facility] oximetry 2021-11-09 13:30:00 97.1 % [facility] respiratory rate 2021-11-09 13:30:00 18 /min Comm on [facility] blood pressure 2021-11-09 13:30:00 160 mm[Hg] Common [facility] - systolic [facility] blood pressure 2021-11-09 13:30:00 66 mm[Hg] Common [facility] - diastolic [facility] Systolic blood 2021-08-16 21:23:00 151 mm[Hg] [facility] Diastolic blood 2021-08-16 21:23:00 60 mm[Hg] Unive [facility] Heart rate 2021-08-16 21:23:00 58 /min Universi [facility] Respiratory rate 2021-08-16 21:17:00 22 /min [facility] Body height 2021-08-16 21:17:00 [facility]3 [facility] Body weight 2021-08-16 21:17:00 78.926 kg [facility] BMI 2021-08-16 21:17:00 24.27 kg/m2 [facility] Oxygen saturation in 2021-08-16 21:17:00 98 /min [facility] Arterial blood by [facility] Pulse oximetry Branch height 2021-07-16 13:00:00 71 [in_i] [facility] weight 2021-07-16 13:00:00 179 [lb_av] [facility] temperature 2021-07-16 13:00:00 98.3 [degF] [facility] bmi 2021-07-16 13:00:00 24.96 kg/m2 [facility] oximetry 2021-07-16 13:00:00 95 % [facility] blood pressure 2021-07-16 13:00:00 130 mm[Hg] [facility] - systolic [facility] blood pressure 2021-07-16 13:00:00 61 mm[Hg] [facility] - diastolic [facility] Systolic blood 2022-03-22 19:39:00 153 mm[Hg] [facility] pressure Diastolic blood 2022-03-22 19:39:00 74 mm[Hg] [facility] pressure Heart rate 2022-03-22 19:39:00 57 /min [facility] Body height 2022-03-22 19:39:00 180.3 cm [facility] Body weight 2022-03-22 19:39:00 78.563 kg [facility] BMI 2022-03-22 19:39:00 24.16 kg/m2 [facility] Oxygen saturation in 2022-03-22 19:39:00 97 /min [facility] Arterial blood by Pulse oximetry Procedures Procedure Date / Time Performing Clinician Source Performed ECG 12-LEAD 2022-03-22 19:54:15 Kenn Fuller [facility] DME/SUPPLY JUSTIFICATION 2021-08-20 06:01:00 Doctor Unassigned, No [facility] Plan of Care Planned Activity Planned Date Details Comments Source Future Scheduled 2022-09-10 COVID-19 VACCINE (#1) [facility] Hospital Test 10:41:34 [code = COVID-19 VACCINE (#1)] Future Scheduled 2022-09-10 65+ PNEUMOCOCCAL Methodi [facility] Test 10:41:34 VACCINE (1 - PCV) [code = 65+ PNEUMOCOCCAL VACCINE (1 - PCV)] Future Scheduled 2022-09-10 SHINGLES VACCINES (1 Met [facility] Hospital Test 10:41:34 of 2) [code = SHINGLES VACCINES (1 of 2)] Future Scheduled 2022-09-10 INFLUENZA VACCINE Method is Hospital Test 10:41:34 [code = INFLUENZA VACCINE] Future Scheduled 2022-07-18 HEPATITIS B VACCINES Met [facility] Test 15:57:47 (1 of 3 - 3-dose series) [code = HEPATITIS B VACCINES (1 of 3 - 3-dose series)] Future Scheduled 2022-07-18 COVID-19 VACCINE (#1) [facility] Hospital Test 15:57:47 [code = COVID-19 VACCINE (#1)] Future Scheduled 2022-07-18 65+ P[facility]UMOCOCCAL [facility] Test 15:57:47 VACCINE (1 - PCV) [code = 65+ PNEUMOCOCCAL VACCINE (1 - PCV)] Future Scheduled 2022-07-18 SHINGLES VACCINES (1 Met [facility] Hospital Test 15:57:47 of 2) [code = SHINGLES VACCINES (1 of 2)] Future Scheduled 2022-07-18 INFLUENZA VACCINE Method is Hospital Test 15:57:47 [code = INFLUENZA VACCINE] Future Scheduled 2022-07-18 HEPATITIS B VACCINES Met [facility] Test 15:57:47 (1 of 3 - 3-dose series) [code = HEPATITIS B VACCINES (1 of 3 - 3-dose series)] Future Scheduled 2022-07-18 COVID-19 VACCINE (#1) [facility] Hospital Test 15:57:47 [code = COVID-19 VACCINE (#1)] Future Scheduled 2022-07-18 65+ PNEUMOCOCCAL [facility] Test 15:57:47 VACCINE (1 - PCV) [code = 65+ PNEUMOCOCCAL VACCINE (1 - PCV)] Future Scheduled 2022-07-18 SHINGLES VACCINES (1 Met [facility] Test 15:57:47 of 2) [code = SHINGLES VACCINES (1 of 2)] Future Scheduled 2022-07-18 INFLUENZA VACCINE Method [facility] Test 15:57:47 [code = INFLUENZA VACCINE] Future Scheduled 2022-04-24 HEPATITIS B VACCINES Met [facility] Test 09:34:27 (1 of 3 - 3-dose series) [code = HEPATITIS B VACCINES (1 of 3 - 3-dose series)] Future Scheduled 2022-04-24 COVID-19 VACCINE (#1) Me [facility] [place] Test 09:34:27 [code = COVID-19 VACCINE (#1)] Future Scheduled 2022-04-24 65+ PNEUMOCOCCAL Methodi Hospital Test 09:34:27 VACCINE (1 - PCV) [code = 65+ PNEUMOCOCCAL VACCINE (1 - PCV)] Future Scheduled 2022-04-24 SHINGLES VACCINES (1 Met [facility] Test 09:34:27 of 2) [code = SHINGLES VACCINES (1 of 2)] Future Scheduled 2022-04-24 INFLUENZA VACCINE [facility] Test 09:34:27 [code = INFLUENZA VACCINE] Encounters Start End Encounter Admission Attending Care Care Encounter Source Date/Time Date/Time Type Type Clinicians Facility Department ID 2021-10-03 Outpatient Ade, [facility] [id number] Common 14:08:18 Anshul [id number] [facility] 2021-10-03 Outpatient Ade, [facility] [id number] Common 13:12:42 Anshul [id number] [facility] 2022-05-24 2022-05-24 (TEL) [facility] [id number] Co mmon 00:00:00 00:00:00 [facility] 2022-04-19 2022-04-19 [facility] [id number] Methodi 16:45:00 17:00:00 Kenn mccormick [id number] [id number] Hospit [id number] .[id number] l .8 2022-04-19 2022-04-19 Telemedici Valderraban 1.2.840.1 [id number] Methodi 16:45:00 17:00:00 ne o, [place] [address]046.1.[address] V. 3.430.2.7 Hospit a .3.494266 l .8 2022-04-18 2022-04-18 Telephone Valderraban 1.2.840.1 [id number] Methodi 00:00:00 00:00:00 o, Kenn [address]344.1.[address] V. 3.430.2.7 Hospit a .3.636025 l .8 2022-04-18 2022-04-18 Telephone Valderraban 1.2.840.1 [id number] Methodi 00:00:00 00:00:00 o, Kenndon Chilel50.1.[address] V. 3.430.2.7 Hospit a .3.198308 l .8 2022-04-10 2022-04-10 Telephone Valderraban 1.2.840.1 [id number] Methodi 00:00:00 00:00:00 o, [place] [address]64.1.[address] V. 3.430.2.7 Hospit a .3.319160 l .8 2022-04-10 2022-04-10 Telephone Valderraban 1.2.840.1 [id number] Methodi 00:00:00 00:00:00 o, Kenn [address]22.1.[address] V. 3.430.2.7 Hospit a .3.931130 l .8 2022-03-22 2022-03-22 Office Valderraban 1.2.840.1 [id number] Methodi 14:00:00 15:17:00 Visit o, Kenn Chilel50.1.[address] V. 3.430.2.7 Hospit a .3.666065 l .8 2022-03-22 2022-03-22 Office Valderraban 1.2.840.1 [id number] Methodi 14:00:00 15:17:00 Visit Kenn kim 33990.1.[address] V. 3.430.2.7 Hospit a .3.484060 l .8 2022-03-22 2022-03-22 Travel 1.2.840.1 1.2.410.763 [id number] Methodi 00:00:00 00:00:[address] 3.430.2.7 0.2.7.3.698 Ho spita .3.262003 084.8 l .8 2022-03-22 2022-03-22 Travel 1.2.840.1 1.2.338.970 [id number] Methodi 00:00:00 00:00:[address] 3.430.2.7 0.2.7.3.698 Ho spita .3.317809 084.8 l .8 2022-01-10 2022-01-10 (TEL) STLMLC STLMLC [id number] Co mmon 00:00:00 00:00:00 [facility] 2022-01-09 2022-01-09 Phone Only STLMLC STLMLC [id number] Common 00:00:00 00:00:00 Visit for Spir it Est MCR [facility] 2021-11-16 2021-11-16 (TEL) STLMLC STLMLC [id number] Co mmon 00:00:00 00:00:00 [facility] 2021-11-09 2021-11-09 (PROC) STLMLC STLMLC [id number] Co mmon 00:00:00 00:00:00 Procedure Spir it [facility] 2021-08-23 2021-08-23 Telephone CHERELLE Brandon 1.2.147.219 [id number] Univers 00:00:00 00:00:00 Krystyna NAIR 350.1.13.10 [place] [phone] [place]ical NAL 0[facility] 2021-08-20 2021-08-20 Orders Doctor OLIVIA 1.2.840.114 [id number] Univers 00:00:00 00:00:00 Only Unassigned, PEEWEE 350.1.13.10 ity of [place] [facility] 4.2.7.2.686 Terry as [phone] [address] 2021-08-16 2021-08-16 Outpatient R KRYSTYNA BRANDON [facility] 10 [id number] Univers 15:00:00 15:45:27 KRYSTYNA BRANDON i ty [facility] 2021-08-16 2021-08-16 [facility] 1.2.840.114 [id number] Univers 14:58:58 15:45:27 [facility] 350.1.13.10 i [place] [phone] Va dicrachel NAL [address] [place] [address] 2021-08-16 2021-08-16 Outpatient R KRYSTYNA BRANDON [facility] 10 [id number] Univers 15:00:00 15:00:00 KRYSTYNA BRANDON i ty [facility] 2021-07-26 2021-07-26 OL DIG E/M STLMLC STLC [id number] Common 00:00:00 00:00:00 [facility] 5-10 Spiri t MIN [facility] 2021-07-18 2021-07-18 (TEL) STLMLC STLMLC [id number] Co mmon 00:00:00 00:00:00 Spirit - [facility] 2021-07-16 2021-07-16 (PROC) STLMLC STLMLC [id number] Co mmon 00:00:00 00:00:00 Procedure Spir it - [facility] 2021-05-17 2021-05-17 Office Keiko [facility] 1.2.840.114 [id number] Univers 15:27:51 16:36:22 Visit Krystyna [place] 350.1.13.10 i ty [place] [phone] Va dical nal [address] [facility] 2021-05-17 2021-05-17 Outpatient R KRYSTYNA BRANDON [facility] 10 [id number] Univers 15:10:00 15:10:00 KRYSTYNA BRANDON i ty of [facility] 2021-05-17 2021-05-17 Orders Doctor OLIVIA 1.2.840.114 [id number] Univers 00:00:00 00:00:00 Only Unassigned, PEEWEE 350.1.13.10 ity of [place] [facility]PITAL 4.2.7.2.686 Terry as [phone] [facility] [address] 2021-05-17 2021-05-17 Orders Doctor OLIVIA 1.2.840.114 [id number] Univers 00:00:00 00:00:00 Only Unassigned, PEEWEE 350.1.13.10 ity of [place] HOSPITAL 4.2.7.2.686 Terry as [phone] [address] Results Test Description Test Time Test [...] Atrial fibrillation with slow vent ricular response- [address]2022-07-16 05:43:23 Test Item Value Reference Range Interpretation [...] code = 273) with slow ventricular response- [address]2022-07-16 05:43:23 Test Item Value Reference Range Interpretation [...] code = 273) with slow ventricular response- [address]2022-07-16 05:43:23 Test Item Value Reference Range Interpretation [...] code = 273) with slow ventricular response- [facility]
--- NOTE | 2022-09-10 13:57 | RAD REPORT ---
EXAM DESCRIPTION: RAD - Thoracic Spine Ap/Lat - 09/10/2022 1:27 pm CLINICAL HISTORY: PAIN COMPARISON: No comparisons FINDINGS/IMPRESSION: No acute fracture. Partially imaged thoracolumbar curvature. Diffuse disc heigh t loss and endplate spurring that is moderate. Sternotomy. Stent graft at the thoracic aorta. Questi on large gallstone in the right upper quadrant.
[2022-09-10 14:15] LABS: Urine Blood Negative (Negative); Urine Glucose Negative (Negative); Urine Protein Negative (Negative); Urine Specific Gravity 1.015 (1.005-1.030)
[2022-09-10 14:32] LABS: Urine Bacteria None Seen /HPF (<20); Urine Crystals Unidentified Few /HPF (None Seen); Urine Mucus Slight /HPF (None Seen); Urine RBC <5 /HPF (None Seen); Urine WBC Clump Rare /HPF (None Seen)
--- NOTE | 2022-09-10 14:44 | ER ---
Nurse's Notes [facility] Name: Bridger Murillo Age: 81 yrs Sex: Male : 1940 Arrival Date: 09/10/2022 Time: 11:09 Bed 14 Private MD: Diagnosis: Pain in thoracic spine Presentation: 09/10 11:15 Chief complaint: EMS states: Toned out for back pain, hx of back pain. Coronavirus jl7 screen: At this time, the client does not indicate any symptoms associated with coronavirus-19. Ebola Screen: No symptoms or risks identified at this time. Initial Sepsis Screen: Does the patient meet any 2 criteria? No. Patient's initial sepsis screen is negative. Does the patient have a suspected source of infection? No. Patient's initial sepsis screen is negative. Risk Assessment: Do you want to hurt yourself or someone else? Patient reports no desire to harm self or others. 11:15 Method Of Arrival: EMS: [facility] 11:15 Acuity: VALENCIA 4 jl7 12:01 Note reports inability to pick pt up, pt's back back has worsened over the last jl7 month. Onset of symptoms was August 2022. Triage Assessment: 12:01 General: Appears in no apparent distress. uncomfortable, Behavior is calm, cooperative, jl7 appropriate for age. Pain: Complains of pain in back. Musculoskeletal: Swelling absent. Historical: - Allergies: 12:01 Nemenda; jl7 12:01 Sulfa (Sulfonamide Antibiotics); jl7 - PMHx: 12:01 Alzheimer's; Anemia; aortic valve disease; Atrial Fib; barretts; Bladder cancer; BPH; jl7 CAD; CVA; Hyperlipidemia; Hypertension; Kidney stones; Non stemi [place]; skin cancer; - PSHx: 12:01 Bipass; Colostomy; jl7 - Immunization history:: Client reports receiving the 2nd dose of the Covid vaccine. - Social history:: Smoking status: Patient denies any tobacco usage or history of. Screenin:41 [facility] ED Fall Risk Assessment (Adult) History of falling in the last 3 months, kc6 including since admission No falls in past 3 months (0 pts) Confusion or Disorientation Yes (5 pts) Intoxicated or Sedated No (0 pts) Impaired Gait Yes (1 pt) Mobility Assist Device Used Yes (1 pt) Altered Elimination Yes (1 pt) Score/Fall Risk Level 3 or more points = High Risk Oriented to surroundings, Maintained a safe environment, Educated pt \T\ family on fall prevention, incl call for assistance when getting out of bed, Assessed \T\ reinforced patient's understanding of fall precautions, Provided non-skid footwear, Hourly rounding (assess needs \T\ fall precautionary measures) done, Used ambulatory aids as needed (educated on \T\ assisted with), Used gait belt as appropriate Implemented a Fall Risk Plan of Care, Apply high fall risk patient identification: yellow non skid footwear/ fall signage, Placed fall mat w/ non beveled edge next to bed, Activated bed/chair alarm, Remained w/in arm's length of patient and in sight while toileting, Offered frequent toileting (1:1 observation), Remained with patient while ambulating, Utilized family, sitter, or virtual refrigeration mechanic helper as indicated. Abuse screen: Denies threats or abuse. Denies injuries from another. Nutritional screening: No deficits noted. Tuberculosis screening: No symptoms or risk factors identified. Assessment: 13:48 General: Appears in no apparent distress. uncomfortable, Behavior is calm, cooperative, kc6 appropriate for age. Pain: Complains of pain in back Pain does not radiate. Pain currently is 5 out of 10 on a pain scale. at worst was 10 out of 10 on a pain scale. Quality of pain is described as sharp, Pain began gradually, Is continuous, Alleviated by rest, Aggravated by increased activity, repositioning, Noted to be resistant to movement, Also complains of no other associated symptoms. Neuro: Byrnes Agitation-Sedation Scale (RASS): 0 - Alert and Calm Level of Consciousness is awake, alert, obeys commands, Oriented to person, place, time, situation, Appropriate for age. Cardiovascular: Heart tones S1 S2 present Capillary refill < 3 seconds. Respiratory: Airway is patent Trachea midline Respiratory effort is even, unlabored, Respiratory pattern is regular, symmetrical, Breath sounds are clear bilaterally. GI: No signs and/or symptoms were reported involving the gastrointestinal system. : No signs and/or symptoms were reported regarding the genitourinary system. EENT: No signs and/or symptoms were reported regarding the EENT system. Derm: No signs and/or symptoms reported regarding the dermatologic system. Skin is intact, Skin is pink, warm \T\ dry. Musculoskeletal: No signs and/or symptoms reported regarding the musculoskeletal system. Circulation, motion, and sensation intact. Capillary refill < 3 seconds, Range of motion: intact in all extremities. Vital Signs: 11:15 BP 136 / 72; Pulse 60; Resp 15; Temp 98.2; Pulse Ox 96% ; Weight 81.19 kg; Height 5 ft. jl7 11 in. (180.34 cm); Pain 10/10; 13:49 BP 149 / 75; Pulse 63; Resp 18 S; Pulse Ox 94% on R/A; kc6 11:15 Body Mass Index 24.97 (81.19 kg, 180.34 cm) 7 ED Course: 11:09 Patient arrived in ED. mr 11:31 Ellen Shook FNP is PHCP. [facility] 11:31 Rc Perales MD is Attending Physician. [facility] 12:01 Triage completed. [facility] 12:01 Arm band placed on right wrist. [facility] 13:29 XRAY Thoracic Spine (Ap/lat) In Process Unspecified. EDND 13:29 Michell Turk, ISABELLE is Primary Nurse. kc6 13:42 Patient has correct armband on for positive identification. Bed in low position. Call kc6 light in reach. Side rails up X2. Adult w/ patient. 14:15 Urine Microscopic Only Sent. vg1 15:22 No provider procedures requiring assistance completed. Patient did not have IV access kc6 during this emergency room visit. Administered Medications: No medications were administered Medication: 15:22 VIS not applicable for this client. 6 Outcome: 14:43 Discharge ordered by . [facility] 15:22 Discharged to home via wheelchair, with family. 6 15:22 Condition: stable 15:22 Discharge instructions given to patient, family, Instructed on discharge instructions, follow up and referral plans. Demonstrated understanding of instructions, follow-up care. 15:22 Patient left the ED. 6 Signatures: Dispatcher [employer] EDND Rae Dixon mr WilkersonDeepika, RN RN [email or web address] Mayra Howell RN RN vg1 Ellen Shook FNP FNP jh7 Campbell, Kaitlyn, RN RN kc
--- NOTE | 2022-09-10 14:44 | EDPHYS ---
Physician Documentation [facility] Name: Bridger Murillo Age: 81 yrs Sex: Male : 1940 Arrival Date: 09/10/2022 Time: 11:09 Bed 14 Private MD: ED Physician Rc Perales HPI: 09/10 12:00 This 81 yrs old Male presents to ER via EMS with complaints of Back Pain. jh7 12:00 The patient presents with pain that is chronic, with no known mechanism of injury. The jh7 symptoms are located in the mid back area. Onset: The symptoms/episode began/occurred 3 year(s) ago, and became worse 1 week(s) ago. The pain does not radiate. Associated signs and symptoms: The patient has no apparent associated signs or symptoms, Pertinent negatives: abdominal pain, chest pain, constipation, dysuria, fever, hematuria, nausea, tingling, urinary retention, vomiting. 81-year-old male presents with intermittent worsening back pain since [place]. The reports that he has a history of DDD. Denies any trauma. states that he has a history of Alzheimer's and has been extra rude at home, so she wanted to ensure that that there was nothing else medically going on.. Historical: - Allergies: 12:01 Nemenda; jl7 12:01 Sulfa (Sulfonamide Antibiotics); jl7 - PMHx: 12:01 Alzheimer's; Anemia; aortic valve disease; Atrial Fib; barretts; Bladder cancer; BPH; jl7 CAD; CVA; Hyperlipidemia; Hypertension; Kidney stones; Non stemi [place]; skin cancer; - PSHx: 12:01 Bipass; Colostomy; jl7 - Immunization history:: Client reports receiving the 2nd dose of the Covid vaccine. - Social history:: Smoking status: Patient denies any tobacco usage or history of. ROS: 12:00 Constitutional: Negative for fever, chills, and weight loss, Neck: Negative for injury, jh7 pain, and swelling, Cardiovascular: Negative for chest pain, palpitations, and edema, Respiratory: Negative for shortness of breath, cough, wheezing, and pleuritic chest pain, Abdomen/GI: Negative for abdominal pain, nausea, vomiting, diarrhea, and constipation, MS/Extremity: Negative for injury and deformity, Skin: Negative for injury, rash, and discoloration, Neuro: Negative for headache, weakness, numbness, tingling, and seizure. 12:00 Back: Positive for pain with movement, Negative for injury or acute deformity. 12:00 All other systems are negative. Exam: 12:00 Constitutional: This is a well developed, well nourished patient who is awake, alert, jh7 and in no acute distress. Neck: Trachea midline, no thyromegaly or masses palpated, and no cervical lymphadenopathy. Supple, full range of motion without nuchal rigidity, or vertebral point tenderness. No Meningismus. Cardiovascular: Regular rate and rhythm with a normal S1 and S2. No gallops, murmurs, or rubs. Normal PMI, no JVD. No pulse deficits. Respiratory: Lungs have equal breath sounds bilaterally, clear to auscultation and percussion. No rales, rhonchi or wheezes noted. No increased work of breathing, no retractions or nasal flaring. Abdomen/GI: Soft, non-tender, with normal bowel sounds. No distension or tympany. No guarding or rebound. No evidence of tenderness throughout. Skin: Warm, dry with normal turgor. Normal color with no rashes, no lesions, and no evidence of cellulitis. MS/ Extremity: Pulses equal, no cyanosis. Neurovascular intact. Full, normal range of motion. Neuro: Awake and alert, GCS 15, oriented to person, place, time, and situation. Motor strength 5/5 in all extremities. Sensory grossly intact. 12:00 Back: pain, that is mild, of the mid back area, ROM is decreased, with all movement, History of DDD, the patient is wheelchair-bound at this time and not ambulating, CVA tenderness, is absent, vertebral tenderness, is not appreciated, muscle spasm, is not present. Vital Signs: 11:15 BP 136 / 72; Pulse 60; Resp 15; Temp 98.2; Pulse Ox 96% ; Weight 81.19 kg; Height 5 ft. jl7 11 in. (180.34 cm); Pain 10/10; 13:49 BP 149 / 75; Pulse 63; Resp 18 S; Pulse Ox 94% on R/A; kc6 11:15 Body Mass Index 24.97 (81.19 kg, 180.34 cm) [facility] MDM: 11:31 Patient medically screened. [facility] 14:45 Differential diagnosis: arthritis, chronic back pain, Fracture vertebral fracture, jh7 Herniated disc, degenerative disease, thoracic strain. Data reviewed: vital signs, nurses notes, radiologic studies, plain films. Data interpreted: Pulse oximetry: is 94 %. Interpretation: normal. Test interpretation: by ED physician or midlevel provider: plain radiologic studies. Counseling: I had a detailed discussion with the patient and/or guardian regarding: the historical points, exam findings, and any diagnostic results supporting the discharge/admit diagnosis, to return to the emergency department if symptoms worsen or persist or if there are any questions or concerns that arise at home. ED course: Patient remains talkative and in no distress the entire visit. Spoke to the patient's but states that he is getting more difficult to take care at at home, and his Alzheimer's often causes him to be rude to her and other family members. Stated that he has had this back pain for years, but just wanted to be sure. The patient ate an entire meal during discharge discussion and did not complain of any pain. The patient's provided most of the patient's history and stated that she will likely work on getting him placed into a alf since she is unable to care for him any longer at home. If he develops any new concerning symptoms, she may return to the ER for further eval.. 09/10 12:45 Order name: Urine Microscopic Only; Complete Time: 14:35 [facility] 09/10 14:15 Order name: Urine Dipstick-Ancillary; Complete Time: 14:19 EDWV 09/10 11:54 Order name: XRAY Thoracic Spine (Ap/lat); Complete Time: 14:19 [facility] 09/10 12:45 Order name: Urine Dipstick-Ancillary (obtain specimen); Complete Time: 14:15 [facility] 09/10 14:38 Order name: Urine Culture EDWV Administered Medications: No medications were administered Disposition: 17:23 Co-signature as Attending Physician, Rc Perales MD I agree with the assessment and rt plan of care. Disposition Summary: 09/10/22 14:43 Discharge Ordered Location: Home [facility] Problem: new [facility] Symptoms: are unchanged [facility] Condition: Stable [facility] Diagnosis - Pain in thoracic spine [facility] Followup: [facility] - With: Private Physician - When: 2 - 3 days - Reason: Recheck today's complaints Discharge Instructions: - Discharge Summary Sheet jh7 - Chronic Back Pain jh7 Forms: - Medication Reconciliation Form 7 - Thank You Letter 7 Signatures: Dispatcher [employer] Deepika Kowalski RN RN jl7 Ellen Shook, NURSING SERVICE DIRECTOR NURSING SERVICE DIRECTOR jh7 Rc Perales MD MD rt
[2022-09-10 15:33] VITALS: TEMP 98.2
[2022-09-10 15:35] VITALS: BP 149/75; O2SAT 94
== END 2022-09-10 15:22 | disposition home or self-care (01) ==
LOC: ER 10:38
DX: M54.6 Pain in thoracic spine (principal); G30.9 Alzheimer's disease, unspecified; F02.80 Dementia in other diseases classified elsewhere, unspecified severity, without behavioral disturbance, psychotic disturbance, mood disturbance, and anxiety; I10 Essential (primary) hypertension; Z88.2 Allergy status to sulfonamides; Z88.8 Allergy status to other drugs, medicaments and biological substances
CPT/HCPCS: 72070; 81003; 81015; 87086; 87088; 99283

== ENCOUNTER 2022-09-23 09:34 | Inpatient (IN) | payer OTHER, MEDICARE ==
--- OUTSIDE RECORDS SUMMARY | 2022-09-23 09:39 | XMS REPORT | Continuity of Care Document ---
:1940 Author Organization [facility] t Address [address] [place] [address] Care Team Providers Name Role Phone Anshul Booker MD Primary Care Physician Anshul Booker Attending Clinician Unavailable Alina PRITCHARD, Kenn Zimmerman Attending Clinician [phone] Krystyna Brandon DO Attending Clinician Doctor Unassigned, [place] Attending Clinician Unavailable KRYSTYNA BRANDON Attending Clinician Unavailable KRYSTYNA BRANDON Attending Clinician Unavailable Payers Payer Name Policy Type Policy Number Effective Date Expiration Date S ource MEDICARE MB [id number] [facility] AAR C1 [id number] [facility] MEDICARE MB [id number] [facility] NOVITAS [facility] AARP C1 [id number] [facility] C1 [id number] [facility] MEDICARE MB [id number] [facility] Problems Condition Condition Condition Status Onset Resolution [...] of problems problems [facility] [id number] Personal Problem Comm on history of Spirit bladder - [facility] cancer [facility] [id number] 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 disease Natural father [facility] Social History Social Habit Start Date Stop Date Quantity Comments Source Exposure to Not sure University of SARS-CoV-2 [place] [facility] (event) Branch History of [facility] - Tobacco Use [facility] Tobacco use and 2017-12-02 2017-12-02 Smokeless tobacco [facility] exposure 00:00:00 00:00:00 non-user Sex Ass[birth year] At [birth year] [facility] 00:00:00 00:00:00 Smoking Status Start Date Stop Date Source Former Smoker 2022-04-10 00:00:00 2022-04-10 00:00:00 [facility] - [facility] Medications Ordered Filled Start Stop Current [...] C) 15 daily. l 1000 MG tablet amLODIPine 2021-0 Yes 5mg QD Take 5 [...] times a day with meals. melatonin 3 2-0 Yes 3mg QD Take 3 mg M [...] 1,000 Me thodi fatty 7-15 mg by acids-vitam 14:46: mouth 2 Hos chula in [...] NUT.TX,META 2021-0 Yes Take by Met mary Mott.DIS, 7-[address] MV-MINS 14:46: Hospita NO.2 [...] 2021-0 Yes 100mg QD Take 100 Meth mayr sodium 7-[address] (COLACE) 14:46: [...] mouth. st 14:46: Hospita 14 l amLODIPine 2022-0 Yes 5mg QD Take 5 mg Me thodi (NORVASC) 5 7-[address] mg tablet 14:46: daily. Hospit a 14 l NUT.TX,META Yes Take by Met mary IrelandDIS, 7-[address] MV-MINS 14:46: Hospita NO.2 (AXONA 14 l ORAL) levothyroxi Yes 50ug QD Take 50 Met hodi ne 7-[address] (SYNTHROID) 14:46: mouth Hospi ta 50 mcg 14 daily. l tablet aspirin 81 Yes Take by Meth mary mg capsule 7-[address] 14:46: Hospita 14 l Amoxicillin Amoxicillin 2021- No 1{capsu TID Amoxicilli 500 MG 500 MG -11-26 le} n 500 MG 00:00: 00:00 00 :00 amLODIPine 2020-09 Yes 5mg Take 5 mg Un robert 5 mg tablet 2-09 by mouth ity of 15:14: daily. [address] tamsulosin 2020-09 Yes .4mg Take 0.4 Uni vers 0.4 mg 24 2-09 mg by ity of hr capsule 15:14: mouth. [address] finasteride 2020-09 Yes 5mg Take 5 mg U nivers 5 mg tablet 2-09 by mouth. ity of 15:14: [address] levothyroxi 2020-09 Yes 50ug Take 50 Uni vers ne 50 mcg 2-09 mcg by ity of tablet 15:14: mouth. [address] vitamin C 2020-09 Yes 1000mg Take 1,000 Univers with alban 2-09 mg by ity of hips 1,000 15:14: mouth. [place] mg tablet [address] [place] [address] aspirin 81 2020-09 Yes 81mg Take 81 mg U nivers mg Cap 2-09 by mouth. ity of 15:14: [address] Magnesium 2020-09 Yes 400mg Take 400 Uni vers Hydroxide 2-09 mg by ity of 400 mg (170 15:14: [place] [address] [place] [address] magnesium) Branch Chew citalopram 2020-09 Yes 20mg Take 20 mg U nivers (CELEXA) 20 2-09 by mouth ity of mg tablet 15:14: daily. [address] Branch medium 2020-09 Yes Take by Univers chain 2-09 mouth. ity of triglycerid 15:14: [place] es (MCT OIL 36 Medical ORAL) Branch omega 2020-09 Yes 1000mg Take 1,000 Univ ers 3-dha-epa-f 2-09 mg by ity of joseph oil 15:14: mouth. [place] (FISH OIL) Medical 100-160-1,0 Branch 00 mg Cap vitamin 2020-09 Yes 1000ug Take 1,000 Un robert B-12 2-09 mcg by ity of (VITAMIN 15:14: mouth [place] B-12) 1,000 36 daily. Medica l mcg tablet Branch COCONUT OIL 2020-09 Yes Take by Uni vers ORAL 2-09 mouth. ity of 15:14: [address] Branch atorvastati 2020-09 Yes 20mg Take 20 mg Univers n 20 mg 2-09 by mouth ity of tablet 15:14: at [place] [address] bedtime. Medical Branch Donepezil 2020-09 Yes Take by Unive rs (ARICEPT) 2-09 mouth. ity of 23 mg Tab 15:14: [address] Branch nitroglycer 2020-[address] 0.4 U nivers in 2-09 mg under ity of (NITROSTAT) 15:14: the tongue [place] 0.4 mg 36 every 5 Medical sublingual (five) Branch tablet minutes as needed for Chest pain. traMADol 2020-09 Yes 50mg Take 50 mg Uni vers (ULTRAM) 50 2-09 by mouth ity of mg/10 mL 15:14: every 4 [place] [address] (four) Medical syringe hours as Branch needed. pravastatin 2020-09 Yes 40mg Take 40 mg Univers 40 mg 2-09 by mouth. ity of tablet 15:14: [address] Branch furosemide 2020-09 Yes 10mg Take 10 mg U nivers 20 mg 2-09 by mouth. ity of tablet 15:14: [address] Branch niacin 500 2020-09 Yes 500mg Take 500 Un robert mg tablet 2-09 mg by ity of 15:14: mouth 2 [place] 36 (two) Medical times Branch daily. losartan 2020-09 Yes 100mg Take 100 Univ ers 100 mg 2-09 mg by ity of tablet 15:14: mouth [place] [address] daily. Medical Branch amLODIPine 2020-09 Yes 5mg Take 5 mg Un robert 5 mg tablet 2-09 by mouth ity of 15:14: daily. [address] Branch tamsulosin 2020-09 Yes .4mg Take 0.4 Uni vers 0.4 mg 24 2-09 mg by ity of hr capsule 15:14: mouth. [address] finasteride 2020-09 Yes 5mg Take 5 mg U nivers 5 mg tablet 2-09 by mouth. ity of 15:14: [address] levothyroxi 2020-09 Yes 50ug Take 50 Uni vers ne 50 mcg 2-09 mcg by ity of tablet 15:14: mouth. [address] vitamin C 2020-09 Yes 1000mg Take 1,000 Univers with alban 2-09 mg by ity of hips 1,000 15:14: mouth. [place] mg tablet [address] [place] [address] Branch aspirin 81 2020-09 Yes 81mg Take 81 mg U nivers mg Cap 2-09 by mouth. ity of 15:14: [address] Magnesium 2020-09 Yes 400mg Take 400 Uni vers Hydroxide 2-09 mg by ity of 400 mg (170 15:14: [place]. [place] magnesium) Branch Chew citalopram 2020-09 Yes 20mg Take 20 mg U nivers (CELEXA) 20 2-09 by mouth ity of mg tablet 15:14: daily. [address] medium 2020-09 Yes Take by Univers chain 2-09 mouth. ity of triglycerid 15:14: [place] es (MCT OIL 36 Medical ORAL) Branch omega 2020-09 Yes 1000mg Take 1,000 Univ ers 3-dha-epa-f 2-09 mg by ity of joseph oil 15:14: mouth. [place] (FISH OIL) Medical 100-160-1,0 Branch 00 mg Cap vitamin 2020-09 Yes 1000ug Take 1,000 Un robert B-12 2-09 mcg by ity of (VITAMIN 15:14: mouth [place] B-12) 1,000 36 daily. Medica l mcg tablet Branch COCONUT OIL 2020-09 Yes Take by Uni vers ORAL 2-09 mouth. ity of 15:14: [address] atorvastati 2020-09 Yes 20mg Take 20 mg Univers n 20 mg 2-09 by mouth ity of tablet 15:14: at [place] [address] bedtime. Medical Branch Donepezil 2020-09 Yes Take by Unive rs (ARICEPT) 2-09 mouth. ity of 23 mg Tab 15:14: [address] Branch nitroglycer 2020-[address] 0.4 U nivers in 2-09 mg under ity of (NITROSTAT) 15:14: the tongue [place] 0.4 mg 36 every 5 Medical sublingual (five) Branch tablet minutes as needed for Chest pain. traMADol 2020-09 Yes 50mg Take 50 mg Uni vers (ULTRAM) 50 2-09 by mouth ity of mg/10 mL 15:14: every 4 [place] oral (four) Medical syringe hours as Branch needed. pravastatin 2020-09 Yes 40mg Take 40 mg Univers 40 mg 2-09 by mouth. ity of tablet 15:14: [address] Branch furosemide 2020-09 Yes 10mg Take 10 mg U nivers 20 mg 2-09 by mouth. ity of tablet 15:14: [address] Branch niacin 500 2020-09 Yes 500mg Take 500 Un robert mg tablet 2-09 mg by ity of 15:14: mouth 2 [place] [address] (two) Medical times Branch daily. losartan 2020-09 Yes 100mg Take 100 Univ ers 100 mg 2-09 mg by ity of tablet 15:14: mouth [place] [address] daily. Medical Branch amLODIPine 2020-09 Yes 5mg Take 5 mg Un robert 5 mg tablet 2-09 by mouth ity of 15:14: daily. [address] Branch tamsulosin 2020-09 Yes .4mg Take 0.4 Uni vers 0.4 mg 24 2-09 mg by ity of hr capsule 15:14: mouth. [address] Branch finasteride 2020-09 Yes 5mg Take 5 mg U nivers 5 mg tablet 2-09 by mouth. ity of 15:14: [address] levothyroxi 2020-09 Yes 50ug Take 50 Uni vers ne 50 mcg 2-09 mcg by ity of tablet 15:14: mouth. [address] vitamin C 2020-09 Yes 1000mg Take 1,000 Univers with alban 2-09 mg by ity of hips 1,000 15:14: mouth. [place] mg tablet Medical Branch aspirin 81 2020-09 Yes 81mg Take 81 mg U nivers mg Cap 2-09 by mouth. ity of 15:14: [address] Branch Magnesium 2020-09 Yes 400mg Take 400 Uni vers Hydroxide 2-09 mg by ity of 400 mg (170 15:14: [place]. [place] mg 36 [place] magnesium) Branch Chew citalopram 2020-09 Yes 20mg Take 20 mg U nivers (CELEXA) 20 2-09 by mouth ity of mg tablet 15:14: daily. [place] [address] Medical Branch medium 2020-09 Yes Take by Univers chain 2-09 mouth. ity of triglycerid 15:14: [place] es (MCT OIL 36 Medical ORAL) Branch omega 2020-09 Yes 1000mg Take 1,000 Univ ers 3-dha-epa-f 2-09 mg by ity of joseph oil 15:14: mouth. [place] (FISH OIL) Medical 100-160-1,0 Branch 00 mg Cap vitamin 2020-09 Yes 1000ug Take 1,000 Un robert B-12 2-09 mcg by ity of (VITAMIN 15:14: mouth [place] B-12) 1,000 36 daily. Medica l mcg tablet Branch COCONUT OIL 2020-09 Yes Take by Uni vers ORAL 2-09 mouth. ity of 15:14: [address] Branch atorvastati 2020-09 Yes 20mg Take 20 mg Univers n 20 mg 2-09 by mouth ity of tablet 15:14: at [place] [address] bedtime. Medical Branch Donepezil 2020-09 Yes Take by Unive rs (ARICEPT) 2-09 mouth. ity of 23 mg Tab 15:14: [address] Branch nitroglycer 2020-[address] 0.4 U nivers in 2-09 mg under ity of (NITROSTAT) 15:14: the tongue [place] 0.4 mg 36 every 5 Medical sublingual (five) Branch tablet minutes as needed for Chest pain. traMADol 2020-09 Yes 50mg Take 50 mg Uni vers (ULTRAM) 50 2-09 by mouth ity of mg/10 mL 15:14: every 4 [place] oral 36 (four) Medical syringe hours as Branch needed. pravastatin 2020-09 Yes 40mg Take 40 mg Univers 40 mg 2-09 by mouth. ity of tablet 15:14: [address] furosemide 2020-09 Yes 10mg Take 10 mg U nivers 20 mg 2-09 by mouth. ity of tablet 15:14: [address] Branch niacin 500 2020-09 Yes 500mg Take 500 Un robert mg tablet 2-09 mg by ity of 15:14: mouth 2 [place] [address] (two) Medical times Branch daily. losartan 2020-09 Yes 100mg Take 100 Univ ers 100 mg 2-09 mg by ity of tablet 15:14: mouth [place] [address] daily. Medical Branch amLODIPine 2020-09 Yes 5mg Take 5 mg Un robert 5 mg tablet 2-09 by mouth ity of 15:14: daily. [address] Branch tamsulosin 2020-09 Yes .4mg Take 0.4 Uni vers 0.4 mg 24 2-09 mg by ity of hr capsule 15:14: mouth. [address] finasteride 2020-09 Yes 5mg Take 5 mg U nivers 5 mg tablet 2-09 by mouth. ity of 15:14: [address] levothyroxi 2020-09 Yes 50ug Take 50 Uni vers ne 50 mcg 2-09 mcg by ity of tablet 15:14: mouth. [address] vitamin C 2020-09 Yes 1000mg Take 1,000 Univers with alban 2-09 mg by ity of hips 1,000 15:14: mouth. [place] mg tablet [address] [place] [address] Branch aspirin 81 2020-09 Yes 81mg Take 81 mg U nivers mg Cap 2-09 by mouth. ity of 15:14: [address] Magnesium 2020-09 Yes 400mg Take 400 Uni vers Hydroxide 2-09 mg by ity of 400 mg (170 15:14: [place]. [place] mg [place] magnesium) Branch Chew citalopram 2020-09 Yes 20mg Take 20 mg U nivers (CELEXA) 20 2-09 by mouth ity of mg tablet 15:14: daily. [address] medium 2020-09 Yes Take by Univers chain 2-09 mouth. ity of triglycerid 15:14: [place] es (MCT OIL Medical ORAL) Branch omega 2020-09 Yes 1000mg Take 1,000 Univ ers 3-dha-epa-f 2-09 mg by ity of joseph oil 15:14: mouth. [place] (FISH OIL) Medical 100-160-1,0 Branch 00 mg Cap vitamin 2020-09 Yes 1000ug Take 1,000 Un robert B-12 2-09 mcg by ity of (VITAMIN 15:14: mouth [place] B-12) 1,000 36 daily. Medica l mcg tablet Branch COCONUT OIL 2020-09 Yes Take by Uni vers ORAL 2-09 mouth. ity of 15:14: [place] [address] Medical Branch atorvastati 2020-09 Yes 20mg Take 20 mg Univers n 20 mg 2-09 by mouth ity of tablet 15:14: at [place] [address] bedtime. Medical Branch Donepezil 2020-09 Yes Take by Unive rs (ARICEPT) 2-09 mouth. ity of 23 mg Tab 15:14: [place] [address] Medical Branch nitroglycer 2020-[address] 0.4 U nivers in 2-09 mg under ity of (NITROSTAT) 15:14: the tongue [place] 0.4 mg 36 every 5 Medical sublingual (five) Branch tablet minutes as needed for Chest pain. traMADol 2020-09 Yes 50mg Take 50 mg Uni vers (ULTRAM) 50 2-09 by mouth ity of mg/10 mL 15:14: every 4 [place] [address] (four) Medical syringe hours as Branch needed. pravastatin 2020-09 Yes 40mg Take 40 mg Univers 40 mg 2-09 by mouth. ity of tablet 15:14: [address] Branch furosemide 2020-09 Yes 10mg Take 10 mg U nivers 20 mg 2-09 by mouth. ity of tablet 15:14: [address] Branch niacin 500 2020-09 Yes 500mg Take 500 Un robert mg tablet 2-09 mg by ity of 15:14: mouth 2 [place] 36 (two) Medical times Branch daily. losartan 2020-09 Yes 100mg Take 100 Univ ers 100 mg 2-09 mg by ity of tablet 15:14: mouth [place] [address] daily. Medical Branch Docusate Yes 100mg Take 100 Univ ers Sodium 100 9-09 mg by ity of mg tablet 16:20: mouth. [address] Branch Docusate Yes 100mg Take 100 Univ ers Sodium 100 9-09 mg by ity of mg tablet 16:20: mouth. [address] Docusate Yes 100mg Take 100 Univ ers Sodium 100 9-09 mg by ity of mg tablet 16:20: mouth. [address] Docusate Yes 100mg Take 100 Univ ers Sodium 100 9-09 mg by ity of mg tablet 16:20: mouth. [address] pravastatin Yes Method i (PRAVACHOL) 1-24 [...] l metoclopram Yes Method i morenita 04-10 ([facility]) 10 00:00: Hospit a MG tablet 00 l SUPREP 0 Yes Methodi BOWEL PREP 04-10 st KIT 00:00: Hospita 17.5-3.13-1 00 l .6 gram recon soln metoclopram Yes Method i morenita 04-10 ([facility]) 00:00: Hospit a MG tablet 00 l SUPREP 2016-0 Yes Methodi BOWEL PREP 04-10 st KIT 00:00: Hospita 17.5-3.13-1 00 l .6 gram recon soln metoclopram Yes Method i morenita 04-10 ([facility]) 10 00:00: Hospit a MG tablet 00 l SUPREP 2016-0 Yes Methodi BOWEL PREP 04-10 st KIT 00:00: Hospita 17.5-3.13-1 00 l .6 gram recon soln metoclopram 2016- Yes Method i morenita 04-10 ([facility]) 00:00: Hospit a MG tablet 00 l SUPREP 2016-0 Yes Methodi BOWEL PREP 04-10 st KIT 00:00: Hospita 17.5-3.13-1 00 l .6 gram recon soln metoclopram Yes Method i morenita 8-03 st ([facility]) 10 00:00: Hospit a MG tablet 00 l SUPREP 2017- Yes Methodi BOWEL PREP 04-10 st KIT [...] 00:00: daily. Hospita tablet 00 l pravastatin Yes 20mg QD Take 20 mg Methodi (PRAVACHOL) 1-[address] 20 MG 00:00: daily. Hospita tablet 00 l pravastatin Yes 20mg QD Take 20 mg Methodi (PRAVACHOL) 1-[address] 20 MG 00:00: daily. Hospita tablet 00 l pravastatin Yes 20mg QD Take 20 mg Methodi (PRAVACHOL) 1-[address] 20 MG 00:00: daily. Hospita tablet 00 l pravastatin Yes 20mg QD Take [...] 00:00: daily. Hospita tablet 00 l citalopram 2017 Yes 20mg QD Take 20 mg M [...] Hospita capsule,ext 00 l ended release 24hr Magnesium Magnesium No Magnesium 400 MG 400 [...] B12 Liquid No 15{ml} QD B12 Liquid [facility] Booster Booster 1000 1000 [...] B12 Liquid No 15{ml} QD B12 Liquid [facility] Health Health Booster Booster Booster 1000 1000 [...] 1000 UNIT 1000 UNIT t} 1000 UNIT Vital Signs Vital Name Observation Time Observation Value Comments Source height 2021-11-09 13:30:00 71 [in_i] [facility] weight 2021-11-09 13:30:00 160 [lb_av] [facility] temperature 2021-11-09 13:30:00 98.2 [degF] [facility] bmi 2021-11-09 13:30:00 22.31 kg/m2 [facility] oximetry 2021-11-09 13:30:00 97.1 % [facility] respiratory rate 2021-11-09 13:30:00 18 /min Comm on [facility] blood pressure 2021-11-09 13:30:00 160 mm[Hg] Common [facility] - systolic [facility] blood pressure 2021-11-09 13:30:00 66 mm[Hg] Common [facility] - diastolic [facility] Systolic blood 2021-08-16 21:23:00 151 mm[Hg] Univer sity of pressure [facility] Diastolic blood 2021-08-16 21:23:00 60 mm[Hg] Unive rsity of [facility] Heart rate 2021-08-16 21:23:00 58 /min [facility] Respiratory rate 2021-08-16 21:17:00 22 /min [facility] Body height 2021-08-16 21:17:00 180.3 cm [facility] Body weight 2021-08-16 21:17:00 78.926 kg [facility] BMI 2021-08-16 21:17:00 24.27 kg/m2 [facility] Oxygen saturation in 2021-08-16 21:17:00 98 /min [facility] Arterial blood by [facility] Pulse oximetry Branch height 2021-07-16 13:00:00 71 [in_i] [facility] weight 2021-07-16 13:00:00 179 [lb_av] [facility] temperature 2021-07-16 13:00:00 98.3 [degF] [facility] bmi 2021-07-16 13:00:00 24.96 kg/m2 [facility] oximetry 2021-07-16 13:00:00 95 % [facility] blood pressure 2021-07-16 13:00:00 130 mm[Hg] [facility] - systolic [facility] blood pressure 2021-07-16 13:00:00 61 mm[Hg] [facility] - diastolic [facility] Systolic blood 2022-03-22 19:39:00 153 mm[Hg] [facility] pressure Diastolic blood 2022-03-22 19:39:00 74 mm[Hg] [facility] pressure Heart rate 2022-03-22 19:39:00 57 /min [facility] Body height 2022-03-22 19:39:00 180.3 cm [facility] Body weight 2022-03-22 19:39:00 78.563 kg [facility] BMI 2022-03-22 19:39:00 24.16 kg/m2 [facility] Oxygen saturation in 2022-03-22 19:39:00 97 /min [facility] Arterial blood by Pulse oximetry Procedures Procedure Date / Time Performing Clinician Source Performed ECG 12-LEAD 2022-03-22 19:54:15 Kenn Fuller [facility] V. DME/SUPPLY JUSTIFICATION 2021-08-20 06:01:00 Doctor Unassigned, No [facility] Plan of Care Planned Activity Planned Date Details Comments Source Future Scheduled 2022-09-10 COVID-19 VACCINE (#1) [facility] Test 10:41:34 [code = COVID-19 VACCINE (#1)] Future Scheduled 2022-09-10 65+ PNEUMOCOCCAL [facility] Test 10:41:34 VACCINE (1 - PCV) [code = 65+ PNEUMOCOCCAL VACCINE (1 - PCV)] Future Scheduled 2022-09-10 SHINGLES VACCINES (1 Met [facility] Test 10:41:34 of 2) [code = SHINGLES VACCINES (1 of 2)] Future Scheduled 2022-09-10 INFLUENZA VACCINE Method [facility] Test 10:41:34 [code = INFLUENZA VACCINE] Future Scheduled 2022-09-10 COVID-19 VACCINE (#1) [facility] Test 10:41:34 [code = COVID-19 VACCINE (#1)] Future Scheduled 2022-09-10 65+ PNEUMOCOCCAL [facility] Test 10:41:34 VACCINE (1 - PCV) [code = 65+ PNEUMOCOCCAL VACCINE (1 - PCV)] Future Scheduled 2022-09-10 SHINGLES VACCINES (1 Met [facility] Test 10:41:34 of 2) [code = SHINGLES VACCINES (1 of 2)] Future Scheduled 2022-09-10 INFLUENZA VACCINE Method [facility] Test 10:41:34 [code = INFLUENZA VACCINE] Future Scheduled 2022-07-18 HEPATITIS B VACCINES Met [facility] Test 15:57:47 (1 of 3 - 3-dose series) [code = HEPATITIS B VACCINES (1 of 3 - 3-dose series)] Future Scheduled 2022-07-18 COVID-19 VACCINE (#1) [facility] Test 15:57:47 [code = COVID-19 VACCINE (#1)] Future Scheduled 2022-07-18 65+ PNEUMOCOCCAL [facility] Test 15:57:47 VACCINE (1 - PCV) [code = 65+ PNEUMOCOCCAL VACCINE (1 - PCV)] Future Scheduled 2022-07-18 SHINGLES VACCINES (1 Met [facility] Test 15:57:47 of 2) [code = SHINGLES VACCINES (1 of 2)] Future Scheduled 2022-07-18 INFLUENZA VACCINE Method [facility] Test 15:57:47 [code = INFLUENZA VACCINE] Future Scheduled 2022-07-18 HEPATITIS B VACCINES Met [facility] Test 15:57:47 (1 of 3 - 3-dose series) [code = HEPATITIS B VACCINES (1 of 3 - 3-dose series)] Future Scheduled 2022-07-18 COVID-19 VACCINE (#1) [facility] Test 15:57:47 [code = COVID-19 VACCINE (#1)] Future Scheduled 2022-07-18 65+ [facility] 15:57:47 VACCINE (1 - PCV) [code = 65+ PNEUMOCOCCAL VACCINE (1 - PCV)] Future Scheduled 2022-07-18 SHINGLES VACCINES (1 Met [facility] Test 15:57:47 of 2) [code = SHINGLES VACCINES (1 of 2)] Future Scheduled 2022-07-18 INFLUENZA VACCINE Method [facility] Test 15:57:47 [code = INFLUENZA VACCINE] Future Scheduled 2022-04-24 HEPATITIS B VACCINES Met [facility] Test 09:34:27 (1 of 3 - 3-dose series) [code = HEPATITIS B VACCINES (1 of 3 - 3-dose series)] Future Scheduled 2022-04-24 COVID-19 VACCINE (#1) [facility] Test 09:34:27 [code = COVID-19 VACCINE (#1)] Future Scheduled 2022-04-24 65+ [facility] 09:34:27 VACCINE (1 - PCV) [code = 65+ PNEUMOCOCCAL VACCINE (1 - PCV)] Future Scheduled 2022-04-24 SHINGLES VACCINES (1 Met [facility] Test 09:34:27 of 2) [code = SHINGLES VACCINES (1 of 2)] Future Scheduled 2022-04-24 INFLUENZA VACCINE Method [facility] Test 09:34:27 [code = INFLUENZA VACCINE] Encounters Start End Encounter Admission Attending Care Care Encounter Source Date/Time Date/Time Type Type Clinicians Facility Department ID 2021-10-03 Outpatient Ade [facility] [id number] Common 14:08:18 An[place]ul [id number] [place] [facility] 2021[facility]03 Outpatient Ade, STLMLC STLMLC [id number] Common 13:12:42 Anshul [id number] [facility] 2022-05-24 2022-05-24 (TEL) STLMLC STLMLC [id number] Co mmon 00:00:00 00:00:00 [facility] 2022-04-19 2022-04-19 Telemedici Valderraban 1.2.840.1 [id number] Methodi 16:45:00 17:00:00 ne o, Kenn [address].1.[address] V. 3.430.2.7 Hospit a .3.689754 l .8 2022-04-19 2022-04-19 Telemedici Valderraban 1.2.840.1 [id number] Methodi 16:45:00 17:00:00 [place], [place] [address].1.[address] V. 3.430.2.7 Hospit a .3.439882 l .8 2022-04-18 2022-04-18 Telephone Valderraban 1.2.840.1 [id number] Methodi 00:00:00 00:00:00 o, [place] [address].1.[address] V. 3.430.2.7 Hospit a .3.704714 l .8 2022-04-18 2022-04-18 Telephone Valderraban 1.2.840.1 [id number] Methodi 00:00:00 00:00:00 o, Kenn [address]006.1.[address] V. 3.430.2.7 Hospit a .3.786221 l .8 2022-04-10 2022-04-10 Telephone Valderraban 1.2.840.1 [id number] Methodi 00:00:00 00:00:00 o, [place] [address].1.[address] V. 3.430.2.7 Hospit a .3.046124 l .8 2022-04-102022-04-10 Telephone Valderraban 1.2.840.1 [id number] Methodi 00:00:00 00:00:00 [place] [address]58.1.[address] V. 3.430.2.7 Hospit a .3.185754 l .8 2022-03-22 2022-03-22 Office Valderraban 1.2.840.1 [id number] Methodi 14:00:00 15:17:[address] V. 3.430.2.7 Hospit a .3.925504 l .8 2022-03-22 2022-03-22 Office Valderraban 1.2.840.1 [id number] Methodi 14:00:00 15:17:00 Visit Kenn kim.1.[address] V. 3.430.2.7 Hospit a .3.315148 l .8 2022-03-22 2022-03-22 Travel 1.2.840.1 1.2.513.340 [id number] Methodi 00:00:00 00:00:[address] 3.430.2.7 0.2.7.3.698 Ho spita .3.120234 084.8 l .8 2022-03-22 2022-03-22 Travel 1.2.840.1 1.2.670.573 [id number] Methodi 00:00:00 00:00:[address] 3.430.2.7 0.2.7.3.698 Ho spita .3.369740 084.8 l .8 2022-01-10 2022-01-10 (TEL) STLMLC STLMLC [id number] Co mmon 00:00:00 00:00:00 [facility] 2022-01-09 2022-01-09 Phone Only STLMLC STLMLC [id number] Common 00:00:00 00:00:00 Visit for Spir it Est MCR - [facility] 2021-11-16 2021-11-16 (TEL) STLMLC STLMLC [id number] Co mmon 00:00:00 00:00:00 Spirit - [facility] 2021-11-09 2021-11-09 (PROC) STLMLC STLMLC [id number] Co mmon 00:00:00 00:00:00 Procedure Spir it - [facility] 2021-08-23 2021-08-23 Telephone Keiko [facility] 1.2.366.705 [id number] Univers 00:00:00 00:00:00 Krystyna GALICIA 350.1.13.10 i ty [place] [phone] [place] dic[address] 2021-08-20 2021-08-20 Orders Doctor [place] 1.2.840.114 [id number] Univers 00:00:00 00:00:00 Only Unassigned, PEEWEE 350.1.13.10 ity of [place] [facility] 4.2.7.2.686 [place] as [phone] [address] 2021-08-16 2021-08-16 Outpatient R KRYSTYNA BRANDON [facility] 10 [id number] Univers 15:00:00 15:45:27 KRYSTYNA BRANDON i ty of [facility] 2021-08-16 2021-08-16 Office Keiko [facility] 1.2.840.114 [id number] Univers 14:58:58 15:45:27 Visit Krystyna GALICIA 350.1.13.10 i [place] [phone] N[place] dical NAL [address] [place] [address] 2021-08-16 2021-08-16 Outpatient R KRYSTYNA BRANDON [facility] 10 [id number] Univers 15:00:00 15:00:00 KRYSTYNA BRANDON i ty of [facility] 2021-07-26 2021-07-26 OL DIG E/M STLMLC STLC [id number] Common 00:00:00 00:00:00 SVC 5-10 Spiri t MIN [facility] 2021-07-18 2021-07-18 (TEL) STLMLC STLMLC [id number] Co mmon 00:00:00 00:00:00 Spirit [facility] 2021-07-16 2021-07-16 (PROC) STLMLC STLMLC [id number] Co mmon 00:00:00 00:00:00 Procedure Spir [facility] 2021-05-17 2021-05-17 Office Keiko [facility] 1.2.840.114 [id number] Univers 15:27:51 16:36:22 Visit Krystyna Galicia 350.1.13.[address] [facility] [place] [phone] N[place] dic[address] 2021-05-17 2021-05-17 Outpatient R KRYSTYNA BRANDON [facility] 10 [id number] Univers 15:10:00 15:10:00 KRYSTYNA BRANDON i ty of [facility] 2021-05-17 2021-05-17 Orders Doctor OLIVIA 1.2.840.114 [id number] Univers 00:00:00 00:00:00 Only Unassigned, PEEWEE 350.1.13.10 ity of [place] [facility] 4.2.7.2.686 [place] as [phone] [address] 2021-05-17 2021-05-17 Orders Doctor OLIVIA 1.2.840.114 [id number] Univers 00:00:00 00:00:00 Only Unassigned, PEEWEE 350.1.13.10 ity of [place] [facility] 42.7.2.686 [place] as [phone] [address] Results Test Description Test Time Test [...] Atrial fibrillation with slow vent ricular response- [address]2022-07-16 05:43:23 Test Item Value Reference Range [...] code = 273) with slow ventricular response- [address]2022-07-16 05:43:23 Test Item Value Reference Range [...] code = 273) with slow ventricular response- [address]2022-07-16 05:43:23 Test Item Value Reference Range [...] code = 273) with slow ventricular response- [address]2022-07-16 05:43:23 Test Item Value Reference Range [...] slow ventricular response- [facility]
[2022-09-23] MEDS ORDERED: FAMOTIDINE 20 MG/2 ML VIAL IV ONE (10:08)
[2022-09-23 10:37] LABS: Absolute Lymphocytes (CBC) 0.8 K/uL (0.7-4.9); Lymphocytes % 9.5 % (15.3-44.8); MCV 89.2 fL (80-100); MPV 9.4 fL (7.6-11.3); Protime INR 1.12; RBC Red Blood Cell Count 2.31 M/uL (4.33-5.43)
[2022-09-23] MEDS ORDERED: PANTOPRAZOLE 40 MG INJ ONE ×2 (10:41→11:04)
[2022-09-23 10:49] LABS: Hematocrit 20.6 % (39.6-49.0)
[2022-09-23 10:54] LABS: Albumin 3.2 g/dL (3.4-5.0); Bilirubin Total 0.3 mg/dL (0.2-1.0); Potassium 4.3 mmol/L (3.5-5.1); Troponin High Sensitivity 34.6 pg/mL (<58.9)
[2022-09-23] MEDS ORDERED: DIPHENHYDRAMINE 50 MG/ML VIAL ONE (11:01)
[2022-09-23] MEDS ORDERED: HYDROCORTISONE SUC 100 MG INJ ONE (11:01)
[2022-09-23] MEDS ORDERED: NA CHLORIDE 0.9% 0 ML ONE ×2 (11:01→11:04)
[2022-09-23] MEDS ORDERED: ACETAMINOPHEN 325 MG TABLET ONE (11:01)
--- NOTE | 2022-09-23 11:33 | RAD REPORT ---
EXAM DESCRIPTION: CT - Head C Spine Cap Wo Con - 09/23/2022 11:12 am CLINICAL HISTORY: Trauma, head and neck injury. Chest, abdomen and pelvis pain. fall, head injury, hematemesis COMPARISON: Abdomen Pelvis Wo Contrast dated 03/20/2022; CT ABD PELVIS W CONTRAST dated 07/12/2014; Abdomen Pelvis Wo Contrast dated 02/08/2017; Abdomen Pelvis Wo Contrast dated 01/02/2017 TECHNIQUE: CT head without contrast. CT cervical spine without contrast with coronal and sagittal reformatted images. CT chest, abdomen and pelvis with coronal and sagittal reformatted images of the spine. All CT scans are performed using dose optimization technique as appropriate and may include automated exposure control or mA/KV adjustment according to patient size. FINDINGS: CT HEAD WITHOUT CONTRAST: No intracranial hemorrhage, hydrocephalus or extra-axial fluid collection. No acute large vascular te rritory infarct. Age advanced cerebral atrophy. Mild chronic small vessel ischemic changes. The paranasal sinuses and mastoids are clear. The calvarium is intact. CT CERVICAL SPINE WITHOUT CONTRAST: No fracture or subluxation. The prevertebral soft tissues are normal in thickness.Trace retrolisthesis of C3 on C4. Approximately 3 millimeters anterolisthesis of C4 on C5. Slight compression deformity at C6 favored chronic. Cervi edwardo spondylosis is noted. Varying degrees of neural foraminal narrowing. This is most advanced on the right side at at C3-4 and C4-5. Carotid artery calcifications. CT CHEST, ABDOMEN, PELVIS: Thorax: Chest Wall: No abnormal mass. Gynecomastia. Lungs: Dependent atelectasis. Low lung volumes. Pleura: No effusions or pneumothorax. Nela/Mediastinum: No lymphadenopathy. Aorta/Pulmonary Arteries: Aortic valve prosthesis. Heart: Mild cardiomegaly. Multi-vessel coronary artery disease. Abdomen/Pelvis: Liver: Somewhat shrunken liver which may be secondary to cirrhosis but is nonspecific. Biliary: Cholelithiasis. No CT evidence of acute cholecystitis. Stomach: No significant focal abnormality. Duodenum: Duodenal diverticulum. Pancreas: Enlarging low-density 3.5 cm cystic lesion at the pancreatic neck body junction. No pancrea tic ductal dilatation. Spleen: No significant abnormality. Adrenal: No suspicious lesions. Kidney/ureter: No hydronephrosis. 10 mm stone in the right renal pelvis. No hydronephrosis. Bilateral renal lesions which are likely cysts. Retroperitoneum: No retroperitoneal adenopathy. Vascular: No aneurysm. Bowel: Moderate stool in the rectum. 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 No bowel obstruction. There is also a bowel containing ventral hernia. Diverticulosis is noted at the sigmoid.. Peritoneum: No ascites or free air. Bladder: Grossly unremarkable. Reproductive: No adnexal masses. Bones: No acute fracture. Sternotomy. Mild degenerative changes in the thoracic and lumbar spine. Other: n/a IMPRESSION: 1. Negative for acute traumatic findings within the head, neck, chest, abdomen, or pelv is. 2. Cystic lesion at the pancreatic body/neck junction which has been slowly enlarging since 2017. 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 Suggest 24 month follow-up MRCP if clinically indicated.
[2022-09-23] MEDS ORDERED: ACETAMINOPHEN 500 MG TAB PO PRN (11:46)
--- NOTE | 2022-09-23 11:51 | ER ---
Nurse's Notes [facility] Name: Bridger Murillo Age: 81 yrs Sex: Male : 1940 Arrival Date: 09/23/2022 Time: 09:37 Bed 5 Private MD: Diagnosis: GI Bleed/ Gastrointestinal hemorrhage, unspecified;Anemia, unspecified;Hematemesis Presentation: 09/23 09:38 Chief complaint: EMS states: client is vomiting up dark red blood. Coronavirus screen: kc6 At this time, the client does not indicate any symptoms associated with coronavirus-19. Ebola Screen: No symptoms or risks identified at this time. Initial Sepsis Screen: Does the patient meet any 2 criteria? No. Patient's initial sepsis screen is negative. Does the patient have a suspected source of infection? No. Patient's initial sepsis screen is negative. Risk Assessment: Do you want to hurt yourself or someone else? Patient reports no desire to harm self or others. Onset of symptoms was September 23, 2022. 09:38 Method Of Arrival: EMS: [facility] kc6 09:38 Acuity: VALENCIA 3 kc6 Triage Assessment: 09:39 General: Appears in no apparent distress. comfortable, Behavior is calm, cooperative, kc6 appropriate for age. Pain: Denies pain. EENT: No signs and/or symptoms were reported regarding the EENT system. Neuro: Byrnes Agitation-Sedation Scale (RASS): 0 - Alert and Calm Level of Consciousness is awake, alert, obeys commands, Oriented to person, place. Cardiovascular: Heart tones S1 S2 present Capillary refill < 3 seconds. Respiratory: Airway is patent Trachea midline Respiratory effort is even, unlabored, Respiratory pattern is regular, symmetrical, Breath sounds are clear bilaterally. GI: Abdomen is flat, non-distended, Colostomy site is clean and dry. Ostomy appliance is intact. Bowel sounds present X 4 quads. Parent/caregiver reports the patient having vomiting. : No signs and/or symptoms were reported regarding the genitourinary system. Derm: No signs and/or symptoms reported regarding the dermatologic system. Skin is intact, Skin is dry, Skin is pale, Skin temperature is warm. Musculoskeletal: No signs and/or symptoms reported regarding the musculoskeletal system. Circulation, motion, and sensation intact. Capillary refill < 3 seconds, Range of motion: intact in all extremities. Historical: - Allergies: 09:39 Nemenda; kc6 09:39 Sulfa (Sulfonamide Antibiotics); kc6 - Home Meds: 10:19 pantoprazole 40 mg oral TbEC [Active]; torsemide 10 mg oral tab [Active]; niacin 500 mg kc6 oral cap [Active]; Aricept 23 mg oral tab [Active]; pravastatin [Active]; losartan 100 mg oral tab [Active]; amlodipine 5 mg oral tab [Active]; tamsulosin 0.4 mg oral cap [Active]; finasteride 5 mg oral tab [Active]; levothyroxine 50 mcg oral tab [Active]; aspirin 81 mg oral cap [Active]; magnesium oxide 400 mg magnesium oral cap [Active]; Celexa 20 mg oral tab [Active]; prevagen [Active]; - PMHx: 09:39 Alzheimer's; Anemia; aortic valve disease; Atrial Fib; barretts; Bladder cancer; BPH; kc6 CAD; CVA; Hyperlipidemia; Hypertension; Kidney stones; Non stemi ND; skin cancer; - PSHx: 09:39 Bipass; Colostomy; kc6 - Immunization history:: Client reports receiving the 2nd dose of the Covid vaccine, Flu vaccine is up to date. - Social history:: Smoking status: Patient denies any tobacco usage or history of. Screenin:45 [facility] ED Fall Risk Assessment (Adult) History of falling in the last 3 months, kc6 including since admission No falls in past 3 months (0 pts) Confusion or Disorientation Yes (5 pts) Intoxicated or Sedated No (0 pts) Impaired Gait Yes (1 pt) Mobility Assist Device Used Yes (1 pt) Altered Elimination Yes (1 pt) Score/Fall Risk Level 3 or more points = High Risk Oriented to surroundings, Maintained a safe environment, Educated pt \\T\\ family on fall prevention, incl call for assistance when getting out of bed, Assessed \\T\\ reinforced patient's understanding of fall precautions, Provided non-skid footwear, Hourly rounding (assess needs \\T\\ fall precautionary measures) done, Used ambulatory aids as needed (educated on \\T\\ assisted with), Used gait belt as appropriate Remained w/in arm's length of patient and in sight while toileting, Offered frequent toileting (1:1 observation), Remained with patient while ambulating, Utilized family, sitter, or virtual associate pastor as indicated. Abuse screen: Denies threats or abuse. Denies injuries from another. Nutritional screening: No deficits noted. Tuberculosis screening: No symptoms or risk factors identified. Assessment: 09:44 Reassessment: please see triage assessment. [facility] 10:38 Reassessment: Patient appears in no apparent distress at this time. No changes from [facility] previously documented assessment. Patient and/or family updated on plan of care and expected duration. Pain level reassessed. client is awake, alert and oriented to person and place but not time and situation. respirations are even and unlabored. skin is warm, dry, and pale. Patient denies pain at this time. 11:45 Reassessment: Patient appears in no apparent distress at this time. No changes from kc6 previously documented assessment. Patient and/or family updated on plan of care and expected duration. Pain level reassessed. client is awake, alert and oriented to person and place but not time and situation. respirations even and unlabored. skin is warm, dry, and pale. spoke with outside lab. stated client is positive for antibodies and will have to receive blood for [facility]. Patient denies pain at this time. 12:45 Reassessment: Patient appears in no apparent distress at this time. No changes from kc6 previously documented assessment. Patient and/or family updated on plan of care and expected duration. Pain level reassessed. client is awake, alert and oriented to person and place but not situation and time. respirations even and unlabored. skin is warm, dry, and pale. Patient denies pain at this time. 13:45 Reassessment: Patient appears in no apparent distress at this time. No changes from kc6 previously documented assessment. Patient and/or family updated on plan of care and expected duration. Pain level reassessed. 14:10 Reassessment: client vomited bright red blood with clots while turning and kc6 repositioning. suction applied. client is awake, alert and at baseline. MANSI Bautista notified. 4th floor nurse notified as well. 14:45 Reassessment: MANSI Bautista notified of BP 63/55. cuff repositioned, BP now 112/57. [facility] 14:45 Reassessment: Patient appears in no apparent distress at this time. No changes from kc6 previously documented assessment. Patient and/or family updated on plan of care and expected duration. Pain level reassessed. 15:01 Reassessment: Julissa NAZARIO asked ETA of blood from [facility] to arrive; contacted vg1 Outside lab and was told "It could take another 3-4 hours since its coming from [place]" Notified Julissa NAZARIO, stated to administer maintenance fluid at 75 mL/hr and observe pt for an hour and if BP is 100 or greater systolic pt can go upstairs to assigned room. Vital Signs: 09:38 BP 115 / 68; Pulse 66; Resp 13 S; Temp 97.6(O); Pulse Ox 90% on R/A; Weight 83.01 kg kc6 (R); Height 5 ft. 11 in. (180.34 cm) (R); Pain 0/10; 10:38 BP 131 / 63; Pulse 67; Resp 16 S; Pulse Ox 100% on 2 lpm NC; kc6 11:38 BP 124 / 63; Pulse 63; Resp 16 S; Pulse Ox 91% on R/A; kc6 12:38 BP 111 / 64; Pulse 67; Resp 19 S; Pulse Ox 92% on 2 lpm NC; kc6 14:21 BP 103 / 53; Pulse 75; Resp 17 S; Pulse Ox 95% on R/A; kc6 14:45 BP 63 / 55; Pulse 68; Resp 18 S; Pulse Ox 92% on R/A; kc6 14:49 BP 112 / 57; Pulse 72; Resp 20 S; Pulse Ox 97% on R/A; kc6 14:51 BP 108 / 48; Pulse 70; Resp 16 S; Pulse Ox 96% on R/A; kc6 15:00 BP 95 / 68; Pulse 68; Resp 19; Pulse Ox 95% on R/A; ld1 15:15 BP 107 / 53; Pulse 73; Resp 17 S; Pulse Ox 98% on R/A; ld1 15:30 BP 112 / 58; Pulse 70; Resp 21 S; Pulse Ox 93% on R/A; kc6 15:45 BP 119 / 57; Pulse 68; Resp 18 S; Pulse Ox 95% on R/A; kc6 09:38 Body Mass Index 25.52 (83.01 kg, 180.34 cm) 6 ED Course: 09:37 Patient arrived in ED. bd 09:38 Michell Turk, ISABELLE is Primary Nurse. kc6 09:39 Triage completed. kc6 09:40 Mcihele Costa PA is PHCP. jmm 09:40 Rc Perales MD is Attending Physician. jmm 09:45 Patient has correct armband on for positive identification. Bed in low position. Call kc6 light in reach. Side rails up X2. 09:45 Arm band placed on. kc6 10:11 Missed attempt(s): 20 gauge in left forearm. ld1 10:11 Missed attempt(s): 22 gauge in right hand. vg1 10:19 Inserted saline lock: 22 gauge in left forearm, using aseptic technique. Blood aa5 collected. 11:13 CT Traumagram (Head C Spine CAP wo con) In Process Unspecified. EDMS 11:49 Anshul Booker MD is Hospitalizing Provider. jmm 11:52 SARS RAPID Sent. kc6 11:52 Antibody Identification Sent. kc6 14:17 No provider procedures requiring assistance completed. Patient admitted, IV remains in kc6 place. Administered Medications: 10:28 Drug: Pepcid (famotidine) 20 mg Route: IVP; Site: left forearm; kc6 11:30 Follow up: Response: No adverse reaction kc6 10:46 Drug: ProTONIX (pantoprazole) 40 mg Route: IVP; Site: left forearm; kc6 11:46 Follow up: Response: No adverse reaction kc6 11:23 Drug: ProTONIX (pantoprazole) 8 mg/hr Route: IV; Rate: 25 ml/hr; Site: left forearm; kc6 14:05 Drug: Zofran (Ondansetron) 4 mg Route: IVP; Site: left forearm; aa5 15:05 Follow up: Response: No adverse reaction; Nausea is decreased kc6 14:17 Drug: NS 0.9% 500 ml Route: IV; Rate: bolus; Site: left forearm; kc6 15:12 Follow up: Response: No adverse reaction; IV Status: Completed infusion; IV Intake: kc6 500ml 15:07 Drug: NS 0.9% 1000 ml Route: IV; Rate: 75 ml/hr; Site: left forearm; kc6 16:10 Follow up: IV Status: Infusion continued upon admission kc6 Medication: 14:18 VIS not applicable for this client. kc6 Intake: 15:12 IV: 500ml; Total: 500ml. kc6 Outcome: 11:50 Decision to Hospitalize by Provider. [facility] 14:17 Admitted to Med/surg accompanied by myinfoQ, via stretcher, room 407, with chart, Report kc6 called to ISABELLE Leon 14:17 Condition: stable 14:17 Instructed on the need for admit. 16:09 Patient left the ED. kc6 Signatures: Dispatcher [employer] EDMS Sheree Britt Joel, PA PA jmm Calderon, Audri, RN RN aa5 Mayra Howell RN RN vg1 Gi Gomez RN RN ld1 Michell Turk RN RN kc6 Corrections: (The following items were deleted from the chart) 10:19 09:38 BP 115 / 68; Pulse 66bpm; Resp 13bpm; Spontaneous; Pulse Ox 90% RA; Temp 97.6F kc6 Oral; Pain 0/10; kc6 10:48 10:47 Reassessment: Patient appears in no apparent distress at this time. No changes kc6 from previously documented assessment. Patient and/or family updated on plan of care and expected duration. Pain level reassessed. client is awake, alert and oriented to person and place but not time and situation. respiration are even and unlabored. skin is warm, dry, and pale. Patient denies pain at this time. kc6 11:54 10:38 Reassessment: Patient appears in no apparent distress at this time. No changes kc6 from previously documented assessment. Patient and/or family updated on plan of care and expected duration. Pain level reassessed. client is awake, alert and oriented to person and place but not time and situation. respiration are even and unlabored. skin is warm, dry, and pale. Patient denies pain at this time. kc6 14:30 14:17 Admitted to Med/surg accompanied by tech, via stretcher, room 406, with chart, kc6 Report called to ISABELLE Rivas kc6 15:00 14:10 Reassessment: client vomited bright red blood with clots while turning and kc6 repositioning. suction applied. client is awake, alert and at baseline. MANSI Bautista notified. kc6 15:24 15:21 BP 107 / 53; Pulse 73bpm; Resp 17bpm; Spontaneous; Pulse Ox 98% RA; kc6 ld1
--- NOTE | 2022-09-23 11:51 | EDPHYS ---
Physician Documentation [facility] Name: Bridger Murillo Age: 81 yrs Sex: Male : 1940 Arrival Date: 09/23/2022 Time: 09:37 Bed 5 Private MD: ED Physician Rc Perales HPI: 09/23 09:43 This 81 yrs old Male presents to ER via EMS with complaints of Vomiting, Blood. jmm 09:43 The patient presents to the emergency department with vomiting, described as dark red. jmm Onset: The symptoms/episode began/occurred acutely, just prior to arrival. Possible causes: flare up of bowel problem, barretts . The symptoms are aggravated by nothing. The symptoms are alleviated by nothing. The patient presents to the emergency department vomiting blood, dark brown, in a single episode. Abdominal pain: none is appreciated. Historical: - Allergies: 09:39 Nemenda; kc6 09:39 Sulfa (Sulfonamide Antibiotics); kc6 - Home Meds: 10:19 pantoprazole 40 mg oral TbEC [Active]; torsemide 10 mg oral tab [Active]; niacin 500 mg kc6 oral cap [Active]; Aricept 23 mg oral tab [Active]; pravastatin [Active]; losartan 100 mg oral tab [Active]; amlodipine 5 mg oral tab [Active]; tamsulosin 0.4 mg oral cap [Active]; finasteride 5 mg oral tab [Active]; levothyroxine 50 mcg oral tab [Active]; aspirin 81 mg oral cap [Active]; magnesium oxide 400 mg magnesium oral cap [Active]; Celexa 20 mg oral tab [Active]; prevagen [Active]; - PMHx: 09:39 Alzheimer's; Anemia; aortic valve disease; Atrial Fib; barretts; Bladder cancer; BPH; kc6 CAD; CVA; Hyperlipidemia; Hypertension; Kidney stones; Non stemi NM; skin cancer; - PSHx: 09:39 Bipass; Colostomy; kc6 - Immunization history:: Client reports receiving the 2nd dose of the Covid vaccine, Flu vaccine is up to date. - Social history:: Smoking status: Patient denies any tobacco usage or history of. ROS: 09:43 Constitutional: Negative for fever, chills, and weight loss, Cardiovascular: Negative jm for chest pain, palpitations, and edema, Respiratory: Negative for shortness of breath, cough, wheezing, and pleuritic chest pain. 09:43 Abdomen/GI: Positive for vomiting. 09:43 All other systems are negative. Exam: 09:43 Constitutional: This is a well developed, well nourished patient who is awake, alert, jmm and in no acute distress. Head/Face: atraumatic. Eyes: EOMI, no conjunctival erythema appreciated ENT: Moist Mucus Membranes Neck: Trachea midline, Supple Chest/axilla: Normal chest wall appearance and motion. Cardiovascular: Regular rate and rhythm. No edema appreciated Respiratory: Normal respirations, no respiratory distress appreciated Abdomen/GI: Non distended Back: Normal ROM Skin: General appearance color normal MS/ Extremity: Moves all extremities, no obvious deformities appreciated, no edema noted to the lower extremities 09:43 Neuro: Motor: is normal. 09:43 Psych: Behavior/mood is pleasant, cooperative. Vital Signs: 09:38 BP 115 / 68; Pulse 66; Resp 13 S; Temp 97.6(O); Pulse Ox 90% on R/A; Weight 83.01 kg kc6 (R); Height 5 ft. 11 in. (180.34 cm) (R); Pain 0/10; 10:38 BP 131 / 63; Pulse 67; Resp 16 S; Pulse Ox 100% on 2 lpm NC; kc6 11:38 BP 124 / 63; Pulse 63; Resp 16 S; Pulse Ox 91% on R/A; kc6 12:38 BP 111 / 64; Pulse 67; Resp 19 S; Pulse Ox 92% on 2 lpm NC; kc6 14:21 BP 103 / 53; Pulse 75; Resp 17 S; Pulse Ox 95% on R/A; kc6 14:45 BP 63 / 55; Pulse 68; Resp 18 S; Pulse Ox 92% on R/A; kc6 14:49 BP 112 / 57; Pulse 72; Resp 20 S; Pulse Ox 97% on R/A; kc6 14:51 BP 108 / 48; Pulse 70; Resp 16 S; Pulse Ox 96% on R/A; kc6 15:00 BP 95 / 68; Pulse 68; Resp 19; Pulse Ox 95% on R/A; ld1 15:15 BP 107 / 53; Pulse 73; Resp 17 S; Pulse Ox 98% on R/A; ld1 15:30 BP 112 / 58; Pulse 70; Resp 21 S; Pulse Ox 93% on R/A; kc6 15:45 BP 119 / 57; Pulse 68; Resp 18 S; Pulse Ox 95% on R/A; kc6 09:38 Body Mass Index 25.52 (83.01 kg, 180.34 cm) kc6 MDM: 09:43 Patient medically screened. [facility] 11:48 Data reviewed: vital signs, nurses notes. Consideration of Admission/Observation [facility] Patient was admitted/placed on observation. Management of patient was discussed with the following: Receiving Supervisor: Ralph. Primary Care Provider: Ade. I considered the following discharge prescriptions or medication management in the emergency department Medications were administered in the Emergency Department. See MAR. Historians other than the Patient: Spouse/Significant Other: . Counseling: I had a detailed discussion with the patient and/or guardian regarding: the historical points, exam findings, and any diagnostic results supporting the discharge/admit diagnosis, lab results, radiology results, the need for further work-up and treatment in the hospital. Admission orders: after a detailed discussion of the patient's condition and case, the admit orders are written by me. 09/23 09:45 Order name: CBC with Diff; Complete Time: 10:56 [facility] 09/23 09:45 Order name: CMP; Complete Time: 10:56 [facility] 09/23 09:45 Order name: Lipase; Complete Time: 10:56 [facility] 09/23 09:45 Order name: Troponin High Sensitivity; Complete Time: 10:56 [facility] 09/23 09:45 Order name: Type And Screen [facility] 09/23 10:03 Order name: PT-INR; Complete Time: 10:40 [facility] 09/23 10:53 Order name: Bb Add On bd 09/23 11:43 Order name: Antibody Identification [facility] 09/23 11:44 Order name: SARS RAPID; Complete Time: 13:24 [facility] 09/23 11:49 Order name: Basic Metabolic Panel [facility] 09/23 11:49 Order name: Basic Metabolic Panel [facility] 09/23 11:49 Order name: CBC with Automated Diff [facility] 09/23 11:49 Order name: CBC with Automated Diff [facility] 09/23 09:45 Order name: IV Saline Lock; Complete Time: 10:27 [facility] 09/23 09:45 Order name: Labs collected and sent; Complete Time: 10:27 [facility] 09/23 10:57 Order name: CT Traumagram (Head C Spine CAP wo con); Complete Time: 11:35 [facility] 09/23 11:49 Order name: NPO [facility] 09/23 11:49 Order name: Lipase [facility] 09/23 11:49 Order name: Lipase [facility] 09/23 11:49 Order name: Liver (Hepatic) Function [facility] 09/23 11:49 Order name: Liver (Hepatic) Function [facility] 09/23 15:23 Order name: Sendout Antibody ID [facility] 09/23 09:55 Order name: EKG - Nurse/Tech; Complete Time: 10:16 [facility] 09/23 12:34 Order name: Labs - recollect needed: need one more tall purple sent. Thank you; aa5 Complete Time: 12:42 Administered Medications: 10:28 Drug: Pepcid (famotidine) 20 mg Route: IVP; Site: left forearm; kc6 11:30 Follow up: Response: No adverse reaction kc6 10:46 Drug: ProTONIX (pantoprazole) 40 mg Route: IVP; Site: left forearm; kc6 11:46 Follow up: Response: No adverse reaction kc6 11:23 Drug: ProTONIX (pantoprazole) 8 mg/hr Route: IV; Rate: 25 ml/hr; Site: left forearm; kc6 14:05 Drug: Zofran (Ondansetron) 4 mg Route: IVP; Site: left forearm; aa5 15:05 Follow up: Response: No adverse reaction; Nausea is decreased kc6 14:17 Drug: NS 0.9% 500 ml Route: IV; Rate: bolus; Site: left forearm; kc6 15:12 Follow up: Response: No adverse reaction; IV Status: Completed infusion; IV Intake: kc6 500ml 15:07 Drug: NS 0.9% 1000 ml Route: IV; Rate: 75 ml/hr; Site: left forearm; kc6 16:10 Follow up: IV Status: Infusion continued upon admission kc6 Disposition: 16:14 Co-signature as Attending Physician, Rc Perales MD I reviewed the patient's care rt provided by the Advanced Practice Provider and agree with the diagnosis and treatment plan. Disposition Summary: 09/23/22 11:50 Hospitalization Ordered Hospitalization Status: Inpatient Admission jmm Provider: Anshul Booker Location: Telemetry/MedSur (Inpatient) jmm Condition: Stable jmm Problem: new jmm Symptoms: are unchanged jmm Bed/Room Type: Standard [facility] Room Assignment: 407(09/23/22 13:15) dw Diagnosis - GI Bleed/ Gastrointestinal hemorrhage, unspecified jmm - Anemia, unspecified jmm - Hematemesis jmm Forms: - Medication Reconciliation Form jmm - SBAR form jmm Signatures: Dispatcher [employer] EDMS Pratibha Gomez, RN RN dw Michele Costa PA PA jmm Alison Hua, RN RN aa5 Mayra Howell RN RN vg1 Michell Turk RN RN kc6 Rc Perales MD MD rt Corrections: (The following items were deleted from the chart) 11:08 09:49 Chest Abdomen Pelvis W Con+CT.RAD.BRZ ordered. EDNJ EDMS 13:15 11:50 jmm dw
[2022-09-23] MEDS: D5 0.45 NS 1,000 ML IV SCH (12:00)
[2022-09-23 12:14] LABS: SARS-CoV-2 Antigen Rapid Res Negative (Negative)
--- NOTE | 2022-09-23 13:06 | P.HP ---
Certification for Inpatient Patient admitted to: Inpatient With expected LOS: >2 Midnights Practitioner: I am a practitioner with admitting privileges, knowledge of patient current condition, hospital course, and medical plan of care. Services: Services provided to patient in accordance with Admission requirements found in Title 42 Section 412.3 of the Code of Federal Regulations Patient History Date of Service: 09/23/22 Reason for admission: GI BLEEDIN History of Present Illness: HAS A FIB, HTN. AND HISTORY OF BLEEDING WITH NOT BEING ABLE TO TAKE XARELTO LIKE MEDS IN PAST. HE HAS SEVERE DEMENTIA. HE ONCE AGAIN HAS MELANOTIC STOOL AND LATER HEMATEMSIS. HIS HG IS DOWN TO 6.5 GM. HE IS STABLE AND WILL GET MEI DONE. DR. ERICKSON HAS BEEN CALLED. Allergies memantine HCl [From Namenda] Adverse Reaction (Severe, Verified 08/08/22 23:51) tinnitus Sulfa (Sulfonamide Antibiotics) Adverse Reaction (Unknown, Verified 08/08/22 23:51) unknown/childhood reaction Home medications list reviewed: No Home Medications: Ascorbic Acid [C-1000] 1,000 mg PO DAILY 12/12/13 Cyanocobalamin (Vitamin B-12) [B-12] 1,000 mcg PO DAILY 12/12/13 Donepezil HCl [Aricept] 23 mg PO BEDTIME 12/12/13 Niacin [Niacin ER] 500 mg PO BIDWM 12/12/13 Pantoprazole [Protonix Tab*] 40 mg PO DAILY 12/12/13 Tamsulosin [Flomax*] 1 cap PO BEDTIME 12/12/13 Magnesium Oxide [Magnesium] 400 mg PO BID 06/13/14 Cholecalciferol (Vitamin D3) [Vitamin D3] 1,000 units PO BEDTIME 12/01/15 Losartan Potassium [Cozaar] 100 mg PO [id number] 12/01/15 Amlodipine [Norvasc*] 5 mg PO DAILY 01/20/21 Docosahexanoic AC/Epa [Fish Oil 1,000 MG*] 1,000 mg PO BID 01/20/21 Levothyroxine Sodium [Levothyroxine] 50 mcg PO [id number] 01/20/21 Aspirin [Aspirin EC 81 MG] 81 mg PO SEECOM 09/19/21 Pravastatin Sodium 40 mg PO BEDTIME 05/07/22 Finasteride 5 mg PO BEDTIME 07/18/22 Torsemide [Demadex*] 20 mg PO DAILY #90 tab 07/19/22 Nitroglycerin [Nitrostat] 0.4 mg SL PRN PRN 08/09/22 Venlafaxine HCl [Venlafaxine HCl ER] 75 mg PO DAILY 08/09/22 - Past Medical/Surgical History Diabetic: No -: TINNITUS -: HTN -: AFIB -: CAD -: HYPERLIPIDEMIA -: NSTEMI -: STROKE -: LEGIONAIRE'S DISEASE -: SLEEP APNEA -: ALZHEIMER'S -: SQUAMOS CELL SKIN CANCER -: COLOSTOMY, DIVERTICULITIS, BARRETTS ESOPHAGUS -: QUADRUPLE BYPASS 1991 -: LITHOTRIPSY -: CYSTOSCOPY 2009 -: CYSTOSCOPY 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 -: CARDIAC STENT 2013 -: COLOSTOMY 2013 -: cardiacstent - Family History Father -: Heart disease, Hypertension, Stroke, Cancer Mother -: Heart disease, Hypertension, Diabetes - Social History Alcohol use: No CD- Drugs: No Caffeine use: Yes Physical Examination - Physical Exam General: Oriented x1, Mild distress, Obese HEENT: Atraumatic, PERRLA, Mucous membr. moist/pink, EOMI, Sclerae nonicteric Neck: Supple, 2+ carotid pulse no bruit, No LAD, Without JVD or thyroid abnormality Respiratory: Clear to auscultation bilaterally, Normal air movement Cardiovascular: Irregular heart rate/rhythm Gastrointestinal: Normal bowel sounds, No tenderness Musculoskeletal: No tenderness Integumentary: No rashes Neurological: Normal gait, Normal speech, Normal strength at 5/5 x4 extr, Normal tone, Normal affect Lymphatics: No axilla or inguinal lymphadenopathy - Studies Laboratory Data (last 24 hrs) 09/23/22 10:19: PT 12.3, INR 1.12 09/23/22 10:19: Sodium 141, Potassium 4.3, BUN 50 H, Creatinine 2.34 H, Glucose 161 H, Total Bilirubin 0.3, AST 11 L, ALT 12 L, Alkaline Phosphatase 45, Lipase 133 09/23/22 10:19: WBC 8.10, Hgb 6.5 L*, Hct 20.6 L*, Plt Count 155 Assessment and Plan - Problems (Diagnosis) (1) Upper GI bleed Current Visit: Yes Status: Acute Plan: IV PROTONIX DR. ERICKSON WILL DO EGD AT BEDSIDE. PROGNOSIS GUARDED. MAY HAVE GASTRITIS. (2) Alzheimer's dementia Current Visit: No Status: Chronic (3) Atrial fibrillation Current Visit: No Status: Chronic Qualifiers: - Advance Directives Does patient have a Living Will: Yes Does patient have a Durable POA for Healthcare: Yes
[2022-09-23] MEDS ORDERED: ONDANSETRON 4 MG/2 ML VIAL ONE (14:06)
[2022-09-23] MEDS ORDERED: NA CHLORIDE 0.9% 500 ML ONE (14:17)
[2022-09-23] MEDS ORDERED: NA CHLORIDE 0.9% 1,000 ML ONE (15:04)
[2022-09-23] MEDS: PANTOPRAZOLE INJ 80 MG in NA CHLORIDE 0.9% 250 ML IV SCH (17:55)
[2022-09-23] MEDS: DONEPEZIL HCL 23 MG PO SCH (20:35)
[2022-09-23] MEDS: TAMSULOSIN 0.4 MG SR CAP PO SCH (20:36)
[2022-09-23] MEDS: FINASTERIDE 5 MG TAB PO SCH (20:36)
[2022-09-23] MEDS ORDERED: DONEPEZIL HCL 23 MG PO SCH (21:00)
[2022-09-23] MEDS: ONDANSETRON 4 MG/2 ML VIAL IV PRN (22:16)
[2022-09-23] MEDS: OCTREOTIDE 500 MCG in NA CHLORIDE 0.9% 500 ML IV SCH (23:00)
[2022-09-23 23:13] LABS: Absolute Lymphocytes (CBC) 0.7 K/uL (0.7-4.9); Lymphocytes % 5.8 % (15.3-44.8); MCV 90.1 fL (80-100); MPV 10.2 fL (7.6-11.3); RBC Red Blood Cell Count 2.09 M/uL (4.33-5.43)
[2022-09-23 23:15] LABS: Hematocrit 18.8 % (39.6-49.0)
[2022-09-24] MEDS: D5 0.45 NS 1,000 ML IV SCH ×4 (02:21→23:16)
[2022-09-24] MEDS: PANTOPRAZOLE INJ 80 MG in NA CHLORIDE 0.9% 250 ML IV SCH ×3 (04:00→23:16)
[2022-09-24] MEDS ORDERED: ACETAMINOPHEN 325 MG TABLET PO ONE (05:10)
[2022-09-24] MEDS ORDERED: DIPHENHYDRAMINE 50 MG/ML VIAL IV ONE (05:11)
[2022-09-24] MEDS ORDERED: HYDROCORTISONE SUC 100 MG INJ IV ONE (05:12)
[2022-09-24 05:23] LABS: Absolute Lymphocytes (CBC) 0.7 K/uL (0.7-4.9); Lymphocytes % 5.7 % (15.3-44.8); MCV 90.2 fL (80-100); MPV 10.3 fL (7.6-11.3); RBC Red Blood Cell Count 1.95 M/uL (4.33-5.43)
[2022-09-24] MEDS: LEVOTHYROXINE SOD 0.05 MG TABLET PO SCH (05:28)
[2022-09-24 05:36] LABS: Hematocrit 17.6 % (39.6-49.0)
[2022-09-24] MEDS ORDERED: NA CHLORIDE 0.9% 250 ML ONE ×2 (05:36→09:00)
[2022-09-24 05:56] LABS: Albumin 2.9 g/dL (3.4-5.0); Bilirubin Direct 0.1 mg/dL (0-0.2); Bilirubin Total 0.4 mg/dL (0.2-1.0); Potassium 5.1 mmol/L (3.5-5.1); Protein, Total 6.2 g/dL (6.4-8.2)
[2022-09-24] MEDS ORDERED: LEVOTHYROXINE SOD 0.05 MG TABLET FT SCH (06:00)
[2022-09-24] MEDS ORDERED: HOME MED 1 EA UNK (Levothyroxine Sodium [Levothyroxine] 50 MCG Capsule) PO SCH (06:00)
[2022-09-24] MEDS: CITALOPRAM 10 MG TABLET PO SCH (08:35)
[2022-09-24] MEDS: OCTREOTIDE 500 MCG in NA CHLORIDE 0.9% 500 ML IV SCH ×2 (08:42→21:00)
[2022-09-24] MEDS ORDERED: HOME MED 1 EA UNK (Citalopram Hydrobromide [Celexa] 20 MG Tablet) PO SCH (09:00)
[2022-09-24] MEDS ORDERED: Ringers Lactate 1,000 ML IV ONE (09:59)
[2022-09-24] MEDS ORDERED: NS 0.9% VIAL 0 ML ONE (10:07)
[2022-09-24] MEDS ORDERED: propofoL 200 MG/20 ML VIAL IV ONE (10:07)
[2022-09-24] MEDS ORDERED: Phenylephrine HCl 10 MG/ML 1 ML VIAL ONE (10:07)
[2022-09-24] MEDS ORDERED: ETOMIDATE 20 MG/10 ML VIAL IV ONE (10:07)
[2022-09-24] MEDS ORDERED: LIDOCAINE 1% MPF 5 ML VIAL ONE (10:07)
[2022-09-24] MEDS ORDERED: EPINEPHRINE/PF 1 MG/ML AMP ONE (10:33)
[2022-09-24 13:21] VITALS: BMI 24.8
--- NOTE | 2022-09-24 15:04 | EKG ---
Test Date: 2022-09-23 Test Time: 10:11:48 Enamel Applier: JULIETTE MEASUREMENT RESULTS: Intervals: Rate: 64 SD: QRSD: 108 QT: 468 QTc: 482 [place]: P: SD: QRS: 85 T: -88 INTERPRETIVE STATEMENTS: Atrial fibrillation ST & T wave abnormality, consider inferolateral ischemia Prolonged QT Abnormal ECG Compared to ECG 08/08/2022 16:49:41 No significant changes Electronically Signed On 09-24-22 15:03:01 SMELTER CHARGER by Dg Hills
[2022-09-24 17:29] LABS: Hematocrit 30.5 % (39.6-49.0)
[2022-09-24] MEDS: ONDANSETRON 4 MG/2 ML VIAL IV PRN (18:11)
[2022-09-24] MEDS: DONEPEZIL HCL 23 MG PO SCH (20:46)
[2022-09-24] MEDS: TAMSULOSIN 0.4 MG SR CAP PO SCH (20:46)
[2022-09-24] MEDS: FINASTERIDE 5 MG TAB PO SCH (20:46)
--- NOTE | 2022-09-24 21:05 | OP ---
Surgeon: Pierre Ashraf MD Procedure Performed: Esophagogastroduodenoscopy. Indication For Procedure: Upper GI bleed. Plan For Anesthesia: Monitored anesthesia care. Complexity: High due to the patient's comorbidities and active bleeding status. Technique: After obtaining informed consent from the patient's family explaining risks and complicat ions which include, but are not limited to bleeding, infection, perforation, and anesthesia complicat ion, the patient was placed in supine position and sedation was given. Subsequently, the scope was a dvanced through the mouth. There was evidence of active bleeding in the stomach, which was treated a s detailed below and the scope was eventually advanced to the second part of the duodenum. After com pletion of the procedure, scope and equipment were withdrawn and procedure terminated in a safe jayme r. Estimated Blood Loss: Minimal. 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 Also seen was a small hiatal hernia. Duodenum: The bulb and second portion appeared normal. Stomach: In the stomach, there was evidence of fresh blood in the gastric fundic and cardia region. This was first cleared with washing and suctioning. After cleaning the old blood, active bleeding w as seen, which likely represents a Dieulafoy, which was in the region of the gastric cardia. First t his lesion was injected by 3 cc of 1:10,000 epi to decrease the bleeding. Subsequently with a bipola r gold probe, the lesion was cauterized. Afterwards 2 hemostatic clips were placed at opposite angle s as well. Complications: None. Tolerance To Anesthesia: Excellent. Postoperative Diagnoses: Hiatal hernia, possible Sharma, gastritis, Dieulafoy with active bleeding. Plan: Continue current management. Continue Protonix for now. Can start on water and ice chips and if there is no further episodes of bleeding, may resume clear liquid diet from tonight. He may bene fit from outpatient endoscopy for possible Sharma and other findings, but we will leave that further decision to the patient's family at this time. US/MODL Voice ID: [id number] Report ID: [id number]
--- NOTE | 2022-09-24 21:49 | P.PN ---
Subjective Date of Service: 09/24/22 Chief Complaint: GI BLEEDIN Subjective: New changes (BLED ONE MORE TIME AT NIGHT.) HE HAS ANTIBIODIES AND HAS RARE BLOOD TYPE A NEG. [facility] COULD NOT FIND BLOOD FOR LONG DURATION. HE GOT BLOOD AT NIGHT. HE WAS SENT TO ICU BY DR. YE TRANSFUSION WAS DELAYED AND HE WAS ACTIVELY BLEEDING. HE NOW AFTER 3 UNIT SI UP TO 9.9 G. HE ALSO HAD EGD TODAY AND FOUND TO HAVE ACUTE BLEEDER THAT WAS CAUTERIZED. HE IS STABLE NOW. Physical Examination - Vital Signs Temperature: 97.4 F Blood Pressure: 144/87 Pulse: 80 Respirations: 25 Pulse Ox (%): 96 - Physical Exam General: Oriented x1, Mild distress, Confused (FOR YEARSS.) HEENT: Atraumatic, PERRLA, EOMI Neck: Supple, JVD not distended Respiratory: Clear to auscultation bilaterally, Normal air movement Cardiovascular: Regular rate/rhythm, Normal S1 S2 Gastrointestinal: Normal bowel sounds, No tenderness Musculoskeletal: No tenderness Integumentary: No rashes Neurological: Normal speech, Normal tone, Normal affect Lymphatics: No axilla or inguinal lymphadenopathy - Studies Medications List Reviewed: Yes Assessment And Plan - Current Problems (Diagnosis) (1) Upper GI bleed Current Visit: Yes Status: Acute Plan: IV PROTONIX DR. ERICKSON WILL DO EGD AT BEDSIDE. PROGNOSIS GUARDED. MAY HAVE GASTRITIS. HG STABLE. DC HOME IN AM IF HGI STABLE. (2) Alzheimer's dementia Current Visit: No Status: Chronic (3) Atrial fibrillation Current Visit: No Status: Chronic Qualifiers:
[2022-09-25 05:17] LABS: Absolute Lymphocytes (CBC) 0.8 K/uL (0.7-4.9); Hematocrit 29.4 % (39.6-49.0); Lymphocytes % 6.8 % (15.3-44.8); MCV 90.1 fL (80-100); MPV 10.4 fL (7.6-11.3); RBC Red Blood Cell Count 3.26 M/uL (4.33-5.43)
[2022-09-25 05:29] LABS: Potassium 4.2 mmol/L (3.5-5.1)
[2022-09-25] MEDS: LEVOTHYROXINE SOD 0.05 MG TABLET PO SCH (05:33)
[2022-09-25 05:48] LABS: Blood Morphology Comment NOT SEEN (NOT SEEN); Platelet Estimate ADEQ
[2022-09-25] MEDS: OCTREOTIDE 500 MCG in NA CHLORIDE 0.9% 500 ML IV SCH (07:47)
[2022-09-25] MEDS: CITALOPRAM 10 MG TABLET PO SCH (08:04)
[2022-09-25] MEDS ORDERED: FUROSEMIDE 20 MG/ 2ML VIAL IV ONE (09:42)
[2022-09-25] MEDS: PANTOPRAZOLE INJ 80 MG in NA CHLORIDE 0.9% 250 ML IV SCH ×2 (09:52→21:44)
--- NOTE | 2022-09-25 11:14 | RAD REPORT ---
EXAM DESCRIPTION: RAD - Chest Single View - 09/25/2022 10:11 am CLINICAL HISTORY: wheezing Chest pain. COMPARISON: Chest Single View dated 08/08/2022; Chest Single View dated 07/18/2022; Chest Single View dated 05/06/2022; Chest Single View dated 04/24/2022 FINDINGS: Portable technique limits examination quality. Moderate bilateral pulmonary opacities are present compatible with pulmonary edema. The heart is mode rately enlarged with sternotomy wires present. Trace pleural effusion. IMPRESSION: Moderate CHF versus volume overload pattern.
[2022-09-25] MEDS ORDERED: TRAMADOL HCL 50 MG TAB PO PRN (13:44)
--- NOTE | 2022-09-25 17:36 | P.PN ---
Subjective Date of Service: 09/25/22 Chief Complaint: GI BLEEDIN Subjective: Improving HE HAS ANTIBIODIES AND HAS RARE BLOOD TYPE A NEG. [facility] COULD NOT FIND BLOOD FOR LONG DURATION. HE GOT BLOOD AT NIGHT. HE WAS SENT TO ICU BY DR. YE TRANSFUSION WAS DELAYED AND HE WAS ACTIVELY BLEEDING. HE NOW AFTER 3 UNIT SI UP TO 9.9 G. HE ALSO HAD EGD TODAY AND FOUND TO HAVE ACUTE BLEEDER THAT WAS CAUTERIZED. HE IS STABLE NOW. PATIENT IS STABLE. THEY CALLED WITH WHEEZING TODAY. I ADDED LASIX IV AND DID CXR CHANGE IV TO SL. HE WAS ON 30 ML FLUID ANYWAY. FAMILY WANTS HIM TO WALK BEFORE HE GOES. HE HAS SEVERE DEMENTIA. Review of Systems 10-point ROS is otherwise unremarkable General: Weakness Physical Examination - Vital Signs Temperature: 97.8 F Blood Pressure: 144/98 Pulse: 83 Respirations: 20 Pulse Ox (%): 93 - Physical Exam General: Oriented x1, Mild distress, Obese HEENT: Atraumatic, PERRLA, EOMI Neck: Supple, JVD not distended Respiratory: Clear to auscultation bilaterally, Normal air movement Cardiovascular: Regular rate/rhythm, Normal S1 S2 Gastrointestinal: Normal bowel sounds, No tenderness Musculoskeletal: No tenderness Integumentary: No rashes Neurological: Normal speech, Normal tone, Normal affect Lymphatics: No axilla or inguinal lymphadenopathy - Studies Medications List Reviewed: Yes Assessment And Plan - Current Problems (Diagnosis) (1) Upper GI bleed Current Visit: Yes Status: Acute Plan: IV PROTONIX DR. ERICKSON WILL DO EGD AT BEDSIDE. PROGNOSIS GUARDED. MAY HAVE GASTRITIS. HG STABLE. DC HOME IN AM IF HGI STABLE. HG IS STABLE NOW. CHANGE TO PROTONIX. (2) Alzheimer's dementia Current Visit: No Status: Chronic Plan: CONT MEDS. (3) Atrial fibrillation Current Visit: No Status: Chronic Qualifiers: (4) General weakness Current Visit: Yes Status: Acute Plan: PT CONSULT THEY ASK FOR SNIF CONT PT WAITING FOR [employer]IST'S COMMUNICATION WITH INSURANCE. THIS WILL DELAY DISCHARGE. 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 LASI IV BID. CHECK LAB DAILY.
[2022-09-25] MEDS: FUROSEMIDE 20 MG/ 2ML VIAL IV SCH (17:57)
[2022-09-25] MEDS: ATORVASTATIN 10 MG TAB PO SCH (21:54)
[2022-09-25] MEDS: TAMSULOSIN 0.4 MG SR CAP PO SCH (21:54)
[2022-09-25] MEDS: FINASTERIDE 5 MG TAB PO SCH (21:54)
[2022-09-25] MEDS: DONEPEZIL HCL 23 MG PO SCH (22:02)
[2022-09-26 05:20] LABS: Absolute Lymphocytes (CBC) 0.9 K/uL (0.7-4.9); Hematocrit 28.1 % (39.6-49.0); Lymphocytes % 12.3 % (15.3-44.8); MCV 90.4 fL (80-100); MPV 10.3 fL (7.6-11.3)
[2022-09-26 05:28] LABS: Magnesium 2.3 mg/dL (1.6-2.4); Potassium 3.8 mmol/L (3.5-5.1)
[2022-09-26] MEDS: LEVOTHYROXINE SOD 0.05 MG TABLET PO SCH (06:06)
[2022-09-26] MEDS: PANTOPRAZOLE INJ 80 MG in NA CHLORIDE 0.9% 250 ML IV SCH (06:06)
[2022-09-26] MEDS: LOSARTAN POTASSIUM 50 MG TABLET PO SCH (06:09)
[2022-09-26] MEDS: FUROSEMIDE 20 MG/ 2ML VIAL IV SCH ×2 (09:18→18:04)
[2022-09-26] MEDS: CITALOPRAM 10 MG TABLET PO SCH (09:18)
[2022-09-26] MEDS: AMLODIPINE 5 MG TAB PO SCH (09:18)
--- NOTE | 2022-09-26 12:50 | P.PN ---
Subjective Date of Service: 09/26/22 Chief Complaint: GI BLEEDIN Subjective: Improving HE HAS ANTIBIODIES AND HAS RARE BLOOD TYPE A NEG. [place] COULD NOT FIND BLOOD FOR LONG DURATION. HE GOT BLOOD AT NIGHT. HE WAS SENT TO ICU BY DR. YE TRANSFUSION WAS DELAYED AND HE WAS ACTIVELY BLEEDING. HE NOW AFTER 3 UNIT SI UP TO 9.9 G. HE ALSO HAD EGD TODAY AND FOUND TO HAVE ACUTE BLEEDER THAT WAS CAUTERIZED. HE IS STABLE NOW. PATIENT IS STABLE. THEY CALLED WITH WHEEZING TODAY. I ADDED LASIX IV AND DID CXR CHANGE IV TO SL. HE WAS ON 30 ML FLUID ANYWAY. FAMILY WANTS HIM TO WALK BEFORE HE GOES. HE HAS SEVERE DEMENTIA. HE STABLE BUT WEAK. FAMILY IS WAITING FOR PT EVAL TO SEE IF THEY CAN TAKE HIM TO REHAB OR PA OR HOME. Physical Examination - Vital Signs Temperature: 97.9 F Blood Pressure: 134/68 Pulse: 67 Respirations: 16 Pulse Ox (%): 96 - Physical Exam General: In no apparent distress, Oriented x1 HEENT: Atraumatic, PERRLA, EOMI Neck: Supple, JVD not distended Respiratory: Clear to auscultation bilaterally, Normal air movement Cardiovascular: Regular rate/rhythm, Normal S1 S2 Gastrointestinal: Normal bowel sounds, No tenderness Musculoskeletal: No tenderness Integumentary: No rashes Neurological: Normal speech, Normal tone, Normal affect Lymphatics: No axilla or inguinal lymphadenopathy - Studies Medications List Reviewed: Yes Assessment And Plan - Current Problems (Diagnosis) (1) Upper GI bleed Current Visit: Yes Status: Acute Plan: IV PROTONIX DR. ERICKSON WILL DO EGD AT BEDSIDE. PROGNOSIS GUARDED. MAY HAVE GASTRITIS. HG STABLE. DC HOME IN AM IF HGI STABLE. HG IS STABLE NOW. CHANGE TO PROTONIX. (2) Alzheimer's dementia Current Visit: No Status: Chronic Plan: CONT MEDS. (3) Atrial fibrillation Current Visit: No Status: Chronic Qualifiers: (4) General weakness Current Visit: Yes Status: Acute Plan: PT CONSULT THEY ASK FOR SNIF CONT PT WAITING FOR FINE UNHAIRER'S COMMUNICATION WITH INSURANCE. THIS WILL DELAY DISCHARGE. NEEDS TO WALK A LITTLE BEFORE HE GOES. PT IS WORKING ON HIM. 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 LASI IV BID. CHECK LAB DAILY.
[2022-09-26] MEDS: TAMSULOSIN 0.4 MG SR CAP PO SCH (21:18)
[2022-09-26] MEDS: FINASTERIDE 5 MG TAB PO SCH (21:18)
[2022-09-26] MEDS: ATORVASTATIN 10 MG TAB PO SCH (21:18)
[2022-09-26] MEDS: DONEPEZIL HCL 23 MG PO SCH (21:18)
[2022-09-26 21:20] VITALS: O2SAT 93
[2022-09-27 04:21] LABS: Absolute Lymphocytes (CBC) 1.1 K/uL (0.7-4.9); Hematocrit 28.7 % (39.6-49.0); Lymphocytes % 15.7 % (15.3-44.8); MCV 88.9 fL (80-100); RBC Red Blood Cell Count 3.23 M/uL (4.33-5.43)
[2022-09-27 04:33] LABS: Potassium 3.5 mmol/L (3.5-5.1)
[2022-09-27] MEDS: LEVOTHYROXINE SOD 0.05 MG TABLET PO SCH (05:40)
[2022-09-27] MEDS: LOSARTAN POTASSIUM 50 MG TABLET PO SCH (05:40)
[2022-09-27 08:03] VITALS: TEMP 97.3
[2022-09-27] MEDS: FUROSEMIDE 20 MG/ 2ML VIAL IV SCH (08:14)
[2022-09-27] MEDS: CITALOPRAM 10 MG TABLET PO SCH (08:14)
[2022-09-27] MEDS: AMLODIPINE 5 MG TAB PO SCH (08:14)
[2022-09-27] MEDS ORDERED: PANTOPRAZOLE 40MG TABLET PO SCH (09:00)
[2022-09-27 12:03] VITALS: BP 137/64
--- NOTE | 2022-09-27 13:47 | P.DS ---
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 AND HISTORY OF BLEEDING WITH NOT BEING ABLE TO TAKE XARELTO LIKE MEDS IN PAST. HE HAS SEVERE DEMENTIA. HE ONCE AGAIN HAS MELANOTIC STOOL AND LATER HEMATEMSIS. HIS HG IS DOWN TO 6.5 GM. HE IS STABLE AND WILL GET MEI DONE. DR. ERICKSON HAS BEEN CALLED. Hospital Course: COMES WITH GI BLEED AND HG OF 5.8. HE NEEDED [address] YE COULD CAUTERIZE THE BLEEDER. HE DOES TAKE ANY BLOOD THINNER BUT ASPIRIN. HE IS STABL BUT WEAK AND IS NOT ABLE TO WALK. HE WILL GO TO [place] TO GET STRONG[place]. Vital Signs/Physical Exam: Temp Pulse Resp BP Pulse Ox 97.3 F 66 16 137/64 94 09/27/22 12:00 09/27/22 12:00 09/27/22 12:00 09/27/22 12:00 09/27/22 12:00 Laboratory Data at Discharge: WBC 7.20 K/uL (4.3-10.9) 09/27/22 04:05 Hgb 9.5 g/dL (13.6-17.9) L 09/27/22 04:05 Hct 28.7 % (39.6-49.0) L 09/27/22 04:05 Plt Count 107 K/uL (152-406) L 09/27/22 04:05 PT 12.3 SECONDS (9.5-12.5) 09/23/22 10:19 INR 1.12 09/23/22 10:19 Sodium 142 mmol/L (136-145) 09/27/22 04:05 Potassium 3.5 mmol/L (3.5-5.1) 09/27/22 04:05 BUN 37 mg/dL (7-18) H 09/27/22 04:05 Creatinine 1.97 mg/dL (0.70-1.30) H 09/27/22 04:05 Glucose 124 mg/dL (74-106) H 09/27/22 04:05 Magnesium 2.3 mg/dL (1.6-2.4) 09/26/22 04:54 Total Bilirubin 0.4 mg/dL (0.2-1.0) 09/24/22 04:48 AST 404 U/L (15-37) H* 09/24/22 04:48 ALT 379 U/L (16-61) H* 09/24/22 04:48 Alkaline Phosphatase 40 U/L (45-117) L 09/24/22 04:48 Lipase 79 U/L (73-393) 09/24/22 04:48 Home Medications: Ascorbic Acid [C-1000] 1,000 mg PO DAILY 12/12/13 Cyanocobalamin (Vitamin B-12) [B-12] 1,000 mcg PO DAILY 12/12/13 Donepezil HCl [Aricept] 23 mg PO BEDTIME 12/12/13 Niacin [Niacin ER] 500 mg PO BIDWM 12/12/13 Pantoprazole [Protonix Tab*] 40 mg PO DAILY 12/12/13 Tamsulosin [Flomax*] 1 cap PO BEDTIME 12/12/13 Magnesium Oxide [Magnesium] 400 mg PO BID 06/13/14 Cholecalciferol (Vitamin D3) [Vitamin D3] 1,000 units PO BEDTIME 12/01/15 Losartan Potassium [Cozaar] 100 mg PO [id number] 12/01/15 Amlodipine [Norvasc*] 5 mg PO DAILY 01/20/21 Docosahexanoic AC/Epa [Fish Oil 1,000 MG*] 1,000 mg PO DAILY 01/20/21 Levothyroxine Sodium [Levothyroxine] 50 mcg PO [id number] 01/20/21 Aspirin [Aspirin EC 81 MG] 81 mg PO SEECOM 09/19/21 Pravastatin Sodium 40 mg PO BEDTIME 05/07/22 Finasteride 5 mg PO BEDTIME 07/18/22 Torsemide [Demadex*] 20 mg PO DAILY #90 tab 07/19/22 Nitroglycerin [Nitrostat*] 0.4 mg SL PRN PRN 08/09/22 Citalopram Hydrobromide [Celexa] 1 tab PO DAILY 09/23/22 Docusate [Colace Cap*] 1 tab PO BID PRN 09/23/22 Tramadol HCl [Ultram] 1 tab PO Q6HP PRN 09/23/22 Followup: Anshul Booker MD [Primary Care Provider] -
== END 2022-09-27 14:57 | DRG 377 ==
LOC: ER 09:34 → ERHOLD 11:45 → 4TH 14:07 → 3RD-ICU 23:59 → 2ND 09-25 17:25
PROVIDERS: ADMIT Internal Medicine; ATTEND Internal Medicine
PROC: 30233N1 Transfusion of Nonautologous Red Blood Cells into Peripheral Vein, Percutaneous Approach (ICD-10-PCS; 2022-09-24)
PROC: 0DJ08ZZ Inspection of Upper Intestinal Tract, Via Natural or Artificial Opening Endoscopic (ICD-10-PCS; principal; 2022-09-24 09:45)
DX: K29.71 Gastritis, unspecified, with bleeding (principal); I50.33 Acute on chronic diastolic (congestive) heart failure; D62 Acute posthemorrhagic anemia; I48.20 Chronic atrial fibrillation, unspecified; I11.0 Hypertensive heart disease with heart failure; K44.9 Diaphragmatic hernia without obstruction or gangrene; E78.5 Hyperlipidemia, unspecified; G30.9 Alzheimer's disease, unspecified; F02.80 Dementia in other diseases classified elsewhere, unspecified severity, without behavioral disturbance, psychotic disturbance, mood disturbance, and anxiety; I25.10 Atherosclerotic heart disease of native coronary artery without angina pectoris; I25.2 Old myocardial infarction; Z88.1 Allergy status to other antibiotic agents; Z88.8 Allergy status to other drugs, medicaments and biological substances; Z95.5 Presence of coronary angioplasty implant and graft; Z86.73 Personal history of transient ischemic attack (TIA), and cerebral infarction without residual deficits; Z85.51 Personal history of malignant neoplasm of bladder; Z79.82 Long term (current) use of aspirin; Z79.890 Hormone replacement therapy; Z79.899 Other long term (current) drug therapy; Z85.828 Personal history of other malignant neoplasm of skin; Z20.822 Contact with and (suspected) exposure to COVID-19
CPT/HCPCS: 36415; 36430; 70450; 71045; 71250; 72125; 80048; 80053; 80076; 83690; 83735; 84484; 85014; 85018; 85025; 85610; 86850; 86860; 86870; 86880; 86900; 86901; 86902; 86905; 86922; 86972; 86978; 87811; 93005; 96361; 96374; 96375; 97116; 97530; 99285; A4216; C9113; J0171; J1200; J1720; J1940; J2001; J2354; J2370; J2405; J2704; J7030; J7040; J7050; J7120; J7799; P9016; U0003

== ENCOUNTER 2023-03-05 11:15 | Emergency (ER) | payer OTHER, MEDICARE ==
--- OUTSIDE RECORDS SUMMARY | 2023-03-05 11:20 | XMS REPORT | Continuity of Care Document ---
:1940 Author Organization [facility] t Address [address] [place] [address] [address] [place] [address] Care Team Providers Name Role Phone Anshul Conley Primary Care Physician Anshul Booker Attending Clinician Unavailable Alina PRITCHARD, Kenn Zimmerman Attending Clinician [phone] Krystyna Brandon DO Attending Clinician Doctor Unassigned, [place] Attending Clinician Unavailable KRYSTYNA BRANDON Attending Clinician Unavailable KRYSTYNA BRANDON Attending Clinician Unavailable Payers Payer Name Policy Type Policy Number Effective Date Expiration Date [place] MEDICARE MB [id number] [facility] AAR C1 [id number] [facility] MEDICARE MB [id number] [facility] AARP C1 [id number] [facility] C1 [id number] [facility] MEDICARE MB [id number] [facility] Problems Condition Condition Condition Status Onset Resolution Last Treating Co mments Source Name Details Category Date Date Treatment Clinician Date Alzheimer' Alzheimer' Disease Active 2016-09 M ethodi s disease s disease 09-21 00:00: Hospita 00 l Cerebrovas Cerebrovas Disease Active 2016-09 M ethodi cular cular [address] [facility] accident accident 00:00: Hospit a (CVA) (CVA) 00 l 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 disease 09-21 st 00:00: Hospita 00 l Malignant Malignant Disease Active 2016-09 Met hodi neoplasm neoplasm 09-21 st of skin of skin 00:00: Hospita 00 l S/P TAVR S/P TAVR Disease [...] rs active active ity of problems problems [facility] [id number] Personal Problem Comm on history of Spirit bladder - [facility] [id number] 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 - [facility] [id number] Cystitis Problem Commo n Spirit - [facility] [id number] 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, [facility] unspecifie [facility] [id number] Pain in Problem Commo n left ankle Spirit and joints - [facility] of left foot [employer] [id number] Sprain of Problem Comm on deltoid [facility] ligament - [facility] of left St ankle, [facility] initial Medical encounter Center [id number] Kidney Problem Common stones [facility] [id number] 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) [facility] of left Medical lower Center extremity [id number] Lesion of Problem Com mon bladder [facility] Allergies, Adverse Reactions, Alerts Allergy Allergy Status Severity Reaction(s) Onset Inactive Treating Comm ents Source Name Type Date Date Clinician Sulfa Propensi Active 2015-09 Methodi (Sulfona ty [...] Hospita reaction 00 l s to drug memantin memantin Active Unknown Commo n e e [facility] Family History Family Member Diagnosis Comments Start Date Stop Date Source [facility] Other Coronary [facility] disease Social History Social Habit Start Date Stop Date Quantity Comments Source Exposure to Not sure [facility] of SARS-CoV-2 [place] [facility] (event) Branch History of [facility] - Tobacco Use [facility] Sex Assigned At [facility] freddy - [facility] Tobacco use and 2017-12-02 2017-12-02 Smokeless tobacco [facility] exposure 00:00:00 00:00:00 non-user Smoking Status Start Date Stop Date Source Former Smoker 2022-04-10 00:00:00 2022-04-10 00:00:00 [facility] - [facility] Medications Ordered Filled Start Stop Current Ordering [...] 15 daily. l 1000 MG tablet ascorbic 202-0 Yes 1000mg QD Take 1,000 M ethodi [...] C) 15 daily. l 1000 MG tablet NUT.TX,META 0 Yes Take by Met mary BOOTH, 7-[address] [facility]-MINS 14:46: Hospita NO.2 (AXONA 14 l ORAL) levothyroxi 0 Yes 50ug QD Take 50 Met mary ne 7-[address] (SYNTHROID) 14:46: [...] l D3) 1,000 unit tablet niacin 500 2022-0 Yes 500mg Q.5D Take 500 Me thodi [...] pain. NUT.TX,META Yes Take by Met mary IrelandDIS, [...] pain. NUT.TX,META Yes Take by Met mary IrelandDIS, [...] (five) minutes as needed for chest pain. Amoxicillin Amoxicillin 2021- 1{capsu TID Amoxicilli 500 MG 500 MG 11-16 le} n 500 MG 00:00: 00:00 00 :00 Magnesium 2020-09 Yes 400mg Take 400 Uni vers Hydroxide 2-09 mg by ity of 400 mg (170 15:14: [place] 36 [place] magnesium) Branch Chew citalopram 2020-09 Yes 20mg Take 20 mg U nivers (CELEXA) 20 2-09 by mouth ity of mg tablet 15:14: daily. [place] [address] Medical Branch medium 2020-09 Yes Take by Univers chain 2-09 mouth. ity of triglycerid 15:14: [facility] (MCT OIL 36 Medical ORAL) Branch omega 2020-09 Yes 1000mg Take 1,000 Univ ers 3-dha-epa-f 2-09 mg by ity of joseph oil 15:14: mouth. [place] (FISH OIL) Medical 100-160-1,0 Branch 00 mg Cap vitamin 2020-09 Yes 1000ug Take 1,000 Un robert B-12 2-09 mcg by ity of (VITAMIN 15:14: mouth [place] B-12) 1,000 36 daily. Medica l mcg tablet Branch COCONUT OIL 2020-09 Yes Take by Uni vers ORAL 2-09 mouth. ity of 15:14: [place] [address] Medical Branch atorvastati 2020-09 Yes 20mg Take 20 mg Univers n 20 mg 2-09 by mouth ity of tablet 15:14: at [place] [address] bedtime. Medical Branch Donepezil 2020-09 Yes Take by Unive rs (ARICEPT) 2-09 mouth. ity of 23 mg Tab 15:14: [address] Branch nitroglycer 2020-[address] 0.4 U nivers in 2-09 mg under ity of (NITROSTAT) 15:14: the tongue [place] 0.4 mg 36 every 5 Medical sublingual (five) Branch tablet minutes as needed for Chest pain. traMADol 2020-09 Yes 50mg Take 50 mg Uni vers (ULTRAM) 50 2-09 by mouth ity of mg/10 mL 15:14: every 4 [place] oral (four) Medical syringe hours as Branch needed. pravastatin 2020-09 Yes 40mg Take 40 mg Univers 40 mg 2-09 by mouth. ity of tablet 15:14: [address] furosemide 2020-09 Yes 10mg Take 10 mg U nivers 20 mg 2-09 by mouth. ity of tablet 15:14: [address] niacin 500 2020-09 Yes 500mg Take 500 Un robert mg tablet 2-09 mg by ity of 15:14: mouth 2 [place] [address] (two) Medical times Branch daily. losartan 2020-09 Yes 100mg Take 100 Univ ers 100 mg 2-09 mg by ity of tablet 15:14: mouth [place] [address] daily. Medical Branch amLODIPine 2020-09 Yes 5mg Take 5 mg Un robert 5 mg tablet 2-09 by mouth ity of 15:14: daily. [address] Branch tamsulosin 2020-09 Yes .4mg Take 0.4 Uni vers 0.4 mg 24 2-09 mg by ity of hr capsule 15:14: mouth. [address] Branch finasteride 2020-09 Yes 5mg Take 5 mg U nivers 5 mg tablet 2-09 by mouth. ity of 15:14: [address] levothyroxi 2020-09 Yes 50ug Take 50 Uni vers ne 50 mcg 2-09 mcg by ity of tablet 15:14: mouth. [address] Branch vitamin C 2020-09 Yes 1000mg Take 1,000 Univers with alban 2-09 mg by ity of hips 1,000 15:14: mouth. [place] mg tablet [address] [place] [address] Branch aspirin 81 2020-09 Yes 81mg Take 81 mg U nivers mg Cap 2-09 by mouth. ity of 15:14: [place] [address] Medical Branch Magnesium 2020-09 Yes 400mg Take 400 Uni vers Hydroxide 2-09 mg by ity of 400 mg (170 15:14: [place]. [place] 36 [place] magnesium) Branch Chew citalopram 2020-09 Yes 20mg Take 20 mg U nivers (CELEXA) 20 2-09 by mouth ity of mg tablet 15:14: daily. [address] Branch medium 2020-09 Yes Take by Univers chain 2-09 mouth. ity of triglycerid 15:14: [place] (MCT OIL Medical ORAL) Branch omega 2020-09 Yes 1000mg Take 1,000 Univ ers 3-dha-epa-f 2-09 mg by ity of joseph oil 15:14: mouth. [place] (FISH OIL) Medical 100-160-1,0 Branch 00 mg Cap vitamin 2020-09 Yes 1000ug Take 1,000 Un robert B-12 2-09 mcg by ity of (VITAMIN 15:14: mouth [place] B-12) 1,000 36 daily. Medica l mcg tablet Branch COCONUT OIL 2020-09 Yes Take by Uni vers ORAL 2-09 mouth. ity of 15:14: [address] Branch atorvastati 2020-09 Yes 20mg Take 20 mg Univers n 20 mg 2-09 by mouth ity of tablet 15:14: at [place] [address] bedtime. Medical Branch Donepezil 2020-09 Yes Take by Unive rs (ARICEPT) 2-09 mouth. ity of 23 mg Tab 15:14: [address] Branch nitroglycer 2020-[address] 0.4 U nivers in 2-09 mg under ity of (NITROSTAT) 15:14: the tongue [place] 0.4 mg 36 every 5 Medical sublingual (five) Branch tablet minutes as needed for Chest pain. traMADol 2020-09 Yes 50mg Take 50 mg Uni vers (ULTRAM) 50 2-09 by mouth ity of mg/10 mL 15:14: every 4 [place] oral 36 (four) Medical syringe hours as Branch needed. pravastatin 2020-09 Yes 40mg Take 40 mg Univers 40 mg 2-09 by mouth. ity of tablet 15:14: [address] Branch furosemide 2020-09 Yes 10mg Take 10 mg U nivers 20 mg 2-09 by mouth. ity of tablet 15:14: [address] niacin 500 2020-09 Yes 500mg Take 500 Un robert mg tablet 2-09 mg by ity of 15:14: mouth 2 [place] [address] (two) Medical times Branch daily. losartan 2020-09 Yes 100mg Take 100 Univ ers 100 mg 2-09 mg by ity of tablet 15:14: mouth [place] [address] daily. Medical Branch amLODIPine 2020-09 Yes 5mg Take 5 mg Un robert 5 mg tablet 2-09 by mouth ity of 15:14: daily. [address] Branch tamsulosin 2020-09 Yes .4mg Take 0.4 Uni vers 0.4 mg 24 2-09 mg by ity of hr capsule 15:14: mouth. [address] finasteride 2020-09 Yes 5mg Take 5 mg U nivers 5 mg tablet 2-09 by mouth. ity of 15:14: [address] levothyroxi 2020-09 Yes 50ug Take 50 Uni vers ne 50 mcg 2-09 mcg by ity of tablet 15:14: mouth. [address] vitamin C 2020-09 Yes 1000mg Take 1,000 Univers with alban 2-09 mg by ity of hips 1,000 15:14: mouth. [place] mg tablet [address] [place] [address] Branch aspirin 81 2020-09 Yes 81mg Take 81 mg U nivers mg Cap 2-09 by mouth. ity of 15:14: [address] Magnesium 2020-09 Yes 400mg Take 400 Uni vers Hydroxide 2-09 mg by ity of 400 mg (170 15:14: [place]. [place] mg [place] magnesium) Branch Chew citalopram 2020-09 Yes 20mg Take 20 mg U nivers (CELEXA) 20 2-09 by mouth ity of mg tablet 15:14: daily. [address] medium 2020-09 Yes Take by Univers chain 2-09 mouth. ity of triglycerid 15:14: [place] es (MCT OIL Medical ORAL) Branch omega 2020-09 Yes 1000mg Take 1,000 Univ ers 3-dha-epa-f 2-09 mg by ity of joseph oil 15:14: mouth. [place] (FISH OIL) [address] [place] [address] 100-160-1,0 Branch 00 mg Cap vitamin 2020-09 Yes 1000ug Take 1,000 Un robert B-12 2-09 mcg by ity of (VITAMIN 15:14: mouth [place] B-12) 1,000 36 daily. Medica l mcg tablet Branch COCONUT OIL 2020-09 Yes Take by Uni vers ORAL 2-09 mouth. ity of 15:14: [address] Branch atorvastati 2020-09 Yes 20mg Take 20 mg Univers n 20 mg 2-09 by mouth ity of tablet 15:14: at [place] [address] bedtime. Medical Branch Donepezil 2020-09 Yes Take by Unive rs (ARICEPT) 2-09 mouth. ity of 23 mg Tab 15:14: [address] Branch nitroglycer 2020-[address] 0.4 U nivers in 2-09 mg under ity of (NITROSTAT) 15:14: the tongue [place] 0.4 mg 36 every 5 Medical sublingual (five) Branch tablet minutes as needed for Chest pain. traMADol 2020-09 Yes 50mg Take 50 mg Uni vers (ULTRAM) 50 2-09 by mouth ity of mg/10 mL 15:14: every 4 [place] [address] (four) Medical syringe hours as Branch needed. pravastatin 2020-09 Yes 40mg Take 40 mg Univers 40 mg 2-09 by mouth. ity of tablet 15:14: [address] Branch furosemide 2020-09 Yes 10mg Take 10 mg U nivers 20 mg 2-09 by mouth. ity of tablet 15:14: [address] Branch niacin 500 2020-09 Yes 500mg Take 500 Un robert mg tablet 2-09 mg by ity of 15:14: mouth 2 [place] [address] (two) Medical times Branch daily. losartan 2020-09 Yes 100mg Take 100 Univ ers 100 mg 2-09 mg by ity of tablet 15:14: mouth [place] [address] daily. Medical Branch amLODIPine 2020-09 Yes 5mg Take 5 mg Un robert 5 mg tablet 2-09 by mouth ity of 15:14: daily. [address] Branch tamsulosin 2020-09 Yes .4mg Take 0.4 Uni vers 0.4 mg 24 2-09 mg by ity of hr capsule 15:14: mouth. [address] Branch finasteride 2020-09 Yes 5mg Take 5 mg U nivers 5 mg tablet 2-09 by mouth. ity of 15:14: [address] Branch levothyroxi 2020-09 Yes 50ug Take 50 Uni vers ne 50 mcg 2-09 mcg by ity of tablet 15:14: mouth. [address] Branch vitamin C 2020-09 Yes 1000mg Take 1,000 Univers with alban 2-09 mg by ity of hips 1,000 15:14: mouth. [place] mg tablet Medical Branch aspirin 81 2020-09 Yes 81mg Take 81 mg U nivers mg Cap 2-09 by mouth. ity of 15:14: [address] Branch Magnesium 2020-09 Yes 400mg Take 400 Uni vers Hydroxide 2-09 mg by ity of 400 mg (170 15:14: [place]. [place] mg Medical magnesium) Branch Chew citalopram 2020-09 Yes 20mg Take 20 mg U nivers (CELEXA) 20 2-09 by mouth ity of mg tablet 15:14: daily. [address] medium 2020-09 Yes Take by Univers chain 2-09 mouth. ity of triglycerid 15:14: [place] es (MCT OIL 36 Medical ORAL) Branch omega 2020-09 Yes 1000mg Take 1,000 Univ ers 3-dha-epa-f 2-09 mg by ity of joseph oil 15:14: mouth. [place] (FISH OIL) Medical 100-160-1,0 Branch 00 mg Cap vitamin 2020-09 Yes 1000ug Take 1,000 Un robert B-12 2-09 mcg by ity of (VITAMIN 15:14: mouth [place] B-12) 1,000 36 daily. Medica l mcg tablet Branch COCONUT OIL 2020-09 Yes Take by Uni vers ORAL 2-09 mouth. ity of 15:14: [address] atorvastati 2020-09 Yes 20mg Take 20 mg Univers n 20 mg 2-09 by mouth ity of tablet 15:14: at [place] [address] bedtime. Medical Branch Donepezil 2020-09 Yes Take by Unive rs (ARICEPT) 2-09 mouth. ity of 23 mg Tab 15:14: [address] Branch nitroglycer 2020-[address] 0.4 U nivers in 2-09 mg under ity of (NITROSTAT) 15:14: the tongue [place] 0.4 mg 36 every 5 Medical sublingual (five) Branch tablet minutes as needed for Chest pain. traMADol 2020-09 Yes 50mg Take 50 mg Uni vers (ULTRAM) 50 2-09 by mouth ity of mg/10 mL 15:14: every 4 [place] [address] (four) Medical syringe hours as Branch needed. pravastatin 2020-09 Yes 40mg Take 40 mg Univers 40 mg 2-09 by mouth. ity of tablet 15:14: [address] furosemide 2020-09 Yes 10mg Take 10 mg U nivers 20 mg 2-09 by mouth. ity of tablet 15:14: [address] niacin 500 2020-09 Yes 500mg Take 500 Un robert mg tablet 2-09 mg by ity of 15:14: mouth 2 [place] [address] (two) Medical times Branch daily. losartan 2020-09 Yes 100mg Take 100 Univ ers 100 mg 2-09 mg by ity of tablet 15:14: mouth [place] [address] daily. Medical Branch amLODIPine 2020-09 Yes 5mg Take 5 mg Un robert 5 mg tablet 2-09 by mouth ity of 15:14: daily. [address] Branch tamsulosin 2020-09 Yes .4mg Take 0.4 Uni vers 0.4 mg 24 2-09 mg by ity of hr capsule 15:14: mouth. [address] finasteride 2020-09 Yes 5mg Take 5 mg U nivers 5 mg tablet 2-09 by mouth. ity of 15:14: [address] levothyroxi 2020-09 Yes 50ug Take 50 Uni vers ne 50 mcg 2-09 mcg by ity of tablet 15:14: mouth. [address] vitamin C 2020-09 Yes 1000mg Take 1,000 Univers with alban 2-09 mg by ity of hips 1,000 15:14: mouth. [address] Branch aspirin 81 2020-09 Yes 81mg Take 81 mg U nivers mg Cap 2-09 by mouth. ity of 15:14: [address] Docusate Yes 100mg Take 100 Univ ers Sodium 100 9-09 mg by ity of mg tablet 16:20: mouth. [address] Docusate Yes 100mg Take 100 Univ ers Sodium 100 9-09 mg by ity of mg tablet 16:20: mouth. [address] Docusate Yes 100mg Take 100 Univ ers Sodium 100 9-09 mg by ity of mg tablet 16:20: mouth. [address] Docusate Yes 100mg Take 100 Univ ers Sodium 100 9-09 mg by ity of mg tablet 16:20: mouth. [address] pravastatin Yes Method i (PRAVACHOL) 1-24 [...] MG 00:00: Hospita tablet 00 l metoclopram 20170 Yes Method i [place] 04-10 (REGLAN) 10 [...] 00 l .6 gram recon soln metoclopram 2017-0 Yes Method i [place] 04-10 st (REGLAN) 10 00:00: Hospit a MG tablet 00 l SUPREP 2017-0 Yes Methodi BOWEL PREP 04-10 st KIT 00:00: Hospita 17.5-3.13-1 00 l .6 gram recon soln metoclopram 2017-0 Yes Method i [place] 04-10 st (REGLAN) 10 00:00: Hospit a MG tablet 00 l SUPREP 2017-0 Yes Methodi BOWEL PREP 04-10 st KIT 00:00: Hospita 17.5-3.13-1 00 l .6 gram recon soln metoclopram 2017-0 Yes Method i [place] 04-10 st (REGLAN) 10 00:00: Hospit a MG tablet 00 l SUPREP 2017-0 Yes Methodi BOWEL PREP 04-10 st KIT 00:00: Hospita 17.5-3.13-1 00 l .6 gram recon soln metoclopram 2017-0 Yes Method i [place] 04-10 st (REGLAN) 10 00:00: Hospit a MG tablet 00 l SUPREP 2017-0 Yes Methodi BOWEL PREP 04-10 st KIT 00:00: Hospita 17.5-3.13-1 00 l .6 gram recon soln amoxicillin 2016- Yes Method i (AMOXIL) 7-26 st 500 MG 00:00: Hospita capsule 00 l amoxicillin Yes Method i (AMOXIL) 7-26 st 500 MG 00:00: Hospita capsule 00 l amoxicillin 0 Yes Method i (AMOXIL) 7-26 st 500 MG 00:00: Hospita capsule 00 l amoxicillin 0 Yes Method i (AMOXIL) 7-26 st 500 MG 00:00: Hospita capsule 00 l amoxicillin 0 Yes Method i (AMOXIL) 7-26 st 500 MG 00:00: Hospita capsule 00 l amoxicillin 2016-0 Yes Method i (AMOXIL) 7-26 st 500 MG 00:00: Hospita capsule 00 l pravastatin 2016-0 Yes 20mg QD [...] Comments Source height 2021-11-09 13:30:00 71 [in_i] [facility] weight 2021-11-09 13:30:00 160 [lb_av] [facility] temperature 2021-11-09 13:30:00 98.2 [degF] [facility] bmi 2021-11-09 13:30:00 22.31 kg/m2 [facility] oximetry 2021-11-09 13:30:00 97.1 % [facility] respiratory rate 2021-11-09 13:30:00 18 /min Comm on [facility] blood pressure 2021-11-09 13:30:00 160 mm[Hg] Common [facility] - systolic [facility] blood pressure 2021-11-09 13:30:00 66 mm[Hg] Common [facility] - diastolic [facility] Systolic blood 2021-08-16 21:23:00 151 mm[Hg] Univer sity of pressure [facility] Diastolic blood 2021-08-16 21:23:00 60 mm[Hg] Unive rsity of [facility] Heart rate 2021-08-16 21:23:00 58 /min [facility] Respiratory rate 2021-08-16 21:17:00 22 /min Univ [facility] Body height 2021-08-16 21:17:00 180.3 cm [facility] Body weight 2021-08-16 21:17:00 78.926 kg [facility] BMI 2021-08-16 21:17:00 24.27 kg/m2 [facility] Oxygen saturation in 2021-08-16 21:17:00 98 /min University Arterial blood by [facility] Pulse oximetry Branch height 2021-07-16 13:00:00 71 [in_i] [facility] weight 2021-07-16 13:00:00 179 [lb_av] [facility] temperature 2021-07-16 13:00:00 98.3 [degF] [facility] bmi 2021-07-16 13:00:00 24.96 kg/m2 [facility] oximetry 2021-07-16 13:00:00 95 % [facility] blood pressure 2021-07-16 13:00:00 130 mm[Hg] [facility] - systolic [facility] blood pressure 2021-07-16 13:00:00 61 mm[Hg] [facility] - diastolic [facility] Systolic blood 2022-03-22 19:39:00 153 mm[Hg] [facility] pressure Diastolic blood 2022-03-22 19:39:00 74 mm[Hg] [facility] pressure Heart rate 2022-03-22 19:39:00 57 /min [facility] Body height 2022-03-22 19:39:00 180.3 cm [facility] Body weight 2022-03-22 19:39:00 78.563 kg [facility] BMI 2022-03-22 19:39:00 24.16 kg/m2 [facility] Oxygen saturation in 2022-03-22 19:39:00 97 /min [facility] Arterial blood by Pulse oximetry Procedures Procedure Date / Time Performing Clinician Source Performed ECG 12-LEAD 2022-03-22 19:54:[address] [facility] V. DME/SUPPLY JUSTIFICATION 2021-08-20 06:01:00 Doctor Unassigned, No [facility] Plan of Care Planned Activity Planned Date Details Comments Source Future Scheduled 2022-12-11 COVID-19 VACCINE (#1) [facility] Test 11:56:52 [code = COVID-19 VACCINE (#1)] Future Scheduled 2022-12-11 65+ PNEUMOCOCCAL Methodi [facility] Test 11:56:52 VACCINE (1 - PCV) [code = 65+ PNEUMOCOCCAL VACCINE (1 - PCV)] Future Scheduled 2022-12-11 SHINGLES VACCINES (1 Met [facility] Test 11:56:52 of 2) [code = SHINGLES VACCINES (1 of 2)] Future Scheduled 2022-12-11 INFLUENZA VACCINE Method [facility] Test 11:56:52 [code = INFLUENZA VACCINE] Future Scheduled 2022-09-10 COVID-19 VACCINE (#1) [facility] Test 10:41:34 [code = COVID-19 VACCINE (#1)] Future Scheduled 2022-09-10 65+ PNEUMOCOCCAL Methodi Hospital Test 10:41:34 VACCINE (1 - PCV) [code = 65+ PNEUMOCOCCAL VACCINE (1 - PCV)] Future Scheduled 2022-09-10 SHINGLES VACCINES (1 Met [facility] Hospital Test 10:41:34 of 2) [code = SHINGLES VACCINES (1 of 2)] Future Scheduled 2022-09-10 INFLUENZA VACCINE Method [facility] Hospital Test 10:41:34 [code = INFLUENZA VACCINE] Future Scheduled 2022-09-10 COVID-19 VACCINE (#1) [facility] Test 10:41:34 [code = COVID-19 VACCINE (#1)] Future Scheduled 2022-09-10 65+ PNEUMOCOCCAL Methodi [facility] Test 10:41:34 VACCINE (1 - PCV) [code = 65+ PNEUMOCOCCAL VACCINE (1 - PCV)] Future Scheduled 2022-09-10 SHINGLES VACCINES (1 Met [facility] Hospital Test 10:41:34 of 2) [code = SHINGLES VACCINES (1 of 2)] Future Scheduled 2022-09-10 INFLUENZA VACCINE Method [facility] Hospital Test 10:41:34 [code = INFLUENZA VACCINE] Future Scheduled 2022-07-18 HEPATITIS B VACCINES Met [facility] Test 15:57:47 (1 of 3 - 3-dose series) [code = HEPATITIS B VACCINES (1 of 3 - 3-dose series)] Future Scheduled 2022-07-18 COVID-19 VACCINE (#1) [facility] Test 15:57:47 [code = COVID-19 VACCINE (#1)] Future Scheduled 2022-07-18 65+ PNEUMOCOCCAL Methodi Hospital Test 15:57:47 VACCINE (1 - PCV) [code = 65+ PNEUMOCOCCAL VACCINE (1 - PCV)] Future Scheduled 2022-07-18 SHINGLES VACCINES (1 Met [facility] Test 15:57:47 of 2) [code = SHINGLES VACCINES (1 of 2)] Future Scheduled 2022-07-18 INFLUENZA VACCINE Method [facility] Test 15:57:47 [code = INFLUENZA VACCINE] Future Scheduled 2022-07-18 HEPATITIS B VACCINES Met [facility] Test 15:57:47 (1 of 3 - 3-dose series) [code = HEPATITIS B VACCINES (1 of 3 - 3-dose series)] Future Scheduled 2022-07-18 COVID-19 VACCINE (#1) [facility] Test 15:57:47 [code = COVID-19 VACCINE (#1)] Future Scheduled 2022-07-18 65+ [facility] 15:57:47 VACCINE (1 - PCV) [code = 65+ PNEUMOCOCCAL VACCINE (1 - PCV)] Future Scheduled 2022-07-18 SHINGLES VACCINES (1 Met [facility] Hospital Test 15:57:47 of 2) [code = SHINGLES VACCINES (1 of 2)] Future Scheduled 2022-07-18 INFLUENZA VACCINE Method [facility] Hospital Test 15:57:47 [code = INFLUENZA VACCINE] Future Scheduled 2022-04-24 HEPATITIS B VACCINES Met [facility] Test 09:34:27 (1 of 3 - 3-dose series) [code = HEPATITIS B VACCINES (1 of 3 - 3-dose series)] Future Scheduled 2022-04-24 COVID-19 VACCINE (#1) [facility] Test 09:34:27 [code = COVID-19 VACCINE (#1)] Future Scheduled 2022-04-24 65+ PNEUMOCOCCAL Methodi Hospital Test 09:34:27 VACCINE (1 - PCV) [code = 65+ PNEUMOCOCCAL VACCINE (1 - PCV)] Future Scheduled 2022-04-24 SHINGLES VACCINES (1 Met [facility] Test 09:34:27 of 2) [code = SHINGLES VACCINES (1 of 2)] Future Scheduled 2022-04-24 INFLUENZA VACCINE Method [facility] Test 09:34:27 [code = INFLUENZA VACCINE] Encounters Start End Encounter Admission Attending Care Care Encounter Source Date/Time Date/Time Type Type Clinicians Facility Department ID 2021-10-03 Outpatient Ade, STLMLC ST[facility] [id number] Common 14:08:18 Anshul [id number] [facility] 2021-10-03 Outpatient Ade, STLMLC [facility] [id number] Common 13:12:42 Anshul [id number] [facility] 2022-05-24 2022-05-24 (TEL) [facility] [id number] Co mmon 00:00:00 00:00:00 [facility] 2022-04-19 2022-04-19 Telemedici Valderraban 1.2.840.1 [id number] Methodi 16:45:00 17:00:00 [place] [address] V. 3.430.2.7 Hospit a .3.074889 l .8 2022-04-18 2022-04-18 Telephone Valderraban 1.2.840.1 [id number] Methodi 00:00:00 00:00:[address] V. 3.430.2.7 Hospit a .3.739769 l .8 2022-04-10 2022-04-10 Telephone Valderraban 1.2.840.1 [id number] Methodi 00:00:00 00:00:[address] V. 3.430.2.7 Hospit a .3.722891 l .8 2022-03-22 2022-03-22 Office Valderraban 1.2.840.1 [id number] Methodi 14:00:00 15:17:00 [place] [address].[address] V. 3.430.2.7 Hospit a .3.043150 l .8 2022-03-22 2022-03-22 Travel 1.2.840.1 1.2.073.691 [id number] Methodi 00:00:00 00:00:[address] 3.430.2.7 0.2.7.3.698 Ho spita .3.306593 084.8 l .8 2022-01-10 2022-01-10 (TEL) [facility] [id number] Co mmon 00:00:00 00:00:00 [facility] 2022-01-09 2022-01-09 Phone Only STLMLC STLMLC [id number] Common 00:00:00 00:00:00 Visit for Spir it Est [facility] 2021-11-16 2021-11-16 (TEL) STLML[facility] STL[facility] [id number] Co mmon 00:00:00 00:00:00 [facility] 2021-11-09 2021-11-09 (PROC) STLMLC STLMLC [id number] Co mmon 00:00:00 00:00:00 Procedure Spir it [facility] 2021-08-23 2021-08-23 Telephone CHERELLE Brandon [id number] [id number] Univers 00:00:00 00:00:00 Krystyna NAIR 350.1.13.10 i ty [place] [phone] Mt dical NAL 085 [facility] 2021-08-20 2021-08-20 Orders Doctor OLIVIA 1.2.840.114 [id number] Univers 00:00:00 00:00:00 Only Unassigned, PEEWEE 350.1.13.10 ity of [place] [facility] 4.2.7.2.686 Terry as [phone] [facility] 009 Branch 2021-08-16 2021-08-16 Outpatient R KRYSTYNA BRANDON [facility] 10 [id number] Univers 15:00:00 15:45:27 KRYSTYNA BRANDON i ty of [facility] 2021-08-16 2021-08-16 [facility] 1.2.840.114 [id number] Univers 14:58:58 15:45:27 Visit Krystyna NAIR 350.1.13.10 i [place] [phone] Mt dicde NAL [address] [place] [address] 2021-08-16 2021-08-16 [facility] 10 [id number] Univers 15:00:00 15:00:00 KRYSTYNA BRANDON i ty [facility] 2021-07-26 2021-07-26 OL DIG E/M STLMLC STLMLC [id number] Common 00:00:00 00:00:00 [facility] [place] [place] 5-10 Spiri t MIN [facility] 2021-07-18 2021-07-18 (TEL) STLMLC STLMLC [id number] Co mmon 00:00:00 00:00:00 [facility] 2021-07-16 2021-07-16 (PROC) STLMLC STLMLC [id number] Co mmon 00:00:00 00:00:00 Procedure Spir it [facility] 2021-07-16 2021-07-16 (TEL) STLMLC STLMLC [id number] Co mmon 00:00:00 00:00:00 [facility] 2021-05-17 2021-05-17 Office [facility] 1.2.840.114 [id number] Univers 15:27:51 16:36:22 Visit Krystyna Nair 350.1.13.10 i ty [place] [phone] Mt dicde nal [address] [place] [address] 2021-05-17 2021-05-17 Outpatient R KRYSTYNA BRANDON [facility] 10 [id number] Univers 15:10:00 15:10:00 KRYSTYNA BRANDON i ty [facility] 2021-05-17 2021-05-17 Orders Doctor BAKER 1.2.840.114 [id number] Univers 00:00:00 00:00:00 Only Unassigned, PEEWEE 350.1.13.10 ity of [place] [facility] 4.2.7.2.686 Terry as [phone] [place] [address] Branch 2021-05-17 2021-05-17 Orders Doctor OLIVIA 1.2.840.114 [id number] Univers 00:00:00 00:00:00 Only Unassigned, PEEWEE 350.1.13.10 ity of [place] [facility] 4.2.7.2.686 Terry as [phone] [place] [address] Branch Results Test Description Test Time Test [...] Atrial fibrillation with slow vent ricular response- [address]2022-07-16 05:43:23 Test Item Value Reference Range [...] code = 273) with slow ventricular response- [address]2022-07-16 05:43:23 Test Item Value Reference Range [...] code = 273) with slow ventricular response- [address]2022-07-16 05:43:23 Test Item Value Reference Range [...] code = 273) with slow ventricular response- [address]2022-07-16 05:43:23 Test Item Value Reference Range Interpretation Comments Ventricular rate (test 56 code = 253) Atrial rate (test code 67 = 255) QRSD interval (test 88 code = 260) QT interval (test code 534 = 264) QTC interval (test 515 code = 265) QRS axis 1 (test code 78 = 268) T wave axis (test code 228 = 270) EKG impression (test Atrial fibrillation code = 273) with slow ventricular response- [address]2022-07-16 05:43:23 Test Item Value Reference Range [...] code = 273) with slow ventricular response- [facility]
[2023-03-05 12:24] LABS: Absolute Lymphocytes (CBC) 0.6 K/uL (0.7-4.9); Hematocrit 24.9 % (39.6-49.0); Lymphocytes % 10.8 % (15.3-44.8); MCV 89.1 fL (80-100); MPV 9.4 fL (7.6-11.3)
[2023-03-05 12:41] LABS: Albumin 3.2 g/dL (3.4-5.0); Bilirubin Total 0.3 mg/dL (0.2-1.0); Protein, Total 7.1 g/dL (6.4-8.2)
--- NOTE | 2023-03-05 15:03 | ER ---
Nurse's Notes [facility] Name: Bridger Murillo Age: 82 yrs Sex: Male : 1940 Arrival Date: 03/05/2023 Time: 11:15 Bed 6 Private MD: Diagnosis: GI Bleed/ Gastrointestinal hemorrhage, unspecified-Resolved Presentation: 03/05 11:21 Chief complaint: Patient states: Blood in ostomy bag since this morning. Coronavirus ld1 screen: At this time, the client does not indicate any symptoms associated with coronavirus-19. Ebola Screen: No symptoms or risks identified at this time. Initial Sepsis Screen: Does the patient meet any 2 criteria? No. Patient's initial sepsis screen is negative. Does the patient have a suspected source of infection? No. Patient's initial sepsis screen is negative. Risk Assessment: Do you want to hurt yourself or someone else? Patient reports no desire to harm self or others. Onset of symptoms was March 05, 2023. 11:21 Method Of Arrival: Wheelchair ld1 11:21 Acuity: VALENCIA 3 ld1 Triage Assessment: 11:22 General: Appears in no apparent distress. comfortable, Behavior is calm, cooperative, ld1 appropriate for age. Pain: Denies pain. EENT: No signs and/or symptoms were reported regarding the EENT system. Neuro: Level of Consciousness is awake, alert, obeys commands, Oriented to person, place, time, situation. Cardiovascular: Capillary refill < 3 seconds Patient's skin is warm and dry. Respiratory: Airway is patent Respiratory effort is even, unlabored. GI: Abdomen is round non-distended. : No signs and/or symptoms were reported regarding the genitourinary system. Derm: No signs and/or symptoms reported regarding the dermatologic system. Musculoskeletal: No signs and/or symptoms reported regarding the musculoskeletal system. Historical: - Allergies: 11:22 Nemenda; ld1 11:22 Sulfa (Sulfonamide Antibiotics); ld1 - PMHx: 11:22 Alzheimer's; Anemia; aortic valve disease; Atrial Fib; barretts; Bladder cancer; BPH; ld1 CAD; CVA; Hyperlipidemia; Hypertension; Kidney stones; Non stemi PR; skin cancer; - PSHx: 11:22 Bipass; Colostomy; ld1 - Immunization history:: Adult Immunizations up to date, Client reports receiving the 2nd dose of the Covid vaccine. - Social history:: Smoking status: Patient denies any tobacco usage or history of. Patient/guardian denies using alcohol. Screenin:58 [facility] ED Fall Risk Assessment (Adult) History of falling in the last 3 months, bp including since admission No falls in past 3 months (0 pts). Abuse screen: Denies threats or abuse. Denies injuries from another. Nutritional screening: No deficits noted. Tuberculosis screening: No symptoms or risk factors identified. Assessment: 12:07 Reassessment: see triage assessment. mb9 Vital Signs: 11:21 BP 138 / 110; Pulse 53; Resp 18; Temp 98.3(TE); Pulse Ox 98% on R/A; Weight 81.65 kg; ld1 Height 5 ft. 7 in. ; Pain 0/10; 13:30 BP 143 / 89; Pulse 59; Resp 16; Pulse Ox 98% ; ko1 15:23 BP 134 / 84; Pulse 62; Resp 16; Pulse Ox 99% ; ko1 11:21 Body Mass Index 28.19 (81.65 kg, 170.18 cm) ld1 11:21 Pain Scale: Adult ld1 ED Course: 11:17 Patient arrived in ED. am2 11:17 Feliberto Paredes MD is Attending Physician. kdr 11:22 Triage completed. ld1 11:22 Arm band placed on right wrist. ld1 11:47 Aaron Schultz, ISABELLE is Primary Nurse. bp 12:03 Placed in gown. Bed in low position. Call light in reach. Side rails up X 1. mb9 12:03 Inserted saline lock: 22 gauge in right antecubital area, using aseptic technique. mb9 12:12 Type And Screen Sent. mb9 12:12 CBC with Diff Sent. mb9 12:12 CMP Sent. mb9 12:12 Lipase Sent. mb9 12:17 Initial lab(s) drawn, by me, sent to lab. iw 13:30 No provider procedures requiring assistance completed. IV discontinued, intact, ko1 bleeding controlled, No redness/swelling at site. Pressure dressing applied. Administered Medications: No medications were administered Medication: 12:08 VIS not applicable for this client. mb9 Outcome: 15:03 Discharge ordered by . kdr 15:24 Discharged to home via wheelchair, with family. ko1 15:24 Condition: stable 15:24 Discharge instructions given to patient, family, Instructed on discharge instructions, follow up and referral plans. Demonstrated understanding of instructions, follow-up care. 15:28 Patient left the ED. ko1 Signatures: Feliberto Paredes MD MD kdr Marcia Perez, ISABELLE RN iw Belen Johnson am2 Aaron Schultz RN RN bp Gi Sarmiento RN RN ld1 Malina Dewitt RN RN ko1 Rae Anderson RN RN mb9
--- NOTE | 2023-03-05 15:03 | EDPHYS ---
Physician Documentation [facility] Name: Bridger Murillo Age: 82 yrs Sex: Male : 1940 Arrival Date: 03/05/2023 Time: 11:15 Bed 6 Private MD: ED Physician Feliberto Paredes HPI: 03/05 13:56 This 82 yrs old Male presents to ER via Wheelchair with complaints of blood in ostomy. kdr 13:56 Patient has a history of GI bleeds, specifically from his ostomy bag. According to his kdr and price clerk, he normally requires transfusions every 2 to 3 weeks sometimes a little less often. He has had no other symptoms today is otherwise been in his usual state of health without any associated review of system abnormality. The brought his ostomy bag that they had replaced that had the seemingly bloody stool in it. It is foul-smelling and suggest obvious GI bleed. Patient otherwise is stable and in his usual state of health and does not appear toxic or in need of emergent intervention at this time. I informed the that we would draw serial hemoglobins and determine whether or not he had a need for transfusion or admission. Patient's last hemoglobin last week was 9.3.. Onset: The symptoms/episode began/occurred today. Severity of symptoms: At their worst the symptoms were mild in the emergency department the symptoms are unchanged. The patient has experienced similar episodes in the past, multiple times. The patient has been recently seen by a physician: the patient's primary care provider. Historical: - Allergies: 11:22 Nemenda; ld1 11:22 Sulfa (Sulfonamide Antibiotics); ld1 - PMHx: 11:22 Alzheimer's; Anemia; aortic valve disease; Atrial Fib; barretts; Bladder cancer; BPH; ld1 CAD; CVA; Hyperlipidemia; Hypertension; Kidney stones; Non stemi NH; skin cancer; - PSHx: 11:22 Bipass; Colostomy; ld1 - Immunization history:: Adult Immunizations up to date, Client reports receiving the 2nd dose of the Covid vaccine. - Social history:: Smoking status: Patient denies any tobacco usage or history of. Patient/guardian denies using alcohol. ROS: 13:56 Constitutional: Negative for fever, chills, and weight loss, Eyes: Negative for injury, kdr pain, redness, and discharge, ENT: Negative for injury, pain, and discharge, Neck: Negative for injury, pain, and swelling, Cardiovascular: Negative for chest pain, palpitations, and edema, Respiratory: Negative for shortness of breath, cough, wheezing, and pleuritic chest pain, Back: Negative for injury and pain, : Negative for injury, bleeding, discharge, and swelling, MS/Extremity: Negative for injury and deformity, Skin: Negative for injury, rash, and discoloration, Neuro: Negative for headache, weakness, numbness, tingling, and seizure activity. Psych: Negative for depression, anxiety, suicide ideation, homicidal ideation, and hallucinations, Allergy/Immunology: Negative for hives, rash, and allergies, Endocrine: Negative for neck swelling, polydipsia, polyuria, polyphagia, and marked weight changes, Hematologic/Lymphatic: Negative for swollen nodes, abnormal bleeding, and unusual bruising. 13:56 Abdomen/GI: Positive for blood from ostomy bag. Exam: 13:56 Constitutional: This is a well developed, well nourished patient who is awake, alert, kdr and in no acute distress. Head/Face: Normocephalic, atraumatic. Eyes: Pupils equal round and reactive to light, extra-ocular motions intact. Lids and lashes normal. Conjunctiva and sclera are non-icteric and not injected. Cornea within normal limits. Periorbital areas with no swelling, redness, or edema. Neck: Trachea midline, no thyromegaly or masses palpated, and no cervical lymphadenopathy. Supple, full range of motion without nuchal rigidity, or vertebral point tenderness. No Meningismus. Chest/axilla: Normal chest wall appearance and motion. Nontender with no deformity. No lesions are appreciated. Cardiovascular: Regular rate and rhythm with a normal S1 and S2. No gallops, murmurs, or rubs. Normal PMI, no JVD. No pulse deficits. Respiratory: Lungs have equal breath sounds bilaterally, clear to auscultation and percussion. No rales, rhonchi or wheezes noted. No increased work of breathing, no retractions or nasal flaring. Back: No spinal tenderness. No costovertebral tenderness. Full range of motion. Skin: Warm, dry with normal turgor. Normal color with no rashes, no lesions, and no evidence of cellulitis. MS/ Extremity: Pulses equal, no cyanosis. Neurovascular intact. Full, normal range of motion. Neuro: Awake and alert, GCS 15, oriented to person, place, time, and situation. Cranial nerves II-XII grossly intact. Motor strength 5/5 in all extremities. Sensory grossly intact. Cerebellar exam normal. Normal gait. Psych: Awake, alert, with orientation to person, place and time. Behavior, mood, and affect are within normal limits. 13:56 Abdomen/GI: Inspection: obese Bowel sounds: active, Palpation: soft, nontender, in all quadrants, Rectal exam: Deferred secondary to lack of stool guaiac cards which are no longer being provided to the ED. Vital Signs: 11:21 BP 138 / 110; Pulse 53; Resp 18; Temp 98.3(TE); Pulse Ox 98% on R/A; Weight 81.65 kg; ld1 Height 5 ft. 7 in. ; Pain 0/10; 13:30 BP 143 / 89; Pulse 59; Resp 16; Pulse Ox 98% ; ko1 15:23 BP 134 / 84; Pulse 62; Resp 16; Pulse Ox 99% ; ko1 11:21 Body Mass Index 28.19 (81.65 kg, 170.18 cm) ld1 11:21 Pain Scale: Adult ld1 MDM: 15:03 Patient medically screened. kdr 15:21 Data reviewed: vital signs, nurses notes, lab test result(s). [facility] 03/05 11:46 Order name: CBC with Diff; Complete Time: 12:36 [facility] 03/05 11:46 Order name: CMP; Complete Time: 12:55 [facility] 03/05 11:46 Order name: Lipase; Complete Time: 12:55 [facility] 03/05 11:46 Order name: Type And Screen; Complete Time: 14:53 [facility] 03/05 12:37 Order name: Hemoglobin: repeat in 2 hours from first draw; Complete Time: 14:53 [facility] 03/05 13:10 Order name: Antibody Identification [facility] 03/05 13:10 Order name: Sendout Antibody ID [facility] 03/05 11:46 Order name: IV Saline Lock; Complete Time: 12:03 [facility] 03/05 11:46 Order name: Labs collected and sent; Complete Time: 12:12 kdr Administered Medications: No medications were administered Disposition Summary: 03/05/23 15:03 Discharge Ordered Location: Home kdr Problem: an acute exacerbation kdr Symptoms: have improved kdr Condition: Stable kdr Diagnosis - GI Bleed/ Gastrointestinal hemorrhage, unspecified - Resolved kdr Followup: kdr - With: Private Physician - When: 2 - 3 days - Reason: If symptoms return, Further diagnostic work-up, Recheck today's complaints, Continuance of care, Re-evaluation by your physician Discharge Instructions: - Discharge Summary Sheet kdr - Anemia kdr - Gastrointestinal Bleeding kdr Forms: - Medication Reconciliation Form kdr - Thank You Letter kdr - [email or web address] kdr Signatures: Dispatcher [employer] Feliberto Ventura MD MD kdr Gi Sarmiento RN RN ld1
[2023-03-05 15:47] VITALS: TEMP 98.3
[2023-03-05 15:59] VITALS: BP 134/84; O2SAT 99
== END 2023-03-05 15:28 | disposition home or self-care (01) ==
LOC: ER 11:15
DX: K92.2 Gastrointestinal hemorrhage, unspecified (principal); K94.09 Other complications of colostomy; G30.9 Alzheimer's disease, unspecified; F02.80 Dementia in other diseases classified elsewhere, unspecified severity, without behavioral disturbance, psychotic disturbance, mood disturbance, and anxiety; I10 Essential (primary) hypertension; Z85.51 Personal history of malignant neoplasm of bladder; Z88.2 Allergy status to sulfonamides; Z88.8 Allergy status to other drugs, medicaments and biological substances
CPT/HCPCS: 36415; 80053; 83690; 85018; 85025; 86850; 86870; 86900; 86901; 99283

== ENCOUNTER 2023-03-09 11:35 | Emergency (ER) | payer OTHER, MEDICARE ==
--- OUTSIDE RECORDS SUMMARY | 2023-03-09 11:41 | XMS REPORT | Continuity of Care Document ---
:1940 Author Organization [facility] t Address [address] [place] [address] [address] [place] [address] Care Team Providers Name Role Phone Anshul Conley Primary Care Physician Anshul Booker Attending Clinician Unavailable Alina PRITCHARD, Kenn Zimmerman Attending Clinician [phone] Krystyna Brandon DO Attending Clinician Doctor Unassigned, [place] Attending Clinician Unavailable KRYSTYNA BRANDON Attending Clinician Unavailable KRYSTYNA BRANDON Attending Clinician Unavailable Payers Payer Name Policy Type Policy Number Effective Date Expiration Date [place] MEDICARE MB [id number] [facility] AAR C1 [id number] [facility] MEDICARE MB [id number] [facility]OVITAS [facility] AARP C1 [id number] [facility] C[address] [id number] 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 - [facility] [id number] Cystitis Problem Commo n Spirit - [facility] [id number] Pain in Problem Commo n left ankle Spirit and joints - CHI of left foot [facility] [id number] Sprain of Problem Comm on deltoid Spirit ligament - [facility] of left ankle, [facility] initial Medical encounter Center [id number] Kidney Problem Common stones [facility] [id number] 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 Medical lower Center extremity [id number] Lesion of Problem Com mon bladder [facility] Allergies, Adverse Reactions, Alerts Allergy Allergy [...] memantin Active Unknown Commo n e e [facility] Family History Family Member Diagnosis Comments Start Date Stop Date Source [facility] Other Coronary artery [facility] disease Social History Social Habit Start Date Stop Date Quantity Comments Source Exposure to Not sure University of SARS-CoV-2 (event) [place] [facility] History of Tobacco Common [facility] - Use [facility] Gender identity [facility] Sexual orientation [facility] History of Social 2022-03-22 2022-03-[address] function 00:00:00 00:00:00 Hospital Tobacco use and 2017-12-02 2017-12-02 Smokeless [facility] exposure 00:00:00 00:00:00 tobacco non-user Hospital Sex Assigned At [birth year] [facility] 00:00[facility]00 00:00:00 Hospital Smoking Status Start Date Stop Date Source Former Smoker 2022-04-10 00:00:00 2022-04-10 00:00:00 [facility] - [facility] Medications Ordered Filled Start Stop Current Ordering [...] NUT.TX,META 0 Yes Take by Met mary B.DIS, 7-[address] [facility] 14:46: Hospita [...] pain. NUT.TX,META Yes Take by Met mary Mott.DIS, 7-15 [...] 2021-0 Yes 50ug QD Take 50 Met mary [...] 2021-0 Yes 1000U QD Take 1,000 Methodi laurnet, 7-[address] vitamin D3, 14:46: [...] pain. NUT.TX,META Yes Take by Met mary B.DIS, 7-[address] [facility] 14:46: Hospita [...] 1{capsu TID Amoxicilli 500 MG 500 MG 3-11-26 le} n 500 MG 00:00: 00:00 00 :00 amLODIPine 2020-09 Yes 5mg Take 5 mg Un robert 5 mg tablet 2-09 by mouth ity of 15:14: daily. [address] tamsulosin 2020-09 Yes .4mg Take 0.4 Uni vers 0.4 mg 24 2-09 mg by ity of hr capsule 15:14: mouth. [address] finasteride 2020-09 Yes 5mg Take 5 mg U nivers 5 mg tablet 2-09 by mouth. ity of 15:14: [address] levothyroxi 2020-09 Yes 50ug Take 50 Uni vers ne 50 mcg 2-09 mcg by ity of tablet 15:14: mouth. [address] vitamin C 2020-09 Yes 1000mg Take 1,000 Univers with alban 2-09 mg by ity of hips 1,000 15:14: mouth. [place] mg tablet [address] [place] [address] aspirin 81 2020-09 Yes 81mg Take 81 mg U nivers mg Cap 2-09 by mouth. ity of 15:14: [address] Branch Magnesium 2020-09 Yes 400mg Take 400 Uni vers Hydroxide 2-09 mg by ity of 400 mg (170 15:14: [place] 36 [place] magnesium) Branch Chew citalopram 2020-09 Yes 20mg Take 20 mg U nivers (CELEXA) 20 2-09 by mouth ity of mg tablet 15:14: daily. [address] Branch medium 2020-09 Yes Take by Univers chain 2-09 mouth. ity of triglycerid 15:14: [place] es (MCT OIL Medical ORAL) Branch omega 2020-09 Yes 1000mg Take 1,000 Univ ers 3-dha-epa-f 2-09 mg by ity of joseph oil 15:14: mouth. [place] (FISH OIL) Medical 100-160-1,0 Branch 00 mg Cap vitamin 2020-09 Yes 1000ug Take 1,000 Un robert B-12 2-09 mcg by ity of (VITAMIN 15:14: mouth [place] B-12) 1,000 36 daily. Medica l mcg tablet Branch COCONUT OIL 2020-09 Yes Take by Uni vers ORAL 2-09 mouth. ity of 15:14: [address] Branch atorvastati 2020-09 Yes 20mg Take 20 mg Univers n 20 mg 2-09 by mouth ity of tablet 15:14: at [place] [address] bedtime. Medical Branch Donepezil 2020-09 Yes Take by Unive rs (ARICEPT) 2-09 mouth. ity of 23 mg Tab 15:14: [address] Branch nitroglycer 2020-[address] 0.4 U nivers in 2-09 mg under ity of (NITROSTAT) 15:14: the tongue [place] 0.4 mg 36 every 5 Medical sublingual (five) Branch tablet minutes as needed for Chest pain. traMADol 2020-09 Yes 50mg Take 50 mg Uni vers (ULTRAM) 50 2-09 by mouth ity of mg/10 mL 15:14: every 4 [place] oral 36 (four) Medical syringe hours as Branch needed. pravastatin 2020-09 Yes 40mg Take 40 mg Univers 40 mg 2-09 by mouth. ity of tablet 15:14: [address] Branch furosemide 2020-09 Yes 10mg Take 10 mg U nivers 20 mg 2-09 by mouth. ity of tablet 15:14: [address] Branch niacin 500 2020-09 Yes 500mg Take 500 Un rboert mg tablet 2-09 mg by ity of 15:14: mouth 2 [place] [address] (two) Medical times Branch daily. losartan 2020-09 Yes 100mg Take 100 Univ ers 100 mg 2-09 mg by ity of tablet 15:14: mouth [place] [address] daily. Medical Branch amLODIPine 2020-09 Yes 5mg Take 5 mg Un robert 5 mg tablet 2-09 by mouth ity of 15:14: daily. [address] Branch tamsulosin 2020-09 Yes .4mg Take 0.4 Uni vers 0.4 mg 24 2-09 mg by ity of hr capsule 15:14: mouth. [address] finasteride 2020-09 Yes 5mg Take 5 mg U nivers 5 mg tablet 2-09 by mouth. ity of 15:14: [address] levothyroxi 2020-09 Yes 50ug Take 50 Uni vers ne 50 mcg 2-09 mcg by ity of tablet 15:14: mouth. [address] vitamin C 2020-09 Yes 1000mg Take 1,000 Univers with alban 2-09 mg by ity of hips 1,000 15:14: mouth. [place] mg tablet [address] [place] [address] Branch aspirin 81 2020-09 Yes 81mg Take 81 mg U nivers mg Cap 2-09 by mouth. ity of 15:14: [address] Branch Magnesium 2020-09 Yes 400mg Take 400 Uni vers Hydroxide 2-09 mg by ity of 400 mg (170 15:14: [place]. [place] magnesium) Branch Chew citalopram 2020-09 Yes 20mg Take 20 mg U nivers (CELEXA) 20 2-09 by mouth ity of mg tablet 15:14: daily. [address] medium 2020-09 Yes Take by Univers chain 2-09 mouth. ity of triglycerid 15:14: [place] es (MCT OIL Medical ORAL) Branch omega 2020-09 Yes 1000mg Take 1,000 Univ ers 3-dha-epa-f 2-09 mg by ity of joseph oil 15:14: mouth. [place] (FISH OIL) [address] [place] [address] 100-160-1,0 Branch 00 mg Cap vitamin 2020-09 Yes 1000ug Take 1,000 Un robert B-12 2-09 mcg by ity of (VITAMIN 15:14: mouth [place] B-12) 1,000 36 daily. Medica l mcg tablet Branch COCONUT OIL 2020-09 Yes Take by Uni vers ORAL 2-09 mouth. ity of 15:14: [place] [address] Medical Branch atorvastati 2020-09 Yes 20mg Take 20 mg Univers n 20 mg 2-09 by mouth ity of tablet 15:14: at [place] [address] bedtime. Medical Branch Donepezil 2020-09 Yes Take by Unive rs (ARICEPT) 2-09 mouth. ity of 23 mg Tab 15:14: [address] Branch nitroglycer 2020-[address] 0.4 U nivers in 2-09 mg under ity of (NITROSTAT) 15:14: the tongue [place] 0.4 mg 36 every 5 Medical sublingual (five) Branch tablet minutes as needed for Chest pain. traMADol 2020-09 Yes 50mg Take 50 mg Uni vers (ULTRAM) 50 2-09 by mouth ity of mg/10 mL 15:14: every 4 [place] [address] (four) Medical syringe hours as Branch needed. pravastatin 2020-09 Yes 40mg Take 40 mg Univers 40 mg 2-09 by mouth. ity of tablet 15:14: [address] Branch furosemide 2020-09 Yes 10mg Take 10 mg U nivers 20 mg 2-09 by mouth. ity of tablet 15:14: [address] Branch niacin 500 2020-09 Yes 500mg Take 500 Un robert mg tablet 2-09 mg by ity of 15:14: mouth 2 [place] [address] (two) Medical times Branch daily. losartan 2020-09 Yes 100mg Take 100 Univ ers 100 mg 2-09 mg by ity of tablet 15:14: mouth [place] [address] daily. Medical Branch amLODIPine 2020-09 Yes 5mg Take 5 mg Un robert 5 mg tablet 2-09 by mouth ity of 15:14: daily. [address] Branch tamsulosin 2020-09 Yes .4mg Take 0.4 Uni vers 0.4 mg 24 2-09 mg by ity of hr capsule 15:14: mouth. [address] Branch finasteride 2020-09 Yes 5mg Take 5 mg U nivers 5 mg tablet 2-09 by mouth. ity of 15:14: [address] Branch levothyroxi 2020-09 Yes 50ug Take 50 Uni vers ne 50 mcg 2-09 mcg by ity of tablet 15:14: mouth. [address] Branch vitamin C 2020-09 Yes 1000mg Take 1,000 Univers with alban 2-09 mg by ity of hips 1,000 15:14: mouth. [place] mg tablet Medical Branch aspirin 81 2020-09 Yes 81mg Take 81 mg U nivers mg Cap 2-09 by mouth. ity of 15:14: [address] Branch Magnesium 2020-09 Yes 400mg Take 400 Uni vers Hydroxide 2-09 mg by ity of 400 mg (170 15:14: [place]. [place] mg [place] magnesium) Branch Chew citalopram 2020-09 Yes 20mg Take 20 mg U nivers (CELEXA) 20 2-09 by mouth ity of mg tablet 15:14: daily. [address] medium 2020-09 Yes Take by Univers chain 2-09 mouth. ity of triglycerid 15:14: [place] es (MCT OIL 36 Medical ORAL) Branch omega 2020-09 Yes 1000mg Take 1,000 Univ ers 3-dha-epa-f 2-09 mg by ity of joseph oil 15:14: mouth. [place] (FISH OIL) Medical 100-160-1,0 Branch 00 mg Cap vitamin 2020-09 Yes 1000ug Take 1,000 Un robert B-12 2-09 mcg by ity of (VITAMIN 15:14: mouth [place] B-12) 1,000 36 daily. Medica l mcg tablet Branch COCONUT OIL 2020-09 Yes Take by Uni vers ORAL 2-09 mouth. ity of 15:14: [address] atorvastati 2020-09 Yes 20mg Take 20 mg Univers n 20 mg 2-09 by mouth ity of tablet 15:14: at [place] [address] bedtime. Medical Branch Donepezil 2020-09 Yes Take by Unive rs (ARICEPT) 2-09 mouth. ity of 23 mg Tab 15:14: [address] Branch nitroglycer 2020-[address] [...] 2-09 by mouth. ity of tablet 15:14: [address] furosemide 2020-09 Yes 10mg Take 10 mg U nivers 20 mg 2-09 by mouth. ity of tablet 15:14: [address] niacin 500 2020-09 Yes 500mg Take 500 Un robert mg tablet 2-09 mg by ity of 15:14: mouth 2 [place] [address] (two) Medical times Branch daily. losartan 2020-09 Yes 100mg Take 100 Univ ers 100 mg 2-09 mg by ity of tablet 15:14: mouth [place] [address] daily. [facility] Branch amLODIPine 2020-09 Yes 5mg Take 5 mg Un robert 5 mg tablet 2-09 by mouth ity of 15:14: daily. [address] Branch tamsulosin 2020-09 Yes .4mg Take 0.4 Uni vers 0.4 mg 24 2-09 mg by ity of hr capsule 15:14: mouth. [address] finasteride 2020-09 Yes 5mg Take 5 mg U nivers 5 mg tablet 2-09 by mouth. ity of 15:14: [address] levothyroxi 2020-09 Yes 50ug Take 50 Uni vers ne 50 mcg 2-09 mcg by ity of tablet 15:14: mouth. [address] vitamin C 2020-09 Yes 1000mg Take 1,000 Univers with alban 2-09 mg by ity of hips 1,000 15:14: mouth. [place] mg tablet [address] [place] [address] Branch aspirin 81 2020-09 Yes 81mg Take 81 mg U nivers mg Cap 2-09 by mouth. ity of 15:14: [address] Magnesium 2020-09 Yes 400mg Take 400 Uni vers Hydroxide 2-09 mg by ity of 400 mg (170 15:14: [place]. [place] [address] [place] [address] magnesium) Branch Chew citalopram 2020-09 Yes 20mg Take 20 mg U nivers (CELEXA) 20 2-09 by mouth ity of mg tablet 15:14: daily. [address] Branch medium 2020-09 Yes Take by Univers chain 2-09 mouth. ity of triglycerid 15:14: [place] es (MCT OIL 36 Medical ORAL) Branch omega 2020-09 Yes 1000mg Take 1,000 Univ ers 3-dha-epa-f 2-09 mg by ity of joseph oil 15:14: mouth. [place] (FISH OIL) Medical 100-160-1,0 Branch 00 mg Cap vitamin 2020-09 Yes 1000ug Take 1,000 Un robert B-12 2-09 mcg by ity of (VITAMIN 15:14: mouth [place] B-12) 1,000 36 daily. Medica l mcg tablet Branch COCONUT OIL 2020-09 Yes Take by Uni vers ORAL 2-09 mouth. ity of 15:14: [address] Branch atorvastati 2020-09 Yes 20mg Take 20 mg Univers n 20 mg 2-09 by mouth ity of tablet 15:14: at [place] [address] bedtime. Medical Branch Donepezil 2020-09 Yes Take by Unive rs (ARICEPT) 2-09 mouth. ity of 23 mg Tab 15:14: [address] Branch nitroglycer 2020-[address] 0.4 U nivers in 2-09 mg under ity of (NITROSTAT) 15:14: the tongue [place] 0.4 mg 36 every 5 Medical sublingual (five) Branch tablet minutes as needed for Chest pain. traMADol 2020-09 Yes 50mg Take 50 mg Uni vers (ULTRAM) 50 2-09 by mouth ity of mg/10 mL 15:14: every 4 [facility] 36 (four) Medical syringe hours as Branch needed. pravastatin 2020-09 Yes 40mg Take 40 mg Univers 40 mg 2-09 by mouth. ity of tablet 15:14: [address] Branch furosemide 2020-09 Yes 10mg Take 10 mg U nivers 20 mg 2-09 by mouth. ity of tablet 15:14: [address] Branch niacin 500 2020-09 Yes 500mg Take 500 Un robert mg tablet 2-09 mg by ity of 15:14: mouth 2 [place] [address] (two) Medical times Branch daily. losartan 2020-09 Yes 100mg Take 100 Univ ers 100 mg 2-09 mg by ity of tablet 15:14: mouth [place] 36 daily. [facility] Docusate Yes 100mg Take 100 Univ ers Sodium 100 9-09 mg by ity of mg tablet 16:20: mouth. [address] Docusate Yes 100mg Take 100 Univ ers Sodium 100 9-09 mg by ity of mg tablet 16:20: mouth. [address] Docusate Yes 100mg Take 100 Univ ers Sodium 100 9-09 mg by ity of mg tablet 16:20: mouth. [address] Docusate Yes 100mg Take 100 Univ ers Sodium 100 9-09 mg by ity of mg tablet 16:20: mouth. [address] pravastatin Yes Method i (PRAVACHOL) 1-24 [...] MG 00:00: Hospita tablet 00 l pravastatin 2017-0 Yes Method [facility] (PRAVACHOL) 1-24 st 40 MG 00:00: Hospita tablet 00 l pravastatin 0 Yes Method i (PRAVACHOL) 1-24 st 40 MG 00:00: Hospita tablet 00 l metoclopram 2016-0 Yes Method i morenita 04-10 st (REGLAN) 10 00:00: Hospit a MG tablet 00 l SUPREP 2016-0 Yes Methodi BOWEL PREP 04-10 st KIT 00:00: Hospita 17.5-3.13-1 00 l .6 gram recon soln metoclopram 2016- Yes Method i morenita 04-10 st (REGLAN) 10 00:00: Hospit a MG tablet 00 l SUPREP 2016-0 Yes Methodi BOWEL PREP 04-10 st KIT 00:00: Hospita 17.5-3.13-1 00 l .6 gram recon soln metoclopram 2016- Yes Method i [place] 04-10 (REGLAN) 10 00:00: Hospit a MG tablet 00 l SUPREP 2017-0 Yes Methodi BOWEL PREP 04-10 st KIT 00:00: Hospita 17.5-3.13-1 00 l .6 gram recon soln metoclopram 2017-0 Yes Method i morenita 04-10 (REGLAN) 10 00:00: Hospit a MG tablet 00 l SUPREP 2017-0 Yes Methodi BOWEL PREP 04-10 st KIT 00:00: Hospita 17.5-3.13-1 00 l .6 gram recon soln metoclopram 2017-0 Yes Method i morenita 04-10 (REGLAN) 10 00:00: Hospit a MG tablet 00 l SUPREP 2017-0 Yes Methodi BOWEL PREP 04-10 st KIT 00:00: Hospita 17.5-3.13-1 00 l .6 gram recon soln metoclopram 2017-0 Yes Method i morenita 04-10 (REGLAN) 10 00:00: Hospit a MG tablet 00 l SUPREP 2017-0 Yes Methodi BOWEL PREP 04-10 KIT 00:00: Hospita 17.5-3.13-1 00 l .6 gram recon soln metoclopram 2017-0 Yes Method i morenita 04-10 (REGLAN) 10 00:00: Hospit a MG tablet 00 l SUPREP 2017-0 Yes Methodi BOWEL PREP 04-10 st KIT 00:00: Hospita 17.5-3.13-1 00 l .6 gram recon soln amoxicillin 2017-0 Yes Method i (AMOXIL) 7 st 500 MG 00:00: Hospita capsule 00 l amoxicillin 2017-0 Yes Method i (AMOXIL) 7 st 500 MG 00:00: Hospita capsule 00 l amoxicillin 0 Yes Method i (AMOXIL) 7 st 500 MG 00:00: Hospita capsule 00 l amoxicillin Yes Method i (AMOXIL) 7 st 500 MG 00:00: Hospita capsule 00 l amoxicillin 2016- Yes Method i (AMOXIL) 7 st 500 MG 00:00: Hospita capsule 00 l amoxicillin Yes Method i (AMOXIL) 7 st 500 MG 00:00: Hospita capsule 00 l amoxicillin 2016- Yes Method i (AMOXIL) 7-26 [...] Comments Source height 2021-11-09 13:30:00 71 [in_i] [facility] weight 2021-11-09 13:30:00 160 [lb_av] [facility] temperature 2021-11-09 13:30:00 98.2 [degF] [facility] bmi 2021-11-09 13:30:00 22.31 kg/m2 [facility] oximetry 2021-11-09 13:30:00 97.1 % [facility] respiratory rate 2021-11-09 13:30:00 18 /min Comm on [facility] blood pressure 2021-11-09 13:30:00 160 mm[Hg] Common [facility] - systolic [facility] blood pressure 2021-11-09 13:30:00 66 mm[Hg] [facility] - diastolic [facility] Systolic blood 2021-08-16 21:23:00 151 mm[Hg] Lindy [facility]rews [facility] Diastolic blood 2021-08-16 21:23:00 60 mm[Hg] Unive rsity of pressure [facility] Heart rate 2021-08-16 21:23:00 58 /min Universi [facility] Respiratory rate 2021-08-16 21:17:00 22 /min Univ ersity of [facility] Body height 2021-08-16 21:17:00 180.3 cm Universi ty [facility] [place] Body weight 2021-08-16 21:17:00 78.926 kg [facility] BMI 2021-08-16 21:17:00 24.27 kg/m2 [facility] Oxygen saturation in 2021-08-16 21:17:00 98 /min [facility] Arterial blood by [facility] Pulse oximetry Branch height 2021-07-16 13:00:00 71 [in_i] [facility] weight 2021-07-16 13:00:00 179 [lb_av] [facility] temperature 2021-07-16 13:00:00 98.3 [degF] [facility] bmi 2021-07-16 13:00:00 24.96 kg/m2 [facility] oximetry 2021-07-16 13:00:00 95 % [facility] blood pressure 2021-07-16 13:00:00 130 mm[Hg] [facility] systolic [facility] blood pressure 2021-07-16 13:00:00 61 mm[Hg] [facility] - diastolic [facility] Systolic blood 2022-03-22 19:39:00 153 mm[Hg] [facility] pressure Diastolic blood 2022-03-22 19:39:00 74 mm[Hg] [facility] pressure Heart rate 2022-03-22 19:39:00 57 /min [facility] Body height 2022-03-22 19:39:00 180.3 cm [facility] Body weight 2022-03-22 19:39:00 78.563 kg [facility] BMI 2022-03-22 19:39:00 24.16 kg/m2 [facility] Oxygen saturation in 2022-03-22 19:39:00 97 /min [facility] Arterial blood by Pulse oximetry Procedures Procedure Date / Time Performing Clinician Source Performed ECG 12-LEAD 2022-03-22 19:54:15 Kenn Fuller [facility] V. DME/SUPPLY JUSTIFICATION 2021-08-20 06:01:00 Doctor Unassigned, No [facility] Plan of Care Planned Activity Planned Date Details Comments Source Future Scheduled 2023-03-08 COVID-19 VACCINE (#1) [facility] Test 11:59:14 [code = COVID-19 VACCINE (#1)] Future Scheduled 2023-03-08 65+ PNEUMOCOCCAL [facility] Test 11:59:14 VACCINE (1 - PCV) [code = 65+ PNEUMOCOCCAL VACCINE (1 - PCV)] Future Scheduled 2023-03-08 SHINGLES VACCINES (1 Met [facility] Test 11:59:14 of 2) [code = SHINGLES VACCINES (1 of 2)] Future Scheduled 2023-03-08 INFLUENZA VACCINE [facility] Test 11:59:14 [code = INFLUENZA VACCINE] Future Scheduled 2022-12-11 COVID-19 VACCINE (#1) [facility] Test 11:56:52 [code = COVID-19 VACCINE (#1)] Future Scheduled 2022-12-11 65+ PNEUMOCOCCAL [facility] Test 11:56:52 VACCINE (1 - PCV) [code = 65+ PNEUMOCOCCAL VACCINE (1 - PCV)] Future Scheduled 2022-12-11 SHINGLES VACCINES (1 Met [facility] Test 11:56:52 of 2) [code = SHINGLES VACCINES (1 of 2)] Future Scheduled 2022-12-11 INFLUENZA VACCINE [facility] Test 11:56:52 [code = INFLUENZA VACCINE] Future Scheduled 2022-09-10 COVID-19 VACCINE (#1) [facility] Test 10:41:34 [code = COVID-19 VACCINE (#1)] Future Scheduled 2022-09-10 65+ PNEUMOCOCCAL [facility] Test 10:41:34 VACCINE (1 - PCV) [code = 65+ PNEUMOCOCCAL VACCINE (1 - PCV)] Future Scheduled 2022-09-10 SHINGLES VACCINES ([facility] Test 10:41:34 of 2) [code = SHINGLES VACCINES (1 of 2)] Future Scheduled 2022-09-10 INFLUENZA VACCINE [facility] Test 10:41:34 [code = INFLUENZA VACCINE] Future Scheduled 2022-09-10 COVID[facility]19 [facility] 10:41:34 [code = COVID-19 VACCINE (#1)] Future Scheduled 2022-09-10 65+ PNEUMOCOCCAL [facility] Test 10:41:34 VACCINE (1 - PCV) [code = 65+ PNEUMOCOCCAL VACCINE (1 - PCV)] Future Scheduled 2022-09-10 SHINGLES VACCINES (1 [facility] Test 10:41:34 of 2) [code = SHINGLES VACCINES (1 of 2)] Future Scheduled 2022-09-10 INFLUENZA VACCINE [facility] Test 10:41:34 [code = INFLUENZA VACCINE] Future Scheduled 2022-07-18 HEPATITIS B VACCINES [facility] Test 15:57:47 (1 of 3 - 3-dose series) [code = HEPATITIS B VACCINES (1 of 3 - 3-dose series)] Future Scheduled 2022-07-18 COVID-19 VACCINE (#1) [facility] Test 15:57:47 [code = COVID-19 VACCINE (#1)] Future Scheduled 2022-07-18 65+ PNEUMOCOCCAL [facility] Test 15:57:47 VACCINE (1 - PCV) [code = 65+ PNEUMOCOCCAL VACCINE (1 - PCV)] Future Scheduled 2022-07-18 SHINGLES VACCINES (1 [facility] Test 15:57:47 of 2) [code = SHINGLES VACCINES (1 of 2)] Future Scheduled 2022-07-18 INFLUENZA VACCINE [facility] Test 15:57:47 [code = INFLUENZA VACCINE] Future Scheduled 2022-07-18 HEPATITIS B VACCINES [facility] Test 15:57:47 (1 of 3 - 3-dose series) [code = HEPATITIS B VACCINES (1 of 3 - 3-dose series)] Future Scheduled 2022-07-18 COVID-19 [facility]ACCINE (#[facility]) [facility] Test 15:57:47 [code = COVID-19 VACCINE (#1)] Future Scheduled 2022-07-18 65+ PNEUMOCOCCAL [facility] Test 15:57:47 VACCINE (1 - PCV) [code = 65+ PNEUMOCOCCAL VACCINE (1 - PCV)] Future Scheduled 2022-07-18 SHINGLES VACCINES (1 Met [facility] Test 15:57:47 of 2) [code = SHINGLES VACCINES (1 of 2)] Future Scheduled 2022-07-18 INFLUENZA VACCINE [facility] Test 15:57:47 [code = INFLUENZA VACCINE] Future Scheduled 2022-04-24 HEPATITIS B VACCINES [facility] Test 09:34:27 (1 of 3 - 3-dose series) [code = HEPATITIS B VACCINES (1 of 3 - 3-dose series)] Future Scheduled 2022-04-24 COVID-19 VACCINE (#1) [facility] Test 09:34:27 [code = COVID-19 VACCINE (#1)] Future Scheduled 2022-04-24 65+ PNEUMOCOCCAL [facility] Test 09:34:27 VACCINE (1 - PCV) [code = 65+ PNEUMOCOCCAL VACCINE (1 - PCV)] Future Scheduled 2022-04-24 SHINGLES VACCINES (1 [facility] Test 09:34:27 of 2) [code = SHINGLES VACCINES (1 of 2)] Future Scheduled 2022-04-24 INFLUENZA VACCINE [facility] Test 09:34:27 [code = INFLUENZA VACCINE] Encounters Start End Encounter Admission Attending Care Care Encounter Source Date/Time Date/Time Type Type Clinicians Facility Department ID 2021-10-03 Outpatient Ade, [facility] [id number] Common 14:08:18 Anshul [id number] [facility] 2021-10-03 Outpatient Ade, [facility] [id number] Common 13:12:42 Anshul [id number] [facility] 2023-03-06 2023-03-06 Telephone [place] [id number] Methodi 00:00:00 00:00:00 Kenn kim [id number] V[address] [id number] Hospit [id number] l .8 2022-05-24 2022-05-24 (TEL) [facility] [id number] Co mmon 00:00:00 00:00:00 [facility] 2022-04-19 2022-04-19 Telemedici Valderraban 1.2.840.1 [id number] Methodi 16:45:00 17:00:00 [place], [place] [address]86.1.[address] V. 3.430.2.7 Hospit a .3.034498 l .8 2022-04-19 2022-04-19 Telemedici Valderraban 1.2.840.1 [id number] Methodi 16:45:00 17:00:00 ne [place], [place] [address]98.1.[address] V. 3.430.2.7 Hospit a .3.249635 l .8 2022-04-18 2022-04-18 Telephone Valderraban 1.2.840.1 [id number] Methodi 00:00:00 00:00:00 o, [place] [address].1.[address] V. 3.430.2.7 Hospit a .3.433686 l .8 2022-04-18 2022-04-18 Telephone Valderraban 1.2.840.1 [id number] Methodi 00:00:00 00:00:00 o, [place] [address]45.1.[address] V. 3.430.2.7 Hospit a .3.034100 l .8 2022-04-10 2022-04-10 Telephone Valderraban 1.2.840.1 [id number] Methodi 00:00:00 00:00:00 o, [place] [address].1.[address] V. 3.430.2.7 Hospit a .3.090765 l .8 2022-04-10 2022-04-10 Telephone Valderraban 1.2.840.1 [id number] Methodi 00:00:00 00:00:00 o, [place] [address]36.1.[address] V. 3.430.2.7 Hospit a .3.553457 l .8 2022-03-22 2022-03-22 Office Valderraban 1.2.840.1 [id number] Methodi 14:00:00 15:17:00 Visit Kenn kim 50033.1.[address] V. 3.430.2.7 Hospit a .3.252890 l .8 2022-03-22 2022-03-22 Office Valderraban 1.2.840.1 [id number] 21 [id number] Methodi 14:00:00 15:17:00 Visit Kenn kim 40223.1.[address] V. 3.430.2.7 Hospit a .3.582127 l .8 2022-03-22 2022-03-22 Travel 1.2.840.1 1.2.170.264 [id number] Methodi 00:00:00 00:00:[address] 3.430.2.7 0.2.7.3.698 Ho spita .3.000550 084.8 l .8 2022-03-22 2022-03-22 Travel 1.2.840.1 1.2.671.231 0400 [id number] Methodi 00:00:00 00:00:[address] 3.430.2.7 0.2.7.3.698 Ho spita .3.700170 084.8 l .8 2022-01-10 2022-01-10 (TEL) STLMLC STLMLC [id number] Co mmon 00:00:00 00:00:00 [facility] 2022-01-09 2022-01-09 Phone Only STLMLC STLMLC [id number] Common 00:00:00 00:00:00 Visit for Spir it Est [facility] 2021-11-16 2021-11-16 (TEL) STLMLC STLMLC [id number] Co mmon 00:00:00 00:00:00 [facility] 2021-11-09 2021-11-09 (PROC) STLMLC STLMLC [id number] Co mmon 00:00:00 00:00:00 Procedure Spir it - [facility] 2021-08-23 2021-08-23 Telephone Keiko [facility] 1.2.619.771 [id number] Univers 00:00:00 00:00:00 Krystyna NAIR 350.1.13.10 i ty [place] [phone] Nm dical NAL 5 [facility] 2021-08-20 2021-08-20 Orders Doctor OLIVIA 1.2.840.114 [id number] Univers 00:00:00 00:00:00 Only Unassigned, PEEWEE 350.1.13.10 ity of [place] [facility] 4.2.7.2.686 Terry as [phone] [address] 2021-08-16 2021-08-16 Outpatient R KRYSTYNA BRANDON [facility] 10 [id number] Univers 15:00:00 15:45:27 KRYSTYNA BRANDON i ty of [facility] 2021-08-16 2021-08-16 Office Keiko [facility] 1.2.840.114 [id number] Univers 14:58:58 15:45:27 Visit Giseleprtrinity NAIR 350.1.13.10 i ty [place] [phone] [address] 2021-08-16 2021-08-16 Outpatient R KRYSTYNA BRANDON [facility] 10 [id number] Univers 15:00:00 15:00:00 KRYSTYNA BRANDON i ty of [facility] 2021-07-26 2021-07-26 OL DIG E/M STLMLC STLMLC [id number] Common 00:00:00 00:00:00 [facility] Spiri t MIN [facility] 2021-07-18 2021-07-18 (TEL) STLMLC STLMLC [id number] Co mmon 00:00:00 00:00:00 Spirit - [facility] 2021-07-16 2021-07-16 (PROC) STLMLC STLMLC [id number] Co mmon 00:00:00 00:00:00 Procedure Spir it [facility] 2021-07-16 2021-07-16 (TEL) STLMLC STLMLC [id number] Co mmon 00:00:00 00:00:00 [facility] 2021-05-17 2021-05-17 Office Keiko [facility] 1.2.840.114 [id number] Univers 15:27:51 16:36:22 Visit Krystyna Nair 350.1.13.10 [place] [phone] Nm dical [facility] 2021-05-17 2021-05-17 Outpatient R KRYSTYNA BRANDON [facility] 10 [id number] Univers 15:10:00 15:10:00 KRYSTYNA BRANDON i ty of [facility] 2021-05-17 2021-05-17 Orders Doctor OLIVIA 1.2.840.114 [id number] Univers 00:00:00 00:00:00 Only Unassigned, PEEWEE 350.1.13.10 ity of [place] [facility] 4.2.7.2.686 Terry as [phone] [address] 2021-05-17 2021-05-17 Orders Doctor OLIVIA 1.2.840.114 [id number] Univers 00:00:00 00:00:00 Only Unassigned, PEEWEE 350.1.13.10 ity of [place] [facility] 4.2.7.2.686 Terry as [phone] [address] Results Test Description Test Time Test [...] Atrial [facility] with [facility] [id number] 05:43:23 Test Item Value Reference Range Interpretation [...] code = 273) with slow ventricular response- [address]2022-07-16 05:43:23 Test Item Value Reference Range [...] code = 273) with slow ventricular response- [address]2022-07-16 05:43:23 Test Item Value Reference Range [...] code = 273) with slow ventricular response- [address]2022-07-16 05:43:23 Test Item Value Reference Range [...] code = 273) with slow ventricular response- [address]2022-07-16 05:43:23 Test Item Value Reference Range [...] code = 273) with slow ventricular response- [address]2022-07-16 05:43:23 Test Item Value Reference Range [...] = 273) with slow ventricular response- [facility]
[2023-03-09 12:17] LABS: Absolute Lymphocytes (CBC) 0.7 K/uL (0.7-4.9); Hematocrit 25.6 % (39.6-49.0); Lymphocytes % 9.9 % (15.3-44.8); MCV 89.2 fL (80-100); MPV 9.7 fL (7.6-11.3); RBC Red Blood Cell Count 2.87 M/uL (4.33-5.43)
[2023-03-09 12:36] LABS: Albumin 3.7 g/dL (3.4-5.0); Bilirubin Direct 0.1 mg/dL (0-0.2); Bilirubin Indirect, Calculated 0.2 mg/dL (0.2-0.8); Bilirubin Total 0.3 mg/dL (0.2-1.0); Magnesium 2.4 mg/dL (1.6-2.4); Potassium 4.3 mEq/L (3.5-5.1); Protein, Total 8.1 g/dL (6.4-8.2); Troponin High Sensitivity 26.5 pg/mL (<58.9)
--- NOTE | 2023-03-09 12:39 | RAD REPORT ---
EXAM DESCRIPTION: Pedro Luis Single View03/09/2023 12:19 pm CLINICAL HISTORY: Chest pain COMPARISON: 2021 FINDINGS: The lungs appear clear of acute infiltrate. The heart is moderately enlarged Postsurgical changes involve the chest IMPRESSION: No acute abnormalities displayed
--- NOTE | 2023-03-09 13:26 | ER ---
Nurse's Notes [facility] Name: Bridger Murillo Age: 82 yrs Sex: Male : 1940 Arrival Date: 03/09/2023 Time: 11:35 Bed 8 Private MD: Diagnosis: Weakness;Anemia, unspecified-Chronic Presentation: 03/09 11:52 Chief complaint: Spouse and/or significant other states: "His Hgb was 7.8 on Friday and ss I noticed a little blood in his stoma. He has been getting progressively weaker since then.". Coronavirus screen: Client denies travel out of the [place] in the last 14 days. Ebola Screen: Patient denies exposure to infectious person. Patient denies travel to an Ebola-affected area in the 21 days before illness onset. Initial Sepsis Screen: Does the patient meet any 2 criteria? No. Patient's initial sepsis screen is negative. Does the patient have a suspected source of infection? No. Patient's initial sepsis screen is negative. Risk Assessment: Do you want to hurt yourself or someone else? Patient reports no desire to harm self or others. Onset of symptoms is unknown. 11:52 Method Of Arrival: Ambulatory ss 11:52 Acuity: VALENCIA 3 ss Historical: - Allergies: 11:54 Nemenda; ss 11:54 Sulfa (Sulfonamide Antibiotics); ss - PMHx: 11:54 Alzheimer's; Anemia; aortic valve disease; Atrial Fib; barretts; Bladder cancer; BPH; ss CAD; CVA; Hyperlipidemia; Hypertension; Kidney stones; Non stemi [place]; skin cancer; - PSHx: 11:54 Colostomy; Bypass; ss - Immunization history:: Adult Immunizations unknown. - Social history:: Smoking status: unknown. Screenin:37 [facility] ED Fall Risk Assessment (Adult). [facility] ED Fall Risk Assessment (Adult) ph History of falling in the last 3 months, including since admission No falls in past 3 months (0 pts). Abuse screen: Denies threats or abuse. Nutritional screening: No deficits noted. Tuberculosis screening: No symptoms or risk factors identified. Assessment: 13:00 General: Appears in no apparent distress. comfortable, Behavior is calm, cooperative, ph appropriate for age, Denies fever, feeling ill. Pain: Denies pain. Neuro: Level of Consciousness is awake, alert, obeys commands, Oriented to person, place, situation. Neuro: Reports weakness. Cardiovascular: Capillary refill < 3 seconds in bilateral fingers Patient's skin is warm and dry. Respiratory: Airway is patent Respiratory effort is even, unlabored. Derm: Skin is fragile, is thin, Skin is normal. Musculoskeletal: Circulation, motion, and sensation intact. Range of motion: intact in all extremities. Vital Signs: 11:52 Pulse 73; Resp 16; Temp 98.2(O); Pulse Ox 99% on R/A; Weight 80.74 kg; Height 5 ft. 11 ss in. ; Pain 0/10; 11:52 BP 126 / 106; ph 13:30 BP 121 / 63; Pulse 62; Resp 18; Temp 97.1; Pulse Ox 99% on R/A; ph 11:52 Body Mass Index 24.83 (80.74 kg, 180.34 cm) ss 11:52 Pain Scale: Adult ss ED Course: 11:36 Patient arrived in ED. rg4 11:38 Feliberto Paredes MD is Attending Physician. kdr 11:54 Triage completed. ss 12:11 Basic Metabolic Panel Sent. rs5 12:11 CBC with Diff Sent. rs5 12:11 LFT's Sent. rs5 12:11 Magnesium Sent. rs5 12:11 NT PRO-BNP Sent. rs5 12:11 Troponin HS Sent. rs5 12:12 Type And Screen Sent. rs5 12:17 Caroline Jenkins, RN is Primary Nurse. ph 12:17 Missed attempt(s): 22 gauge in right antecubital area. rs5 12:21 XRAY Chest (1 view) In Process Unspecified. EDMS 12:37 Arm band placed on Patient placed in an exam room, on a stretcher, on pulse oximetry. ph 12:38 Patient has correct armband on for positive identification. Bed in low position. Call ph light in reach. Pulse ox on. NIBP on. 13:41 No provider procedures requiring assistance completed. Patient did not have IV access ph during this emergency room visit. Administered Medications: No medications were administered Medication: 12:38 VIS not applicable for this client. ph Outcome: 13:26 Discharge ordered by . kdr 13:56 Discharged to home via wheelchair, with family. ph 13:56 Condition: good 13:56 Discharge instructions given to patient, family, didactic program in dietetics director, Instructed on discharge instructions, follow up and referral plans. Demonstrated understanding of instructions, follow-up care. 13:56 Patient left the ED. ph Signatures: Dispatcher [employer] Feliberto Ventura MD MD [facility] Dena Moyer RN RN ss Caroline Jenkins RN RN Dante, Amanda rg4 Mckinley Collins rs5 Corrections: (The following items were deleted from the chart) 11:55 11:54 PSHx: [place]ipass; [facility]
--- NOTE | 2023-03-09 13:26 | EDPHYS ---
Physician Documentation [facility] Name: Bridger Murillo Age: 82 yrs Sex: Male : 1940 Arrival Date: 03/09/2023 Time: 11:35 Bed 8 Private MD: ED Physician Feliberto Paredes HPI: 03/09 14:14 This 82 yrs old Male presents to ER via Ambulatory with complaints of Weakness. kdr 14:15 Patient is brought today by his with concern for lowering hemoglobin since he kdr appears to be more weak than usual and perhaps some slight confusion beyond baseline. Patient has been seen here multiple times in the recent weeks for similar concerns today and he has not required a transfusion in the last few visits. Patient appears to be alert and oriented and not in any pain or discomfort or with any deviation from the baseline that I have experienced on multiple prior visits with the patient.. Onset: The symptoms/episode began/occurred gradually, today. Severity of symptoms: At their worst the symptoms were very mild in the emergency department the symptoms are unchanged. The patient has experienced similar episodes in the past, chronically. The patient has not recently seen a physician. Historical: - Allergies: 11:54 Nemenda; ss 11:54 Sulfa (Sulfonamide Antibiotics); ss - PMHx: 11:54 Alzheimer's; Anemia; aortic valve disease; Atrial Fib; barretts; Bladder cancer; BPH; ss CAD; CVA; Hyperlipidemia; Hypertension; Kidney stones; Non stemi [place]; skin cancer; - PSHx: 11:54 Colostomy; Bypass; ss - Immunization history:: Adult Immunizations unknown. - Social history:: Smoking status: unknown. ROS: 14:15 Constitutional: Negative for fever, chills, and weight loss, Eyes: Negative for injury, kdr pain, redness, and discharge, Neck: Negative for injury, pain, and swelling, Cardiovascular: Negative for chest pain, palpitations, and edema, Respiratory: Negative for shortness of breath, cough, wheezing, and pleuritic chest pain, Abdomen/GI: Negative for abdominal pain, nausea, vomiting, diarrhea, and constipation, Back: Negative for injury and pain, : Negative for injury, bleeding, discharge, and swelling, MS/Extremity: Negative for injury and deformity, Skin: Negative for injury, rash, and discoloration, Neuro: Negative for headache, weakness, numbness, tingling, and seizure activity. Psych: Negative for depression, anxiety, suicide ideation, homicidal ideation, and hallucinations, Allergy/Immunology: Negative for hives, rash, and allergies, Endocrine: Negative for neck swelling, polydipsia, polyuria, polyphagia, and marked weight changes, Hematologic/Lymphatic: Negative for swollen nodes, abnormal bleeding, and unusual bruising. Exam: 14:15 Constitutional: This is a well developed, well nourished patient who is awake, alert, kdr and in no acute distress. Head/Face: Normocephalic, atraumatic. Chest/axilla: Normal chest wall appearance and motion. Nontender with no deformity. No lesions are appreciated. Neuro: Awake and alert, GCS 15, oriented to person, place, time, and situation. Cranial nerves II-XII grossly intact. Motor strength 5/5 in all extremities. Sensory grossly intact. Cerebellar exam normal. Normal gait. Psych: Awake, alert, with orientation to person, place and time. Behavior, mood, and affect are within normal limits. Vital Signs: 11:52 Pulse 73; Resp 16; Temp 98.2(O); Pulse Ox 99% on R/A; Weight 80.74 kg; Height 5 ft. 11 ss in. ; Pain 0/10; 11:52 BP 126 / 106; ph 13:30 BP 121 / 63; Pulse 62; Resp 18; Temp 97.1; Pulse Ox 99% on R/A; ph 11:52 Body Mass Index 24.83 (80.74 kg, 180.34 cm) ss 11:52 Pain Scale: Adult ss MDM: 13:26 Patient medically screened. kdr 14:15 Data reviewed: vital signs, nurses notes, lab test result(s). [facility] 03/09 11:46 Order name: Basic Metabolic Panel; Complete Time: 13:17 kdr 03/09 11:46 Order name: CBC with Diff; Complete Time: 13:17 kdr 03/09 11:46 Order name: LFT's; Complete Time: 13:17 kdr 03/09 11:46 Order name: Magnesium; Complete Time: 13:17 kdr 03/09 11:46 Order name: NT PRO-BNP; Complete Time: 13:17 kdr 03/09 11:46 Order name: Troponin HS; Complete Time: 13:17 kdr 03/09 11:46 Order name: Type And Screen kdr 03/09 13:13 Order name: Antibody Identification EDMS 03/09 11:46 Order name: XRAY Chest (1 view); Complete Time: 13:17 kdr 03/09 11:46 Order name: EKG; Complete Time: 11:47 kdr 03/09 11:46 Order name: Cardiac monitoring; Complete Time: 13:40 kdr 03/09 11:46 Order name: EKG - Nurse/Tech; Complete Time: 12:11 kdr 03/09 11:46 Order name: IV Saline Lock; Complete Time: 13:40 kdr 03/09 11:46 Order name: Labs collected and sent; Complete Time: 12:11 kdr 03/09 11:46 Order name: O2 Per Protocol; Complete Time: 13:40 kdr 03/09 11:46 Order name: O2 Sat Monitoring; Complete Time: 13:40 kdr Administered Medications: No medications were administered Disposition Summary: 03/09/23 13:26 Discharge Ordered Location: Home kdr Problem: an ongoing problem kdr Symptoms: are unchanged kdr Condition: Stable kdr Diagnosis - Weakness kdr - Anemia, unspecified - Chronic kdr Followup: kdr - With: Private Physician - When: 2 - 3 days - Reason: If symptoms return, Further diagnostic work-up, Recheck today's complaints, Continuance of care, Re-evaluation by your physician Discharge Instructions: - Discharge Summary Sheet kdr - Anemia kdr - Fatigue kdr - Weakness, [id number] kdr Forms: - Medication Reconciliation Form kdr - Thank You Letter kdr - [email or web address] kdr Signatures: Dispatcher [employer] [facility] Feliberto Paredes MD MD kdr Dena Moyer, RN RN ss Caroline Jenkins RN RN ph Corrections: (The following items were deleted from the chart) 11:55 11:54 PSHx: Bipass; ss ss
[2023-03-09 14:21] VITALS: O2SAT 99
[2023-03-09 14:23] VITALS: BP 121/63; TEMP 97.1
--- NOTE | 2023-03-10 19:33 | EKG ---
Test Date: 2023-03-09 Test Time: 12:01:05 Apparel Patternmaker: SUSHMA MEASUREMENT RESULTS: Intervals: Rate: 66 [place]: QRSD: 100 QT: 518 QTc: 543 [place]: P: [place]: QRS: 123 T: -2 INTERPRETIVE STATEMENTS: Atrial fibrillation Septal infarct, age undetermined Lateral infarct, age undetermined Possible Inferior infarct, age undetermined Prolonged QT Abnormal ECG Compared to ECG 09/23/2022 10:11:48 Myocardial infarct finding now present ST (T wave) deviation no longer present Possible ischemia no longer present Electronically Signed On 03-10-23 19:29:16 CDT by Jonnathan Gonsalves
== END 2023-03-09 13:56 | disposition home or self-care (01) ==
LOC: ER 11:35
DX: D64.9 Anemia, unspecified (principal); G30.9 Alzheimer's disease, unspecified; F02.80 Dementia in other diseases classified elsewhere, unspecified severity, without behavioral disturbance, psychotic disturbance, mood disturbance, and anxiety; Z88.2 Allergy status to sulfonamides; Z88.8 Allergy status to other drugs, medicaments and biological substances
CPT/HCPCS: 36415; 71045; 80048; 80076; 83735; 83880; 84484; 85025; 86850; 86870; 86900; 86901; 93005; 99284

== ENCOUNTER 2023-03-11 10:45 | Inpatient (IN) | payer OTHER, MEDICARE ==
--- OUTSIDE RECORDS SUMMARY | 2023-03-11 10:52 | XMS REPORT | Continuity of Care Document ---
:1940 Author Organization [facility] t Address [address] [place] [address] [address] [place] [address] Care Team Providers Name Role Phone Anshul Conley Primary Care Physician Anshul Booker Attending Clinician Unavailable Delbert Brandon MD Attending Clinician Kenn Fuller MD, V. Attending Clinician [phone] Krystyna Brandon DO Attending Clinician Doctor Unassigned, Sattley Attending Clinician Unavailable KRYSTYNA BRANDON Attending Clinician Unavailable KRYSTYNA BRANDON Attending Clinician Unavailable Payers Payer Name Policy Type Policy Number Effective Date Expiration Date [place] MEDICARE MB [id number] [facility] AAR C1 [id number] [facility] MEDICARE MB [id number] [facility] AAR C1 [id number] [facility] C1 [id number] [facility] MEDICARE [id number] [facility] Problems Condition Condition Condition Status Onset Resolution Last Treating Co mments Source Name Details Category Date Date Treatment Clinician Date Alzheimer' Alzheimer' Disease Active 2016-09 M ethodi s disease s disease 1-14 st 00:00: Hospita 00 l Cerebrovas Cerebrovas Disease Active 2016-09 M ethodi cular cular 1-14 st accident accident 00:00: Hospit a (CVA) (CVA) 00 l 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 disease 14 [address] 00:00: Hospita 00 l Malignant Malignant [...] [facility] [id number] Personal Problem Comm on history of Spirit bladder - [facility] [id number] 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 - [facility] [id number] Cystitis Problem Commo n Spirit [facility] [id number] Pain in Problem Commo n left ankle Spirit and joints - [facility] of left St foot [facility] [id number] Sprain of Problem Comm on deltoid Spirit ligament - [facility] of left ankle, [facility] initial Medical encounter Center [id number] Kidney Problem Common stones [facility] [id number] 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[facility] of left Medical lower Center extremity [id number] Lesion of Problem Com mon bladder [facility] Allergies, Adverse Reactions, Alerts Allergy [...] 00:00: [place] ANTIBIOT 00 Medical ICS) Branch Sulfa Propensi Active 2015-09 Methodi (Sulfona ty to 10-06 st mide adverse 00:00: Hospita Antibiot reaction 00 l ics) s to drug Memantin Propensi Active 2015-09 Method i e ty to 10-06 st adverse 00:00: Hospita reaction 00 l s to drug memantin memantin Active Unknown Commo n e e [facility] Family History Family Member Diagnosis Comments Start Date Stop Date Source Natural father [facility] Natural mother [facility] Other Coronary artery [facility] disease Social History Social Habit Start Date Stop Date Quantity Comments Source Exposure to Not sure University of SARS-CoV-2 (event) [place] [facility] History of Tobacco [facility] - Use [facility] Gender identity [facility] Sexual orientation [facility] History of Social 2022-03-22 2022-03-[address] function 00:00:00 00:00:00 Hospital Tobacco use and 2017-12-02 2017-12-02 Smokeless [facility] exposure 00:00:00 00:00:00 tobacco non-user Hospital Sex Assigned At [birth year] [facility] 00:00[facility]:00 [facility] Smoking Status Start Date Stop Date Source Former Smoker 2022-04-10 00:00:00 2022-04-10 00:00:00 [facility] Medications Ordered Filled Start Stop Current Ordering Indication Dosage Frequency Signature Comments Components Source Medication Medication Date Date Medication? Clinician (SIG) Name Name ascorbic 2021-0 Yes 1000mg QD Take 1,000 M ethodi acid, 7-[address] vitamin C, 14:46: mouth Hospit a (VITAMIN C) 15 daily. l 1000 MG tablet ascorbic 2-0 Yes 1000mg QD Take 1,000 M ethodi acid, 7-[address] vitamin C, 14:46: mouth Hospit a (VITAMIN C) 15 daily. l 1000 MG tablet ascorbic 2022-0 Yes 1000mg QD Take 1,000 M ethodi acid, 7-[address] vitamin C, 14:46: mouth Hospit a (VITAMIN C) 15 daily. l 1000 MG tablet ascorbic 2-0 Yes 1000mg QD Take 1,000 M ethodi [...] 15 daily. l 1000 MG tablet NUT.TX,META 2022-0 Yes Take by Met mary BOOTH, 7-15 [...] pain. NUT.TX,META 0 Yes Take by Met jaimei B.DIS, 7-[address] MV-MINS 14:46: Hospita [...] 0 Yes 50ug QD Take 50 Met jaimei ne 7-[address] (SYNTHROID) 14:46: mouth Hospi ta 50 mcg 14 daily. l tablet aspirin 81 0 Yes Take by Meth mary mg capsule 7-[address] 14:46: Hospita 14 l amLODIPine 2021-0 Yes 5mg QD Take 5 mg Me thodi (NORVASC) 5 7-[address] mg tablet 14:46: daily. Hospit a 14 l cyanocobala 2022-0 Yes 1000ug QD Take 1,000 Methodi min 1000 7-[address] MCG tablet 14:46: mouth Hospit a 14 daily. l cholecalcif 2022-0 Yes 1000U QD Take 1,000 Methodi laurent, 7-[address] vitamin D3, 14:46: mouth Hospi ta (VITAMIN 14 daily. l D3) 1,000 unit tablet niacin 500 2-0 Yes 500mg Q.5D Take 500 Me thodi [...] mouth Hospit a 14 daily. l cholecalcif 2-0 Yes 1000U QD Take 1,000 Methodi laurent, 7-[address] vitamin D3, 14:46: mouth Hospi ta (VITAMIN 14 daily. l D3) 1,000 unit tablet niacin 500 2-0 Yes 500mg Q.5D Take 500 Me thodi [...] n 500 MG 00:00: 00:00 00 :00 traMADol 2020-09 Yes 50mg Take 50 mg Uni vers (ULTRAM) 50 2-09 by mouth ity of mg/10 mL 15:14: every 4 [place] [address] (four) Medical syringe hours as Branch needed. pravastatin 2020-09 Yes 40mg Take 40 mg Univers 40 mg 2-09 by mouth. ity of tablet 15:14: [place] [address] Medical Branch furosemide 2020-09 Yes 10mg Take 10 mg U nivers 20 mg 2-09 by mouth. ity of tablet 15:14: [place] [address] Medical Branch niacin 500 2020-09 Yes 500mg Take 500 Un robert mg tablet 2-09 mg by ity of 15:14: mouth 2 [place] [address] (two) Medical times Branch daily. losartan 2020-09 Yes 100mg Take 100 Univ ers 100 mg 2-09 mg by ity of tablet 15:14: mouth [place] [address] daily. Medical Branch amLODIPine 2020-09 Yes 5mg Take 5 mg Un robert 5 mg tablet 2-09 by mouth ity of 15:14: daily. [address] Branch tamsulosin 2020-09 Yes .4mg Take 0.4 Uni vers 0.4 mg 24 2-09 mg by ity of hr capsule 15:14: mouth. [address] Branch finasteride 2020-09 Yes 5mg Take 5 mg U nivers 5 mg tablet 2-09 by mouth. ity of 15:14: [address] Branch levothyroxi 2020-09 Yes 50ug Take 50 Uni vers ne 50 mcg 2-09 mcg by ity of tablet 15:14: mouth. [address] vitamin C 2020-09 Yes 1000mg Take 1,000 Univers with alban 2-09 mg by ity of hips 1,000 15:14: mouth. [place] mg tablet [address] [place] [address] Branch aspirin 81 2020-09 Yes 81mg Take 81 mg U nivers mg Cap 2-09 by mouth. ity of 15:14: [address] Branch Magnesium 2020-09 Yes 400mg Take 400 Uni vers Hydroxide 2-09 mg by ity of 400 mg (170 15:14: [place]. [place] magnesium[place] Branch Chew citalopram 2020-09 Yes 20mg Take 20 mg U nivers (CELEXA) 20 2-09 by mouth ity of mg tablet 15:14: daily. [address] medium 2020-09 Yes Take by Univers chain 2-09 mouth. ity of triglycerid 15:14: [place] es (MCT OIL 36 Medical ORAL) Branch omega 2020-09 Yes 1000mg Take 1,000 Univ ers 3-dha-epa-f 2-09 mg by ity of joseph oil 15:14: mouth. [place] (FISH OIL) Medical 100-160-1,0 Branch 00 mg Cap vitamin 2020-09 Yes 1000ug Take 1,000 Un robert B-12 2-09 mcg by ity of (VITAMIN 15:14: mouth [place] B-12) 1,000 36 daily. Medica l mcg tablet Branch COCONUT OIL 2020-09 Yes Take by Uni vers ORAL 2-09 mouth. ity of 15:14: [address] Branch atorvastati 2020-09 Yes 20mg Take 20 mg Univers n 20 mg 2-09 by mouth ity of tablet 15:14: at [place] [address] bedtime. Medical Branch Donepezil 2020-09 Yes Take by Unive rs (ARICEPT) 2-09 mouth. ity of 23 mg Tab 15:14: [address] Branch nitroglycer 2020-[address] 0.4 U nivers in 2-09 mg under ity of (NITROSTAT) 15:14: the tongue [place] 0.4 mg 36 every 5 Medical sublingual (five) Branch tablet minutes as needed for Chest pain. traMADol 2020-09 Yes 50mg Take 50 mg Uni vers (ULTRAM) 50 2-09 by mouth ity of mg/10 mL 15:14: every 4 [place] [address] (four) Medical syringe hours as Branch needed. pravastatin 2020-09 Yes 40mg Take 40 mg Univers 40 mg 2-09 by mouth. ity of tablet 15:14: [address] furosemide 2020-09 Yes 10mg Take 10 mg U nivers 20 mg 2-09 by mouth. ity of tablet 15:14: [address] niacin 500 2020-09 Yes 500mg Take 500 Un robert mg tablet 2-09 mg by ity of 15:14: mouth 2 [place] [address] (two) Medical times Branch daily. losartan 2020-09 Yes 100mg Take 100 Univ ers 100 mg 2-09 mg by ity of tablet 15:14: mouth [place] [address] daily. Medical Branch amLODIPine 2020-09 Yes 5mg Take 5 mg Un robert 5 mg tablet 2-09 by mouth ity of 15:14: daily. [address] Branch tamsulosin 2020-09 Yes .4mg Take 0.4 Uni vers 0.4 mg 24 2-09 mg by ity of hr capsule 15:14: mouth. [address] Branch finasteride 2020-09 Yes 5mg Take 5 mg U nivers 5 mg tablet 2-09 by mouth. ity of 15:14: [address] levothyroxi 2020-09 Yes 50ug Take 50 Uni vers ne 50 mcg 2-09 mcg by ity of tablet 15:14: mouth. [address] vitamin C 2020-09 Yes 1000mg Take 1,000 Univers with alban 2-09 mg by ity of hips 1,000 15:14: mouth. [place] mg tablet Medical Branch aspirin 81 2020-09 Yes 81mg Take 81 mg U nivers mg Cap 2-09 by mouth. ity of 15:14: [address] Branch Magnesium 2020-09 Yes 400mg Take 400 Uni vers Hydroxide 2-09 mg by ity of 400 mg (170 15:14: [place]. [place] mg 36 [place] magnesium) Branch Chew citalopram 2020-09 Yes 20mg Take 20 mg U nivers (CELEXA) 20 2-09 by mouth ity of mg tablet 15:14: daily. [address] Branch medium 2020-09 Yes Take by Univers chain 2-09 mouth. ity of triglycerid 15:14: [facility] (MCT OIL 36 Medical ORAL) Branch omega 2020-09 Yes 1000mg Take 1,000 Univ ers 3-dha-epa-f 2-09 mg by ity of joseph oil 15:14: mouth. [place] (FISH OIL) Medical 100-160-1,0 Branch 00 mg Cap vitamin 2020-09 Yes 1000ug Take 1,000 Un robert B-12 2-09 mcg by ity of (VITAMIN 15:14: mouth [place] B-12) 1,000 36 daily. Medica l mcg tablet Branch COCONUT OIL 2020-09 Yes Take by Uni vers ORAL 2-09 mouth. ity of 15:14: [address] Branch atorvastati 2020-09 Yes 20mg Take 20 mg Univers n 20 mg 2-09 by mouth ity of tablet 15:14: at [place] [address] bedtime. Medical Branch Donepezil 2020-09 Yes Take by Unive rs (ARICEPT) 2-09 mouth. ity of 23 mg Tab 15:14: [place] [address] Medical Branch nitroglycer 2020-[address] [...] by mouth. ity of tablet 15:14: [address] furosemide 2020-09 Yes 10mg Take 10 mg U nivers 20 mg 2-09 by mouth. ity of tablet 15:14: [address] niacin 500 2020-09 Yes 500mg Take 500 Un robert mg tablet 2-09 mg by ity of 15:14: mouth 2 [place] [address] (two) Medical times Branch daily. losartan 2020-09 Yes 100mg Take 100 Univ ers 100 mg 2-09 mg by ity of tablet 15:14: mouth [place] [address] daily. Medical Branch amLODIPine 2020-09 Yes 5mg Take 5 mg Un robert 5 mg tablet 2-09 by mouth ity of 15:14: daily. [address] tamsulosin 2020-09 Yes .4mg Take 0.4 Uni vers 0.4 mg 24 2-09 mg by ity of hr capsule 15:14: mouth. [address] finasteride 2020-09 Yes 5mg Take 5 mg U nivers 5 mg tablet 2-09 by mouth. ity of 15:14: [address] levothyroxi 2020-09 Yes 50ug Take 50 Uni vers ne 50 mcg 2-09 mcg by ity of tablet 15:14: mouth. [address] vitamin C 2020-09 Yes 1000mg Take 1,000 Univers with alban 2-09 mg by ity of hips 1,000 15:14: mouth. [place] mg tablet [address] [place] [address] Branch aspirin 81 2020-09 Yes 81mg Take 81 mg U nivers mg Cap 2-09 by mouth. ity of 15:14: [address] Magnesium 2020-09 Yes 400mg Take 400 Uni vers Hydroxide 2-09 mg by ity of 400 mg (170 15:14: [place]. [place] magnesium[place] Branch Chew citalopram 2020-09 Yes 20mg Take 20 mg U nivers (CELEXA) 20 2-09 by mouth ity of mg tablet 15:14: daily. [address] medium 2020-09 Yes Take by Univers chain 2-09 mouth. ity of triglycerid 15:14: [facility] (MCT OIL Medical ORAL) Branch omega 2020-09 Yes 1000mg Take 1,000 Univ ers 3-dha-epa-f 2-09 mg by ity of joseph oil 15:14: mouth. [place] (FISH OIL) Medical 100-160-1,0 Branch 00 mg Cap vitamin 2020-09 Yes 1000ug Take 1,000 Un robert B-12 2-09 mcg by ity of (VITAMIN 15:14: mouth [place] B-12) 1,000 36 daily. Medica l mcg tablet Branch COCONUT OIL 2020-09 Yes Take by Uni vers ORAL 2-09 mouth. ity of 15:14: [address] Branch atorvastati 2020-09 Yes 20mg Take 20 mg Univers n 20 mg 2-09 by mouth ity of tablet 15:14: at [place] [address] bedtime. Medical Branch Donepezil 2020-09 Yes Take by Unive rs (ARICEPT) 2-09 mouth. ity of 23 mg Tab 15:14: [address] Branch nitroglycer 2020-[address] 0.4 U nivers in 2-09 mg under ity of (NITROSTAT) 15:14: the tongue [place] 0.4 mg 36 every 5 Medical sublingual (five) Branch tablet minutes as needed for Chest pain. traMADol 2020-09 Yes 50mg Take 50 mg Uni vers (ULTRAM) 50 2-09 by mouth ity of mg/10 mL 15:14: every 4 [place] [address] (four) Medical syringe hours as Branch needed. pravastatin 2020-09 Yes 40mg Take 40 mg Univers 40 mg 2-09 by mouth. ity of tablet 15:14: [address] Branch furosemide 2020-09 Yes 10mg Take 10 mg U nivers 20 mg 2-09 by mouth. ity of tablet 15:14: [address] Branch niacin 500 2020-09 Yes 500mg Take 500 Un robert mg tablet 2-09 mg by ity of 15:14: mouth 2 [place] [address] (two) Medical times Branch daily. losartan 2020-09 Yes 100mg Take 100 Univ ers 100 mg 2-09 mg by ity of tablet 15:14: mouth [place] [address] daily. Medical Branch amLODIPine 2020-09 Yes 5mg Take 5 mg Un robert 5 mg tablet 2-09 by mouth ity of 15:14: daily. [address] Branch tamsulosin 2020-09 Yes .4mg Take 0.4 Uni vers 0.4 mg 24 2-09 mg by ity of hr capsule 15:14: mouth. [address] finasteride 2020-09 Yes 5mg Take 5 mg U nivers 5 mg tablet 2-09 by mouth. ity of 15:14: [address] Branch levothyroxi 2020-09 Yes 50ug Take 50 Uni vers ne 50 mcg 2-09 mcg by ity of tablet 15:14: mouth. [address] vitamin C 2020-09 Yes 1000mg Take 1,000 Univers with alban 2-09 mg by ity of hips 1,000 15:14: mouth. [place] mg tablet [address] [place] [address] Branch aspirin 81 2020-09 Yes 81mg Take 81 mg U nivers mg Cap 2-09 by mouth. ity of 15:14: [address] Magnesium 2020-09 Yes 400mg Take 400 Uni vers Hydroxide 2-09 mg by ity of 400 mg (170 15:14: [place]. [place] mg [place] magnesium) Branch Chew citalopram 2020-09 Yes 20mg Take 20 mg U nivers (CELEXA) 20 2-09 by mouth ity of mg tablet 15:14: daily. [address] medium 2020-09 Yes Take by Univers chain 2-09 mouth. ity of triglycerid 15:14: [facility] (MCT OIL 36 Medical ORAL) Branch omega 2020-09 Yes 1000mg Take 1,000 Univ ers 3-dha-epa-f 2-09 mg by ity of joseph oil 15:14: mouth. [place] (FISH OIL) Medical 100-160-1,0 Branch 00 mg Cap vitamin 2020-09 Yes 1000ug Take 1,000 Un robert B-12 2-09 mcg by ity of (VITAMIN 15:14: mouth [place] B-12) 1,000 36 daily. Medica l mcg tablet Branch COCONUT OIL 2020-09 Yes Take by Uni vers ORAL 2-09 mouth. ity of 15:14: [address] atorvastati 2020-09 Yes 20mg Take 20 mg Univers n 20 mg 2-09 by mouth ity of tablet 15:14: at [place] [address] bedtime. Medical Branch Donepezil 2020-09 Yes Take by Unive rs (ARICEPT) 2-09 mouth. ity of 23 mg Tab 15:14: [address] nitroglycer 2020-[address] 0.4 U nivers in 2-09 mg under ity of (NITROSTAT) 15:14: the tongue [place] 0.4 mg 36 every 5 Medical sublingual (five) Branch tablet minutes as needed for Chest pain. Docusate Yes 100mg Take 100 Univ ers Sodium 100 9-09 mg by ity of mg tablet 16:20: mouth. [address] Branch Docusate Yes 100mg Take 100 Univ ers Sodium 100 9-09 mg by ity of mg tablet 16:20: mouth. [address] Branch Docusate Yes 100mg Take 100 Univ ers Sodium 100 9-09 mg by ity of mg tablet 16:20: mouth. [address] Branch Docusate Yes 100mg Take 100 Univ ers Sodium 100 9-09 mg by ity of mg tablet 16:20: mouth. [address] Branch pravastatin Yes Method i (PRAVACHOL) 1-24 st [...] soln metoclopram Yes Method i morenita 04-10 (REGLAN) 10 00:00: Hospit a MG tablet 00 l SUPREP 2017-0 Yes Methodi BOWEL PREP 04-10 KIT 00:00: Hospita 17.5-3.13-1 00 l .6 gram recon soln metoclopram 2016-0 Yes Method i morenita 04-10 (REGLAN) 10 00:00: Hospit a MG tablet 00 l SUPREP 2016-0 Yes Methodi BOWEL PREP 04-10 KIT 00:00: Hospita 17.5-3.13-1 00 l .6 gram recon soln metoclopram 2016-0 Yes Method i morenita 04-10 (REGLAN) 10 00:00: Hospit a MG tablet 00 l SUPREP 2016-0 Yes Methodi BOWEL PREP 04-10 KIT 00:00: Hospita 17.5-3.13-1 00 l .6 gram recon soln metoclopram 2016-0 Yes [facility]: Hospit a MG tablet 00 l SUPREP 0 Yes Methodi BOWEL PREP 04-10 KIT 00:00: Hospita 17.5-3.13-1 00 l .6 gram recon soln metoclopram 2016-0 Yes Method i morenita 04-10 (REGLAN) 10 00:00: Hospit a MG tablet 00 l SUPREP 2016-0 Yes Methodi BOWEL PREP 04-10 KIT 00:00: [...] SUPREP 2016-0 Yes Methodi BOWEL PREP 04-10 KIT 00:00: Hospita 17.5-3.13-1 00 l .6 gram recon soln amoxicillin 2016-0 Yes Method i (AMOXIL) 04-02 500 MG 00:00: Hospita capsule 00 l amoxicillin 2017-0 Yes Method i (AMOXIL) 04-02 st 500 MG 00:00: Hospita capsule 00 l amoxicillin 0 Yes Method i (AMOXIL) 04-02 st 500 [...] 00:00: daily. Hospita tablet 00 l citalopram 0 Yes 20mg QD Take 20 mg [...] 00:00: daily. Hospit a 00 l donepezil 2017 Yes 23mg QD Take 23 mg Me [...] B12 Liquid No 15{ml} QD B12 Liquid [employer] [facility] Booster Booster 1000 1000 1000 [...] Comments Source height 2021-11-09 13:30:00 71 [in_i] [facility] weight 2021-11-09 13:30:00 160 [lb_av] [facility] temperature 2021-11-09 13:30:00 98.2 [degF] [facility] bmi 2021-11-09 13:30:00 22.31 kg/m2 [facility] oximetry 2021-11-09 13:30:00 97.1 % [facility] respiratory rate 2021-11-09 13:30:00 18 /min Comm on [facility] blood pressure 2021-11-09 13:30:00 160 mm[Hg] [facility] - systolic [facility] blood pressure 2021-11-09 13:30:00 66 mm[Hg] [facility] - diastolic [facility] Systolic blood 2021-08-16 21:23:00 151 mm[Hg] Univer sity of pressure [facility] Diastolic blood 2021-08-16 21:23:00 60 mm[Hg] Unive rsity of pressure [facility] Heart rate 2021-08-16 21:23:00 58 /min Universi ty [facility] Respiratory rate 2021-08-16 21:17:00 22 /min Univ ersity [facility] Body height 2021-08-16 21:17:00 180.3 cm Universi ty [facility] Body weight 2021-08-16 21:17:00 78.926 kg Universi ty [facility] BMI 2021-08-16 21:17:00 24.27 kg/m2 [facility] Oxygen saturation in 2021-08-16 21:17:00 98 /min [facility] Arterial blood by [facility] Pulse oximetry Branch height 2021-07-16 13:00:00 71 [in_i] [facility] weight 2021-07-16 13:00:00 179 [lb_av] [facility] temperature 2021-07-16 13:00:00 98.3 [degF] [facility] bmi 2021-07-16 13:00:00 24.96 kg/m2 [facility] oximetry 2021-07-16 13:00:00 95 % [facility] blood pressure 2021-07-16 13:00:00 130 mm[Hg] [facility] - systolic [facility] blood pressure 2021-07-16 13:00:00 61 mm[Hg] [facility] - diastolic [facility] Systolic blood 2022-03-22 19:39:00 153 mm[Hg] [facility] pressure Diastolic blood 2022-03-22 19:39:00 74 mm[Hg] [facility] pressure Heart rate 2022-03-22 19:39:00 57 [facility] 2022-03-22 19:39:00 180.3 cm [facility] Body weight 2022-03-22 19:39:00 78.563 kg [facility] BMI 2022-03-22 19:39:00 24.16 kg/m2 [facility] Oxygen saturation in 2022-03-22 19:39:00 97 /min [facility] Arterial blood by Pulse oximetry Procedures Procedure Date / Time Performing Clinician Source Performed ECG 12-LEAD 2022-03-22 19:54:[address] [facility] V. DME/SUPPLY JUSTIFICATION 2021-08-20 06:01:00 Doctor Unassigned, No [facility] Plan of Care Planned Activity Planned Date Details Comments Source Future Scheduled 2023-03-10 COVID-19 VACCINE (#1) [facility] Test 10:07:09 [code = COVID-19 VACCINE (#1)] Future Scheduled 2023-03-10 [address] [facility] Test 10:07:09 VACCINE (1 - PCV) [code = 65+ PNEUMOCOCCAL VACCINE (1 - PCV)] Future Scheduled 2023-03-10 SHINGLES VACCINES (1 Met [facility] Test 10:07:09 of 2) [code = SHINGLES VACCINES (1 of 2)] Future Scheduled 2023-03-10 INFLUENZA VACCINE [facility] Test 10:07:09 [code = INFLUENZA VACCINE] Future Scheduled 2023-03-08 COVID-19 VACCINE (#1) [facility] Test 11:59:14 [code = COVID-19 VACCINE (#1)] Future Scheduled 2023-03-08 65+ [facility] Test 11:59:14 VACCINE (1 - PCV) [code = 65+ PNEUMOCOCCAL VACCINE (1 - PCV)] Future Scheduled 2023-03-08 SHINGLES VACCINES (1 Met [facility] Test 11:59:14 of 2) [code = SHINGLES VACCINES (1 of 2)] Future Scheduled 2023-03-08 INFLUENZA VACCINE [facility] Test 11:59:14 [code = INFLUENZA VACCINE] Future Scheduled 2022-12-11 COVID-19 VACCINE (#1) [facility] Test 11:56:52 [code = COVID-19 VACCINE (#1)] Future Scheduled 2022-12-11 65+ [facility]AL [facility] Test 11:56:52 VACCINE (1 - PCV) [code = 65+ PNEUMOCOCCAL VACCINE (1 - PCV)] Future Scheduled 2022-12-11 SHINGLES VACCINES (1 Met [facility] Test 11:56:52 of 2) [code = SHINGLES VACCINES (1 of 2)] Future Scheduled 2022-12-11 INFLUENZA VACCINE Method [facility] Hospital Test 11:56:52 [code = INFLUENZA VACCINE] Future Scheduled 2022-09-10 COVID-19 VACCINE (#1) [facility] Test 10:41:34 [code = COVID-19 VACCINE (#1)] Future Scheduled 2022-09-10 65+ PNEUMOCOCCAL [facility] Hospital Test 10:41:34 VACCINE (1 - PCV) [code = 65+ PNEUMOCOCCAL VACCINE (1 - PCV)] Future Scheduled 2022-09-10 SHINGLES VACCINES (1 Met [facility] Test 10:41:34 of 2) [code = SHINGLES VACCINES (1 of 2)] Future Scheduled 2022-09-10 INFLUENZA VACCINE [facility] Hospital Test 10:41:34 [code = INFLUENZA VACCINE] Future Scheduled 2022-09-10 COVID-19 VACCINE (#1) [facility] Test 10:41:34 [code = COVID-19 VACCINE (#1)] Future Scheduled 2022-09-10 65+ PNEUMOCOCCAL [facility] Hospital Test 10:41:34 VACCINE (1 - PCV) [code = 65+ PNEUMOCOCCAL VACCINE (1 - PCV)] Future Scheduled 2022-09-10 SHINGLES VACCINES (1 Met [facility] Test 10:41:34 of 2) [code = SHINGLES VACCINES (1 of 2)] Future Scheduled 2022-09-10 INFLUENZA VACCINE Method is Hospital Test 10:41:34 [code = INFLUENZA VACCINE] Future Scheduled 2022-07-18 HEPATITIS B VACCINES Met [facility] Test 15:57:47 (1 of 3 - 3-dose series) [code = HEPATITIS B VACCINES (1 of 3 - 3-dose series)] Future Scheduled 2022-07-18 COVID-19 VACCINE (#1) [facility] Test 15:57:47 [code = COVID-19 VACCINE (#1)] Future Scheduled 2022-07-18 65+ PNEUMOCOCCAL Methodi Hospital Test 15:57:47 VACCINE (1 - PCV) [code = 65+ PNEUMOCOCCAL VACCINE (1 - PCV)] Future Scheduled 2022-07-18 SHINGLES VACCINES (1 Met [facility] Test 15:57:47 of 2) [code = SHINGLES VACCINES (1 of 2)] Future Scheduled 2022-07-18 INFLUENZA VACCINE [facility] Test 15:57:47 [code = INFLUENZA VACCINE] Future Scheduled 2022-07-18 HEPATITIS B VACCINES Met [facility] Test 15:57:47 (1 of 3 - 3-dose series) [code = HEPATITIS B VACCINES (1 of 3 - 3-dose series)] Future Scheduled 2022-07-18 COVID-19 VACCINE (#1) [facility] Test 15:57:47 [code = COVID-19 VACCINE (#1)] Future Scheduled 2022-07-18 65+ [facility] 15:57:47 VACCINE (1 - PCV) [code = 65+ PNEUMOCOCCAL VACCINE (1 - PCV)] Future Scheduled 2022-07-18 SHINGLES VACCINES (1 [facility] Test 15:57:47 of 2) [code = SHINGLES VACCINES (1 of 2)] Future Scheduled 2022-07-18 INFLUENZA VACCINE [facility] 15:57:47 [code = INFLUENZA VACCINE] Future Scheduled 2022-04-24 HEPATITIS B VACCINES Met [facility] Test 09:34:27 (1 of 3 - 3-dose series) [code = HEPATITIS B VACCINES (1 of 3 - 3-dose series)] Future Scheduled 2022-04-24 COVID-19 VACCINE (#1) [facility] Test 09:34:27 [code = COVID-19 VACCINE (#1)] Future Scheduled 2022-04-24 65+ [facility]CCAL [facility] 09:34:27 VACCINE (1 - PCV) [code = 65+ PNEUMOCOCCAL VACCINE (1 - PCV)] Future Scheduled 2022-04-24 SHINGLES VACCINES (1 [facility] Test 09:34:27 of 2) [code = SHINGLES VACCINES (1 of 2)] Future Scheduled 2022-04-24 INFLUENZA VACCINE [facility] Test 09:34:27 [code = INFLUENZA VACCINE] Encounters Start End Encounter Admission Attending Care Care Encounter Source Date/Time Date/Time Type Type Clinicians Facility Department ID 2021-10-03 Outpatient Ade, [facility] [id number] Common 14:08:18 Anshul [id number] [facility] 2021-10-03 Outpatient Ade, [facility] [id number] Common 13:12:42 Anshul [id number] [facility] 2023-03-10 2023-03-10 Telephone Brandon, 1.2.840.1 [id number] Methodi 00:00:00 00:00:[address] 3.430.2.7 Hospit a .3.331885 l .8 2023-03-06 2023-03-06 Telephone [place] 1.2.840.1 [id number] Methodi 00:00:00 00:00:[address] V[address] 3.430.2.7 Hospit a .3.696800 l .8 2023-03-06 2023-03-06 Telephone [place] 1.2.840.1 [id number] Methodi 00:00:00 00:00:[address] V[address] 3.430.2.7 Hospit a .3.791743 l .8 2022-05-24 2022-05-24 (TEL[facility] [id number] Co mmon 00:00:00 00:00:00 [facility] 2022-04-19 2022-04-19 Telemedici [place] 1.2.840.1 [id number] Methodi 16:45:00 17:00:[address] V. 3.430.2.7 Hospit a .3.472249 l .8 2022-04-19 2022-04-19 Telemedici [place] 1.2.840.1 [id number] Methodi 16:45:00 17:00:00 [place] oKenn [address]67.1.[address] V. 3.430.2.7 Hospit a .3.602758 l .8 2022-04-18 2022-04-18 Telephone [place] 1.2.840.1 [id number] Methodi 00:00:00 00:00:00 o, Kenn 06062.1.[address] V. 3.430.2.7 Hospit a .3.653770 l .8 2022-04-18 2022-04-18 Telephone [place] 1.2.840.1 [id number] Methodi 00:00:00 00:00:00 o, Kenn 65325.1.[address] V. 3.430.2.7 Hospit a .3.575896 l .8 2022-04-10 2022-04-10 Telephone [place] 1.2.840.1 [id number] Methodi 00:00:00 00:00:[address] V. 3.430.2.7 Hospit a .3.767045 l .8 2022-04-10 2022-04-10 Telephone [place] 1.2.840.1 [id number] Methodi 00:00:00 00:00:00 o, Kenn Chilel50.1.[address] V. 3.430.2.7 Hospit a .3.814842 l .8 2022-03-22 2022-03-22 Office [place] 1.2.840.1 [id number] Methodi 14:00:00 15:17:00 Visit o, Kenn Chilel50.1.[address] V. 3.430.2.7 Hospit a .3.145940 l .8 2022-03-22 2022-03-22 Office [place] 1.2.840.1 [id number] Methodi 14:00:00 15:17:[address] V. 3.430.2.7 Hospit a .3.064482 l .8 2022-03-22 2022-03-22 Travel 1.2.840.1 1.2.976.245 [id number] Methodi 00:00:00 00:00:[address] 3.430.2.7 0.2.7.3.698 Ho spita .3.422196 084.8 l .8 2022-03-22 2022-03-22 Travel 1.2.840.1 1.2.716.582 [id number] Methodi 00:00:00 00:00:[address] 3.430.2.7 0.2.7.3.698 Ho spita .3.374744 084.8 l .8 2022-01-10 2022-01-10 (TEL) [facility] [id number] Co mmon 00:00:00 00:00:00 [facility] 2022-01-09 2022-01-09 Phone Only [facility] [id number] Common 00:00:00 00:00:00 Visit for Spir it Est MCR [facility] 2021-11-16 2021-11-16 (TEL) [facility] [id number] Co mmon 00:00:00 00:00:00 [facility] 2021-11-09 2021-11-09 (PROC) [facility] [id number] Co mmon 00:00:00 00:00:00 Procedure Spir it [facility] 2021-08-23 2021-08-23 Telephone CHERELLE Brandon 1.2.273.889 [id number] Univers 00:00:00 00:00:00 Krystyna NAIR 350.1.13.10 i ty [place] [phone] Al dical NAL 085 [facility] 2021-08-20 2021-08-20 Orders Doctor OLIVIA 1.2.840.114 [id number] Univers 00:00:00 00:00:00 Only Unassigned, PEEWEE 350.1.13.10 ity of [place] [facility] 4.2.7.2.686 Terry as [phone] [address] 2021-08-16 2021-08-16 Outpatient R WADE [place]ONROB[place] 10 [id number] Univers 15:00:00 15:45:27 ROMA KRYSTYNA lr ty [facility] 2021-08-16 2021-08-16 [facility] 1.2.840.114 [id number] Univers 14:58:58 15:45:27 Visit Krystyna NAIR 350.1.13.10 i [place] [phone] Al dical NAL [address] [place] [address] 2021-08-16 2021-08-16 Outpatient R WADE BRANDONALEmily [facility] 10 [id number] Univers 15:00:00 15:00:00 ROMA KRYSTYNA lr [facility] 2021-07-26 2021-07-26 OL DIG E/M [facility] [id number] Common 00:00:00 00:00:00 SVC 5-10 Spiri t MIN [facility] 2021-07-18 2021-07-18 (TEL) [facility] [id number] Co mmon 00:00:00 00:00:00 [facility] 2021-07-16 2021-07-16 (PROC) [facility] [id number] Co mmon 00:00:00 00:00:00 Procedure Spir it [facility] 2021-07-16 2021-07-16 (TEL) [facility] [id number] Co mmon 00:00:00 00:00:00 [facility] 2021-05-17 2021-05-17 [facility] 1.2.840.114 [id number] Univers 15:27:51 16:36:22 Visit Krystyna Nair 350.1.13.10 i [place] [phone] Al dical nal [address] [place] [address] 2021-05-17 2021-05-17 Outpatient R ROMA [facility] 10 [id number] Univers 15:10:00 15:10:00 KRYSTYNA BRANDON i ty of [facility] 2021-05-17 2021-05-17 Orders Doctor OLIVIA 1.2.840.114 [id number] Univers 00:00:00 00:00:00 Only Unassigned, PEEWEE 350.1.13.10 ity of [place] [facility] 4.2.7.2.686 Terry as [phone] [place] [address] [place] 2021-05-17 2021-05-17 Orders Doctor OLIVIA 1.2.840.114 [id number] Univers 00:00:00 00:00:00 Only Unassigned, PEEWEE 350.1.13.10 ity of [place] [facility] 4.2.7.2.686 Terry as [id number] [address] Results Test Description Test Time Test [...] Atrial fibrillation with slow vent ricular response- [address]2022-07-16 05:43:23 Test Item Value Reference Range [...] code = 273) with slow ventricular response- [address]2022-07-16 05:43:23 Test Item Value Reference Range [...] code = 273) with slow ventricular response- [address]2022-07-16 05:43:23 Test Item Value Reference Range [...] code = 273) with slow ventricular response- [address]2022-07-16 05:43:23 Test Item Value Reference Range [...] code = 273) with slow ventricular response- [address]2022-07-16 05:43:23 Test Item Value Reference Range [...] code = 273) with slow ventricular response- [address]2022-07-16 05:43:23 Test Item Value Reference Range [...] code = 273) with slow ventricular response- [facility] 12 [id number] 05:43:23 Test Item Value Reference Range Interpretation [...] code = 273) with slow ventricular response- [facility]
--- NOTE | 2023-03-11 11:39 | RAD REPORT ---
EXAM DESCRIPTION: Pedro Luis Single View03/11/2023 11:26 am CLINICAL HISTORY: Cough COMPARISON: March 09, 2023 FINDINGS: The lungs appear clear of acute infiltrate. The heart is moderately enlarged. Postsurgica l changes involve the chest IMPRESSION: No acute abnormalities displayed
[2023-03-11 11:40] LABS: Absolute Lymphocytes (CBC) 0.6 K/uL (0.7-4.9); Hematocrit 23.6 % (39.6-49.0); Lymphocytes % 7.2 % (15.3-44.8); MCV 88.3 fL (80-100); MPV 9.6 fL (7.6-11.3); RBC Red Blood Cell Count 2.68 M/uL (4.33-5.43)
[2023-03-11 11:59] LABS: Potassium 4.3 mEq/L (3.5-5.1); Troponin High Sensitivity 20.2 pg/mL (<58.9)
--- NOTE | 2023-03-11 12:33 | ER ---
Nurse's Notes [facility] Name: Bridger Murillo Age: 82 yrs Sex: Male : 1940 Arrival Date: 03/11/2023 Time: 10:45 Bed 13 Private MD: Anshul Booker V Diagnosis: Acute respiratory failure with hypoxia;Anemia, unspecified;Cough Presentation: 03/11 11:06 Chief complaint: Parent and/or Guardian states: Cough and wheezing started this jl7 morning. Coronavirus screen: At this time, the client does not indicate any symptoms associated with coronavirus-19. Ebola Screen: No symptoms or risks identified at this time. Initial Sepsis Screen: Does the patient meet any 2 criteria? No. Patient's initial sepsis screen is negative. Does the patient have a suspected source of infection? No. Patient's initial sepsis screen is negative. Risk Assessment: Do you want to hurt yourself or someone else? Patient reports no desire to harm self or others. Onset of symptoms was March 11, 2023. 11:06 Method Of Arrival: Ambulatory jl7 11:06 Acuity: VALENCIA 3 jl7 Triage Assessment: 11:07 General: Appears in no apparent distress. uncomfortable, Behavior is cooperative. Pain: jl7 Denies pain. Respiratory: Airway is patent Respiratory effort is even, unlabored, Respiratory pattern is regular, symmetrical. Historical: - Allergies: 11:07 Nemenda; jl7 11:07 Sulfa (Sulfonamide Antibiotics); jl7 - PMHx: 11:07 Alzheimer's; Anemia; aortic valve disease; Atrial Fib; barretts; Bladder cancer; BPH; jl7 CAD; CVA; Hyperlipidemia; Hypertension; Kidney stones; Non stemi [place]; skin cancer; - PSHx: 11:07 bypass; Colostomy; jl7 - Immunization history:: Adult Immunizations up to date. - Social history:: Smoking status: unknown. Screenin:38 [facility] ED Fall Risk Assessment (Adult) History of falling in the last 3 months, kc6 including since admission No falls in past 3 months (0 pts) Confusion or Disorientation No (0 pts) Intoxicated or Sedated No (0 pts) Impaired Gait Yes (1 pt) Mobility Assist Device Used Yes (1 pt) Altered Elimination Yes (1 pt) Score/Fall Risk Level 3 or more points = High Risk Oriented to surroundings, Maintained a safe environment, Educated pt \T\ family on fall prevention, incl call for assistance when getting out of bed, Assessed \T\ reinforced patient's understanding of fall precautions, Hourly rounding (assess needs \T\ fall precautionary measures) done. Abuse screen: Denies threats or abuse. Denies injuries from another. Nutritional screening: No deficits noted. Tuberculosis screening: No symptoms or risk factors identified. Assessment: 11:39 General: Appears in no apparent distress. comfortable, Behavior is calm, cooperative, kc6 appropriate for age. Pain: Denies pain. Neuro: Level of Consciousness is awake, alert, obeys commands, Oriented to person, place, time, situation, Appropriate for age. Cardiovascular: Heart tones S1 S2 present Capillary refill < 3 seconds Rhythm is atrial fibrillation. Respiratory: Airway is patent Trachea midline Respiratory effort is even, unlabored, Respiratory pattern is regular, symmetrical, Breath sounds with wheezes bilaterally. Parent/caregiver reports the patient having cough that is non-productive. GI: No signs and/or symptoms were reported involving the gastrointestinal system. : No signs and/or symptoms were reported regarding the genitourinary system. EENT: No signs and/or symptoms were reported regarding the EENT system. Derm: No signs and/or symptoms reported regarding the dermatologic system. Skin is intact, Skin is pink, warm \T\ dry. Musculoskeletal: No signs and/or symptoms reported regarding the musculoskeletal system. Circulation, motion, and sensation intact. Capillary refill < 3 seconds, Range of motion: intact in all extremities. 12:49 Reassessment: Patient appears in no apparent distress at this time. No changes from kc6 previously documented assessment. Patient and/or family updated on plan of care and expected duration. Pain level reassessed. Patient is alert, oriented x 3, equal unlabored respirations, skin warm/dry/pink. 13:49 Reassessment: Patient appears in no apparent distress at this time. No changes from kc6 previously documented assessment. Patient and/or family updated on plan of care and expected duration. Pain level reassessed. Patient is alert, oriented x 3, equal unlabored respirations, skin warm/dry/pink. 14:26 Reassessment: attempted to call report to second floor, nurse unavailable at this time. kc6 14:46 Reassessment: Patient appears in no apparent distress at this time. No changes from kc6 previously documented assessment. Patient and/or family updated on plan of care and expected duration. Pain level reassessed. Patient is alert, oriented x 3, equal unlabored respirations, skin warm/dry/pink. Vital Signs: 11:06 BP 118 / 52; Pulse 86; Resp 18; Pulse Ox 91% ; jl7 11:09 Temp 99.5(O); jl7 12:49 BP 132 / 70; Pulse 70; Resp 18 S; Pulse Ox 93% on R/A; kc6 14:46 BP 127 / 81; Pulse 61; Resp 18 S; Pulse Ox 94% on R/A; kc6 ED Course: 10:47 Patient arrived in ED. mr 10:47 Anshul Booker MD is Private Physician. mr 10:53 Collin Sarmiento DO is Attending Physician. ms3 11:07 Triage completed. jl7 11:07 Arm band placed on right wrist. jl7 11:11 Michell Turk, RN is Primary Nurse. kc6 11:28 XRAY Chest (1 view) In Process Unspecified. EDMS 11:33 Inserted saline lock: 22 gauge in right antecubital area, using aseptic technique. kc6 Blood collected. 11:39 Patient has correct armband on for positive identification. Bed in low position. Call kc6 light in reach. Side rails up X2. Adult w/ patient. 12:32 Anshul Booker MD is Hospitalizing Provider. ms3 15:41 No provider procedures requiring assistance completed. IV discontinued, intact, kc6 bleeding controlled, No redness/swelling at site. Pressure dressing applied. Administered Medications: 13:56 Drug: levofloxacin IVPB 750 mg Volume: 150 ml; Route: IVPB; Infused Over: 90 mins; kc6 Site: right antecubital; 14:46 Follow up: Response: No adverse reaction; IV Status: Completed infusion; IV Intake: kc6 150ml Medication: 15:42 VIS not applicable for this client. kc6 Intake: 14:46 IV: 150ml; Total: 150ml. kc6 Outcome: 12:32 Decision to Hospitalize by Provider. ms3 15:41 Discharged to home via wheelchair, with significant other. kc6 15:41 Condition: stable 15:41 Discharge instructions given to family, edge cutter, Instructed on discharge instructions, follow up and referral plans. medication usage, Demonstrated understanding of instructions, follow-up care, medications, Prescriptions given X 1. 15:42 Patient left the ED. kc6 Signatures: Dispatcher [employer] Rae Mccoy Jahala, RN RN jl7 Collin Sarmiento DO DO ms3 Michell Turk, RN RN kc6
--- NOTE | 2023-03-11 12:33 | EDPHYS ---
Physician Documentation [facility] Name: Bridger Murillo Age: 82 yrs Sex: Male : 1940 Arrival Date: 03/11/2023 Time: 10:45 Bed 13 Private MD: Anshul Booker V ED Physician Collin Sarmiento HPI: 03/11 11:14 This 82 yrs old Male presents to ER via Ambulatory with complaints of Wheezing, Cough. ms3 11:14 82-year-old male with past medical history of Alzheimer's, anemia, aortic valve ms3 disease, atrial fibrillation, Sharma's esophagus, bladder cancer, BPH, coronary artery disease, CVA, hyperlipidemia, hypertension, kidney stones presents for cough, wheezing that began this morning. Patient's daughter states patient's oxygen saturation is in the high 80s when patient tucks his chin down. Patient's daughter states patient has not had fevers, chills, nausea, vomiting. Family is also concerned as patient's hemoglobin has continued to decrease and was 8.3 on Friday in the emergency department.. Historical: - Allergies: 11:07 Nemenda; jl7 11:07 Sulfa (Sulfonamide Antibiotics); jl7 - PMHx: 11:07 Alzheimer's; Anemia; aortic valve disease; Atrial Fib; barretts; Bladder cancer; BPH; jl7 CAD; CVA; Hyperlipidemia; Hypertension; Kidney stones; Non stemi [place]; skin cancer; - PSHx: 11:07 bypass; Colostomy; jl7 - Immunization history:: Adult Immunizations up to date. - Social history:: Smoking status: unknown. ROS: 11:14 Constitutional: Negative for fever, and chills. Neck: Negative for injury, pain, and ms3 swelling, Cardiovascular: Negative for chest pain, and palpitations. Abdomen/GI: Negative for abdominal pain, nausea, vomiting, diarrhea, and constipation, MS/Extremity: Negative for injury and deformity, Skin: Negative for injury, rash, and discoloration. 11:14 Respiratory: Positive for cough, wheezing. 11:14 All other systems are negative. Exam: 11:14 Constitutional: This is a well developed, well nourished patient who is awake, alert, ms3 and in no acute distress. Head/Face: Normocephalic, atraumatic. Neck: Trachea midline, no cervical lymphadenopathy. Supple, full range of motion without nuchal rigidity, or vertebral point tenderness. No Meningismus. Chest/axilla: Normal chest wall appearance and motion. Nontender with no deformity. Cardiovascular: Regular rate and rhythm with a normal S1 and S2. No gallops, murmurs, or rubs. Normal PMI, no JVD. No pulse deficits. Respiratory: Lungs have equal breath sounds bilaterally, clear to auscultation and percussion. No rales, rhonchi or wheezes noted. No increased work of breathing, no retractions or nasal flaring. Abdomen/GI: Soft, non-tender, with normal bowel sounds. No distension or tympany. No guarding or rebound. No evidence of tenderness throughout. Skin: Warm, dry with normal turgor. Normal color with no rashes, no lesions, and no evidence of cellulitis. MS/ Extremity: Pulses equal, no cyanosis. Neurovascular intact. Full, normal range of motion. 11:49 ECG was reviewed by the Attending Physician. ms3 Vital Signs: 11:06 BP 118 / 52; Pulse 86; Resp 18; Pulse Ox 91% ; jl7 11:09 Temp 99.5(O); jl7 12:49 BP 132 / 70; Pulse 70; Resp 18 S; Pulse Ox 93% on R/A; kc6 14:46 BP 127 / 81; Pulse 61; Resp 18 S; Pulse Ox 94% on R/A; kc6 MDM: 11:11 Patient medically screened. ms3 11:14 Differential Diagnosis: Bronchitis Upper Respiratory Infection Viral Syndrome Pneumonia ms3 Other Anemia vs CHF vs [place]. 12:27 Data reviewed: vital signs, nurses notes, lab test result(s), radiologic studies, and ms3 as a result, I will admit patient. Consideration of Admission/Observation Patient was admitted/placed on observation. Management of patient was discussed with the following: Hospitalist: Dr Booker. I considered the following discharge prescriptions or medication management in the emergency department Medications were administered in the Emergency Department. See MAR. Historians other than the Patient: Spouse/Significant Other: . Care significantly affected by the following chronic conditions: A Fib, Dementia. Counseling: I had a detailed discussion with the patient and/or guardian regarding: the historical points, exam findings, and any diagnostic results supporting the discharge/admit diagnosis, lab results, radiology results, the need for further work-up and treatment in the hospital. ED course: Discussed case with Dr Booker. Would like patient to have Levaquin 750 mg every other day. Chemistries in the AM.. 0704 11:11 Order name: Basic Metabolic Panel; Complete Time: 11:59 ms3 0704 11:11 Order name: CBC with Diff; Complete Time: 11:49 ms3 03/11 11:11 Order name: NT PRO-BNP; Complete Time: 11:59 ms3 03/11 11:11 Order name: Troponin HS; Complete Time: 11:59 ms3 03/11 12:38 Order name: Basic Metabolic Panel EDMS 03/11 12:38 Order name: Basic Metabolic Panel EDMS 03/11 12:38 Order name: CBC with Automated Diff EDMS 03/11 12:38 Order name: CBC with Automated Diff EDMS 03/11 12:38 Order name: NT PRO-BNP EDMS 03/11 12:38 Order name: NT PRO-BNP EDMS 03/11 12:38 Order name: Troponin High Sensitivity EDMS 03/11 14:28 Order name: Type And Screen ms3 03/11 14:30 Order name: Bb Add On ms3 03/11 11:11 Order name: XRAY Chest (1 view); Complete Time: 11:49 ms3 03/11 11:11 Order name: EKG; Complete Time: 11:12 ms3 03/11 12:38 Order name: Regular EDMS 03/11 11:11 Order name: Cardiac monitoring; Complete Time: 11:33 ms3 03/11 11:11 Order name: EKG - Nurse/Tech; Complete Time: 11:33 ms3 03/11 11:11 Order name: IV Saline Lock; Complete Time: 11:33 ms3 03/11 11:11 Order name: Labs collected and sent; Complete Time: 11:33 ms3 03/11 11:11 Order name: O2 Per Protocol; Complete Time: 11:11 ms3 03/11 11:11 Order name: O2 Sat Monitoring; Complete Time: 11:11 ms3 EC:49 Rate is 82 beats/min. Rhythm is irregularly irregular. QRS [place] is Normal. QRS interval ms3 is normal. Clinical impression: Atrial Fibrillation. Interpreted by me. Reviewed by me. Administered Medications: 13:56 Drug: levofloxacin IVPB 750 mg Volume: 150 ml; Route: IVPB; Infused Over: 90 mins; kc6 Site: right antecubital; 14:46 Follow up: Response: No adverse reaction; IV Status: Completed infusion; IV Intake: kc6 150ml Disposition Summary: 03/11/23 12:32 Hospitalization Ordered Hospitalization Status: Inpatient Admission ms3 Provider: Anshul Booker ms3 [facility] ms3 Condition: Stable ms3 Problem: new ms3 Symptoms: are unchanged ms3 Bed/Room Type: Standard ms3 Room Assignment: (03/11/23 15:14) jl7 Diagnosis - Acute respiratory failure with hypoxia ms3 - Anemia, unspecified ms3 - Cough ms3 Forms: - Medication Reconciliation Form ms3 - SBAR form ms3 Signatures: Dispatcher [employer] EDBrad Wade em1 Deepika Wilkerson RN RN jl7 Collin Sarmiento DO DO ms3 Michell Turk RN RN kc6 Corrections: (The following items were deleted from the chart) 13:39 12:32 ms3 em1 15:14 13:39 212 em1 jl7
[2023-03-11] MEDS ORDERED: IPRATROPIUM BROM 0.5MG/2.5ML NEB PRN (12:34)
[2023-03-11] MEDS ORDERED: ACETAMINOPHEN 500 MG TAB PO PRN (12:34)
[2023-03-11] MEDS ORDERED: ONDANSETRON 4 MG/2 ML VIAL IV PRN (12:34)
[2023-03-11] MEDS ORDERED: ALBUTEROL 2.5 MG/3 ML NEB SOL NEB PRN (12:34)
[2023-03-11] MEDS ORDERED: Levofloxacin 750mg IV 750 MG/150 ML BAG IV SCH (13:00)
[2023-03-11] MEDS ORDERED: Levofloxacin 750mg IV 750 MG/150 ML BAG IV ONE (14:00)
--- NOTE | 2023-03-11 15:34 | P.SSS ---
Patient History Date of Service: 03/11/23 Reason for admission: WHEEZES ,COUGH, LOW GRADE FEVER. History of Present Illness: MR ROSALES IS PATIENT WITH SIGNIFICANT DEMENTIA, HISTORY OF AORTIC VALVE REPLACEMENT 14 YEARS AGO, HISTORY OF RECURRENT CHF, CKD 3, ANEMIA OF CHRONIC DISEASE, DEBILITATED STATUS AND COMES WITH ONE DAY OF WHEEZES AND COUGH. 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 FAMILY WANT TO TAKE HIM HOME HE HAS APT FOR ECHO IN [place] IN AM. Allergies memantine HCl [From Namenda] Adverse Reaction (Severe, Verified 08/08/22 23:51) tinnitus Sulfa (Sulfonamide Antibiotics) Adverse Reaction (Unknown, Verified 08/08/22 23:51) unknown/childhood reaction Home Medications: Cyanocobalamin (Vitamin B-12) [B-12] 1,000 mcg PO DAILY 12/12/13 Donepezil HCl [Aricept] 23 mg PO BEDTIME 12/12/13 Niacin [Niacin ER] 500 mg PO BIDWM 12/12/13 Pantoprazole [Protonix Tab*] 40 mg PO DAILY 12/12/13 Tamsulosin [Flomax*] 1 cap PO BEDTIME 12/12/13 Magnesium Oxide [Magnesium] 400 mg PO BID 06/13/14 Cholecalciferol (Vitamin D3) [Vitamin D3] 1,000 units PO BEDTIME 12/01/15 Losartan Potassium [Cozaar] 100 mg PO [id number] 12/01/15 Amlodipine [Norvasc*] 5 mg PO DAILY 01/20/21 Docosahexanoic AC/Epa [Fish Oil 1,000 MG*] 1,000 mg PO DAILY 01/20/21 Levothyroxine Sodium 50 mcg PO [id number] 01/20/21 Aspirin [Aspirin EC 81 MG] 81 mg PO SEECOM 09/19/21 Pravastatin Sodium 40 mg PO BEDTIME 05/07/22 Finasteride 5 mg PO BEDTIME 07/18/22 Torsemide [Demadex*] 20 mg PO DAILY #90 tab 07/19/22 Nitroglycerin [Nitrostat*] 0.4 mg SL PRN PRN 08/09/22 Citalopram Hydrobromide [Celexa] 1 tab PO DAILY 09/23/22 Docusate [Colace Cap*] 1 tab PO BID PRN 09/23/22 Tramadol HCl [Ultram] 1 tab PO Q6HP PRN 09/23/22 Medium Chain Triglycerides [Mct Oil] 15 ml PO DAILY 12/15/22 levoFLOXacin [Levaquin*] 250 mg PO DAILY #7 tab 03/11/23 - Past Medical/Surgical History Diabetic: No -: TINNITUS -: HTN -: AFIB -: CAD -: HYPERLIPIDEMIA -: NSTEMI -: STROKE -: LEGIONAIRE'S DISEASE -: SLEEP APNEA -: ALZHEIMER'S -: SQUAMOS CELL SKIN CANCER -: COLOSTOMY, DIVERTICULITIS, BARRETTS ESOPHAGUS -: QUADRUPLE BYPASS 1991 -: LITHOTRIPSY -: CYSTOSCOPY 2009 -: CYSTOSCOPY 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 -: CARDIAC STENT 2013 -: COLOSTOMY 2013 -: cardiacstent - Family History Father -: Heart disease, Hypertension, Stroke, Cancer Mother -: Heart disease, Hypertension, Diabetes - Social History Alcohol use: No CD- Drugs: No Caffeine use: Yes Review of Systems 10-point ROS is otherwise unremarkable Respiratory: Cough, Shortness of Breath Physical Examination - Physical Exam General: Oriented x2, Mild distress Respiratory: Clear to auscultation bilaterally, Diminished Cardiovascular: No edema, Irregular heart rate/rhythm Gastrointestinal: Normal bowel sounds - Studies Laboratory Data (last 24 hrs) 03/11/23 11:31: WBC 8.20, Hgb 7.6 L, Hct 23.6 L, Plt Count 139 L 03/11/23 11:31: Sodium 139, Potassium 4.3, BUN 34 H, Creatinine 2.38 H, Glucose 157 H - Diagnosis (Problem(s)) (1) Acute bronchiolitis Current Visit: Yes Status: Acute Plan: HE LOOKS VERY COMFORTABLE. FAMILY WANTS TO TAKE HIM HOME SO HE CAN GET ECHO IN [facility]. WEAPONS ENGINEER HAS TOLD THEM THAT THE VALVE MAY NOT BE WORKING WELL. CLINICALLY HE HAS NO SIGNS OF CHF. BNP IS ALWAYS HIGH IN HIM. IN MY OPINION THE VALVULAR FUNCTION IN SOMEONE WHO IS 82 WITH SIGNIFICANT DEMENTIA SHOULD NOT CHANGE THE TREATMENT PLAN. FAMILY WANTS NEW VALVE PATIENT KEEPS ON SAYING "I DON'T WANT TO ". IN MY OPINION THAT SENTENCE IN SOMEONE WITH SIGNIFICANT DEMENTIA SHOULD NOT BE TAKEN SERIOUSLY HE IS NOT TOTALLY LUCID IN SAYING THAT. HE IS NOT DYING NOW. HE IS DECLINING. (2) Alzheimer's dementia Current Visit: No Status: Chronic (3) Atrial fibrillation Current Visit: No Status: Chronic Qualifiers: - Disposition Disposition: ROUTINE DISCHARGE Condition: FAIR
[2023-03-11 16:20] VITALS: TEMP 99.5
[2023-03-11 16:23] VITALS: BP 127/81; O2SAT 94
--- NOTE | 2023-03-12 12:32 | EKG ---
Test Date: 2023-03-11 Test Time: 11:18:27 Soldering Machine Feeder: JULIETTE MEASUREMENT RESULTS: Intervals: Rate: 82 VA: QRSD: 108 QT: 456 QTc: 532 Sanger: P: VA: QRS: 86 T: 259 INTERPRETIVE STATEMENTS: Atrial fibrillation ST & T wave abnormality, consider inferolateral ischemia Prolonged QT Abnormal ECG Compared to ECG 03/09/2023 12:01:05 ST (T wave) deviation now present Possible ischemia now present Myocardial infarct finding no longer present Electronically Signed On 03-12-23 12:31:25 CDT by Dg Hills
== END 2023-03-11 15:41 | disposition home or self-care (01) | DRG 202 ==
LOC: ER 10:45 → ERHOLD 13:22
PROVIDERS: ADMIT Internal Medicine; ATTEND Internal Medicine
DX: J20.9 Acute bronchitis, unspecified (principal); A48.1 Legionnaires' disease; I48.19 Other persistent atrial fibrillation; I13.0 Hypertensive heart and chronic kidney disease with heart failure and stage 1 through stage 4 chronic kidney disease, or unspecified chronic kidney disease; K57.92 Diverticulitis of intestine, part unspecified, without perforation or abscess without bleeding; G30.9 Alzheimer's disease, unspecified; F02.80 Dementia in other diseases classified elsewhere, unspecified severity, without behavioral disturbance, psychotic disturbance, mood disturbance, and anxiety; N18.30 Chronic kidney disease, stage 3 unspecified; I50.9 Heart failure, unspecified; D63.8 Anemia in other chronic diseases classified elsewhere; R53.81 Other malaise; H93.19 Tinnitus, unspecified ear; G47.30 Sleep apnea, unspecified; I25.10 Atherosclerotic heart disease of native coronary artery without angina pectoris; E78.5 Hyperlipidemia, unspecified; K22.70 Barrett's esophagus without dysplasia; N40.0 Benign prostatic hyperplasia without lower urinary tract symptoms; I25.2 Old myocardial infarction; Z95.2 Presence of prosthetic heart valve; Z95.5 Presence of coronary angioplasty implant and graft; Z95.1 Presence of aortocoronary bypass graft; Z79.82 Long term (current) use of aspirin; Z79.899 Other long term (current) drug therapy; Z88.2 Allergy status to sulfonamides; Z88.8 Allergy status to other drugs, medicaments and biological substances; Z86.73 Personal history of transient ischemic attack (TIA), and cerebral infarction without residual deficits; Z85.828 Personal history of other malignant neoplasm of skin; Z85.51 Personal history of malignant neoplasm of bladder; Z82.49 Family history of ischemic heart disease and other diseases of the circulatory system; Z82.3 Family history of stroke; Z80.9 Family history of malignant neoplasm, unspecified; Z83.3 Family history of diabetes mellitus
CPT/HCPCS: 36415; 71045; 80048; 83880; 84484; 85025; 93005; 96365; 99284